=== PATIENT | female | born 1935 | race Caucasian/White ===

== ENCOUNTER → 2016-08-14 | Day surgery (SDC) | payer OTHER ==
[2016-07-30 10:43] VITALS: Ht 165.1 cm; Wt 61.4 kg
[~2016-08-14] VITALS: Ht 165.1 cm; Wt 61.4 kg
[~2016-08-14] MED LIST: 500ML BSS 0.3ML EPI 1:1000PF IRRIG ONE; ACETAMINOPHEN 325 MG TAB PO PRN; AMVISC PLUS 0.8ML SYRINGE INT OCU ONE; ASPCH81X PO; ATROPINE SULFATE 0.1 MG/ML 5ML SYR IV PRN; BSS FLUSH ONE; CALC-335 PO; CHOL20007 PO; COEN1CAP17 PO; CYAN100020 PO; ENDOCOAT 0.85ML SYRINGE INT OCU ONE; EpHEDrine SULFATE INJ 50 MG/ML AMP IV PRN; EpINEphrine INJ 1MG/ML AMP 1 MG/ML AMP ONE; FENTANYL CITRATE INJ 50 MCG/1 ML 2 ML VIAL ONE; FURO-85 PO; LACTATED RINGER'S 1000ML 500 ML IV SCH; LIDOCAINE 4% OP SOLN DROP CHARGE ONE; LIDOCAINE 4% OP SOLN DROP CHARGE OPL SCH; LIDOCAINE HCL 1% MPF 2 ML VIAL ONE; METO25TA3 PO; MIDAZOLAM HCL 1 MG/ML 2ML VIAL ONE; MISCCAP80 PO; MIX: 4ML BSS 1ML EPI 1:1000 PF TOP ONE; MOXIFLOXACIN OPH SOLN PER DROP CHARGE ONE; MULT-845 PO; OFLO0.3S OP; POLYSOL4 OPB; POTA10CA28 PO; POVIDONE-IODINE OP SOLN 30 ML BTL ONE; PRED-301 PO; PRED1SUS3 OPL; PROPARACAINE 0.5% OP SOLN PER DROP CHARGE OPL SCH; PRT40 PO; TOBRAMYCIN/DEXAMETHASONE OPH OINT PER APPLN CHARGE ONE; VISCOAT 0.5ML SYRINGE INT OCU ONE
[2016-08-14] MEDS: PHENYLEPHRINE HCL 2.5% OP SOLN PER DROP CHARGE OPL SCH ×3 (09:00→09:10)
[2016-08-14] MEDS: TROPICAMIDE 1% OP SOLN PER DROP CHARGE OPL SCH ×3 (09:01→09:11)
[2016-08-14] MEDS: CYCLOPENTOLATE HCL 1% OP SOLN PER DROP CHARGE OPL SCH ×3 (09:02→09:12)
[2016-08-14] MEDS: MOXIFLOXACIN OPH SOLN PER DROP CHARGE OPL SCH ×3 (09:03→09:13)
--- NOTE | 2016-08-14 09:30 | History & Physical Bridge - SC ---
H&P Re-Evaluation Bridge Note: I have examined the patient, reviewed the History & Physical and in the interval since the performance of the History & Physical I have noted the following changes of clinical significance: No changes noted
--- NOTE | 2016-08-14 10:43 | [facility] Post Operative Brief Note ---
Immediate Operative Summary Operative Date Aug 14, 2016. Pre-Operative Diagnosis Left Eye Cataract Post-Operative Diagnosis Same Procedure(s) Performed Right Eye Cataract Phacoemulisification With Intraocular Lens Implant Surgeon Dr. Arora Non Destructive Testing Engineer Surgeon(s) None Estimated Blood Loss None Findings left cataract Specimens None Complication(s) None Disposition
--- NOTE | 2016-08-14 10:44 | [facility] Operative Report ---
Operative Report Phaco with monofocal IOL DATE OF OPERATION: 08/14/16 PREOPERATIVE DIAGNOSIS: Senile nuclear cataract, left eye POSTOPERATIVE DIAGNOSIS: Senile nuclear cataract, left eye PROCEDURE PERFORMED: Phacoemulsification with intraocular lens implantation, left eye SURGEON: Dr. Yakov Arora ANESTHESIA: Topical with 1% intracameral lidocaine and monitored anesthesia care COMPLICATIONS: None DESCRIPTION OF PROCEDURE: After positively identifying the patient both verbally and by wristband in the preoperative area, the left eye was marked as the operative eye. The patient was then brought back to the operating room by the anesthesia and nursing staff where they were given a drop of Lidocaine and betadine into the operative eye. They were then sterilely prepped and draped in the standard fashion typical for ophthalmic surgery. Steri-strips were placed along the upper eyelids to keep the lashes back, and a lid speculum was placed into the operative eye. At this point, a documented time out was performed with members of the ophthalmology, nursing, and anesthesia staffs all agreeing upon the correct patient, correct location for surgery, correct procedure, and correct type and power of intraocular lens to be implanted. The microscope was then swung into position. First, a paracentesis wound was made using a sideport blade. Then, in sequence, 1% preservative-free lidocaine followed by Endocoat viscoelastic was injected into the anterior chamber. Next , the main incision was made with a keratome blade in triplanar fashion. A sharp cystotome was introduced into the eye and used to create a tear in the anterior capsule, which was directed into a continuous curvilinear capsulorrhexis using Utrata forceps. Hydrodissection was then performed with BSS on a flat-tip cannula. Next, the phacoemulsification handpiece was introduced into the eye and used to remove the nucleus in a ehwqnz-sct-jkhuade fashion. This was done without complication and then the irrigation-aspiration handpiece was introduced into the eye and used to remove all remaining cortical and epinuclear material. Amvisc was then injected into the anterior chamber as well as into the capsular bag and using the lens injector system, an MX60 24.0 D lens, serial number [id number], and expiration date 11/2018 was injected into the capsular bag and rotated into the correct position. Next, the irrigation- aspiration handpiece was used to remove all remaining Amvisc. BSS was used to hydrate the main wound, and then BSS was injected into the paracentesis site to reach physiologic pressure and then the main wound was checked and found to be watertight. The patient was given drops of Vigamox and Tobradex ointment into the operative eye, and then the surrounding area was cleaned and dried. A clear plastic shield was placed over the eye and the patient was then sat up and taken from the operating room by the anesthesia staff having tolerated the procedure well and suffering no complications. DISPOSITION: The patient was returned to the recovery room in stable condition. I attest to the content of the Intraoperative Record and any orders documented therein. Any exceptions are noted below.
[2016-08-14 10:45] VITALS: TEMP 36.7
--- NOTE | 2016-08-14 10:45 | Discharge Instructions-SurgCtr ---
Discharge Instructions Visit Reason for Visit: Cataract Left Eye Discharge Discharge Diagnosis / Problem: left cataract Discharge Goals Goal(s): Decrease discomfort, Improve function Activity Recommendations Activity Limitations: as noted below Anesthesia . Post Anesthesia Instructions: If you have had General Anesthesia or IV Sedation: * Do not drive today. * Resume driving when surgeon permits. * Do not make important decisions or sign legal documents today. * Call surgeon for: 1. Temperature elevations greater than 101 degrees F. 2. Uncontrollable pain. 3. Excessive bleeding. 4. Persistent nausea and vomiting. 5. Medication intolerance (nausea, vomiting or rash). * For nausea and vomiting use only clear liquids such as: tea, soda, bouillon until nausea subsides, then gradually increase diet as tolerated. * If you have any concerns or questions, call your surgeon's office. If physician is unavailable and it is an emergency, call 911 or go to the nearest emergency room. . Instructions / Follow-Up Instructions / Follow-Up ACTIVITY RECOMMENDATIONS: * Light activities. * You may walk outside, read, watch television. * You may notice redness on the white part of the eye and some blurry vision - this is normal. MEDICATIONS: Resume previous medications unless instructed otherwise by your surgeon. Start all eye drops at 1 pm today: * Eye drops (today): Prednisone - one drop in operative eye every 2 hours while awake Ofloxacin - one drop in operative eye every 2 hours while awake SPECIAL CARE INSTRUCTIONS: * Tape plastic shield over eye to sleep at night. Call your doctor at with any concerns or problems. FOLLOW UP VISIT: Follow-up with Dr Arora at [facility] as scheduled. Diet Recommendations Home Diet: no limitations Procedures Procedures Performed: Right Eye Cataract Phacoemulisification With Intraocular Lens Implant Pending Studies Studies pending at discharge: no Medical Emergencies . Who to Call and When: Medical Emergencies: If at any time you feel your situation is an emergency, please call 911 immediately. . Non-Emergent Contact Non-Emergency issues call your: Surgeon . . "Provider Documentation" section prepared by Yakov Arora.
[2016-08-14 11:06] VITALS: BP 142/75; PULSE 62; O2SAT 98
--- NOTE | 2016-08-14 11:13 | Anesthesia Progress Nt - [facility] ---
Anesthesia Post Op Note Date & Time Aug 14, 2016 at 11:13 Vital Signs Pain Intensity: 0 Vital Signs Past 12 Hours Date Time Temp Pulse Resp B/P Pulse Ox O2 Delivery O2 Flow Rate FiO2 08/14/16 11:06 62 16 142/75 98 Room Air 08/14/16 10:45 36.7 80 16 133/84 98 Room Air 08/14/16 08:54 37.0 86 20 168/113 99 Room Air Notes Mental Status: alert / awake / arousable, participated in evaluation Pt Amnestic to Procedure: Yes Nausea / Vomiting: adequately controlled Pain: adequately controlled Airway Patency, RR, SpO2: stable & adequate BP & HR: stable & adequate Hydration State: stable & adequate Anesthetic Complications: no major complications apparent
== END | disposition home or self-care (01) ==
LOC: X.SURG 08:44
PROVIDERS: ATTEND Ophthalmology
DX: H25.12 Age-related nuclear cataract, left eye (principal); I51.9 Heart disease, unspecified

== ENCOUNTER → 2016-08-28 | Day surgery (SDC) | payer OTHER ==
[2016-08-21 10:27] VITALS: Ht 165.1 cm; Wt 61.4 kg
[~2016-08-28] VITALS: Ht 165.1 cm; Wt 61.4 kg
[~2016-08-28] MED LIST changes: -LIDOCAINE 4% OP SOLN DROP CHARGE OPL SCH; +LIDOCAINE 4% OP SOLN DROP CHARGE OPR SCH; -PROPARACAINE 0.5% OP SOLN PER DROP CHARGE OPL SCH; +PROPARACAINE 0.5% OP SOLN PER DROP CHARGE OPR SCH; -VISCOAT 0.5ML SYRINGE INT OCU ONE
[2016-08-28] MEDS: PHENYLEPHRINE HCL 2.5% OP SOLN PER DROP CHARGE OPR SCH ×3 (09:17→09:27)
[2016-08-28] MEDS: TROPICAMIDE 1% OP SOLN PER DROP CHARGE OPR SCH ×3 (09:18→09:28)
[2016-08-28] MEDS: CYCLOPENTOLATE HCL 1% OP SOLN PER DROP CHARGE OPR SCH ×3 (09:19→09:29)
[2016-08-28] MEDS: MOXIFLOXACIN OPH SOLN PER DROP CHARGE OPR SCH ×3 (09:20→09:30)
--- NOTE | 2016-08-28 10:52 | [facility] Post Operative Brief Note ---
Immediate Operative Summary Operative Date Aug 28, 2016. Pre-Operative Diagnosis Cataract Right Eye Post-Operative Diagnosis Same Procedure(s) Performed Right Cataract Phacoemulsification With Intraocular Lens Implant Surgeon Dr. Arora Beaming Inspector Surgeon(s) None Estimated Blood Loss 0 Findings right cataract Specimens None Complication(s) None Disposition
--- NOTE | 2016-08-28 10:53 | [facility] Operative Report ---
Operative Report Date of Service Aug 28, 2016. Operative Report Phaco with monofocal IOL DATE OF OPERATION: 08/28/16 PREOPERATIVE DIAGNOSIS: Senile nuclear cataract, right eye POSTOPERATIVE DIAGNOSIS: Senile nuclear cataract, right eye PROCEDURE PERFORMED: Phacoemulsification with intraocular lens implantation, right eye SURGEON: Dr. Yakov Arora ANESTHESIA: Topical with 1% intracameral lidocaine and monitored anesthesia care COMPLICATIONS: None DESCRIPTION OF PROCEDURE: After positively identifying the patient both verbally and by wristband in the preoperative area, the right eye was marked as the operative eye. The patient was then brought back to the operating room by the anesthesia and nursing staff where they were given a drop of Lidocaine and betadine into the operative eye. They were then sterilely prepped and draped in the standard fashion typical for ophthalmic surgery. Steri-strips were placed along the upper eyelids to keep the lashes back, and a lid speculum was placed into the operative eye. At this point, a documented time out was performed with members of the ophthalmology, nursing, and anesthesia staffs all agreeing upon the correct patient, correct location for surgery, correct procedure, and correct type and power of intraocular lens to be implanted. The microscope was then swung into position. First, a paracentesis wound was made using a sideport blade. Then, in sequence, 1% preservative-free lidocaine followed by Endocoat viscoelastic was injected into the anterior chamber. Next , the main incision was made with a keratome blade in triplanar fashion. A sharp cystotome was introduced into the eye and used to create a tear in the anterior capsule, which was directed into a continuous curvilinear capsulorrhexis using Utrata forceps. Hydrodissection was then performed with BSS on a flat-tip cannula. Next, the phacoemulsification handpiece was introduced into the eye and used to remove the nucleus in a oyzzqb-[id number]-ewewogo fashion. This was done without complication and then the irrigation-aspiration handpiece was introduced into the eye and used to remove all remaining cortical and epinuclear material. Amvisc was then injected into the anterior chamber as well as into the capsular bag and using the lens injector system, an MX60 23.0 D lens, serial number [id number], and expiration date 12/2018 was injected into the capsular bag and rotated into the correct position. Next, the irrigation- aspiration handpiece was used to remove all remaining Amvisc. BSS was used to hydrate the main wound, and then BSS was injected into the paracentesis site to reach physiologic pressure and then the main wound was checked and found to be watertight. The patient was given drops of Vigamox and Tobradex ointment into the operative eye, and then the surrounding area was cleaned and dried. A clear plastic shield was placed over the eye and the patient was then sat up and taken from the operating room by the anesthesia staff having tolerated the procedure well and suffering no complications. DISPOSITION: The patient was returned to the recovery room in stable condition. I attest to the content of the Intraoperative Record and any orders documented therein. Any exceptions are noted below.
--- NOTE | 2016-08-28 10:54 | Discharge Instructions-SurgCtr ---
Discharge Instructions Visit Reason for Visit: Cataract Right Eye Discharge Discharge Diagnosis / Problem: right cataract Discharge Goals Goal(s): Decrease discomfort, Improve function Activity Recommendations Activity Limitations: as noted below Anesthesia . Post Anesthesia Instructions: If you have had General Anesthesia or IV Sedation: * Do not drive today. * Resume driving when surgeon permits. * Do not make important decisions or sign legal documents today. * Call surgeon for: 1. Temperature elevations greater than 101 degrees F. 2. Uncontrollable pain. 3. Excessive bleeding. 4. Persistent nausea and vomiting. 5. Medication intolerance (nausea, vomiting or rash). * For nausea and vomiting use only clear liquids such as: tea, soda, bouillon until nausea subsides, then gradually increase diet as tolerated. * If you have any concerns or questions, call your surgeon's office. If physician is unavailable and it is an emergency, call 911 or go to the nearest emergency room. . Instructions / Follow-Up Instructions / Follow-Up ACTIVITY RECOMMENDATIONS: * Light activities. * You may walk outside, read, watch television. * You may notice redness on the white part of the eye and some blurry vision - this is normal. MEDICATIONS: Resume previous medications unless instructed otherwise by your surgeon. Start all eye drops at 1 pm today: * Eye drops (today): Prednisone - one drop in operative eye every 2 hours while awake Ofloxacin - one drop in operative eye every 2 hours while awake SPECIAL CARE INSTRUCTIONS: * Tape plastic shield over eye to sleep at night. Call your doctor at with any concerns or problems. FOLLOW UP VISIT: Follow-up with Dr Arora at [facility] as scheduled. Diet Recommendations Home Diet: no limitations Procedures Procedures Performed: Right Cataract Phacoemulsification With Intraocular Lens Implant Pending Studies Studies pending at discharge: no Medical Emergencies . Who to Call and When: Medical Emergencies: If at any time you feel your situation is an emergency, please call 911 immediately. . Non-Emergent Contact Non-Emergency issues call your: Surgeon . . "Provider Documentation" section prepared by Yakov Arora.
--- NOTE | 2016-08-28 10:56 | Anesthesia Progress Nt - [facility] ---
Anesthesia Post Op Note Date & Time Aug 28, 2016 at 10:56 Vital Signs Pain Intensity: 0 Vital Signs Past 12 Hours Date Time Temp Pulse Resp B/P Pulse Ox O2 Delivery O2 Flow Rate FiO2 08/28/16 09:08 36.3 73 20 158/73 98 Room Air Notes Mental Status: alert / awake / arousable, participated in evaluation Pt Amnestic to Procedure: Yes Nausea / Vomiting: adequately controlled Pain: adequately controlled Airway Patency, RR, SpO2: stable & adequate BP & HR: stable & adequate Hydration State: stable & adequate Anesthetic Complications: no major complications apparent
[2016-08-28 10:59] VITALS: TEMP 36.6
[2016-08-28 11:36] VITALS: BP 119/68; PULSE 80; O2SAT 100
== END | disposition home or self-care (01) ==
LOC: X.SURG 08:52
PROVIDERS: ATTEND Ophthalmology
DX: H25.11 Age-related nuclear cataract, right eye (principal); I10 Essential (primary) hypertension; R01.1 Cardiac murmur, unspecified; Z98.49 Cataract extraction status, unspecified eye; Z88.0 Allergy status to penicillin; Z88.1 Allergy status to other antibiotic agents; Z88.2 Allergy status to sulfonamides; Z88.8 Allergy status to other drugs, medicaments and biological substances; Z98.890 Other specified postprocedural states

== ENCOUNTER 2016-08-30 10:29 | Observation (INO) | payer OTHER ==
[~2016-08-30] VITALS: Ht 165.1 cm; Wt 62.8 kg
[~2016-08-30 10:29] MED LIST changes: -500ML BSS 0.3ML EPI 1:1000PF IRRIG ONE; -ACETAMINOPHEN 325 MG TAB PO PRN; -AMVISC PLUS 0.8ML SYRINGE INT OCU ONE; -ATROPINE SULFATE 0.1 MG/ML 5ML SYR IV PRN; -BSS FLUSH ONE; -ENDOCOAT 0.85ML SYRINGE INT OCU ONE; -EpHEDrine SULFATE INJ 50 MG/ML AMP IV PRN; -EpINEphrine INJ 1MG/ML AMP 1 MG/ML AMP ONE; -FENTANYL CITRATE INJ 50 MCG/1 ML 2 ML VIAL ONE; -FURO-85 PO; -LACTATED RINGER'S 1000ML 500 ML IV SCH; -LIDOCAINE 4% OP SOLN DROP CHARGE ONE; -LIDOCAINE 4% OP SOLN DROP CHARGE OPR SCH; -LIDOCAINE HCL 1% MPF 2 ML VIAL ONE; -MIDAZOLAM HCL 1 MG/ML 2ML VIAL ONE; -MIX: 4ML BSS 1ML EPI 1:1000 PF TOP ONE; -MOXIFLOXACIN OPH SOLN PER DROP CHARGE ONE; -POTA10CA28 PO; -POVIDONE-IODINE OP SOLN 30 ML BTL ONE; -PROPARACAINE 0.5% OP SOLN PER DROP CHARGE OPR SCH; -PRT40 PO; -TOBRAMYCIN/DEXAMETHASONE OPH OINT PER APPLN CHARGE ONE
[2016-08-30 11:48] LABS: HEMATOCRIT 39.4 % (37-47); MEAN CELL VOLUME 93.4 fL (80-100); MEAN CORPUSCULAR HEMOGLOBIN 32.9 pg (25-34); MEAN CORPUSCULAR HGB CONC 35.3 g/dl (32-36); MEAN PLATELET VOLUME 9.7 fL (7.4-10.4); PLATELET COUNT 257 K/uL (130-400); RED BLOOD COUNT 4.22 M/uL (4.2-5.4); WHITE BLOOD COUNT 9.04 K/uL (4.8-10.8)
--- NOTE | 2016-08-30 11:54 | DIAGNOSTIC IMAGING REPORT ---
CHEST ONE VIEW PORTABLE CLINICAL HISTORY: Chest pain. COMPARISON STUDY: Chest radiograph October 27, 2015. FINDINGS: Lung volumes are normal. There is no pneumothorax or pleural effusion. There is no consolidation. Pulmonary vascularity is normal. Mild cardiomegaly is noted. IMPRESSION: No acute cardiopulmonary findings. Electronically signed by: Arpit Flood M.D. 08/30/2016 11:52 AM Dictated Date/Time: 08/30/2016 11:52 AM
[2016-08-30 11:55] LABS: PROTHROMBIN TIME (PATIENT) 10.3 SECONDS (9.0-12.0)
[2016-08-30 11:58] LABS: BUN/CREATININE RATIO 21.4 (10-20); CALCIUM 9.1 mg/dl (8.5-10.1); CREATININE 0.78 mg/dl (0.60-1.20)
[2016-08-30] MEDS ORDERED: NITROGLYCERIN 0.4 MG SL PER TAB CHARGE SL PRN ×2 (12:00→14:00)
[2016-08-30 12:04] LABS: ALB/GLOB RATIO 1.1 (0.9-2)
[2016-08-30] MEDS ORDERED: MAGNESIUM HYDROXIDE SUSP 30 ML UDC PO PRN (14:00)
[2016-08-30] MEDS ORDERED: ONDANSETRON INJ 2 MG/ML 2 ML VIAL IV PRN (14:00)
[2016-08-30] MEDS ORDERED: POLYETHYLENE (MIRALAX) 17 GM PACK PO PRN (14:00)
[2016-08-30] MEDS ORDERED: ACETAMINOPHEN 325 MG TAB PO PRN (14:00)
[2016-08-30] MEDS ORDERED: ALUMINUM/MAGNESIUM/SIMETH (MAALOX MAX) 30 ML UDC PO PRN (14:00)
--- NOTE | 2016-08-30 14:20 | History and Physical ---
History & Physical Date & Time of Service: Aug 30, 2016 at 14:03 Chief Complaint: Chest Pain Primary Care Physician: Nyla Henriquez History of Present Illness Source: patient, family Patient is a pleasant 81 y/o female, with PMHx of dermatomyositis and irregular heart beat, who presented to ED because of chest pressure. Discomfort started around 0400 this morning. Pain was described as "someone sitting on chest." Patient went to [facility] provider, who performed an EKG. Patient was told EKG was abnormal, patient was given nitro, and was sent to the ED. At ED, patient was given an additional dosing of nitro. Currently, pain is still present but minimal. Pain does not radiate. Pain is reproducible to palpation. Patient denies any recent injuries to chest. Denies any cardiac history. Patient denies any fever, chills, sweats, lightheadedness, dizziness, vision changes, palpitations, edema, SOB, wheezing, cough, abdominal pain, nausea, vomiting, diarrhea, urinary symptoms, melena, numbness/tingling, weakness, muscle/joint pain, anxiety/depression, active bleeding, or new skin discoloration/changes. Past Medical/Surgical History Medical Problems: 1. Irregular heart beat 2. Dermatomyositis Surgical Problems: 1. H/O oophorectomy 2. Hernia repair Family History No significant family history Social History Smoking Status: Never Smoker Drug Use: none Marital Status: Occupational Status: retired Allergies Coded Allergies: Azithromycin (Verified Allergy, Intermediate, hives, 08/30/16) Penicillins (Verified Allergy, Intermediate, hives, 08/30/16) Sulfa Antibiotics (Verified Allergy, Mild, hives, 08/30/16) Codeine (Verified Adverse Reaction, Mild, MS Change, 08/30/16) Gabapentin (Verified Adverse Reaction, Mild, Confusion, unable to sleep, ) Macrolides and Ketolides (Verified Adverse Reaction, Mild, Nausea with "- mycins", 08/30/16) Ketoprofen (Verified Adverse Reaction, Unknown, KETOPROFEN GEL CAUSES SKIN BURNING, 08/30/16) Home Medications Scheduled Aspirin (Aspirin Chewable), 81 MG PO QAM Calcium Citrate-Vitamin D (Citracal Petites/Vitamin), 2 TAB PO BID Cholecalciferol (Vitamin D3), 1 TAB PO QAM Coenzyme Q10 (Ubidecarenone) (Co Q 10), 1 CAP PO QAM Metoprolol Succinate (Toprol Xl), 2 TAB PO QPM Multiple Vitamins W/ Minerals (Centrum Silver Adult 50+), 1 TAB PO QAM Ofloxacin (Oph) (Ocuflox Oph Soln), 1-2 DROPS OP BID Prednisolone Acetate (Ophth) (Pred Forte 1% Oph), 1 DROPS OPL QID Prednisone (Prednisone), 7.5 MG PO QAM Probiotic Product (Probiotic), 1 CAP PO QAM Scheduled PRN Polyethylene Glycol-Propylene (Systane), 1 DROPS OPB QID PRN for DRY EYES Physical Exam Vital Signs Date Time Temp Pulse Resp B/P Pulse Ox O2 Delivery O2 Flow Rate FiO2 08/30/16 13:05 88 08/30/16 12:32 73 16 147/65 08/30/16 11:05 98 Room Air 08/30/16 11:05 69 97 Room Air 08/30/16 10:43 97 Room Air 08/30/16 10:41 74 08/30/16 10:38 36.7 82 20 168/84 95 Room Air 08/30/16 10:38 Room Air General Appearance: no apparent distress Head: normocephalic, atraumatic Eyes: normal inspection, PERRL ENT: hearing grossly normal Neck: supple Respiratory/Chest: lungs clear, no respiratory distress, no accessory muscle use, + pertinent finding (mild ttp of mid left sternal border ) Cardiovascular: regular rate, rhythm, normal peripheral pulses, + systolic murmur Abdomen/GI: normal bowel sounds, non tender, soft Back: normal inspection Neurologic/Psych: alert, normal mood/affect, oriented x 3 Skin: normal color, warm/dry, no rash Diagnostics Laboratory Results Results Past 24 Hours Test 08/30/16 10:45 08/30/16 10:54 Range/Units White Blood Count 9.04 4.8-10.8 K/uL Red Blood Count 4.22 4.2-5.4 M/uL Hemoglobin 13.9 12.0-16.0 g/dL Hematocrit 39.4 37-47 % Mean Corpuscular Volume 93.4 80-100 fL Mean Corpuscular Hemoglobin 32.9 25-34 pg Mean Corpuscular Hemoglobin Concent 35.3 32-36 g/dl RDW Standard Deviation 44.7 36.4-46.3 fL RDW Coefficient of Variation 13.0 11.5-14.5 % Platelet Count 257 130-400 K/uL Mean Platelet Volume 9.7 7.4-10.4 fL Prothrombin Time 10.3 9.0-12.0 SECONDS Prothromb Time International Ratio 1.0 0.9-1.1 Activated Partial Thromboplast Time 25.7 21.0-31.0 SECONDS Partial Thromboplastin Ratio 1.0 Sodium Level 134 136-145 mmol/L Potassium Level 4.0 3.5-5.1 mmol/L Chloride Level 98 98-107 mmol/L Carbon Dioxide Level 25 21-32 mmol/L Anion Gap 11.0 3-11 mmol/L Blood Urea Nitrogen 17 7-18 mg/dl Creatinine 0.78 0.60-1.20 mg/dl Est Creatinine Clear Calc Drug Dose 54.1 ml/min Estimated GFR () 82.1 Estimated GFR (Non- 70.8 BUN/Creatinine Ratio 21.4 10-20 Random Glucose 109 70-99 mg/dl Calcium Level 9.1 8.5-10.1 mg/dl Total Bilirubin 0.4 0.2-1 mg/dl Aspartate Amino Transf (AST/SGOT) 21 15-37 U/L Alanine Aminotransferase (ALT/SGPT) 28 12-78 U/L Alkaline Phosphatase 57 45-117 U/L Total Creatine Kinase 105 26-192 U/L Creatine Kinase MB 3.2 0.5-3.6 ng/ml Creatine Kinase MB Ratio 3.0 0-3.0 Total Protein 7.3 6.4-8.2 gm/dl Albumin 3.9 3.4-5.0 gm/dl Globulin 3.4 2.5-4.0 gm/dl Albumin/Globulin Ratio 1.1 0.9-2 Bedside Troponin I 0.000 0-0.045 ng/ml Diagnostic Radiology CHEST ONE VIEW PORTABLE CLINICAL HISTORY: Chest pain. COMPARISON STUDY: Chest radiograph October 27, 2015. FINDINGS: Lung volumes are normal. There is no pneumothorax or pleural effusion. There is no consolidation. Pulmonary vascularity is normal. Mild cardiomegaly is noted. IMPRESSION: No acute cardiopulmonary findings. Electronically signed by: Arpit Flood M.D. 08/30/2016 11:52 AM Dictated Date/Time: 08/30/2016 11:52 AM The status of this report is Signed. Draft = Not yet reviewed or approved by Radiologist. Signed = Reviewed and approved by Radiologist. EKG KIMBERLY GODINEZ ID:[id number] 30-AUG-2016 11:58:00 [facility] Sinus rhythm with occasional Premature ventricular complexes Otherwise normal ECG When compared with ECG of 30-AUG-2016 10:53, Premature ventricular complexes are now Present Confirmed by CLAUDE ADAME ([id number]) on 08/30/2016 2:04:15 PM 25mm/s 10mm/mV 150Hz 8.0 SP2 12SL 241 HD JAZMIN: 12 Referred by: Referred Self Confirmed By: CLAUDE ADAME Vent. rate 68 BPM IA interval 154 ms QRS duration 82 ms QT/QTc 378/401 ms P-R-T axes 55 30 30 1935 (81 yr) Female 63in 1lb Room: Loc: [place]:Afia Kidd ind: Impression Assessment and Plan 81 y/o female, with PMHx of dermatomyositis and irregular heartbeat, who presented to ED because of chest pressure. Acute cardiac r/o: - Admit to tele observation for cardiac monitoring - Trend cardiac enzymes - ECHO 12/13- Normal left ventricular size and function. Mild left ventricular hypertrophy. LVEF 65%. Mild aortic stenosis. ALBARO 1.5cm2, mean gradient 22mmHg. Mild aortic regurgitation. Moderate tricuspid regurgitation. PASP estimated 47mmHg consistent with pulmonary hypertension. Mild to moderate mitral regurgitation. Diastolic dysfunction. -- Repeat ECHO - Check ha1c and lipid panel - IV NSS @ 80 ml/hr - PRP and mag - Patient did have mild tenderness to chest palpation- Tylenol PRN for pain management Irregular heartbeat, NO hx of a.fib: Continue Metoprolol 50 mg Dermatomyositis: Continue Prednisone 7.5 mg Cataract surgery: Continue eye drops GI Prophylaxis: Protonix daily, Maalox PRN, IV Zofran PRN, Colace and/or Milk of Mag PRN DVT prophylaxis: Heparin 5000 units SQ q12 hrs, KAPIL and SCDs Code Status: LEVEL V, DNR Dispo: From [facility], lives with Level of Care Telemetry Resuscitation Status DO NOT RESUSCITATE VTE Prophylaxis VTE Risk Assessment Done? Y/N: Yes Risk Level: Low Given or contraindicated: Unfractionated heparin SQ, T.E.D. Stockings, SCD's
[2016-08-30] MEDS ORDERED: IV FLUIDS COMPLETED PRN (15:30)
[2016-08-30 15:53] VITALS: BP 127/75; PULSE 73; TEMP 36.5; Ht 165.1 cm; Wt 62.8 kg
[2016-08-30] MEDS ORDERED: PrednisoLONE ACET 1% OP SUSP 5 ML BTL OPL SCH (17:00)
[2016-08-30] MEDS: SODIUM CHLORIDE 0.9% 1000ML 1,000 ML IV SCH (17:05)
[2016-08-30] MEDS: PrednisoLONE ACET 1% OP SUSP 5 ML BTL OPL SCH ×2 (17:16→20:19)
[2016-08-30 19:11] VITALS: BP 130/75; PULSE 67; TEMP 36.6; O2SAT 97
[2016-08-30 20:00] VITALS: O2SAT 97
[2016-08-30] MEDS: OFLOXACIN 0.3% OP SOLN 5 ML BTL OP SCH (20:19)
[2016-08-30] MEDS: HEPARIN SOD 5000 UNIT/0.5 ML CARP SQ SCH (20:20)
[2016-08-30] MEDS ORDERED: METOPROLOL SUCC 50MG EXT REL TAB PO SCH (21:00)
[2016-08-30] MEDS ORDERED: OFLOXACIN 0.3% OP SOLN 5 ML BTL OP SCH (21:00)
--- NOTE | 2016-08-30 22:07 | EMERGENCY ROOM VISIT NOTE ---
ED Visit Note First contact with patient: 11:40 Chief Complaint: Chest pain. History of Present Illness: Ms. Villafana is a 81 year-old white female accompanied by her complaining of chest pain. Historically patient reports hypertension. She had a nonspecific episode of chest pain in tooth thousand and 13 that was not felt to be cardiac but during her stress test she did have an episode of SVT. Additionally she has aortic valve disease. Patient reports this morning at approximately 4 AM she was awoken from sleep with an acute onset of chest pain; approximately 6.5 hours ago. Since that time her pain has been constant. She places her discomfort just left of the sternal border. She reports initially her discomfort felt like something was sitting on her chest and she rated her discomfort 8/10. She is coming from [facility] and it is reported that she received a nitroglycerin for her pain prior to departure and now her discomfort is 6/10 and feels more like a "skin tightening" sensation across her chest. Her pain is nonradiating. She has not identified any aggravating factors related to her pain. Her only relief of her retain was her nitroglycerin tablet. She denies any other associated symptoms including lightheadedness, dizziness, shortness of breath, palpitations, abdominal pain, nausea, vomiting. She does report over last 2 weeks she is getting eye surgery and her vision has been a skewed causing her to have difficulty ambulating and coordinating her body movements so she does report over the last few week she's had some back pain and some shoulder pain but these have not been exacerbated since the onset of her chest pain. Review of Systems: As noted above in history of present illness. All body systems were reviewed and found to be negative as noted above. Past Medical History: As previously noted, osteoarthritis, atrophic vaginitis, lumbago, inguinal hernia, dyslipidemia, osteoporosis. Current Medications: Medications Dose Route/Sig Max Daily Dose Days Date Category Ocuflox Oph Soln (Ofloxacin (Oph)) 0.3 % Oswaldo 1-2 Drops OP BID 7 08/28/16 Reported Pred Forte 1% Oph (Prednisolone Acetate (Ophth)) 1 % Suzanne 1 Drops OPL QID 08/28/16 Reported Prednisone 5 Mg Tab 7.5 Mg PO QAM 07/30/16 Reported Systane (Polyethylene Glycol-Propylene) 1 Meghana Meghana 1 Drops OPB QID PRN 07/30/16 Reported Probiotic (Probiotic Product) 1 Cap Cap 1 Cap PO QAM 07/30/16 Reported Vitamin D3 (Cholecalciferol) 2,000 Unit Tab 1 Tab PO QAM 90 07/30/16 Reported Co Q 10 (Coenzyme Q10 (Ubidecarenone)) 100 Mg Cap 1 Cap PO QAM 07/30/16 Reported Citracal Petites/Vitamin (Calcium Citrate-Vitamin D) 1 Tab Tab 2 Tab PO BID 07/30/16 Reported Centrum Silver Adult 50+ (Multiple Vitamins W/ Minerals) 1 Tab Tab 1 Tab PO QAM 07/30/16 Reported Aspirin Chewable (Aspirin) 81 Mg Chew 81 Mg PO QAM 07/30/16 Reported Toprol Xl (Metoprolol Succinate) 25 Mg Tabcr 2 Tab PO QPM 02/24/16 Reported Allergies to Medications: Azithromycin, codeine, gabapentin, macrolides, penicillin, sulfa,ketoprofen, ketolides. Social History: Patient is not employed; she lives with her and feels safe in her home environment; Physical Examination: Vital Signs: Date Time Temp Pulse Resp B/P Pulse Ox O2 Delivery O2 Flow Rate FiO2 08/30/16 15:53 36.5 73 16 127/75 Room Air 08/30/16 14:55 73 16 134/57 Room Air 08/30/16 13:05 88 08/30/16 12:32 73 16 147/65 08/30/16 11:05 98 Room Air 08/30/16 11:05 69 97 Room Air 08/30/16 10:43 97 Room Air 08/30/16 10:41 74 08/30/16 10:38 36.7 82 20 168/84 95 Room Air 08/30/16 10:38 Room Air GENERAL: 81-year-old female in mild distress due to pain, nontoxic-appearing, afebrile and hemodynamically stable. NEUROLOGICAL: Awake, alert and oriented to person, place and time. Answering questions appropriately and following commands. Normal gait. Good hand eye coordination. SKIN: Warm, dry and pink. No soft tissue eruptions or trauma noted. HEENT: Atraumatic and normocephalic. PERRLA. Sclera white and conjunctiva pink. Oral cavity moist and pink. Pharynx is nonerythematous or edematous. Speech normal. No lymphadenopathy. Trachea midline. No jugular venous distention. No carotid bruits. BACK: No tenderness over the bony spine. No CVA tenderness. THORAX: Lungs sounds are clear to auscultation and equal bilaterally with symmetrical chest wall. No wheezing, rales or rhonchi. No crepitus, tenderness , subcutaneous air or deformities noted. HEART: Regular rate and rhythm. No gallops or rubs are appreciated. Loud aortic murmur throughout the pericardium. No lifts, heaves or thrills. PMI is not displaced. ABDOMEN: Flat, soft and nontender. Positive bowel sounds in all quadrants. No guarding, rigidity or organomegaly. EXTREMITIES: Moves all extremities well on command and with purpose. All distal neurovascular statuses are intact and equal bilaterally. No dependent edema or calf tenderness/cords. ED Course: Patient is assessed as noted above. Laboratory Testing: Test 08/30/16 10:45 08/30/16 10:54 Range/Units White Blood Count 9.04 4.8-10.8 K/uL Red Blood Count 4.22 4.2-5.4 M/uL Hemoglobin 13.9 12.0-16.0 g/dL Hematocrit 39.4 37-47 % Mean Corpuscular Volume 93.4 80-100 fL Mean Corpuscular Hemoglobin 32.9 25-34 pg Mean Corpuscular Hemoglobin Concent 35.3 32-36 g/dl RDW Standard Deviation 44.7 36.4-46.3 fL RDW Coefficient of Variation 13.0 11.5-14.5 % Platelet Count 257 130-400 K/uL Mean Platelet Volume 9.7 7.4-10.4 fL Prothrombin Time 10.3 9.0-12.0 SECONDS Prothromb Time International Ratio 1.0 0.9-1.1 Activated Partial Thromboplast Time 25.7 21.0-31.0 SECONDS Partial Thromboplastin Ratio 1.0 Sodium Level 134 136-145 mmol/L Potassium Level 4.0 3.5-5.1 mmol/L Chloride Level 98 98-107 mmol/L Carbon Dioxide Level 25 21-32 mmol/L Anion Gap 11.0 3-11 mmol/L Blood Urea Nitrogen 17 7-18 mg/dl Creatinine 0.78 0.60-1.20 mg/dl Est Creatinine Clear Calc Drug Dose 54.1 ml/min Estimated GFR () 82.1 Estimated GFR (Non- 70.8 BUN/Creatinine Ratio 21.4 10-20 Random Glucose 109 70-99 mg/dl Calcium Level 9.1 8.5-10.1 mg/dl Total Bilirubin 0.4 0.2-1 mg/dl Aspartate Amino Transf (AST/SGOT) 21 15-37 U/L Alanine Aminotransferase (ALT/SGPT) 28 12-78 U/L Alkaline Phosphatase 57 45-117 U/L Total Creatine Kinase 105 26-192 U/L Creatine Kinase MB 3.2 0.5-3.6 ng/ml Creatine Kinase MB Ratio 3.0 0-3.0 Total Protein 7.3 6.4-8.2 gm/dl Albumin 3.9 3.4-5.0 gm/dl Globulin 3.4 2.5-4.0 gm/dl Albumin/Globulin Ratio 1.1 0.9-2 Bedside Troponin I 0.000 0-0.045 ng/ml Chest X-Ray: Was read by myself and the radiologist showing no acute infiltrates , effusions or pneumothorax. Normal pulmonary vasculature. Mildly enlarged heart and abnormalities. EKG: Was read by myself and reviewed with Dr. Guzmán; shows normal sinus rhythm with ventricular rate of 68 bpm. 1 premature ventricular complex was present. No acute ST changes indicating ischemia, injury or infarction. No previous EKGs on file compare. Patient was hydrated with normal saline and she received a nitroglycerin trial which decreased her discomfort 2-3/10. Patient was reassessed multiple times during her stay in the emergency department. Patient's case was reviewed with Dr. Guzmán; independently assessed the patient we agreed on diagnostic approach, treatment, disposition and plan. Patient's case was consulted with case management and [facility]; for medical observation/admission. Patient's family members were educated about kenisha's findings. Clinical Impression: Acute chest pain. Decision-Making: Initially my differential diagnosis I considered acute infarction, pulmonary embolism, pneumothorax, pneumonia, musculoskeletal disorder and other causes. Disposition and Plan: Patient be brought in the [facility]; please see her notes for final disposition and plan.
[2016-08-30 23:09] VITALS: BP 117/73; PULSE 68; TEMP 36.7; O2SAT 98
[2016-08-31 03:10] LABS: BLOOD UREA NITROGEN 10 mg/dl (7-18); BUN/CREATININE RATIO 14.1 (10-20); CALCIUM 8.5 mg/dl (8.5-10.1); CARBON DIOXIDE 28 mmol/L (21-32); CHLORIDE 102 mmol/L (98-107); CREATININE 0.69 mg/dl (0.60-1.20); GLUCOSE 92 mg/dl (70-99); MAGNESIUM 2.3 mg/dl (1.8-2.4); POTASSIUM 4.2 mmol/L (3.5-5.1); SODIUM 137 mmol/L (136-145)
[2016-08-31 03:30] LABS: CHOLESTEROL 199 mg/dl (0-200); CHOLESTEROL/HDL RATIO 1.9; HDL CHOLESTEROL 104 mg/dl; LDL CHOLESTEROL CALCULATED 82 mg/dl; TRIGLYCERIDES 65 mg/dl (0-150); VERY LOW DENSITY LIPOPROT CALC 13 mg/dl
[2016-08-31 04:11] VITALS: BP 123/73; PULSE 63; TEMP 36.9; O2SAT 96
[2016-08-31 05:54] LABS: ESTIMATED AVERAGE GLUCOSE 105 mg/dl; HA1C FLAG Normal (Normal)
[2016-08-31] MEDS: SODIUM CHLORIDE 0.9% 1000ML 1,000 ML IV SCH (06:10)
[2016-08-31 08:10] VITALS: BP 168/70; PULSE 76; TEMP 36.8; O2SAT 98
[2016-08-31] MEDS ORDERED: ASPIRIN 81 MG ECTAB PO SCH (09:00)
[2016-08-31] MEDS: PANTOprazole SOD 40 MG TAB PO SCH ×2 (09:00→16:32)
[2016-08-31] MEDS: HEPARIN SOD 5000 UNIT/0.5 ML CARP SQ SCH (09:00)
[2016-08-31] MEDS ORDERED: CEROVITE ADV FORMULA TAB PO SCH (09:00)
[2016-08-31] MEDS: PrednisoLONE ACET 1% OP SUSP 5 ML BTL OPL SCH ×2 (09:11→13:00)
[2016-08-31] MEDS: OFLOXACIN 0.3% OP SOLN 5 ML BTL OP SCH (09:11)
[2016-08-31 12:38] VITALS: BP 160/79; PULSE 98; TEMP 36.7; O2SAT 99
--- NOTE | 2016-08-31 14:26 | ECHOCARDIOGRAM REPORT ---
*NOTICE TO RECEIVING CONSTITUTION PARTY AGENCY This information is strictly Confidential and protected under [place] law. [place] law prohibits you from making any further disclosure of this information unless further disclosure is expressly permitted by the written consent of the person to whom it pertains or is authorized by law. A general authorization for the release of medical or other information is not sufficient for this purpose. Hospital accepts no responsibility if the information is made available to any other person, INCLUDING THE PATIENT. Interpretation Summary * Name: KIMBERLY GODINEZ Study Date: 08/31/2016 07:51 AM BP: 123/73 mmHg * Patient Location: [facility] [place] HR: 63 * : 1935 (M/d/yyyy) Gender: Female Height: 65 in * Age: 81 yrs Ethnicity: [place] Weight: 151 lb * Ordering Physician: Lorna Wang * Performed By: Lorraine Lewis * * Reason For Study: CARDIOGENIC SHOCK * BSA: 1.8 m2 * Hyperdynamic left ventricular systolic function. * Mild concentric left ventricular hypertrophy. * Left ventricular diastolic dysfunction. * Normal chamber dimensions. * Moderate mitral and tricuspid regurgitation. * Mildly elevated estimated right ventricular systolic pressure. * -- Conclusions -- * Aortic valve sclerosis moderate, without significant aortic valvular stenosis. Procedure Details * A complete two-dimensional transthoracic echocardiogram was performed (2D, M-mode, Doppler and color flow Doppler). Left Ventricle * The left ventricle is normal in size. * There is mild concentric left ventricular hypertrophy. * Ejection Fraction = >70 %. * The left ventricle is hyperdynamic. * A full diastolic examination was done with clinical findings of Class I diastolic dysfunction. * No regional wall motion abnormalities noted. Right Ventricle * The right ventricle is normal in size and function. * The right ventricular systolic function is normal as assessed by tricuspid annular plane systolic excursion (TAPSE) (normal >1.5 cm). Atria * The left atrial size is normal. * Right atrial size is normal. * No ASD detected; PFO is not assessed. Mitral Valve * The mitral valve is normal. * There is no mitral valve stenosis. * There is moderate mitral regurgitation. Tricuspid Valve * The tricuspid valve is normal. * There is no tricuspid stenosis. * There is moderate tricuspid regurgitation. * Right ventricular systolic pressure is elevated at 40-50mmHg. Aortic Valve * The aortic valve is trileaflet. * The aortic valve opens well. * Aortic valve sclerosis moderate, without significant aortic valvular stenosis. * Aortic stenosis is absent. * Trace aortic regurgitation. Pulmonic Valve * The pulmonic valve is not well visualized. * There is no pulmonic valvular stenosis. * There is no significant pulmonary regurgitation. Great Vessels * The aortic root is normal size. Pericardium/Pleural * There is no pericardial effusion. Great Vessels * Normal inferior vena cava diameter and respiratory variation suggests normal central venous pressure. MMode 2D Measurements and Calculations IVSd 1.3 cm IVSs 1.7 cm LVIDd 3.9 cm LVIDs 2.3 cm LVPWd 1.3 cm LVPWs 1.5 cm IVS/LVPW 0.99 FS 42.4 % EDV(Teich) 66.6 ml ESV(Teich) 17.2 ml EF(Teich) 74.1 % EDV(cubed) 60.2 ml ESV(cubed) 11.5 ml EF(cubed) 80.9 % % IVS thick 29.4 % % LVPW thick 14.6 % LV mass(C)d 181.4 grams LV mass(C)dI 103.3 grams/m\S\2 LV mass(C)s 124.4 grams LV mass(C)sI 70.8 grams/m\S\2 SV(Teich) 49.4 ml SI(Teich) 28.1 ml/m\S\2 SV(cubed) 48.7 ml SI(cubed) 27.7 ml/m\S\2 Ao root diam 3.0 cm Ao root area 6.9 cm\S\2 ACS 0.80 cm LA dimension 3.1 cm asc Aorta Diam 3.5 cm LA/Ao 1.0 LVOT diam 1.4 cm LVOT area 1.6 cm\S\2 LVAd ap4 22.6 cm\S\2 LVLd ap4 6.7 cm EDV(MOD-sp4) 61.7 ml EDV(sp4-el) 65.0 ml LVAs ap4 9.6 cm\S\2 LVLs ap4 5.0 cm ESV(MOD-sp4) 15.2 ml ESV(sp4-el) 15.6 ml EF(MOD-sp4) 75.5 % EF(sp4-el) 75.9 % LVAd ap2 21.3 cm\S\2 LVLd ap2 6.5 cm EDV(MOD-sp2) 57.8 ml EDV(sp2-el) 59.5 ml LVAs ap2 9.8 cm\S\2 LVLs ap2 5.5 cm ESV(MOD-sp2) 14.8 ml ESV(sp2-el) 14.7 ml EF(MOD-sp2) 74.4 % EF(sp2-el) 75.2 % LVLd %diff -3.54 % EDV(MOD-bp) 60.4 ml LVLs %diff 9.4 % ESV(MOD-bp) 15.7 ml EF(MOD-bp) 74.0 % SV(MOD-sp4) 46.6 ml SI(MOD-sp4) 26.5 ml/m\S\2 SV(MOD-sp2) 43.0 ml SI(MOD-sp2) 24.5 ml/m\S\2 SV(MOD-bp) 44.7 ml SI(MOD-bp) 25.5 ml/m\S\2 SV(sp4-el) 49.4 ml SI(sp4-el) 28.1 ml/m\S\2 SV(sp2-el) 44.8 ml SI(sp2-el) 25.5 ml/m\S\2 Doppler Measurements and Calculations MV E max matt 99.7 cm/sec MV A max matt 107.0 cm/sec MV E/A 0.93 MV dec time 0.16 sec Ao V2 max 354.4 cm/sec Ao max PG 50.2 mmHg Ao max PG (full) 40.6 mmHg Ao V2 mean 237.9 cm/sec Ao mean PG 25.9 mmHg Ao mean PG (full) 21.8 mmHg Ao V2 VTI 72.7 cm ALBARO(I,A) 0.71 cm\S\2 ALBARO(I,D) 0.71 cm\S\2 ALBARO(V,A) 0.71 cm\S\2 ALBARO(V,D) 0.71 cm\S\2 AI max matt 425.8 cm/sec AI max PG 72.5 mmHg AI dec slope 330.1 cm/sec\S\2 AI P1/2t 377.7 msec LV V1 max PG 9.6 mmHg LV V1 mean PG 4.0 mmHg LV V1 max 155.3 cm/sec LV V1 mean 88.6 cm/sec LV V1 VTI 31.7 cm MR max matt 696.1 cm/sec MR max PG 194.0 mmHg MR mean matt 558.2 cm/sec MR mean PG 139.6 mmHg MR VTI 244.2 cm MR PISA 0.58 cm\S\2 MR PISA radius 0.30 cm SV(Ao) 498.1 ml SI(Ao) 283.7 ml/m\S\2 SV(LVOT) 51.7 ml SI(LVOT) 29.4 ml/m\S\2 PA V2 max 79.3 cm/sec PA max PG 2.5 mmHg PI max matt 433.4 cm/sec PI max PG 75.1 mmHg PI dec slope 230.8 cm/sec\S\2 PI P1/2t 549.9 msec TR max matt 334.9 cm/sec
[2016-08-31 15:37] VITALS: BP 160/79; PULSE 98; TEMP 36.7; O2SAT 99
[2016-08-31] MEDS ORDERED: PRED-301 PO (15:59)
[2016-08-31] MEDS ORDERED: PRT40 PO (15:59)
--- NOTE | 2016-08-31 16:08 | Discharge Instructions ---
Discharge Instructions Admission Reason for Admission: Chest Pain Discharge Discharge Diagnosis / Problem: chest pain - heart attack ruled out; pain could be muscle or heartburn Discharge Goals Goal(s): Learn about illness, Diagnostic testing, Therapeutic intervention Activity Recommendations Activity Limitations: resume your previous activity . Instructions / Follow-Up Instructions / Follow-Up From Dr. Wells - 1. In the event your chest pain was related to reflux/heartburn please start protonix (pantoprazole) 40mg once daily every morning. This will also help protect your stomach from the negative effects of prednisone (prednisone can lead to stomach irritation and ulcers). This has been faxed to the [facility] for you. 2. In the event some of your pain was muscular in origin the higher dose of prednisone should help. 3. For your dermatomyositis I would recommend you increase your prednisone to 20mg daily starting 09/01/16 and stay on the 20mg until you see Dr. Gonzales. 4. Please see Dr. Gonzales either Friday or Friday of this week. I would discuss the prednisone dose with him, and also the merits of an outpatient stress test. 5. Please note that your sed rate and muscle test called "CK" (or "CPK") were both normal. Current Hospital Diet Patient's current hospital diet: AHA Diet (Heart Healthy) Discharge Diet Recommended Diet: Regular Diet Procedures Procedures Performed: chest x-ray -- normal multiple EKGs -- normal and unchanged from old EKGs Pending Studies Studies pending at discharge: no Laboratory Results Hemoglobin A1c Test 08/31/16 02:45 Range/Units Estimated Average Glucose 105 mg/dl Hemoglobin A1c 5.3 4.5-5.6 % Lipid Panel Test 08/31/16 02:45 Range/Units Triglycerides Level 65 0-150 mg/dl Cholesterol Level 199 0-200 mg/dl HDL Cholesterol 104 mg/dl Cholesterol/HDL Ratio 1.9 LDL Cholesterol, Calculated 82 mg/dl Medical Emergencies . Who to Call and When: Medical Emergencies: If at any time you feel your situation is an emergency, please call 911 immediately. . Non-Emergent Contact Non-Emergency issues call your: Primary Care Provider Call Non-Emergent contact if: temperature is above 100.5, your pain is not controlled, your pain is worsening, your pain is unusual for you, your pain is concerning you, you have any medication questions any worsening muscle pain (dermatomyositis pain), difficulty ambulating, recurrent chest pain, etc . . "Provider Documentation" section prepared by Dexter Wells. VTE Core Measure Inpt VTE Proph given/why not?: Unfractionated heparin SQ, T.E.D. Stockings, SCD 's
--- NOTE | 2016-08-31 22:49 | Discharge Summary ---
Discharge Summary Date of Service Aug 31, 2016. Discharge Summary Admission Date: Aug 30, 2016 at 15:53 Discharge Date: Aug 31, 2016 Discharge Disposition: Home Principal Diagnosis: chest pain, ACS ruled out Problems/Secondary Diagnoses: 1. dermatomyositis 2. HTN 3. h/o SVT 4. moderate mitral regurgitation 5. moderate tricuspid regurgitation 6. mild pulmonary hypertension Procedures: echocardiogram: Hyperdynamic left ventricular systolic function. Mild concentric left ventricular hypertrophy. Left ventricular diastolic dysfunction. Normal chamber dimensions. Moderate mitral and tricuspid regurgitation. Mildly elevated estimated right ventricular systolic pressure. No regional wall motion abnormalities. Medication Reconciliation New Medications: Pantoprazole (Pantoprazole Sodium) 40 Mg Tab 40 MG PO QAM, #30 TAB 2 Refills Changed Medications: Prednisone (Prednisone) 5 Mg Tab 20 MG PO QAM, #1 TAB 0 Refills (Changed from: 7.5 MG; Refills: ) Continued Medications: Aspirin (Aspirin Chewable) 81 Mg Chew 81 MG PO QAM Calcium Citrate-Vitamin D (Citracal Petites/Vitamin) 1 Tab Tab 2 TAB PO BID Cholecalciferol (Vitamin D3) 2,000 Unit Tab 1 TAB PO QAM for 90 Days, #90 TAB 3 Refills Coenzyme Q10 (Ubidecarenone) (Co Q 10) 100 Mg Cap 1 CAP PO QAM Metoprolol Succinate (Toprol Xl) 25 Mg Tabcr 2 TAB PO QPM Multiple Vitamins W/ Minerals (Centrum Silver Adult 50+) 1 Tab Tab 1 TAB PO QAM Ofloxacin (Oph) (Ocuflox Oph Soln) 0.3 % Oswaldo 1-2 DROPS OP BID for 7 Days, #1 BTL Polyethylene Glycol-Propylene (Systane) 1 Meghana Meghana 1 DROPS OPB QID PRN for DRY EYES, #30 ML 6 Refills Prednisolone Acetate (Ophth) (Pred Forte 1% Oph) 1 % Suzanne 1 DROPS OPL QID, #5 ML Probiotic Product (Probiotic) 1 Cap Cap 1 CAP PO QAM Discharge Exam Physical Exam: General Appearance: WD/WN, no apparent distress ENT: pharynx normal Neck: no JVD Respiratory/Chest: lungs clear, no respiratory distress, no accessory muscle use, + pertinent finding (minimal chest pain with palpation over left sternal-costal junction) Cardiovascular: regular rate, rhythm, no gallop, + systolic murmur (2/6 RUSB /apex) Abdomen / GI: normal bowel sounds, non tender, soft, no organomegaly Extremities: no pedal edema Neurologic/Psychiatric: no motor/sensory deficits, alert, oriented x 3, + pertinent finding (no proximal muscle weakness of hips or shoulders) Skin: + pertinent finding (mild malar rash on face) Hospital Course HISTORY OF PRESENT ILLNESS: Patient is a pleasant 81 y/o female, with PMHx of dermatomyositis and irregular heart beat, who presented to ED because of chest pressure. Discomfort started around 0400 this morning. Pain was described as "someone sitting on chest." Patient went to [facility] provider, who performed an EKG. Patient was told EKG was abnormal, patient was given nitro, and was sent to the ED. At ED, patient was given an additional dosing of nitro. Currently, pain is still present but minimal. Pain does not radiate. Pain is reproducible to palpation. Patient denies any recent injuries to chest. Denies any cardiac history. Patient denies any fever, chills, sweats, lightheadedness, dizziness, vision changes, palpitations, edema, SOB, wheezing, cough, abdominal pain, nausea, vomiting, diarrhea, urinary symptoms, melena, numbness/tingling, weakness, muscle/joint pain, anxiety/depression, active bleeding, or new skin discoloration/changes. HOSPITAL COURSE: The patient had no further chest pain/pressure after admission. Cardiac enzymes x 3 sets were negative. Telemetry was normal. Sed rate, crp, and CPK were all normal. EKGs remained stable and without ischemic changes. ECHO showed results as noted above. Lipids showed HDL > 100. There was no clinical evidence of pericarditis, CHF, pneumonia, or PE. I suspect that her pain/pressure may have been GI or musculoskeletal in origin. Due to her chronic prednisone use I recommended use of PPI for GI prophylaxis. This will also be helpful if her chest pressure event was due to reflux. The patient reported worsening myalgias reminiscent of past flares of dermatomyositis. I suggested she increase her prednisone to 20mg daily and to follow-up with her PCP, Dr. Gonzales, for further management. ' Lastly, I recommended she speak with her PCP about the merits of pursuing a chemical stress test as an outpatient. She will also need routine follow-up of her MR and TR in 1-2 years with repeat echocardiogram. Total Time Spent: Greater than 30 minutes This includes examination of the patient, discharge planning, medication reconciliation, and communication with other providers. Discharge Instructions Please refer to the electronic Patient Visit Report (Discharge Instructions) for additional information. Follow-Up see Dr. Gonzales within 5 days of discharge Additional Copies To Nyla Henriquez; J Carlos Gonzales M.D.
[2017-02-06] MEDS ORDERED: FURO-85 PO (15:07)
[2017-02-06] MEDS ORDERED: POTA10CA28 PO (15:07)
[2017-02-06] MEDS ORDERED: PRED-301 PO (15:42)
== END 2016-08-31 17:39 | disposition home or self-care (01) ==
LOC: ENRESERVTM → ENRESERVDT → EDBD 10:29 → C.EDC 10:31 → C.2T 15:53
PROVIDERS: ADMIT Hospitalist; ATTEND Internal Medicine
DX: R07.9 Chest pain, unspecified (principal); M33.90 Dermatopolymyositis, unspecified, organ involvement unspecified; I27.2 Other secondary pulmonary hypertension; I08.3 Combined rheumatic disorders of mitral, aortic and tricuspid valves; I49.9 Cardiac arrhythmia, unspecified; I11.9 Hypertensive heart disease without heart failure; M81.0 Age-related osteoporosis without current pathological fracture; Z51.81 Encounter for therapeutic drug level monitoring; Z79.899 Other long term (current) drug therapy; Z79.52 Long term (current) use of systemic steroids; Z66 Do not resuscitate

== ENCOUNTER → 2016-09-25 | Outpatient (CLI) | payer OTHER ==
[~2016-09-25] MED LIST changes: -CYAN100020 PO; +FURO-85 PO; +POTA10CA28 PO; +PRT40 PO
--- NOTE | 2016-09-26 13:33 | MAMMOGRAPHY REPORT ---
BILATERAL DIGITAL SCREENING MAMMOGRAM TOMOSYNTHESIS WITH CAD: 09/25/2016 CLINICAL HISTORY: Routine screening. Patient has no complaints. TECHNIQUE: Breast tomosynthesis in addition to standard 2D mammography was performed. Current study was also evaluated with a Computer Aided Detection (CAD) system. COMPARISON: Comparison is made to exams dated: 09/12/2015 mammogram, 07/26/2013 mammogram, 09/06/2014 mammogram - [facility], 07/06/2012 mammogram, and 06/03/2011 mammogram. BREAST COMPOSITION: There are scattered areas of fibroglandular density in both breasts. FINDINGS: There is a persistent 6 mm mass in the lateral left breast, similar in size comparing to t he 09/12/2015 mammogram, and previously documented to represent a simple cyst on ultrasound. No new suspicious mass, architectural distortion or cluster of microcalcifications is seen. There are mod erate vascular calcifications in the breasts. IMPRESSION: ACR BI-RADS CATEGORY 1: NEGATIVE There is no mammographic evidence of malignancy. A 1 year screening mammogram is recommended. The p atient will receive written notification of the results. Approximately 10% of breast cancers are not detected with mammography. A negative mammographic repor t should not delay biopsy if a clinically suggestive mass is present. Kayli Monaco M.D. ay/:09/25/2016 17:09:41 Sql Tech: Lucy VILLALOBOS(R)(M), [facility] letter sent: Normal 1/2 BI-RADS Code: ACR BI-RADS Category 1: Negative
== END | disposition home or self-care (01) ==
LOC: C.MAMM 12:45
PROVIDERS: ATTEND Internal Medicine
DX: Z12.31 Encounter for screening mammogram for malignant neoplasm of breast (principal)

== ENCOUNTER → 2016-09-25 | Outpatient (CLI) | payer OTHER ==
[~2016-09-25] MED LIST changes: +ATROPINE SULFATE 0.1 MG/ML 5ML SYR ONE; +DOBUTamine HCL 12.5 MG/ML 20 ML VIAL ONE; +METOPROLOL TARTRATE 1 MG/ML VIAL ONE
--- NOTE | 2016-09-25 13:10 | DOBUTAMINE ECHO ---
*NOTICE TO RECEIVING CONSTITUTION PARTY AGENCY This information is strictly Confidential and protected under [place] law. [place] law prohibits you from making any further disclosure of this information unless further disclosure is expressly permitted by the written consent of the person to whom it pertains or is authorized by law. A general authorization for the release of medical or other information is not sufficient for this purpose. Hospital accepts no responsibility if the information is made available to any other person, INCLUDING THE PATIENT. Interpretation Summary * Name: KIMBERLY GODINEZ Study Date: 09/25/2016 09:31 AM BP: 152/67 mmHg * Patient Location: [facility] HR: 70 * : 1935 (M/d/yyyy) Gender: Female Height: 65 in * Age: 81 yrs Ethnicity: [place] Weight: 135 lb * Ordering Physician: J Carlos Gonzales * Referring Physician: J Carlos Gonzales * Performed By: Ashley Dubon RDCS * * Reason For Study: Chest pain * BSA: 1.7 m2 * Normal baseline EKG with development of upsloping ST depressions at peak infusion whcih resolved slowly in recovery. * Normal LV systolic function at baseline with good augmentation and no inducible wall motion abnormalities. * IMPRESSION: * Diagnostic dobutamine echocardiogram without inducible ischemia Procedure Details * DOBUTAMINE ECHO, CPT#31973 Left Ventricle * Left ventricular systolic function is normal. Stress Parameters * Normal baseline electrocardiogram. * Mild St depression at peak infusion * The stress portion of this study was personally supervised by the undersigned interpreting physician. * Rest heart rate was '70' BPM. * Rest blood pressure was '152/67' * Maximum heart rate achieved was 126 bpm. * Maximum heart rate was 91 % of maximum age-predicted heart rate. * Maximum blood pressure was '163/44' * Maximum Dobutamine infusion rate was '50' mcg/kg/min. * The patient did not exhibit any symptoms during drug infusion. MMode 2D Measurements and Calculations LVAd ap4 17.3 cm\S\2 LVLd ap4 6.2 cm EDV(MOD-sp4) 39.3 ml EDV(sp4-el) 40.9 ml LVAs ap4 8.8 cm\S\2 LVLs ap4 5.0 cm ESV(MOD-sp4) 13.3 ml ESV(sp4-el) 13.0 ml EF(MOD-sp4) 66.1 % EF(sp4-el) 68.3 % LVAd ap2 19.1 cm\S\2 LVLd ap2 6.8 cm EDV(MOD-sp2) 45.9 ml EDV(sp2-el) 46.0 ml LVAs ap2 9.3 cm\S\2 LVLs ap2 5.1 cm ESV(MOD-sp2) 14.4 ml ESV(sp2-el) 14.4 ml EF(MOD-sp2) 68.5 % EF(sp2-el) 68.7 % LVLd %diff 8.0 % EDV(MOD-bp) 43.8 ml LVLs %diff 0.68 % ESV(MOD-bp) 13.9 ml EF(MOD-bp) 68.3 % SV(MOD-sp4) 26.0 ml SI(MOD-sp4) 15.5 ml/m\S\2 SV(MOD-sp2) 31.4 ml SI(MOD-sp2) 18.8 ml/m\S\2 SV(MOD-bp) 29.9 ml SI(MOD-bp) 17.9 ml/m\S\2 SV(sp4-el) 27.9 ml SI(sp4-el) 16.7 ml/m\S\2 SV(sp2-el) 31.6 ml SI(sp2-el) 18.9 ml/m\S\2
== END | disposition home or self-care (01) ==
LOC: C.CPL 08:44
PROVIDERS: ATTEND Internal Medicine
DX: R07.9 Chest pain, unspecified (principal); Z12.31 Encounter for screening mammogram for malignant neoplasm of breast

== ENCOUNTER → 2016-10-28 | Outpatient (CLI) | payer OTHER ==
[~2016-10-28] MED LIST changes: -ATROPINE SULFATE 0.1 MG/ML 5ML SYR ONE; -DOBUTamine HCL 12.5 MG/ML 20 ML VIAL ONE; -METOPROLOL TARTRATE 1 MG/ML VIAL ONE
[2016-10-28 09:31] LABS: BLOOD UREA NITROGEN 21 mg/dl (7-18); CARBON DIOXIDE 30 mmol/L (21-32); CHLORIDE 99 mmol/L (98-107); CREATININE 0.79 mg/dl (0.60-1.20); GLUCOSE 89 mg/dl (70-99); POTASSIUM 3.9 mmol/L (3.5-5.1); SODIUM 137 mmol/L (136-145)
[2016-10-28 09:37] LABS: CALCIUM 9.2 mg/dl (8.5-10.1)
== END | disposition home or self-care (01) ==
LOC: C.LABFOXMH 08:41
PROVIDERS: ATTEND Internal Medicine
DX: M33.90 Dermatopolymyositis, unspecified, organ involvement unspecified (principal)

== ENCOUNTER → 2016-11-06 | Outpatient (CLI) | payer OTHER ==
[2016-11-06 17:39] LABS: CALCIUM 9.5 mg/dl (8.5-10.1)
[2016-11-06 17:46] LABS: RHEUMATOID FACTOR < 10.0 U/mL (0-15)
[2016-11-11 02:39] LABS: ALBUMIN 4.3 G/DL (3.8-4.8); ANTI-CENTROMERE AB <1.0 NEG AI (<1.0 NEG); ANTI-SS-A <1.0 NEG AI (<1.0 NEG); ANTI-SS-B <1.0 NEG AI (<1.0 NEG); DNA ds CRITHIDIA NEGATIVE (NEGATIVE); GAMMA GLOBULIN 0.6 G/DL (0.8-1.7); Sm Antibody <1.0 NEG AI (<1.0 NEG); TOTAL PROTEIN 6.7 G/DL (6.2-8.3)
== END | disposition home or self-care (01) ==
LOC: C.LAB1850 15:13
PROVIDERS: ATTEND Internal Medicine Rheumatology
DX: M51.26 Other intervertebral disc displacement, lumbar region (principal); M33.90 Dermatopolymyositis, unspecified, organ involvement unspecified; T38.0X1A Poisoning by glucocorticoids and synthetic analogues, accidental (unintentional), initial encounter; M81.0 Age-related osteoporosis without current pathological fracture; Z79.52 Long term (current) use of systemic steroids

== ENCOUNTER → 2017-01-17 | Outpatient (CLI) | payer OTHER | END | disposition home or self-care (01) | LOC: C.LABFOXMH 11:05 | PROVIDERS: ATTEND Nurse Practitioner Family | DX: R35.0 Frequency of micturition (principal) ==

== ENCOUNTER → 2017-01-27 | Outpatient (CLI) | payer OTHER | END | disposition home or self-care (01) | LOC: C.MAMM 07:46 | PROVIDERS: ATTEND Internal Medicine Rheumatology | DX: M81.0 Age-related osteoporosis without current pathological fracture (principal); E55.9 Vitamin D deficiency, unspecified; M85.89 Other specified disorders of bone density and structure, multiple sites ==

== ENCOUNTER → 2017-02-03 | Outpatient (CLI) | payer OTHER | END | disposition home or self-care (01) | LOC: C.LAB1850 14:35 | PROVIDERS: ATTEND Internal Medicine Rheumatology | DX: M51.26 Other intervertebral disc displacement, lumbar region (principal); M62.89 Other specified disorders of muscle ==

== ENCOUNTER → 2017-03-02 | Outpatient (CLI) | payer OTHER ==
[~2017-03-02] MED LIST changes: -OFLO0.3S OP; -PRED1SUS3 OPL; -PRT40 PO
[2017-03-02 11:19] LABS: MANUAL MICROSCOPIC REQUIRED? YES; REVIEW REQ? NO; URINE APPEARANCE CLOUDY (CLEAR); URINE BILIRUBIN NEG (NEG); URINE NITRITE NEG (NEG); URINE PH 5.5 (4.5-7.5); URINE SPECIFIC GRAVITY 1.025 (1.000-1.030); UROBILINOGEN NEG (NEG)
[2017-03-02 11:20] LABS: URINE COLOR RED
[2017-03-02 11:24] LABS: URINE RBC >30 /hpf (0-4); URINE WBC >30 /hpf (0-5)
[2017-03-02 11:25] LABS: URINE BACTERIA 2+ (NEG)
== END | disposition home or self-care (01) ==
LOC: C.LABFOXMH 08:32
PROVIDERS: ATTEND Nurse Practitioner Family
DX: N39.0 Urinary tract infection, site not specified (principal)

== ENCOUNTER → 2017-03-24 | Outpatient (CLI) | payer OTHER ==
[2017-03-24 12:50] LABS: ALT/SGPT 97 U/L (12-78); BLOOD UREA NITROGEN 12 mg/dl (7-18); BUN/CREATININE RATIO 17.9 (10-20); CALCIUM 10.1 mg/dl (8.5-10.1); CARBON DIOXIDE 29 mmol/L (21-32); CHLORIDE 99 mmol/L (98-107); CREATININE 0.66 mg/dl (0.60-1.20); GLUCOSE 82 mg/dl (70-99); POTASSIUM 3.8 mmol/L (3.5-5.1); SODIUM 136 mmol/L (136-145)
[2017-03-24 12:53] LABS: ALB/GLOB RATIO 0.9 (0.9-2); ALKALINE PHOSPHATASE 161 U/L (45-117); AST/SGOT 47 U/L (15-37)
== END | disposition home or self-care (01) ==
LOC: C.LABFOXMH 12:56
PROVIDERS: ATTEND Internal Medicine Hospice and Palliative Medicine
DX: R60.0 Localized edema (principal)

== ENCOUNTER → 2017-06-24 | Outpatient (CLI) | payer OTHER ==
[~2017-06-24] MED LIST changes: -METO25TA3 PO; +METO25TA4 PO
[2017-06-24 12:25] LABS: INFLUENZA B ANTIGEN Neg for Influ B (NEG)
== END | disposition home or self-care (01) ==
LOC: C.LABFOXMH 11:55
PROVIDERS: ATTEND Internal Medicine
DX: R05 Cough (principal)

== ENCOUNTER → 2017-07-30 | Outpatient (CLI) | payer OTHER ==
[~2017-07-30] MED LIST changes: +METO25TA3 PO; -METO25TA4 PO
[2017-08-02 10:29] LABS: ALDOLASE** TC 66985R 5 U/L (0.0-8.1)
== END | disposition home or self-care (01) ==
LOC: C.LAB1850 11:36
PROVIDERS: ATTEND Internal Medicine Rheumatology
DX: M33.90 Dermatopolymyositis, unspecified, organ involvement unspecified (principal); M81.8 Other osteoporosis without current pathological fracture; T38.0X5A Adverse effect of glucocorticoids and synthetic analogues, initial encounter; M70.72 Other bursitis of hip, left hip

== ENCOUNTER → 2017-08-20 | Outpatient (CLI) | payer OTHER ==
[~2017-08-20] MED LIST changes: -METO25TA3 PO; +METO25TA4 PO
== END | disposition home or self-care (01) ==
LOC: C.LABFOXMH 12:00
PROVIDERS: ATTEND Internal Medicine Hospice and Palliative Medicine
DX: R35.0 Frequency of micturition (principal); N30.91 Cystitis, unspecified with hematuria

== ENCOUNTER → 2018-02-04 | Outpatient (CLI) | payer OTHER ==
--- NOTE | 2018-02-05 15:12 | MAMMOGRAPHY REPORT ---
BILATERAL DIGITAL SCREENING MAMMOGRAM TOMOSYNTHESIS WITH CAD: 02/04/2018 CLINICAL HISTORY: Routine screening. Patient has no complaints. TECHNIQUE: The study was acquired using full field digital technology and interpreted from soft copy. Breast tomosynthesis in addition to standard 2D mammography was performed. Current study was also ev aluated with a Computer Aided Detection (CAD) system. COMPARISON: Comparison is made to exams dated: 09/25/2016 mammogram, 09/18/2015 mammogram, 09/12/2015 m ammogram, 09/06/2014 mammogram, 07/26/2013 mammogram - [facility], and 07/06/2012 mammo gram. BREAST COMPOSITION: There are scattered areas of fibroglandular density in both breasts. FINDINGS: There are mild vascular calcifications in the breasts. No suspicious mass, architectural di stortion or cluster of microcalcifications is seen. IMPRESSION: ACR BI-RADS CATEGORY 1: NEGATIVE There is no mammographic evidence of malignancy. A 1 year screening mammogram is recommended.( 019) The patient will receive written notification of the results. Some breast cancers are not detected with mammography. A negative mammographic report should not krupa y biopsy if a clinically suggestive mass is present. Kayli Monaco M.D. ay/:02/04/2018 14:12:32 Dog Barber: RT Barbra(Nia)(M), [facility] letter sent: Normal 1/2 BI-RADS Code: ACR BI-RADS Category 1: Negative
== END | disposition home or self-care (01) ==
LOC: C.MAMM 13:47
PROVIDERS: ATTEND Internal Medicine
DX: Z12.31 Encounter for screening mammogram for malignant neoplasm of breast (principal)

== ENCOUNTER → 2018-02-11 | Outpatient (CLI) | payer OTHER | END | disposition home or self-care (01) | LOC: C.LABFOXMH 11:02 | PROVIDERS: ATTEND Internal Medicine Hospice and Palliative Medicine | DX: T81.89XA Other complications of procedures, not elsewhere classified, initial encounter (principal); X58.XXXA Exposure to other specified factors, initial encounter ==

== ENCOUNTER 2018-12-06 11:08 | Inpatient (IN) ==
[2018-12-06] MEDS ORDERED: ACETAMINOPHEN 500 MG TAB PO STA (11:48)
[2018-12-06 12:19] LABS: Basophils # (auto) 0.02 K/uL (0-0.2); Basophils % (auto) 0.1 %; Hematocrit (blood only) 40.7 % (37-47); Hemoglobin 14.2 g/dL (12.0-16.0); Immature Granulocytes # (auto) 0.03 K/uL (0.00-0.02); Immature Granulocytes % (auto) 0.2 %; Lymphocytes # (auto) 0.47 K/uL (1.2-3.4); Lymphocytes % (auto) 3.1 %; Mean Corpuscular Hgb Conc 34.9 g/dL (32-36); Mean Corpuscular Volume 88.3 fL (80-100); Mean Platelet Volume 8.8 fL (7.4-10.4); Monocytes # (auto) 0.71 K/uL (0.11-0.59); Monocytes % (auto) 4.6 %; Neutrophils # (auto) 14.11 K/uL (1.4-6.5); Platelet Count 195 K/uL (130-400); RDW Coefficient of Variation 13.4 % (11.5-14.5); RDW Standard Deviation 43.8 fL (36.4-46.3); Red Blood Count 4.61 M/uL (4.2-5.4); White Blood Count 15.34 K/uL (4.8-10.8)
[2018-12-06 12:39] LABS: BUN Creatinine Ratio 33.9 (10-20); Calcium 9.4 mg/dl (8.5-10.1); Est GFR (African American) 94.5; Est GFR (Non-African American) 81.5; Potassium 3.8 mmol/L (3.5-5.1)
[2018-12-06] MEDS: SODIUM CHLORIDE 0.9% 1000ML 1,000 ML IV SCH ×2 (14:13→20:39)
--- NOTE | 2018-12-06 14:38 | Emergency Department Note ---
History of Present Illness General Chief complaint: Ankle Pain Stated complaint: ANKLE PAIN, HOT TO TOUCH, FEVER Time Seen by Provider: 12/06/18 11:37 Source: patient and family Mode of arrival: ambulatory Limitations: no limitations History of Present Illness Maximum Pain Intensity: 9 This 83-year-old white female presents with her , for evaluation of her left lower of not feeling well yesterday and today. She noted redness on her right lower leg today along with significant pain in the area. There was no trauma. She was outside yesterday but denies any insect bite or bee sting. She denies any history of cellulitis. She denies any open wounds on her leg. She recently did have her toenails trimmed by the cellophane press operator. She states the second toe may have been trimmed too short. It is tender on the tip and she is wearing a Band-Aid. No other cold symptoms. She denies any shortness of breath, cough, sore throat, rhinorrhea, or ear pain. No urinary tract symptoms. No treatment yet. She did not take any Tylenol for her fever this morning. She has known polymyositis. She states she has been having a flare recently. 2 weeks ago she was started on prednisone 20 mg daily. She was then weaned to 15 mg daily. Yesterday she started 10 mg daily. She states she knows this can weaken her immune response. Home Medications Home Medications Medication Instructions Recorded Confirmed Type acetaminophen [Tylenol Extra 500 mg PO Q6H PRN 12/06/18 12/06/18 History Strength] ascorbic acid (vitamin C) [Vitamin 1,000 mg PO QAM 12/06/18 12/06/18 History C] aspirin 81 mg PO QAM 12/06/18 12/06/18 History baclofen 5 mg PO UD 12/06/18 12/06/18 History calcium citrate-vitamin D3 2 tab PO BID 12/06/18 12/06/18 History [Citracal + D Petites] cholecalciferol (vitamin D3) 2,000 unit PO QAM 12/06/18 12/06/18 History [Vitamin D3] coenzyme Q10 [CoQ-10] 100 mg PO QAM 12/06/18 12/06/18 History lactobacillus combination no.4 3,000 mmu cells PO QAM 12/06/18 12/06/18 History [Probiotic] metoprolol succinate 50 mg PO PM 12/06/18 12/06/18 History vhibhjlm-[id number]-FA-lutein 1 tab PO QAM 12/06/18 12/06/18 History [Centrum Silver Women] prednisone 10 mg PO QAM 12/06/18 12/06/18 History Allergies Allergy/AdvReac Type Severity Reaction Status Date / Time mivacurium Allergy Intermediate hives Verified 12/06/18 12:25 Penicillins Allergy Intermediate hives Verified 12/06/18 12:25 Sulfa (Sulfonamide Allergy Mild hives Verified 12/06/18 12:25 Antibiotics) codeine AdvReac Mild MS Change Verified 12/06/18 12:25 gabapentin AdvReac Mild Confusion, Verified 12/06/18 12:25 unable to sleep Macrolide Antibiotics AdvReac Mild Nausea Verified 12/06/18 12:25 with "-mycins" ketoprofen AdvReac Unknown KETOPROFEN Verified 12/06/18 12:25 GEL CAUSES SKIN BURNING Past Med/Surg History Medical History Concussion (Resolved) Irregular heart beat (Chronic) Hyponatremia Parotiditis Heart murmur, systolic Polymyositis Surgical History S/P hernia repair (Resolved) Family History Other No pertinent family history Social History Preferred Language: Slovak Communication Ability: Effective Hearing Ability: Normal 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 Beliefs That Will Affect Care: None marital status: Current Living Situation: Spouse current occupational status: retired Other Information That Helps Us Care for You: No Feels Safe at Home: Yes Safety Concerns: Feels Safe At This Time Smoking Status: Never smoker Do You Dip or Chew Tobacco: No Second Hand Exposure: No Tobacco Cessation Education Requested by Patient: No Hx Alcohol Use: No Hx Substance Use: No Review of Systems A total of 10 systems reviewed and were otherwise negative Physical Exam Vital Signs Vital Signs - 24 hr 12/06/18 11:14 12/06/18 13:08 12/06/18 15:00 Temperature 38.3 C H Temperature Source Oral Sepsis Recent Fever Within 48 Hours Yes Sepsis New/Unexplained Change in Mental Status No Sepsis Action Taken by Nursing No Action Required Pulse Rate 100 H Pulse Rate [Apical] 86 88 Respiratory Rate 20 16 16 Blood Pressure 173/82 H Blood Pressure [Left Arm] 153/86 H 156/65 H Blood Pressure Mean 112 Blood Pressure Mean [Left Arm] 108 95 Pulse Oximetry 95 96 98 Oxygen Delivery Method Room Air Room Air Room Air 12/06/18 17:00 Temperature 36.7 C Temperature Source Oral Sepsis Recent Fever Within 48 Hours Sepsis New/Unexplained Change in Mental Status Sepsis Action Taken by Nursing Pulse Rate Pulse Rate [Apical] 80 Respiratory Rate 16 Blood Pressure Blood Pressure [Left Arm] 152/80 H Blood Pressure Mean Blood Pressure Mean [Left Arm] 104 Pulse Oximetry 98 Oxygen Delivery Method Room Air General: Well-developed, well-nourished, elderly white female, in obvious disc omfort. No acute distress. Laying on a bed. Alert and oriented. Skin: Warm and dry with good turgor. No rashes or lesions. No ecchymosis or erythema. The patient is not diaphoretic. No abrasions. Venous stasis changes in both lower extremities. Musculoskeletal: Left foot and ankle evaluation reveals no intra-articular effusions. Intact motor function to the ankle and toes. Second toe has a short toenail. No open wounds. Mild discomfort with palpation over the tip of the toe. No pain with palpation over her other toes. No pain with palpation over the forefoot or midfoot on the left side. She does have exquisite pain with palpation on the lower leg just above the ankle. It is primarily lateral. There is significant warmth and redness in this area as well. No open wound. N o pain with palpation of her gastroc or knee. Supple motion of her knee. Right lower leg evaluation reveals no tenderness, warmth, or redness. Intact motor function of the right toes, ankle, and knee, without discomfort. Heart: Irregularly irregular. 4/6 systolic ejection murmur noted. She states this is baseline. Peripheral pulses are 2+. No gallops or rubs. Lungs: Lungs are clear to auscultation. No crackles rhonchi or wheezing. Good air movement. The patient is able to take a deep breath. Abdomen: Abdomen was inspected, auscultated, and palpated. Bowel sounds present x 4. Soft, nontender to palpation. No hepato-splenomegaly. No masses noted. No rebound. Neurologic: Gross sensation is intact across the lower extremities by soft touch. Course Administered Medications Sodium Chloride (Nss 1000ml) 1,000 mls @ 125 mls/hr IV .Q8H LAMONT Stop: 01/05/19 13:59 Last Admin: 12/06/18 14:13 Dose: 125 mls/hr Documented by: [id number] Discontinued Medications Acetaminophen (Tylenol) 1,000 mg PO NOW STA Stop: 12/06/18 11:49 Last Admin: 12/06/18 12:17 Dose: 1,000 mg Documented by: [id number] Daptomycin (Cubicin) 250 mg IV NOW STA; Protocol Stop: 12/06/18 14:58 Last Admin: 12/06/18 16:55 Dose: Not Given Documented by: [id number] Daptomycin 250 mg/ Syringe 5 mls @ 2.5 mls/min IV NOW STA; Protocol Stop: 12/06/18 15:12 Last Admin: 12/06/18 15:43 Dose: 2.5 mls/min Documented by: [id number] Ketorolac Tromethamine (Toradol) 15 mg IV NOW ONE Stop: 12/06/18 14:58 Last Admin: 12/06/18 15:25 Dose: 15 mg Documented by: [id number] Medical Decision Making Differential Diagnosis Sepsis, cellulitis, lymphangitis, necrotizing fasciitis, retained foreign body, insect sting Medical Records Attestation: I reviewed the patient's medical records. Home Medications Current Medication List: was personally reviewed by me Laboratory Data Attestation: I reviewed the patient's lab results. CBC, PRP, and lactate were obtained today. WBCs are elevated at 15.3. Normal electrolytes. Elevated BUN at 22. Normal creatinine at 0.65. Normal glucose. Lactate normal at 1.0. Result diagrams: 12/06/18 12:07 12/06/18 12:07 Lab Results 12/06/18 12/06/18 12/06/18 Range/Units 12:07 12:07 12:07 WBC 15.34 H (4.8-10.8) K/uL RBC 4.61 (4.2-5.4) M/uL Hgb 14.2 (12.0-16.0) g/dL Hct 40.7 (37-47) % MCV 88.3 (80-100) fL MCH 30.8 (25-34) pg MCHC 34.9 (32-36) g/dL RDW Std Deviation 43.8 (36.4-46.3) fL RDW Coeff of Corey 13.4 (11.5-14.5) % Plt Count 195 (130-400) K/uL MPV 8.8 (7.4-10.4) fL Immature Gran % (Auto) 0.2 % Neut % (Auto) 92.0 % Lymph % (Auto) 3.1 % [place] % (Auto) 4.6 % Eos % (Auto) 0.0 % Baso % (Auto) 0.1 % Immature Gran # (Auto) 0.03 H (0.00-0.02) K/uL Neut # (Auto) 14.11 H (1.4-6.5) K/uL Lymph # (Auto) 0.47 L (1.2-3.4) K/uL [place] # (Auto) 0.71 H (0.11-0.59) K/uL Eos # (Auto) 0.00 (0-0.5) K/uL Baso # (Auto) 0.02 (0-0.2) K/uL Sodium 134 L (136-145) mmol/L Potassium 3.8 (3.5-5.1) mmol/L Chloride 99 (98-107) mmol/L Carbon Dioxide 27 (21-32) mmol/L Anion Gap 8.0 (3-11) BUN 22 H (7-18) mg/dl Creatinine 0.65 (0.6-1.2) mg/dl Est Cr Clr Drug Dosing 58.0 ml/min Est GFR ( Amer) 94.5 Est GFR (Non-Af Amer) 81.5 BUN/Creatinine Ratio 33.9 H (10-20) Glucose 97 (70-99) mg/dl Lactate 1.0 (0.4-2.0) mmol/L Calcium 9.4 (8.5-10.1) mg/dl Blood Pressure Blood Pressure Disposition: elevated BP felt to be situational MDM Narrative Patient was evaluated in C8. Conservative care measures were discussed. IV was established. Labs were obtained. She was febrile with a temperature of 38.3 upon initial presentation. Patient was given Tylenol 650 mg orally. She remained stable while in the ED. WBCs were elevated at 15.3. Given her physical exam, elevated white count, and fever, blood cultures x2 were also obtained. Given her comorbidities, I do not think she would do well on oral treatment alone. Option of Dalvance treatment versus admission for IV antibiotics was discussed with her. I was unable to verify if her insurance would cover the Dalvance treatment. Because of its expense, the patient desired admission. I think this is reasonable. Not in any hospitalist service was consulted. Please see Dr. durham for final management. She was started on Toradol 15 mg IV for fever and pain control. She has extensive antibiotic allergies. She was given daptomycin 250 mg IV for the cellulitis. Patient was seen in conjunction with Dr. Apaircio, who also evaluated the patient and concurred with today's diagnosis and treatment plan. Impression & Plan Cellulitis of left lower extremity Discharge Plan Visit Data Chief Complaint: Ankle Pain Stated Complaint: ANKLE PAIN, HOT TO TOUCH, FEVER ED Provider: Cristela Aparicio ED Midlevel Provider: Braden Flanagan Discharge Problem: Cellulitis of left lower extremity Forms Stand Alone Forms: [facility] [place] [employer] Prescriptions Prescriptions: No Action prednisone 10 mg tablet 10 mg PO QAM RF: 0 baclofen 10 mg tablet 5 mg PO UD RF: 0 metoprolol succinate 25 mg tablet extended release 24 hr 50 mg PO PM RF: 0 ascorbic acid (vitamin C) [Vitamin C] 1,000 mg Tablet 1,000 mg PO QAM RF: 0 aspirin 81 mg Tablet,Delayed Release (Dr/Ec) 81 mg PO QAM RF: 0 acetaminophen [Tylenol Extra Strength] 500 mg Tablet 500 mg PO Q6H PRN (Reason: Pain) RF: 0 coenzyme Q10 [CoQ-10] 100 mg Capsule 100 mg PO QAM RF: 0 cholecalciferol (vitamin D3) [Vitamin D3] 2,000 unit Capsule 2,000 unit PO QAM RF: 0 calcium citrate-vitamin D3 [Citracal + D Petites] 200 mg calcium -250 unit Tablet 2 tab PO BID RF: 0 Centrum Silver Women 8 mg iron-400 mcg-300 mcg Tablet 1 tab PO QAM RF: 0 Probiotic 3 billion cell Capsule 3,000 mmu cells PO QAM RF: 0 Referrals Referrals: Martinez Redmond [Primary Care Provider] -
[2018-12-06] MEDS ORDERED: KETOROLAC TROMETHAMINE 15 MG/ML VIAL IV ONE (14:57)
[2018-12-06] MEDS ORDERED: DAPTOmycin 500 MG VIAL IV STA (14:57)
[2018-12-06] MEDS ORDERED: DAPTOmycin 250 MG in SYRINGE 0 ML IV STA (15:11)
--- NOTE | 2018-12-06 18:17 | History & Physical Report ---
Date of Service December 06, 2018 Assessment & Plan (1) Cellulitis of left lower extremity: Patient with cellulitis left lower extremity Continue with daptomycin 250 mg IV every 24 hours Blood cultures and urine culture pending Monitor on telemetry secondary to harsh murmur Cannot exclude endocarditis at this point Hemodynamically stable Follow serial lab Consider gout -check sed rate and uric acid Consider 2 view ankle x-ray to rule out osteomyelitis/septic joint (2) Irregular heart beat: Patient states that she has had chronic irregular heartbeat but denies atrial fibrillation or atrial flutter Check ECG Patient is on metoprolol succinate 50 mg p.o. p.m. -continue while inpatient Monitor on telemetry unit (3) Aortic stenosis: Per prior echocardiogram No indication for recurrent echocardiogram at this time We will follow on registered nursing professor closely for endocarditis pending blood cultures x2 Murmur present on exam (4) Polymyositis: Patient is on baclofen -continue while inpatient Patient also started on prednisone 2 weeks ago for respiratory issues Continue prednisone taper Pain currently controlled (5) DVT prophylaxis: Heparin 5000 units subcutaneously twice daily Ambulate as tolerated Please refer to Dr. Wells's addendum for further recommendations History of Present Illness Attending: Dr. Wells There is an 83-year-old female that resides at [facility]. She follows with Dr. monique there. This morning she awoke and had pain to her left lower extremity and throughout the day had increased swelling and edema. She reports that she had her toenails trimmed about 2 to 3 weeks ago by oracle database administrator and feels that they cut her nails too short. She had difficulty walking on the leg but was able to ambulate. She presented the emergency department was found to have a white blood cell of 15.3 as well as a T-max of 38.3. She empirically received daptomycin 250 mg IV in the emergency department. The patient denies injury or history of thromboembolic disease. She denies sweats chills or rigors. She has no nausea or vomiting and no diarrhea. Mrs. Villafana has a past medical history which includes irregular heartbeat, hyponatremia, chronic pain from polymyositis on baclofen. The patient does report that she has had some shortness of breath and presented to her primary care physician who placed her on prednisone taper. She started this 2 weeks ago and was tapered down to 10 mg as of yesterday. The patient has no other acute complaints and denies chest pain, chest tightness, tachyarrhythmia awareness. Primary Care Provider: Martinez Redmond Allergies Allergy/AdvReac Type Severity Reaction Status Date / Time mivacurium Allergy Intermediate hives Verified 12/06/18 12:25 Penicillins Allergy Intermediate hives Verified 12/06/18 12:25 Sulfa (Sulfonamide Allergy Mild hives Verified 12/06/18 12:25 Antibiotics) codeine AdvReac Mild MS Change Verified 12/06/18 12:25 gabapentin AdvReac Mild Confusion, Verified 12/06/18 12:25 unable to sleep Macrolide Antibiotics AdvReac Mild Nausea Verified 12/06/18 12:25 with "-mycins" ketoprofen AdvReac Unknown KETOPROFEN Verified 12/06/18 12:25 GEL CAUSES SKIN BURNING Home Medications Home Medications Medication Instructions Recorded Confirmed Type acetaminophen [Tylenol Extra 500 mg PO Q6H PRN 12/06/18 12/06/18 History Strength] ascorbic acid (vitamin C) [Vitamin 1,000 mg PO QAM 12/06/18 12/06/18 History C] aspirin 81 mg PO QAM 12/06/18 12/06/18 History baclofen 5 mg PO UD 12/06/18 12/06/18 History calcium citrate-vitamin D3 2 tab PO BID 12/06/18 12/06/18 History [Citracal + D Petites] cholecalciferol (vitamin D3) 2,000 unit PO QAM 12/06/18 12/06/18 History [Vitamin D3] coenzyme Q10 [CoQ-10] 100 mg PO QAM 12/06/18 12/06/18 History lactobacillus combination no.4 3,000 mmu cells PO QAM 12/06/18 12/06/18 History [Probiotic] metoprolol succinate 50 mg PO PM 12/06/18 12/06/18 History jnoowpfd-rfp-ogue-FA-lutein 1 tab PO QAM 12/06/18 12/06/18 History [Centrum Silver Women] prednisone 10 mg PO QAM 12/06/18 12/06/18 History Past Med/Surg History Medical History Concussion (Resolved) Irregular heart beat (Chronic) Hyponatremia Parotiditis Heart murmur, systolic Polymyositis Surgical History S/P hernia repair (Resolved) Family History Other No pertinent family history Social History Preferred Language: French Communication Ability: Effective Hearing Ability: Normal 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 Pleasant EYES: No icterus, gaze conjugate. Pupils equal round and reactive to light NOSE: No evidence of epistaxis MOUTH: No lesions or candidiasis. Tongue is midline NECK: Supple. No stridor. No JVD LUNGS: CTA B/L, no wheezes, rales or rhonchi HEART: Irregular, rate controlled. Harsh systolic murmur ABDOMEN: Soft, NT, ND, BS Present. No guarding or tenderness to palpation EXTREMITIES: Left LE edema, pedal pulses intact and equal bilaterally. Left lower extremity with a small opening in the rojo area. Area is extremely eryth ematous and warm to touch. Some ankle swelling on the medial malleolus. NEURO: A&OX3. Pupils equal round and reactive to light. No pronator drift. Strength is equal and appropriate bilateral upper and lower extremities. Cerebellar function is intact with [id number] and rapid alternating mo vements. No slurred speech. No facial droop. No appreciation of neurological deficit on physical exam Results & Data Vital Signs (Past 12 Hours) Vital Signs Temp Pulse Pulse Resp BP BP Pulse Ox 12/06/18 17:00 36.7 C 80 16 152/80 H 98 12/06/18 15:00 88 16 156/65 H 98 12/06/18 13:08 86 16 153/86 H 96 12/06/18 11:14 38.3 C H 100 H 20 173/82 H 95 Laboratory Results 12/06/18 12:07 12/06/18 12:07 Medications Administered Daptomycin 250 mg IV Code Status & VTE Plan Code Status Level 1: Full resuscitation VTE Prophylaxis Plan VTE Prophylaxis will be ordered: Yes Supervising Physician Co-Signing Physician Notes Attending Attestation and Admission Note: Pt seen/examined, chart reviewed, care plan d/w MICHELLE Fair. I agree w/ the graf components of his admission documentation. 83yo female with long-standing polymyositis - recently placed on prednisone 3 weeks ago (started with 30mg, and has tapered to 10mg/day) - who presents with fever this AM along with acute onset of severe left ankle and left distal leg pain/swelling/erythema. Went to bed last pm without ANY swelling/pain/redness. When she awoke at 730am today she could not bear weight to the LLE because of pain. Exam - gen - NAD, nontoxic mouth - MMM neck - no JVD heart - irregular, s1, s2, 2-3/6 systolic murmur heard all over chest lungs - CTA b/l abd - soft NT ND BS+ ext - RLE w/o edema; LLE - considerable foot/ankle edema vascular - pulses 2+ b/l feet musculo - left ankle - considerable edema; exquisite tenderness to palpation over b/l malleoli; with passive flexion/extension of ankle very low level of pain skin - hot to touch over distal left tib-fib region; erythema starting proximal to left ankle and extending onto ankle joint, to both malleoli, and onto dorsum of foot; the areas of erythema are tender. chronic stasis changes b/l shins, left leg worse than right leg. sed rate normal uric acid normal WBC count elevated Cr 0.65 EKG- my reading - sinus arrhythmia with PACs A/P: LLE cellulitis; cannot rule out septic arthritis of left ankle; cannot rule out inflammatory arthritis left ankle (gout, pseudogout, etc). Polymyositis - on prednisone low-dose for 3 weeks. Agree w/ daptomycin IV for LLE cellulitis. Will add clindamycin for strep/anaerobe coverage. (is PCN allergic, thus defer on cephalosporins). If any worsening add gram negative coverage. I spoke with Dr Arcos from orthopedics who will evaluate ankle to see if there is joint involvement from the cellulitis. If there is any concern for such arthrocentesis may be performed. Pain control. Low threshold for "stress dose" steroids if any issues with BP, etc. Dexter Wells MD
--- NOTE | 2018-12-06 19:39 | XRay Report ---
XR ankle LT 2V HISTORY: 83 years-old Female hot, painful ankle; septic?? Acute left ankle pain and swelling COMPARISON: None available TECHNIQUE: 3 views of the left ankle FINDINGS: Moderate circumferential soft tissue swelling about the lower leg and ankle. No acute fracture or dis location. Mild degenerative changes about the midfoot and hindfoot with mild marginal spurring of the calcaneus. No opaque foreign body. IMPRESSION: Moderate soft tissue swelling without acute fracture or dislocation. The above report was generated using voice recognition software. It may contain grammatical, syntax o r spelling errors. Electronically signed by: Nestor Lema M.D. 12/06/2018 7:38 PM
[2018-12-06] MEDS ORDERED: DAPTOmycin 500 MG VIAL IV SCH (20:04)
[2018-12-06] MEDS ORDERED: POLYETHYLENE (MIRALAX) 17 GM PACK PO PRN (20:04)
[2018-12-06] MEDS ORDERED: ONDANSETRON INJ 2 MG/ML 2 ML VIAL IV PRN (20:04)
[2018-12-06] MEDS: ACETAMINOPHEN 500 MG TAB PO PRN (20:49)
[2018-12-06 21:30] LABS: Prothrombin Time 10.3 Seconds (9.0-12.0)
[2018-12-06] MEDS: METOPROLOL SUCC 50MG EXT REL TAB PO SCH (22:14)
[2018-12-06] MEDS: CALCIUM 600MG + VIT D 400 IU TAB PO SCH (22:14)
[2018-12-06] MEDS: HEPARIN SOD 5,000 UNIT/0.5 ML VIAL SQ SCH (22:15)
[2018-12-07] MEDS: ACETAMINOPHEN 500 MG TAB PO PRN ×4 (02:37→23:38)
[2018-12-07] MEDS: CLINDAMYCIN 300 MG in DEXTROSE 5% 50 ML IV SCH ×3 (02:40→17:06)
[2018-12-07] MEDS ORDERED: KETOROLAC TROMETHAMINE 10 MG TABLET PO STA (03:11)
[2018-12-07] MEDS: SODIUM CHLORIDE 0.9% 1000ML 1,000 ML IV SCH ×3 (05:24→22:14)
[2018-12-07 06:37] LABS: Basophils # (auto) 0.02 K/uL (0-0.2); Basophils % (auto) 0.1 %; Eosinophils # (auto) 0.01 K/uL (0-0.5); Eosinophils % (auto) 0.1 %; Hemoglobin 12.8 g/dL (12.0-16.0); Immature Granulocytes # (auto) 0.04 K/uL (0.00-0.02); Immature Granulocytes % (auto) 0.3 %; Lymphocytes # (auto) 1.07 K/uL (1.2-3.4); Mean Corpuscular Hgb Conc 34.6 g/dL (32-36); Mean Corpuscular Volume 88.5 fL (80-100); Mean Platelet Volume 9.2 fL (7.4-10.4); Monocytes # (auto) 0.43 K/uL (0.11-0.59); Monocytes % (auto) 2.8 %; Neutrophils # (auto) 13.78 K/uL (1.4-6.5); Neutrophils % (auto) 89.7 %; Platelet Count 163 K/uL (130-400); RDW Coefficient of Variation 13.5 % (11.5-14.5); RDW Standard Deviation 43.9 fL (36.4-46.3); Red Blood Count 4.18 M/uL (4.2-5.4); White Blood Count 15.35 K/uL (4.8-10.8)
[2018-12-07 07:10] LABS: BUN Creatinine Ratio 21.7 (10-20); Calcium 8.3 mg/dl (8.5-10.1); Creatinine Clr Calc Pharmacy 56.2 ml/min; Est GFR (African American) 93.6; Est GFR (Non-African American) 80.7; Potassium 4.3 mmol/L (3.5-5.1)
--- NOTE | 2018-12-07 07:18 | Consultation Report ---
DATE OF CONSULTATION: 12/06/2018 ORTHOPEDIC SURGERY CONSULTATION Special attention to left ankle pain and swelling. HISTORY OF PRESENT ILLNESS: This is an 83-year-old female resident of [facility] who notes insidious onset of pain and swelling in the ankle region. She states it began earlier this morning. Prior to 5:00 a.m., she had no complaints. She denies any trauma. 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 She has recently been on a course of prednisone for polymyositis. Prednisone taper was started 2 weeks ago. PAST MEDICAL HISTORY: polymyositis, heart murmur, hyponatremia and irregular heartbeat. PAST SURGICAL HISTORY: Hernia. SOCIAL HISTORY: She lives at [facility]. She does not smoke. PHYSICAL EXAMINATION: EXTREMITIES: On left ankle examination, she has supple motion of the ankle without significant pain. She does have swelling proximal to the ankle joint and significant redness and the area proximal to the ankle is very warm. The ankle itself is not warm and does not show the majority of erythema. I do not detect any significant palpable effusion in the ankle joint. Toes are warm and well perfused. She has no open injuries, but she has brawny edema seen in bilateral extremities in the ankle region. The patient has a mild amount of fluctuance versus bogginess in the medial aspect just superior to the ankle joint. LABORATORY STUDIES: White count 15.3. X RAYS: no acute fracture, no gas in the soft tissues, no lytic lesions in the bone. ASSESSMENT: Left ankle cellulitis. PLAN: Clinically, this does appear to represent cellulitis rather than septic ankle as she is tender in the distal tibial region, more so than the ankle. Recommendation is to continue antibiotics. We will follow up her clinical course. If she does not have significant improvement within 24 hours, we would consider MRI to rule out any abscess as she does have some slight fluctuance over the medial malleolus and proximal to that. We will continue to follow. YOSHI
[2018-12-07] MEDS: LACTOBACILLUS ACIDOPHILUS (FLORANEX) TAB PO SCH ×4 (08:05→17:07)
[2018-12-07] MEDS: CALCIUM 600MG + VIT D 400 IU TAB PO SCH ×2 (08:06→20:17)
[2018-12-07] MEDS: CHOLECALCIFEROL 1,000 UNITS TAB PO SCH (08:06)
[2018-12-07] MEDS: CEROVITE ADV FORMULA TAB PO SCH (08:07)
[2018-12-07] MEDS: predniSONE 10 MG TABLET PO SCH (08:07)
[2018-12-07] MEDS: ASCORBIC ACID 500 MG TAB PO SCH (08:07)
[2018-12-07] MEDS: ASPIRIN 81 MG ECTAB PO SCH (08:08)
[2018-12-07] MEDS: HEPARIN SOD 5,000 UNIT/0.5 ML VIAL SQ SCH ×2 (08:08→20:17)
[2018-12-07] MEDS ORDERED: NON-FORMULARY MEDICATION (Coenzyme Q10 [Coq-10] 100 MG) PO SCH (09:00)
--- NOTE | 2018-12-07 15:00 | Hospitalist Progress Note ---
Date of Service December 07, 2018 Assessment & Plan (1) Cellulitis of left lower extremity: Patient with cellulitis left lower extremity Continue with daptomycin 250 mg IV every 24 hours Clindamycin IV added one set of aerobic blood cultures with gram negative growth, follow up final results Hemodynamically stable WBC remains high at 15k ankle x-ray with no fractures, just soft tissue swelling appreciate consult from Dr. Arcos, no concerns for septic joint, continue to treat cellulitis (2) Irregular heart beat: Patient states that she has had chronic irregular heartbeat but denies atrial fibrillation or atrial flutter Patient is on metoprolol succinate 50 mg p.o. p.m. -continue while inpatient (3) Aortic stenosis: Per prior echocardiogram No indication for recurrent echocardiogram at this time We will follow on telemetry murmur on exam (4) Polymyositis: Patient is on baclofen -continue while inpatient Patient also started on prednisone 2 weeks ago for respiratory issues Continue prednisone taper Pain currently controlled (5) DVT prophylaxis: Heparin 5000 units subcutaneously twice daily Ambulate as tolerated Please refer to Dr. Wells's addendum for further recommendations (6) Gram-negative bacteremia: one of two cultures positive will await final results and treat accordingly multiple allergies make treatment difficult no fever so will continue Clindamycin since she tolerates it Subjective patient feeling a little better today less pain in the left ankle, skin still warm and red, dark discoloration eating okay, appetite suboptimal no fever or chills no chest pain, no cough, no dyspnea updated at the bedside reviewed labs, WBC remains elevated at 15k one blood culture growing gram negative bacilli discussed trying Rocephin but she said she gets severe rashes with PCN/cephalosporins Review of Systems Review of Systems: All systems reviewed & are unremarkable except as noted in HPI & below Constitutional: no fever, no chills, no sweats, no anorexia and no weight gain Respiratory: no cough and no dyspnea Cardiovascular: no chest pain and no edema Gastrointestinal: no abdominal pain, no nausea, no vomiting, no constipation and no diarrhea/loose stools Integumentary: + rash (left lower leg, red, warm) Physical Exam Constitutional: WD/WN, vitals as above Eyes: PERRL, conjunctivae normal, anicteric sclerae ENMT: external ear and nose normal, oropharynx normal Neck: trachea midline, no thyromegaly Respiratory: normal respiratory effort, lungs clear to auscultation Cardiovascular: Rate/Rhythm: regular rate and regular rhythm Heart Sounds: normal S1, normal S2 and + murmur (systolic, crescendo decrescendo) Gastrointestinal (Abdomen): normal bowel sounds, soft, nontender, no hepatosplenomegaly Musculoskeletal: no cyanosis or clubbing, extremities motor strength 5/5 Skin: + rash (left lower leg, erythema, dark, warm/hot and tender, some swelling), + dry skin and + erythema; no wound Neurologic: patellar DTR's 2+ bilat, sensation intact and PERRL, EOMI, accommodation nl, no face palsy, no dysarthria Psychiatric: A+Ox3, euthymic affect Lymphatic: no cervical or axillary lymphadenopathy Results & Data Vital Signs (Past 12 Hours) Vital Signs Temp Pulse Pulse Resp BP Pulse Ox 12/07/18 11:07 36.4 C L 82 18 131/67 97 12/07/18 07:19 61 12/07/18 07:15 36.7 C 54 L 18 107/69 95 12/07/18 04:44 37.2 C 80 19 123/71 97 Laboratory Results Laboratory Results - last 24 hr 12/06/18 12/06/18 12/06/18 12:07 12:07 20:56 WBC RBC Hgb Hct MCV MCH MCHC RDW Std Deviation RDW Coeff of Corey Plt Count MPV Immature Gran % (Auto) Neut % (Auto) Lymph % (Auto) Pierce % (Auto) Eos % (Auto) Baso % (Auto) Immature Gran # (Auto) Neut # (Auto) Lymph # (Auto) Pierce # (Auto) Eos # (Auto) Baso # (Auto) ESR 15 PT 10.3 INR 1.0 Sodium Potassium Chloride Carbon Dioxide Anion Gap BUN Creatinine Est Cr Clr Drug Dosing Est GFR ( Amer) Est GFR (Non-Af Amer) BUN/Creatinine Ratio Glucose Uric Acid 4.5 Calcium 12/07/18 12/07/18 06:14 06:14 WBC 15.35 H RBC 4.18 L Hgb 12.8 Hct 37.0 MCV 88.5 MCH 30.6 MCHC 34.6 RDW Std Deviation 43.9 RDW Coeff of Corey 13.5 Plt Count 163 MPV 9.2 Immature Gran % (Auto) 0.3 Neut % (Auto) 89.7 Lymph % (Auto) 7.0 Pierce % (Auto) 2.8 Eos % (Auto) 0.1 Baso % (Auto) 0.1 Immature Gran # (Auto) 0.04 H Neut # (Auto) 13.78 H Lymph # (Auto) 1.07 L Pierce # (Auto) 0.43 Eos # (Auto) 0.01 Baso # (Auto) 0.02 ESR PT INR Sodium 130 L Potassium 4.3 Chloride 100 Carbon Dioxide 25 Anion Gap 5.0 BUN 15 Creatinine 0.67 Est Cr Clr Drug Dosing 56.2 Est GFR ( Amer) 93.6 Est GFR (Non-Af Amer) 80.7 BUN/Creatinine Ratio 21.7 H Glucose 109 H Uric Acid Calcium 8.3 L Medications Administered Current Inpatient Medications Acetaminophen (Tylenol) 500 mg PO Q6H PRN PRN Reason: Pain Stop: 01/05/19 20:03 Last Admin: 12/07/18 10:30 Dose: 500 mg Documented by: Ascorbic Acid (Vitamin C) 1,000 mg PO QAM [facility] Stop: 01/06/19 08:59 Last Admin: 12/07/18 08:07 Dose: 1,000 mg Documented by: Aspirin (Ecotrin Ectab) [facility] [place] [place]: 01/06/19 08:59 Last Admin: 12/07/18 08:08 Dose: 81 mg Documented by: Heparin Sodium (Porcine) (Heparin Sodium (Porcine)) 5,000 units SQ Q12 [facility] Stop: 01/05/19 20:59 Last Admin: 12/07/18 08:08 Dose: 5,000 units Documented by: Sodium Chloride (Nss 1000ml) 1,000 mls @ 75 mls/hr IV .[id number] [facility] Stop: 01/05/19 13:59 Last Admin: 12/07/18 13:40 Dose: 125 mls/hr Documented by: Daptomycin 250 mg/ Syringe 5 mls @ 2.5 mls/min IV Q24H [facility]; Protocol Stop: 12/16/18 15:59 Clindamycin Phosphate 300 mg/ (Dextrose) 52 mls @ 100 mls/hr IV Q8H [facility] Stop: 12/17/18 01:59 Last Infusion: 12/07/18 11:33 Dose: Infused Documented by: Lactobacillus Acidophilus (Floranex) 4 tab PO QAM [facility] Stop: 01/06/19 08:59 Last Admin: 12/07/18 08:05 Dose: 4 tab Documented by: Lactobacillus Acidophilus (Floranex) 4 tab PO TIDM [facility] Stop: 01/06/19 07:59 Last Admin: 12/07/18 13:03 Dose: 4 tab Documented by: Metoprolol Succinate (Toprol Xl) 50 mg PO PM [facility] Stop: 01/05/19 20:59 Last Admin: 12/06/18 22:14 Dose: 50 mg Documented by: Miscellaneous (Order Awaiting Action) 1 ea N/A QS [facility] Stop: 01/06/19 00:00 Last Admin: 12/07/18 08:05 Dose: Not Given Documented by: Multivitamins/Minerals (Caltrate Plus) 2 tab PO BID [facility] Stop: 01/05/19 20:59 Last Admin: 12/07/18 08:06 Dose: 2 tab Documented by: Multivitamins/Minerals (Multivitamin W/ Minerals Tab) 1 tab PO QAM [facility] Stop: 01/06/19 08:59 Last Admin: 12/07/18 08:07 Dose: 1 tab Documented by: Ondansetron HCl (Zofran) 4 mg IV Q6H PRN PRN Reason: Nausea Stop: 01/05/19 20:03 Last Admin: 12/07/18 01:08 Dose: 4 mg Documented by: Polyethylene Glycol (Miralax Powder Packet) 17 gm PO DAILY PRN PRN Reason: Constipation Stop: 01/05/19 20:03 Prednisone (Prednisone) 10 mg PO QAM [facility] Stop: 01/06/19 08:59 Last Admin: 12/07/18 08:07 Dose: 10 mg Documented by: Vitamin D (Vitamin D3) 2,000 units PO QAM [facility] Stop: 01/06/19 08:59 Last Admin: 12/07/18 08:06 Dose: 2,000 units Documented by:
--- NOTE | 2018-12-07 15:59 | Orthopedic Progress Note ---
Date of Service December 07, 2018 Assessment & Plan (1) Cellulitis of left lower extremity: Mild improvement in symptoms today, continue with IV antibiotics per medical team, ice and elevation left lower extremity, weight-bear as tolerated to left lower extremity, will continue to monitor, does not appear to involve ankle joint at this time. Subjective Patient seen lying in bed, comfortable, mild improvement in symptoms today, complaining of pain to the left lower extremity, denies fevers and chills. Review of Systems Review of Systems: All systems reviewed & are unremarkable except as noted in HPI & below Constitutional: as per Subjective / HPI Physical Exam Physical Exam: LLE NVSI +EHL/FHL/TA/GS SILT grossly, +2 DP pulse, compartments soft, tenderness to palpation distal tibia, minimal pain with active and passive range of motion of the ankle. Distal one third tibia circumferential cellulitis and edema Constitutional: WD/WN, vitals as above Results & Data Vital Signs (Past 12 Hours) Vital Signs Temp Pulse Pulse Resp BP Pulse Ox 12/07/18 15:53 36.6 C 69 20 126/84 97 12/07/18 15:22 66 12/07/18 11:07 36.4 C L 82 18 131/67 97 12/07/18 07:19 61 12/07/18 07:15 36.7 C 54 L 18 107/69 95 12/07/18 04:44 37.2 C 80 19 123/71 97
[2018-12-07] MEDS: METOPROLOL SUCC 50MG EXT REL TAB PO SCH (17:10)
[2018-12-07] MEDS: DAPTOmycin 250 MG in SYRINGE 0 ML IV SCH (17:11)
[2018-12-08] MEDS: CLINDAMYCIN 300 MG in DEXTROSE 5% 50 ML IV SCH ×2 (01:07→09:40)
[2018-12-08 07:32] LABS: Basophils # (auto) 0.01 K/uL (0-0.2); Basophils % (auto) 0.1 %; Eosinophils # (auto) 0.04 K/uL (0-0.5); Eosinophils % (auto) 0.4 %; Hematocrit (blood only) 35.5 % (37-47); Hemoglobin 12.1 g/dL (12.0-16.0); Immature Granulocytes # (auto) 0.01 K/uL (0.00-0.02); Immature Granulocytes % (auto) 0.1 %; Lymphocytes # (auto) 0.87 K/uL (1.2-3.4); Lymphocytes % (auto) 8.5 %; Mean Corpuscular Hgb Conc 34.1 g/dL (32-36); Mean Corpuscular Volume 90.1 fL (80-100); Mean Platelet Volume 9.5 fL (7.4-10.4); Monocytes # (auto) 0.51 K/uL (0.11-0.59); Neutrophils # (auto) 8.79 K/uL (1.4-6.5); Neutrophils % (auto) 85.9 %; Platelet Count 143 K/uL (130-400); RDW Coefficient of Variation 13.8 % (11.5-14.5); RDW Standard Deviation 45.8 fL (36.4-46.3); Red Blood Count 3.94 M/uL (4.2-5.4); White Blood Count 10.23 K/uL (4.8-10.8)
[2018-12-08] MEDS: ASCORBIC ACID 500 MG TAB PO SCH (07:41)
[2018-12-08] MEDS: CHOLECALCIFEROL 1,000 UNITS TAB PO SCH (07:41)
[2018-12-08] MEDS: CEROVITE ADV FORMULA TAB PO SCH (07:42)
[2018-12-08] MEDS: predniSONE 10 MG TABLET PO SCH (07:42)
[2018-12-08] MEDS: CALCIUM 600MG + VIT D 400 IU TAB PO SCH ×2 (07:42→20:41)
[2018-12-08] MEDS: LACTOBACILLUS ACIDOPHILUS (FLORANEX) TAB PO SCH ×6 (07:43→17:26)
[2018-12-08] MEDS: ASPIRIN 81 MG ECTAB PO SCH (07:44)
[2018-12-08 08:17] LABS: BUN Creatinine Ratio 16.8 (10-20); Calcium 8.4 mg/dl (8.5-10.1); Est GFR (African American) 94.5; Est GFR (Non-African American) 81.5; Potassium 3.8 mmol/L (3.5-5.1)
[2018-12-08] MEDS: HEPARIN SOD 5,000 UNIT/0.5 ML VIAL SQ SCH ×2 (09:42→20:41)
[2018-12-08] MEDS: SODIUM CHLORIDE 0.9% 1000ML 1,000 ML IV SCH (10:24)
[2018-12-08] MEDS: CIPROFLOXACIN 400 MG/200 ML BAG IV SCH ×2 (12:14→23:14)
--- NOTE | 2018-12-08 13:25 | Emergency Department Note ---
ED Visit Note Physician Construction Tech Supervision Note: I interviewed and examined the patient. Discussed with Braden Flanagan PA-C and agree with findings and plan as documented in the note. Pt was considered for dalbavancin treatment but we are unable to verify insurance coverage of the medication at this time. Pt is unwilling to take a chance on the bill and prefers hospitalization. She is not septic appearing, but has an elevated WBC and fever. Cellulitis is rapidly progressing and pt is immunocompromised. Case was d/w the hospitalist service for further management. Documented By: Cristela Aparicio MD .
--- NOTE | 2018-12-08 15:41 | Hospitalist Progress Note ---
Date of Service December 08, 2018 Assessment & Plan (1) Cellulitis of left lower extremity: Patient with cellulitis left lower extremity Continue with daptomycin 250 mg IV every 24 hours stop Clindamycin as the erythema is extending proximally one set of aerobic blood cultures with gram negative growth, follow up final results, still pending today add Ciprofloxacin 400mg q12 for gram negative coverage abx limited due to allergies, no PCN or cephalosporins Hemodynamically stable WBC down to 10k today, no fever ankle x-ray with no fractures, just soft tissue swelling appreciate consult from Dr. Arcos, no concerns for septic joint, continue to treat cellulitis (2) Irregular heart beat: Patient states that she has had chronic irregular heartbeat but denies atrial fibrillation or atrial flutter Patient is on metoprolol succinate 50 mg p.o. p.m. -continue while inpatient (3) Aortic stenosis: Per prior echocardiogram No indication for recurrent echocardiogram at this time We will follow on telemetry murmur on exam (4) Polymyositis: Patient is on baclofen -continue while inpatient Patient also started on prednisone 2 weeks ago for respiratory issues Continue prednisone taper Pain currently controlled (5) DVT prophylaxis: Heparin 5000 units subcutaneously twice daily Ambulate as tolerated Please refer to Dr. Wells's addendum for further recommendations (6) Gram-negative bacteremia: one of two cultures positive will await final results and treat accordingly multiple allergies make treatment difficult started on Ciprofloxacin on 12/08 Subjective patient still not better, she feels that pain and redness moving more proximal to her knee has pain with standing but not severe no fever or chills, her appetite is not great no chest pain, no dyspnea, no nausea updated family at the bedside WBC down to 10k from 15k blood culture with one set growing gram negative rods, still no specifics or sensitivities discussed adding Ciprofloxacin for better gram negative coverage, she said she could tolerate that medication discussed that we really need to get final blood culture results Review of Systems Review of Systems: All systems reviewed & are unremarkable except as noted in HPI & below Constitutional: + fatigue, + weakness and + anorexia; no fever, no chills and no sweats Respiratory: no cough and no dyspnea Cardiovascular: no chest pain Integumentary: + rash (left lower leg, hot, tender) Physical Exam Constitutional: WD/WN, vitals as above Eyes: PERRL, conjunctivae normal, anicteric sclerae ENMT: external ear and nose normal, oropharynx normal Neck: trachea midline, no thyromegaly Respiratory: normal respiratory effort, lungs clear to auscultation Cardiovascular: Rate/Rhythm: regular rate and regular rhythm Heart Sounds: normal S1, normal S2 and + murmur (systolic, crescendo decrescendo) Gastrointestinal (Abdomen): normal bowel sounds, soft, nontender, no hepatosplenomegaly Musculoskeletal: no cyanosis or clubbing, extremities motor strength 5/5 Skin: + rash (left lower leg, erythema, dark, hot, tender, extending promixally), + dry skin and + erythema; no wound Neurologic: patellar DTR's 2+ bilat, sensation intact and PERRL, EOMI, accommodation nl, no face palsy, no dysarthria Psychiatric: A+Ox3, euthymic affect Lymphatic: no cervical or axillary lymphadenopathy Results & Data Vital Signs (Past 12 Hours) Vital Signs Temp Pulse Pulse Resp BP Pulse Ox 12/08/18 14:30 36.7 C 78 18 148/78 H 97 12/08/18 06:59 72 12/08/18 06:52 36.7 C 70 18 132/85 97 12/08/18 05:05 36.8 C 70 18 112/72 95 Laboratory Results Laboratory Results - last 24 hr 12/08/18 12/08/18 07:11 07:11 WBC 10.23 RBC 3.94 L Hgb 12.1 Hct 35.5 L MCV 90.1 MCH 30.7 MCHC 34.1 RDW Std Deviation 45.8 RDW Coeff of Corey 13.8 Plt Count 143 MPV 9.5 Immature Gran % (Auto) 0.1 Neut % (Auto) 85.9 Lymph % (Auto) 8.5 Foster % (Auto) 5.0 Eos % (Auto) 0.4 Baso % (Auto) 0.1 Immature Gran # (Auto) 0.01 Neut # (Auto) 8.79 H Lymph # (Auto) 0.87 L Foster # (Auto) 0.51 Eos # (Auto) 0.04 Baso # (Auto) 0.01 Sodium 137 D Potassium 3.8 Chloride 104 Carbon Dioxide 27 Anion Gap 6.0 BUN 11 Creatinine 0.65 Est Cr Clr Drug Dosing 58.0 Est GFR ( Amer) 94.5 Est GFR (Non-Af Amer) 81.5 BUN/Creatinine Ratio 16.8 Glucose 115 H Calcium 8.4 L Medications Administered Current Inpatient Medications Acetaminophen (Tylenol) 500 mg PO Q6H PRN PRN Reason: Pain Stop: 01/05/19 20:03 Last Admin: 12/07/18 23:38 Dose: 500 mg Documented by: Ascorbic Acid (Vitamin C) 1,000 mg PO QAM [facility] Stop: 01/06/19 08:59 Last Admin: 12/08/18 07:41 Dose: 1,000 mg Documented by: Aspirin (Ecotrin Ectab) 81 mg PO QAM [facility] Stop: 01/06/19 08:59 Last Admin: 12/08/18 07:44 Dose: 81 mg Documented by: Heparin Sodium (Porcine) (Heparin Sodium (Porcine)) 5,000 units SQ Q12 [facility] Stop: 01/05/19 20:59 Last Admin: 12/08/18 09:42 Dose: 5,000 units Documented by: Sodium Chloride (Nss 1000ml) 1,000 mls @ 75 mls/hr IV .[id number] [facility] Stop: 01/05/19 13:59 Last Infusion: 12/08/18 14:19 Dose: 75 mls/hr Documented by: Daptomycin 250 mg/ Syringe 5 mls @ 2.5 mls/min IV Q24H [facility]; Protocol Stop: 12/16/18 15:59 Last Admin: 12/07/18 17:11 Dose: 2.5 mls/min Documented by: Ciprofloxacin (Cipro) 400 mg in 200 mls @ 100 mls/hr IV Q12H [facility]; Protocol Stop: 12/18/18 10:59 Last Infusion: 12/08/18 14:19 Dose: Infused Documented by: Lactobacillus Acidophilus (Floranex) 4 tab PO QAM [facility] Stop: 01/06/19 08:59 Last Admin: 12/08/18 12:15 Dose: 4 tab Documented by: Lactobacillus Acidophilus (Floranex) 4 tab PO TIDM [facility] Stop: 01/06/19 07:59 Last Admin: 12/08/18 12:15 Dose: 4 tab Documented by: Metoprolol Succinate (Toprol Xl) 50 mg PO PM [facility] Stop: 01/05/19 20:59 Last Admin: 12/07/18 17:10 Dose: 50 mg Documented by: Miscellaneous (Order Awaiting Action) 1 ea N/A QS [facility] Stop: 01/06/19 00:00 Last Admin: 12/08/18 07:41 Dose: Not Given Documented by: Multivitamins/Minerals (Caltrate Plus) 2 tab PO BID [facility] Stop: 01/05/19 20:59 Last Admin: 12/08/18 07:42 Dose: 2 tab Documented by: Multivitamins/Minerals (Multivitamin W/ Minerals Tab) 1 tab PO QAM [facility] Stop: 01/06/19 08:59 Last Admin: 12/08/18 07:42 Dose: 1 tab Documented by: Ondansetron HCl (Zofran) 4 mg IV Q6H PRN PRN Reason: Nausea Stop: 01/05/19 20:03 Last Admin: 12/07/18 01:08 Dose: 4 mg Documented by: Polyethylene Glycol (Miralax Powder Packet) 17 gm PO DAILY PRN PRN Reason: Constipation Stop: 01/05/19 20:03 Prednisone (Pred[facility]one) [facility] [place]: 01/06/19 08:59 Last Admin: 12/08/18 07:42 Dose: 10 mg Documented by: Vitamin D (Vitamin D3) 2,000 [facility] [place]: 01/06/19 08:59 Last Admin: 12/08/18 07:41 Dose: 2,000 units Documented by:
--- NOTE | 2018-12-08 15:59 | Orthopedic Progress Note ---
Date of Service December 08, 2018 Assessment & Plan (1) Cellulitis of left lower extremity: Continue antibiotics as per medicine service. Maintain elevation when at rest. Warm moist heat to the leg if not already done. If continues to remain no better or worsen, would suggest CT scan. Subjective Patient sitting up in her chair at the bedside. States that they were switching her antibiotics around today. Feels that she is not getting any worse but is not overtly getting any better either. No new complaints. Continues to state that her ankle is nontender with range of motion. Physical Exam Physical Exam: Venous stasis changes noted of the lower extremities. She has a dusky erythema noted just above the ankle that is tender on palpation. This tenderness goes about the circumference of the leg. She has no open wounds on the leg at this time. I cannot appreciate any areas of fluctuance. She has good range of motion of the ankle that is nontender. Results & Data Vital Signs (Past 12 Hours) Vital Signs Temp Pulse Pulse Resp BP Pulse Ox 12/08/18 14:30 36.7 C 78 18 148/78 H 97 12/08/18 06:59 72 12/08/18 06:52 36.7 C 70 18 132/85 97 12/08/18 05:05 36.8 C 70 18 112/72 95
[2018-12-08] MEDS: ACETAMINOPHEN 500 MG TAB PO PRN ×2 (16:13→23:15)
[2018-12-08] MEDS: DAPTOmycin 250 MG in SYRINGE 0 ML IV SCH (16:14)
[2018-12-08] MEDS: METOPROLOL SUCC 50MG EXT REL TAB PO SCH (17:24)
[2018-12-09] MEDS: SODIUM CHLORIDE 0.9% 1000ML 1,000 ML IV SCH ×2 (02:45→17:45)
[2018-12-09 07:12] LABS: Basophils # (auto) 0.02 K/uL (0-0.2); Basophils % (auto) 0.3 %; Eosinophils # (auto) 0.14 K/uL (0-0.5); Eosinophils % (auto) 1.9 %; Hematocrit (blood only) 37.7 % (37-47); Hemoglobin 12.7 g/dL (12.0-16.0); Immature Granulocytes # (auto) 0.02 K/uL (0.00-0.02); Immature Granulocytes % (auto) 0.3 %; Lymphocytes # (auto) 1.07 K/uL (1.2-3.4); Lymphocytes % (auto) 14.5 %; Mean Corpuscular Hgb Conc 33.7 g/dL (32-36); Mean Corpuscular Volume 90.2 fL (80-100); Mean Platelet Volume 9.5 fL (7.4-10.4); Monocytes # (auto) 0.41 K/uL (0.11-0.59); Monocytes % (auto) 5.5 %; Neutrophils # (auto) 5.73 K/uL (1.4-6.5); Neutrophils % (auto) 77.5 %; Platelet Count 163 K/uL (130-400); RDW Coefficient of Variation 13.8 % (11.5-14.5); RDW Standard Deviation 45.7 fL (36.4-46.3); Red Blood Count 4.18 M/uL (4.2-5.4); White Blood Count 7.39 K/uL (4.8-10.8)
[2018-12-09 07:48] LABS: BUN Creatinine Ratio 16.1 (10-20); Calcium 8.6 mg/dl (8.5-10.1); Creatinine Clr Calc Pharmacy 58.9 ml/min; Est GFR (Non-African American) 81.9; Potassium 4.1 mmol/L (3.5-5.1)
[2018-12-09] MEDS: predniSONE 10 MG TABLET PO SCH (08:23)
[2018-12-09] MEDS: CHOLECALCIFEROL 1,000 UNITS TAB PO SCH (08:23)
[2018-12-09] MEDS: ASPIRIN 81 MG ECTAB PO SCH (08:24)
[2018-12-09] MEDS: LACTOBACILLUS ACIDOPHILUS (FLORANEX) TAB PO SCH ×3 (08:24→17:35)
[2018-12-09] MEDS: CALCIUM 600MG + VIT D 400 IU TAB PO SCH ×3 (08:25→23:18)
[2018-12-09] MEDS: CEROVITE ADV FORMULA TAB PO SCH (08:25)
[2018-12-09] MEDS: ASCORBIC ACID 500 MG TAB PO SCH (08:25)
[2018-12-09] MEDS ORDERED: SOD PHOSPHATE/SOD BIPHOSPHATE ENEMA 132 ML BTL PR STA (08:46)
[2018-12-09] MEDS: CIPROFLOXACIN 400 MG/200 ML BAG IV SCH ×2 (11:12→21:30)
[2018-12-09] MEDS: HEPARIN SOD 5,000 UNIT/0.5 ML VIAL SQ SCH ×2 (11:13→21:34)
[2018-12-09] MEDS: BACLOFEN 10 MG TAB PO SCH ×2 (12:35→21:31)
[2018-12-09] MEDS: DAPTOmycin 250 MG in SYRINGE 0 ML IV SCH (15:28)
--- NOTE | 2018-12-09 15:28 | Hospitalist Progress Note ---
Date of Service December 09, 2018 Assessment & Plan (1) Cellulitis of left lower extremity: Patient with cellulitis left lower extremity Continue with daptomycin 250 mg IV every 24 hours stopped Clindamycin as the erythema is extending proximally one set of aerobic blood cultures with gram negative growth, follow up final results, still pending for two days added Ciprofloxacin 400mg q12 for gram negative coverage on 12/08 clinical improvement seen on 12/09 Hemodynamically stable WBC down to 7k today, no fever ankle x-ray with no fractures, just soft tissue swelling appreciate consult from Dr. Arcos, no concerns for septic joint, continue to treat cellulitis hopeful for final blood culture results and can transition to oral Cipro and discharge home (2) Irregular heart beat: Patient states that she has had chronic irregular heartbeat but denies atrial fibrillation or atrial flutter Patient is on metoprolol succinate 50 mg p.o. p.m. -continue while inpatient (3) Aortic stenosis: Per prior echocardiogram No indication for recurrent echocardiogram at this time We will follow on telemetry murmur on exam (4) Polymyositis: Patient is on baclofen -continue while inpatient Patient also started on prednisone 2 weeks ago for respiratory issues Continue prednisone taper Pain currently controlled (5) DVT prophylaxis: Heparin 5000 units subcutaneously twice daily Ambulate as tolerated Please refer to Dr. Wells's addendum for further recommendations (6) Gram-negative bacteremia: one of two cultures positive will await final results and treat accordingly multiple allergies make treatment difficult started on Ciprofloxacin on 12/08, clinical improvement in skin today (7) Constipation: resolved with Fleet enema today Subjective patient concerned that her foot is swollen on the left no erythema, no pain, just swelling discussed that she would expect to see some swelling due to the infection and impaired lymphatic return her cellulitis is actually improving less redness, less pain, less warmth today WBC is normal called micro lab to check on status of blood culture result, still pending should have results by this afternoon or tomorrow morning updated patient's at the bedside patient pleased that she had a BM this morning, appetite is a little better Review of Systems Review of Systems: All systems reviewed & are unremarkable except as noted in HPI & below Constitutional: no fever Respiratory: no cough and no dyspnea Cardiovascular: + edema (left foot only); no chest pain Gastrointestinal: no abdominal pain, no nausea, no vomiting, no constipation and no diarrhea/loose stools Integumentary: + rash (left lower leg) Physical Exam Constitutional: WD/WN, vitals as above Eyes: PERRL, conjunctivae normal, anicteric sclerae ENMT: external ear and nose normal, oropharynx normal Neck: trachea midline, no thyromegaly Respiratory: normal respiratory effort, lungs clear to auscultation Cardiovascular: Rate/Rhythm: regular rate and regular rhythm Heart Sounds: normal S1, normal S2 and + murmur (systolic, crescendo decrescendo) Extremities: + edema (left foot, non-pitting) Gastrointestinal (Abdomen): normal bowel sounds, soft, nontender, no hepatosplenomegaly Musculoskeletal: no cyanosis or clubbing, extremities motor strength 5/5 Skin: + rash (left lower leg, less warmth, loss tender, less red), + dry skin and + erythema; no wound Neurologic: patellar DTR's 2+ bilat, sensation intact and PERRL, EOMI, accommodation nl, no face palsy, no dysarthria Psychiatric: A+Ox3, euthymic affect Lymphatic: no cervical or axillary lymphadenopathy Results & Data Vital Signs (Past 12 Hours) Vital Signs Temp Pulse Pulse Resp BP Pulse Ox 12/09/18 11:18 36.7 C 78 18 171/72 H 96 12/09/18 07:10 88 12/09/18 07:09 36.3 C L 84 18 165/84 H 99 12/09/18 03:54 36.4 C L 77 18 148/71 H 96 Laboratory Results Laboratory Results - last 24 hr 12/09/18 12/09/18 06:48 06:48 WBC 7.39 RBC 4.18 L Hgb 12.7 Hct 37.7 MCV 90.2 MCH 30.4 MCHC 33.7 RDW Std Deviation 45.7 RDW Coeff of Corey 13.8 Plt Count 163 MPV 9.5 Immature Gran % (Auto) 0.3 Neut % (Auto) 77.5 Lymph % (Auto) 14.5 [place] % (Auto) 5.5 Eos % (Auto) 1.9 Baso % (Auto) 0.3 Immature Gran # (Auto) 0.02 Neut # (Auto) 5.73 Lymph # (Auto) 1.07 L [place] # (Auto) 0.41 Eos # (Auto) 0.14 Baso # (Auto) 0.02 Sodium 138 Potassium 4.1 Chloride 105 Carbon Dioxide 26 Anion Gap 7.0 BUN 10 Creatinine 0.64 Est Cr Clr Drug Dosing 58.9 Est GFR ( Amer) 95.0 Est GFR (Non-Af Amer) 81.9 BUN/Creatinine Ratio 16.1 Glucose 121 H Calcium 8.6 Medications Administered Current Inpatient Medications Acetaminophen (Tylenol) 500 mg PO Q6H PRN PRN Reason: Pain Stop: 01/05/19 20:03 Last Admin: 12/08/18 23:15 Dose: 500 mg Documented by: Ascorbic Acid (Vitamin C) [facility] [place]: 01/06/19 08:59 Last Admin: 12/09/18 08:25 Dose: 1,000 mg Documented by: Aspirin (Ecotrin Ectab) 81 mg PO QAM [facility] Stop: 01/06/19 08:59 Last Admin: 12/09/18 08:24 Dose: 81 mg Documented by: Baclofen (Lioresal) 5 mg PO BID [facility] Stop: 01/08/19 12:29 Last Admin: 12/09/18 12:35 Dose: Not Given Documented by: Heparin Sodium (Porcine) (Heparin Sodium (Porcine)) 5,000 units SQ Q12 [facility] Stop: 01/05/19 20:59 Last Admin: 12/09/18 11:13 Dose: Not Given Documented by: Sodium Chloride (Nss 1000ml) 1,000 mls @ 75 mls/hr IV .[id number] [facility] Stop: 01/05/19 13:59 Last Admin: 12/09/18 02:45 Dose: 75 mls/hr Documented by: Daptomycin 250 mg/ Syringe 5 mls @ 2.5 mls/min IV Q24H [facility]; Protocol Stop: 12/16/18 15:59 Last Admin: 12/08/18 16:14 Dose: 2.5 mls/min Documented by: Ciprofloxacin (Cipro) 400 mg in 200 mls @ 100 mls/hr IV Q12H [facility]; Protocol Stop: 12/18/18 10:59 Last Infusion: 12/09/18 13:13 Dose: Infused Documented by: Lactobacillus Acidophilus (Floranex) 4 tab PO TIDM [facility] Stop: 01/06/19 07:59 Last Admin: 12/09/18 12:35 Dose: 4 tab Documented by: Metoprolol Succinate (Toprol Xl) 50 mg PO PM [facility] Stop: 01/05/19 20:59 Last Admin: 12/08/18 17:24 Dose: 50 mg Documented by: Multivitamins/Minerals (Caltrate Plus) 2 tab PO BID [facility] Stop: 01/05/19 20:59 Last Admin: 12/09/18 08:25 Dose: Not Given Documented by: Multivitamins/Minerals (Multivitamin W/ Minerals Tab) [facility] [place]: 01/06/19 08:59 Last Admin: 12/09/18 08:25 Dose: Not Given Documented by: Ondansetron HCl (Zofran) 4 mg IV Q6H PRN PRN Reason: Nausea Stop: 01/05/19 20:03 Last Admin: 12/07/18 01:08 Dose: 4 mg Documented by: Polyethylene Glycol (Miralax Powder Packet) 17 gm PO DAILY PRN PRN Reason: Constipation Stop: 01/05/19 20:03 Prednisone (Prednisone) 10 mg PO [facility] Stop: 01/06/19 08:59 Last Admin: 12/09/18 08:23 Dose: 10 mg Documented by: Vitamin D (Vitamin D3) 2,[facility] [place]: 01/06/19 08:59 Last Admin: 12/09/18 08:23 Dose: 2,000 units Documented by:
[2018-12-09] MEDS: METOPROLOL SUCC 50MG EXT REL TAB PO SCH (17:35)
[2018-12-10] MEDS: ACETAMINOPHEN 500 MG TAB PO PRN (00:43)
[2018-12-10 07:07] LABS: BUN Creatinine Ratio 17.6 (10-20); Calcium 8.4 mg/dl (8.5-10.1); Creatinine Clr Calc Pharmacy 58.9 ml/min; Est GFR (Non-African American) 81.9; Magnesium 2.2 mg/dl (1.8-2.4); Potassium 3.4 mmol/L (3.5-5.1)
[2018-12-10] MEDS: HEPARIN SOD 5,000 UNIT/0.5 ML VIAL SQ SCH (07:44)
[2018-12-10] MEDS: CALCIUM 600MG + VIT D 400 IU TAB PO SCH (07:44)
[2018-12-10] MEDS: LACTOBACILLUS ACIDOPHILUS (FLORANEX) TAB PO SCH ×2 (07:44→12:14)
[2018-12-10] MEDS: BACLOFEN 10 MG TAB PO SCH (07:44)
[2018-12-10] MEDS: CEROVITE ADV FORMULA TAB PO SCH (07:45)
[2018-12-10] MEDS: CHOLECALCIFEROL 1,000 UNITS TAB PO SCH (07:46)
[2018-12-10] MEDS: ASPIRIN 81 MG ECTAB PO SCH (07:46)
[2018-12-10] MEDS: predniSONE 10 MG TABLET PO SCH (07:47)
[2018-12-10] MEDS: ASCORBIC ACID 500 MG TAB PO SCH (07:47)
[2018-12-10] MEDS: SODIUM CHLORIDE 0.9% 1000ML 1,000 ML IV SCH (07:50)
[2018-12-10] MEDS: CIPROFLOXACIN 400 MG/200 ML BAG IV SCH (12:12)
--- NOTE | 2018-12-10 16:15 | Discharge Summary ---
Date of Service December 10, 2018 Admission HPI Per Admitting Provider There is an 83-year-old female that resides at [facility]. She follows with Dr. monique there. This morning she awoke and had pain to her left lower extremity and throughout the day had increased swelling and edema. She reports that she had her toenails trimmed about 2 to 3 weeks ago by machine printer hose and feels that they cut her nails too short. She had difficulty walking on the leg but was able to ambulate. She presented the emergency department was found to have a white blood cell of 15.3 as well as a T-max of 38.3. She empirically received daptomycin 250 mg IV in the emergency department. The patient denies injury or history of thromboembolic disease. She denies sweats chills or rigors. She has no nausea or vomiting and no diarrhea. Mrs. Villafana has a past medical history which includes irregular heartbeat, hyponatremia, chronic pain from polymyositis on baclofen. The patient does report that she has had some shortness of breath and presented to her primary care physician who placed her on prednisone taper. She started this 2 weeks ago and was tapered down to 10 mg as of yesterday. The patient has no other acute complaints and denies chest pain, chest tightness, tachyarrhythmia awareness. Admission Exam Per Admitting Provider GENERAL : No acute distress. Pleasant EYES: No icterus, gaze conjugate. Pupils equal round and reactive to light NOSE: No evidence of epistaxis MOUTH: No lesions or candidiasis. Tongue is midline NECK: Supple. No stridor. No JVD LUNGS: CTA B/L, no wheezes, rales or rhonchi HEART: Irregular, rate controlled. Harsh systolic murmur ABDOMEN: Soft, NT, ND, BS Present. No guarding or tenderness to palpation EXTREMITIES: Left LE edema, pedal pulses intact and equal bilaterally. Left lower extremity with a small opening in the rojo area. Area is extremely erythematous and warm to touch. Some ankle swelling on the medial malleolus. NEURO: A&OX3. Pupils equal round and reactive to light. No pronator drift. Strength is equal and appropriate bilateral upper and lower extremities. Cerebellar function is intact with [id number] and rapid alternating movements. No slurred speech. No facial droop. No appreciation of neurological deficit on physical exam Principal Diagnosis Left lower extremity cellulitis Discharge Exam Constitutional WD/WN, vitals as above Eyes PERRL, conjunctivae normal, anicteric sclerae ENMT external ear and nose normal, oropharynx normal Neck trachea midline, no thyromegaly Respiratory normal respiratory effort, lungs clear to auscultation Cardiovascular Rate/Rhythm: regular rate and regular rhythm Heart Sounds: normal S1, normal S2 and + murmur (systolic, crescendo decrescendo) Extremities: + edema (left foot, non-pitting, improved) Gastrointestinal (Abdomen) normal bowel sounds, soft, nontender, no hepatosplenomegaly Musculoskeletal no cyanosis or clubbing, extremities motor strength 5/5 Skin + rash (left lower leg, non tender, minimal redness, minimal warmth), + dry skin and + erythema; no wound Neurologic patellar DTR's 2+ bilat, sensation intact and PERRL, EOMI, accommodation nl, no face palsy, no dysarthria Psychiatric A+Ox3, euthymic affect Lymphatic no cervical or axillary lymphadenopathy Discharge Data Allergies Allergy/AdvReac Type Severity Reaction Status Date / Time mivacurium Allergy Intermediate hives Verified 12/06/18 12:25 Penicillins Allergy Intermediate hives Verified 12/06/18 12:25 Sulfa (Sulfonamide Allergy Mild hives Verified 12/06/18 12:25 Antibiotics) codeine AdvReac Mild MS Change Verified 12/06/18 12:25 gabapentin AdvReac Mild Confusion, Verified 12/06/18 12:25 unable to sleep Macrolide Antibiotics AdvReac Mild Nausea Verified 12/06/18 12:25 with "-mycins" ketoprofen AdvReac Unknown KETOPROFEN Verified 12/06/18 12:25 GEL CAUSES SKIN BURNING Consultations 12/06/18 14:59 ED Decision to Admit Stat 12/06/18 19:34 Consult Orthopedic Surgery Stat Hospital Course (1) Cellulitis of left lower extremity: Patient with cellulitis left lower extremity treated initially with daptomycin 250 mg IV every 24 hours stopped Clindamycin as the erythema was extending proximally one set of aerobic blood cultures with gram negative growth, follow up final results, still pending for three days added Ciprofloxacin 400mg q12 for gram negative coverage on 12/08 clinical improvement seen on 12/09 and even more improvement on 12/10 Hemodynamically stable WBC normal for three days, no fever ankle x-ray with no fractures, just soft tissue swelling appreciate consult from Dr. Arcos, no concerns for septic joint, continue to treat cellulitis d/c home on Doxycycline 100mg BID x 10 days for gram positive coverage Cipro 500mg BID x 10 days for gram negative coverage (2) Irregular heart beat: Patient states that she has had chronic irregular heartbeat but denies atrial fibrillation or atrial flutter Patient is on metoprolol succinate 50 mg p.o. p.m. -continue while inpatient (3) Aortic stenosis: Per prior echocardiogram No indication for recurrent echocardiogram at this time We will follow on telemetry murmur on exam (4) Polymyositis: Patient is on baclofen -continue while inpatient Patient also started on prednisone 2 weeks ago for respiratory issues Continue prednisone taper Pain currently controlled (5) Constipation: resolved with Fleet enema on 12/09 she is anxious to go home and eat the fruits and vegetables that she is used to eating (6) Gram-negative bacteremia: one of two cultures positive that were drawn on 12/06 still no final results on 12/10, called micro lab on 12/09 and 12/10 she had a very good clinical response to Cipro, will treat for 10 more days outpatient multiple allergies make treatment difficult (7) DVT prophylaxis: Heparin 5000 units subcutaneously twice daily Ambulate as tolerated Total Time Total Time Spent Total Time Spent (In Minutes): 40 minutes Total Time Includes: Examination of the Patient, Discharge Planning, Medication Reconciliation and Other (updated family) Discharge Plan Discharge Items Patient Disposition: Home - Self-Care Reason For Visit: CELLULITIS LLE Discharge Diagnosis: Left leg cellulitis Condition: Good Discharge Goals: Improve disease control and Improve function Activity: Resume your previous activity Non-emergency contact: Primary Care Provider Call non-emergency contact if: you have any medication questions, your symptoms worsen and you have a fever Follow-up/Referrals: Martinez Redmond [Primary Care Provider] - Diet: Regular Addtl Provider Instructions: Medications: - CIPROFLOXACIN: 500mg twice a day for cellulitis and bacteremia, complete 10 more days for 14 days total treatment - DOXYCYCLINE: 100mg twice a day for cellulitis, this will cover gram positive bacteria Left leg cellulitis and swelling some clinical improvement, most seen in the past two days recommend dual therapy with Cipro that will cover gram negative bacterial and Doxycycline that will cover gram positive bacteria symptoms should continue to improve, will likely take another week keep left foot elevated intermittently throughout the day Gram negative bacteremia still have final results pending, discussed with microbiology and will not get results today on the Cipro you have not had any fever, WBC has been normal and skin is improving I will call you if the blood culture comes back with results that show that the Cipro is not appropriate FOLLOW UP - physician at [facility] within one week Prescriptions: New ciprofloxacin HCl 500 mg tablet 500 mg PO Q12H Qty: 20 RF: 0 doxycycline hyclate 100 mg capsule 100 mg PO BID 10 Days Qty: 20 RF: 0 Continued prednisone 10 mg tablet 10 mg PO QAM RF: 0 baclofen 10 mg tablet 5 mg PO UD RF: 0 metoprolol succinate 25 mg tablet extended release 24 hr 50 mg PO PM RF: 0 ascorbic acid (vitamin C) [Vitamin C] 1,000 mg Tablet 1,000 mg PO QAM RF: 0 aspirin 81 mg Tablet,Delayed Release (Dr/Ec) 81 mg PO QAM RF: 0 acetaminophen [Tylenol Extra Strength] 500 mg Tablet 500 mg PO Q6H PRN (Reason: Pain) RF: 0 coenzyme Q10 [CoQ-10] 100 mg Capsule 100 mg PO QAM RF: 0 cholecalciferol (vitamin D3) [Vitamin D3] 2,000 unit Capsule 2,000 unit PO QAM RF: 0 calcium citrate-vitamin D3 [Citracal + D Petites] 200 mg calcium -250 unit Tablet 2 tab PO BID RF: 0 Centrum Silver Women 8 mg iron-400 mcg-300 mcg Tablet 1 tab PO QAM RF: 0 Probiotic 3 billion cell Capsule 3,000 mmu cells PO QAM RF: 0 Stand-Alone Forms: [facility] Discharge Orders: Discharge Order (Routine); Ordered 12/10/18 Ordered By: Rafael Panchal Admission Data Admit Date/Time: 12/06/18 17:00 Attending Provider: Rafael Panchal Admit Provider: Dexter Wells Primary Care Provider: Martinez Redmond Other Providers: Chidi Arcos ; Chandni Landaverde Service: Telemetry Other Interventions: Discharge Summary Assessment (RN) Last Done: 12/10/18 14:13 DC Date/Time DO NOT enter until pt leaves facility: 12/10/18 15:33
== END 2018-12-10 15:33 | disposition home or self-care (01) | DRG 603 ==
LOC: ED 11:08 → 2W 17:00 → SUATTDRO 17:00 → 2W 19:29

== ENCOUNTER 2022-10-23 10:42 | Inpatient (IN) ==
[2022-10-23] MEDS ORDERED: SODIUM CHLORIDE 0.9% 1000ML 1,000 ML IV STA (10:58)
[2022-10-23] MEDS ORDERED: dilTIAZem HCl 5 MG/ML 5 ML VIAL IV STA (11:04)
--- NOTE | 2022-10-23 11:06 | Emergency Department Note ---
Impression & Plan Atrial fibrillation with rapid ventricular response ADMIT ED Provider Note HPI: The patient is an 87-year-old female with history of atrial fibrillation, currently anticoagulated on Eliquis, who presents the emergency department with a chief complaint of episodes of positional dizziness today. Patient states that multiple times this morning when she bent over to pick something up she felt a sensation of dizziness. Patient states she also felt a sensation of shortness of breath throughout the morning. Patient denies any chest pain. On arrival here to the ED the patient is noted to be tachycardic in the 150s, rhythm on the monitor is consistent with atrial fibrillation. Patient is otherwise stable from the standpoint of blood pressure with a reading of 124/90, patient does not display any increased work of breathing and is saturating well on room air on arrival. ROS: - Per HPI *Outpatient medications and allergy history reviewed. *Pertinent external medical records reviewed. PE: General: Alert, frail-appearing, no acute distress HEENT: Normocephalic, trachea midline Eyes: Extraocular eye movement is intact, no scleral erythema Pulmonary: Clear to auscultation bilaterally, no wheezing Cardio: Tachycardic rate with irregular rhythm GI: Abdomen is soft to palpation : No suprapubic tenderness MSK: No evidence of trauma or malformation of the extremities, 2-3+ edema bilateral lower extremities, chronic wound noted to the left lower extremity without any purulence Skin: No evidence of rash Neuro: Alert, no focal deficits Psychiatric: Cooperative classroom monitor: (As interpreted by myself): - An order was placed for continuous cardiac monitoring - Patient was noted to be in atrial fibrillation with a rate of 153 EKG: (As interpreted by myself): Rate: 130 Rhythm: Atrial fibrillation Intervals: Within normal limits ST changes: No ST elevation Time: 1046 Interventions provided in ED: -IV fluid bolus, IV diltiazem, IV metoprolol, IV diltiazem drip Differential Diagnosis: Atrial fibrillation with RVR, posterior circulation stroke, peripheral vertigo, ACS, PE, amongst other potential pathologies. Medical Decision Making: Patient presented to the emergency department with a chief complaint of intermittent facets of dizziness when she bent over to pick things up. Patient states she also feels some shortness of breath, on arrival here to the ED the patient is noted to be in atrial fibrillation with RVR. IV was established, lab work obtained, patient was maintained on director of cardiac cath lab. Patient was initially given a bolus of diltiazem for heart rate. Patient did not have much response to initial bolus of diltiazem, heart rate did downtrend slightly into the 120s and 130s. Blood pressure remained stable. Lab work reviewed, shows no leukocytosis, hemoglobin is stable, platelet count is within normal limits, sodium noted to be low at 125, BUN slightly elevated at 25, no critical electrolyte abnormalities are noted. Patient is noted to have a nonspecific mild transaminitis with AST of 115, ALT of 141, alk phos 175. Patient denies any current abdominal pain, denies any recent vomiting. Low justin spicion for acute/obstructive biliary pathology at this time, troponin mildly elevated at 19.9. Patient did have 1 episode of chest "tightness" while here in the ED, repeat EKG did not show any evidence of ST elevation. This episode subsided. Patient was given IV metoprolol without much response, she was therefore initiated on IV diltiazem drip, she was given a liter of IV fluid for blood pressure support. On my reassessment, patient's heart rate is in the 120s, blood pressure remained stable. At this time I feel she would benefit from admission given her multiple lab abnormalities and remaining atrial fibrillation with RVR with only slight improvement despite the above medications. Patient is in agreement as is her daughter at the bedside. Case was discussed with the on- call hospitalist, Dr. Rios, patient was placed for admission in stable condition. Consultants: Hospitalist, Dr. Rios Disposition discussion held by myself with: Patient and daughter * CRITICAL CARE TIME: (36) minutes -Management of tachyarrhythmia/atrial fibrillation with RVR requiring IV rate control medications, time spent at the bedside, discussion with other physicians and arrangement of admission Diagnosis: 1. Atrial fibrillation with RVR 2. Hyponatremia, acute 3. Transaminitis, mild, nonspecific 4. Elevated high-sensitivity troponin level Disposition: Admission Jonny Fox DO Emergency Medicine Past Med/Surg History Medical History (Updated 10/23/22 @ 12:55 by Jonny Fox DO) Concussion Heart murmur, systolic Hyponatremia Irregular heart beat Parotiditis Polymyositis Surgical History S/P hernia repair Family History Other No pertinent family history Social History Smoking Status: Never smoker Second Hand Exposure: No; Hx Alcohol Use: No Hx Substance Use: No Preferred Language: Moldovan Communication Ability: Effective Hearing Ability: Normal [place] Required: No Beliefs That Will Affect Care: None marital status: Current Living Situation: Spouse current occupational status: retired Feels Safe at Home: Yes Assistive Devices: None Allergies Allergies Allergy/AdvReac Type Severity Reaction Status Date / Time Penicillins Allergy Intermediate hives Verified 05/07/22 12:15 Sulfa (Sulfonamide Allergy Mild hives Verified 05/07/22 12:15 Antibiotics) azithromycin Allergy Hives Verified 05/07/22 12:15 codeine AdvReac Mild MS Change Verified 05/07/22 12:15 gabapentin AdvReac Mild Confusion, Verified 05/07/22 12:15 unable to sleep Macrolide Antibiotics AdvReac Mild Nausea Verified 05/07/22 12:15 with "-mycins" ketoprofen AdvReac Unknown KETOPROFEN Verified 05/07/22 12:15 GEL CAUSES SKIN BURNING Home Meds Home Medications Medication Instructions Recorded Confirmed acetaminophen 500 mg tablet 500 mg PO Q6H PRN Pain 12/06/18 10/23/22 (Tylenol Extra Strength) ascorbic acid (vitamin C) 1,000 mg 1,000 mg PO QAM 12/06/18 10/23/22 tablet (Vitamin C) calcium citrate 200 mg 2 tab PO BID 12/06/18 10/23/22 calcium-vitamin D3 6.25 mcg (250 unit) tablet (Citracal-D3 Petites) cholecalciferol (vitamin D3) 50 2,000 unit PO QAM 12/06/18 10/23/22 mcg (2,000 unit) capsule (Vitamin D3) multivit with 1 tab PO QAM 12/06/18 10/23/22 [id number] 8 mg iron-400 mcg-300 mcg tablet (Centrum Silver Women) apixaban 2.5 mg tablet (Eliquis) 2.5 mg PO BID 11/25/20 10/23/22 conjugated estrogens 0.625 mg/gram 0.625 mg vaginal WK 11/25/20 10/23/22 vaginal cream (Premarin) metoprolol succinate 50 mg 50 mg PO BID 11/25/20 10/23/22 tablet,extended release 24 hr multivitamin 1 tab PO DAILY 11/25/20 10/23/22 baclofen 10 mg tablet 5 mg PO BID PRN jaw spasms 09/03/21 10/23/22 prednisone 5 mg tablet 2.5 mg PO DAILY 09/03/21 10/23/22 spironolactone 25 mg tablet 12.5 mg PO DAILY 09/03/21 10/23/22 furosemide 20 mg tablet 20 mg PO DAILY 09/19/21 10/23/22 denosumab 60 mg/mL subcutaneous See Rx Instructions subcut .COMPLEX 04/11/22 10/23/22 syringe (Prolia) fluticasone propionate 50 2 spray intranasal DAILY 04/11/22 10/23/22 mcg/actuation nasal spray,suspension Results & Data (ED) Vital Signs Vital Signs - 24 hr 10/23/22 10:47 10/23/22 10:54 10/23/22 10:47 Temperature 36.8 C Temperature Source Oral Pulse Rate 132 H 153 H 122 H Pulse Rate from SpO2 Sensor Respiratory Rate 18 19 Respiratory Effort / Characteristics SOB on Exertion Respiratory Depth Normal Blood Pressure 124/90 Blood Pressure Mean 101 Pulse Oximetry 98 Oxygen Delivery Method Room Air Sepsis Recent Fever Within 48 Hours No Sepsis New/Unexplained Change in Mental Status No Sepsis Action Taken by Nursing No Action Required 10/23/22 10:50 10/23/22 10:50 10/23/22 11:00 Temperature Temperature Source Pulse Rate 152 H Pulse Rate from SpO2 Sensor 163 H Respiratory Rate 20 Respiratory Effort / Characteristics Respiratory Depth Blood Pressure 124/90 119/82 Blood Pressure Mean 101 94 Pulse Oximetry 95 Oxygen Delivery Method Sepsis Recent Fever Within 48 Hours Sepsis New/Unexplained Change in Mental Status Sepsis Action Taken by Nursing 10/23/22 11:00 10/23/22 11:10 10/23/22 11:20 Temperature Temperature Source Pulse Rate 154 H 138 H 91 H Pulse Rate from SpO2 Sensor 135 H 123 H Respiratory Rate 18 18 26 H Respiratory Effort / Characteristics Respiratory Depth Blood Pressure Blood Pressure Mean Pulse Oximetry 94 95 94 Oxygen Delivery Method Room Air Sepsis Recent Fever Within 48 Hours Sepsis New/Unexplained Change in Mental Status Sepsis Action Taken by Nursing 10/23/22 11:22 10/23/22 11:22 10/23/22 11:30 Temperature Temperature Source Pulse Rate 128 H Pulse Rate from SpO2 Sensor Respiratory Rate 24 Respiratory Effort / Characteristics Respiratory Depth Blood Pressure 101/65 124/80 Blood Pressure Mean 77 94 Pulse Oximetry 94 Oxygen Delivery Method Room Air Sepsis Recent Fever Within 48 Hours Sepsis New/Unexplained Change in Mental Status Sepsis Action Taken by Nursing 10/23/22 11:30 10/23/22 11:49 10/23/22 11:40 Temperature Temperature Source Pulse Rate 127 H 135 H 139 H Pulse Rate from SpO2 Sensor Respiratory Rate 24 26 H Respiratory Effort / Characteristics Respiratory Depth Blood Pressure 133/77 Blood Pressure Mean Pulse Oximetry 95 91 Oxygen Delivery Method Room Air Room Air Sepsis Recent Fever Within 48 Hours Sepsis New/Unexplained Change in Mental Status Sepsis Action Taken by Nursing 10/23/22 11:49 10/23/22 11:49 10/23/22 11:50 Temperature Temperature Source Pulse Rate 136 H 141 H Pulse Rate from SpO2 Sensor Respiratory Rate 27 H 20 Respiratory Effort / Characteristics Respiratory Depth Blood Pressure 133/77 Blood Pressure Mean 95 Pulse Oximetry 92 94 Oxygen Delivery Method Room Air Room Air Sepsis Recent Fever Within 48 Hours Sepsis New/Unexplained Change in Mental Status Sepsis Action Taken by Nursing 10/23/22 12:00 10/23/22 12:10 10/23/22 12:20 Temperature Temperature Source Pulse Rate 126 H 128 H 108 H Pulse Rate from SpO2 Sensor Respiratory Rate 23 24 22 Respiratory Effort / Characteristics Respiratory Depth Blood Pressure Blood Pressure Mean Pulse Oximetry 93 94 94 Oxygen Delivery Method Room Air Room Air Room Air Sepsis Recent Fever Within 48 Hours Sepsis New/Unexplained Change in Mental Status Sepsis Action Taken by Nursing 10/23/22 12:30 10/23/22 12:40 10/23/22 12:47 Temperature Temperature Source Pulse Rate 125 H 120 H 139 H Pulse Rate from SpO2 Sensor Respiratory Rate 24 Respiratory Effort / Characteristics Respiratory Depth Blood Pressure Blood Pressure Mean Pulse Oximetry 92 95 92 Oxygen Delivery Method Room Air Room Air Room Air Sepsis Recent Fever Within 48 Hours Sepsis New/Unexplained Change in Mental Status Sepsis Action Taken by Nursing 10/23/22 12:47 Temperature Temperature Source Pulse Rate Pulse Rate from SpO2 Sensor Respiratory Rate Respiratory Effort / Characteristics Respiratory Depth Blood Pressure 140/95 Blood Pressure Mean 110 Pulse Oximetry Oxygen Delivery Method Sepsis Recent Fever Within 48 Hours Sepsis New/Unexplained Change in Mental Status Sepsis Action Taken by Nursing Laboratory Data 10/23/22 10:50 10/23/22 10:50 Lab Results 10/23/22 10/23/22 10/23/22 Range/Units 10:50 10:50 10:50 WBC 9.36 (4.8-10.8) K/ul RBC 4.04 L (4.20-5.40) M/uL Hgb 12.4 (12.0-16.0) g/dl Hct 35.4 L (37.0-47.0) % MCV 87.6 (80.0-100.0) fL MCH 30.7 (25.0-34.0) pg MCHC 35.0 (32.0-36.0) g/dL RDW Std Deviation 43.3 (36.4-46.3) fL RDW Coeff of Corey 13.4 (11.5-14.5) % Plt Count 291 (130-400) K/uL MPV 9.2 L (9.4-12.4) fL Immature Gran % (Auto) 0.5 % Neut % (Auto) 85.1 % Lymph % (Auto) 6.4 % [place] % (Auto) 7.4 % Eos % (Auto) 0.1 % Baso % (Auto) 0.5 % Neut # (Auto) 7.96 H (1.40-6.50) K/uL Lymph # (Auto) 0.60 L (1.2-3.4) K/uL [place] # (Auto) 0.69 H (0.11-0.59) K/uL Eos # (Auto) 0.01 (0-0.50) K/uL Baso # (Auto) 0.05 (0-0.2) K/uL Immature Gran # (Auto) 0.05 (0.01-0.20) K/uL PT Cancelled INR Cancelled Sodium 125 L (136-145) mmol/L Potassium 4.9 (3.5-5.1) mmol/L Chloride 92 L (98-107) mmol/L Carbon Dioxide 25 (21-32) mmol/L Anion Gap 8 (3-11) BUN 25 H (6-23) mg/dl Creatinine 0.74 (0.6-1.2) mg/dl Est Cr Clr Drug Dosing Not Reportable Est GFR ( Amer) 83.8 ml/min Est GFR (Non-Af Amer) 72.3 ml/min BUN/Creatinine Ratio 33.8 H (10-20) Glucose 140 H (70-99(Fasting)) mg/dl Calcium 9.3 (8.6-10.3) mg/dl Magnesium 2.1 (1.7-2.4) mg/dl Total Bilirubin 0.8 (0.2-1.0) mg/dl AST 115 H (13-39) U/L ALT 141 H (7-52) U/L Alkaline Phosphatase 175 H (34-104) U/L Troponin I High Sens 19.9 H (0-14) pg/ml Total Protein 6.8 (6.0-8.3) gm/dl Albumin 3.8 (3.4-5.0) gm/dl Globulin 3.0 (2.5-4.0) gm/dl Albumin/Globulin Ratio 1.3 (0.9-2) Lipase 22 (11-82) U/L TSH (0.300-4.500) uIu/ml SARS-CoV-2, RNA, NAAT (NEGATIVE) 10/23/22 10/23/22 Range/Units 10:50 Unknown WBC (4.8-10.8) K/ul RBC (4.20-5.40) M/uL Hgb (12.0-16.0) g/dl Hct (37.0-47.0) % MCV (80.0-100.0) fL MCH (25.0-34.0) pg MCHC (32.0-36.0) g/dL RDW Std Deviation (36.4-46.3) fL RDW Coeff of Corey (11.5-14.5) % Plt Count (130-400) K/uL MPV (9.4-12.4) fL Immature Gran % (Auto) % Neut % (Auto) % Lymph % (Auto) % [place] % (Auto) % Eos % (Auto) % Baso % (Auto) % Neut # (Auto) (1.40-6.50) K/uL Lymph # (Auto) (1.2-3.4) K/uL [place] # (Auto) (0.11-0.59) K/uL Eos # (Auto) (0-0.50) K/uL Baso # (Auto) (0-0.2) K/uL Immature Gran # (Auto) (0.01-0.20) K/uL PT INR Sodium (136-145) mmol/L Potassium (3.5-5.1) mmol/L Chloride (98-107) mmol/L Carbon Dioxide (21-32) mmol/L Anion Gap (3-11) BUN (6-23) mg/dl Creatinine (0.6-1.2) mg/dl Est Cr Clr Drug Dosing Est GFR ( Amer) ml/min Est GFR (Non-Af Amer) ml/min BUN/Creatinine Ratio (10-20) Glucose (70-99(Fasting)) mg/dl Calcium (8.6-10.3) mg/dl Magnesium (1.7-2.4) mg/dl Total Bilirubin (0.2-1.0) mg/dl AST (13-39) U/L ALT (7-52) U/L Alkaline Phosphatase (34-104) U/L Troponin I High Sens (0-14) pg/ml Total Protein (6.0-8.3) gm/dl Albumin (3.4-5.0) gm/dl Globulin (2.5-4.0) gm/dl Albumin/Globulin Ratio (0.9-2) Lipase (11-82) U/L TSH 2.107 (0.300-4.500) uIu/ml SARS-CoV-2, RNA, NAAT NEGATIVE (NEGATIVE) Administered Medications Diltiazem HCl 125 mg/ Dextrose 125 mls @ 5 mls/hr IV .Q24H [facility]; Protocol Stop: 11/22/22 11:59 Last Admin: 10/23/22 12:48 Dose: 5 mg/hr, 5 mls/hr Documented By: KURTIS Co-signed By: CORY Discontinued Medications Diltiazem HCl (Diltiazem Hcl 5 Mg/Ml 5 Ml Vial) 10 mg IV NOW STA Stop: 10/23/22 11:05 Last Admin: 10/23/22 11:15 Dose: 10 mg Documented By: CORY Co-signed By: MMZ Sodium Chloride (Nss 1000ml) 1,000 mls @ 999 mls/hr IV .Q1H1M STA Stop: 10/23/22 11:58 Last Infusion: 10/23/22 12:48 Dose: 0 mls/hr Documented By: Admin: 10/23/22 11:16 Dose: 999 mls/hr Documented By: CORY Metoprolol Tartrate (Metoprolol Tartrate 1 Mg/Ml Vial) 5 mg IV NOW STA Stop: 10/23/22 11:40 Last Admin: 10/23/22 11:49 Dose: 5 mg Documented By: CORY Imaging Data Radiologist's Impression: Chest X-Ray 10/23/22 10:58 SINGLE VIEW CHEST CLINICAL HISTORY: Atypical chest pain. FINDINGS: An AP, portable, upright chest radiograph is compared to study dated 11/01/2019 and correlated with chest CT dated 11/25/2020. The heart is enlarged noting atherosclerotic calcification of the thoracic aorta. The pulmonary vasculature is noncongested. Chronic interstitial thickening is similar to pr evious. Scarring/atelectasis is noted at the lung bases. No airspace consolidation or large pleural effusion is identified. No pneumothorax is seen. The skeletal structures are osteopenic. The bony thorax is grossly intact. IMPRESSION: Cardiomegaly with no acute cardiopulmonary abnormality identified. ACT 112: Negative or not required by law. Electronically signed by: Zaid Pittman M.D. 10/23/2022 11:17 AM Discharge Plan Visit Data Chief Complaint: Cardiac Assessment ED Provider: Jonny Fox Discharge Problem: Atrial fibrillation with rapid ventricular response Forms Stand Alone Forms: [facility] Prescriptions Prescriptions: No Action spironolactone 25 mg tablet 12.5 mg PO DAILY fluticasone propionate 50 mcg/actuation spray,suspension 2 spray intranasal DAILY Rx Instructions: administer into each nostril Prolia 60 mg/mL syringe See Rx Instructions subcut .COMPLEX Rx Instructions: subcutaneously every 6 months; ascorbic acid (vitamin C) [Vitamin C] 1,000 mg Tablet 1,000 mg PO QAM acetaminophen [Tylenol Extra Strength] 500 mg Tablet 500 mg PO Q6H PRN (Reason: Pain) cholecalciferol (vitamin D3) [Vitamin D3] 2,000 unit Capsule 2,000 unit PO QAM calcium citrate-vitamin D3 [Citracal-D3 Petites] 200 mg calcium -250 unit Tablet 2 tab PO BID Centrum Silver Women 8 mg iron-400 mcg-300 mcg Tablet 1 tab PO QAM multivitamin Tablet 1 tab PO DAILY metoprolol succinate 50 mg tablet extended release 24 hr 50 mg PO BID Premarin 0.625 mg/gram Cream 0.625 mg VAGINAL WK Eliquis 2.5 mg tablet 2.5 mg PO BID baclofen 10 mg tablet 5 mg PO BID PRN (Reason: jaw spasms) prednisone 5 mg tablet 2.5 mg PO DAILY furosemide 20 mg tablet 20 mg PO DAILY Referrals Referrals: Martinez Redmond [Primary Care Provider] -
[2022-10-23 11:13] LABS: Basophils # (auto) 0.05 K/uL (0-0.2); Basophils % (auto) 0.5 %; Eosinophils # (auto) 0.01 K/uL (0-0.50); Eosinophils % (auto) 0.1 %; Hematocrit (blood only) 35.4 % (37.0-47.0); Hemoglobin 12.4 g/dl (12.0-16.0); Immature Granulocytes # (auto) 0.05 K/uL (0.01-0.20); Immature Granulocytes % (auto) 0.5 %; Lymphocytes % (auto) 6.4 %; Mean Corpuscular Hemoglobin 30.7 pg (25.0-34.0); Mean Corpuscular Volume 87.6 fL (80.0-100.0); Mean Platelet Volume 9.2 fL (9.4-12.4); Monocytes # (auto) 0.69 K/uL (0.11-0.59); Monocytes % (auto) 7.4 %; Neutrophils # (auto) 7.96 K/uL (1.40-6.50); Neutrophils % (auto) 85.1 %; Platelet Count 291 K/uL (130-400); RDW Coefficient of Variation 13.4 % (11.5-14.5); RDW Standard Deviation 43.3 fL (36.4-46.3); Red Blood Count 4.04 M/uL (4.20-5.40); White Blood Count 9.36 K/ul (4.8-10.8)
--- NOTE | 2022-10-23 11:18 | XRay Report ---
SINGLE VIEW CHEST CLINICAL HISTORY: Atypical chest pain. FINDINGS: An AP, portable, upright chest radiograph is compared to study dated 11/01/2019 and correlate d with chest CT dated 11/25/2020. The heart is enlarged noting atherosclerotic calcification of the th oracic aorta. The pulmonary vasculature is noncongested. Chronic interstitial thickening is similar t o previous. Scarring/atelectasis is noted at the lung bases. No airspace consolidation or large pleur al effusion is identified. No pneumothorax is seen. The skeletal structures are osteopenic. The bony thorax is grossly intact. IMPRESSION: Cardiomegaly with no acute cardiopulmonary abnormality identified. ACT 112: Negative or not required by law. Electronically signed by: Zaid Pittman M.D. 10/23/2022 11:17 AM
[2022-10-23 11:33] LABS: Alanine Aminotransferase 141 U/L (7-52); Albumin Globulin Ratio 1.3 (0.9-2); Albumin Level 3.8 gm/dl (3.4-5.0); Alkaline Phosphatase 175 U/L (34-104); Anion Gap 8 (3-11); Aspartate Aminotransferase 115 U/L (13-39); BUN Creatinine Ratio 33.8 (10-20); Bilirubin,Total 0.8 mg/dl (0.2-1.0); Blood Urea Nitrogen 25 mg/dl (6-23); Calcium 9.3 mg/dl (8.6-10.3); Carbon Dioxide 25 mmol/L (21-32); Chloride 92 mmol/L (98-107); Est GFR (African American) 83.8 ml/min; Est GFR (Non-African American) 72.3 ml/min; Glucose 140 mg/dl (70-99(Fasting)); Lipase 22 U/L (11-82); Magnesium 2.1 mg/dl (1.7-2.4); Potassium 4.9 mmol/L (3.5-5.1); Sodium 125 mmol/L (136-145); Total Protein 6.8 gm/dl (6.0-8.3)
[2022-10-23 11:34] LABS: Troponin I High Sensitivity 19.9 pg/ml (0-14)
[2022-10-23] MEDS ORDERED: METOPROLOL TARTRATE 1 MG/ML VIAL IV STA ×2 (11:39→22:51)
[2022-10-23] MEDS ORDERED: STAT IV Infusion **Titration per Protocol STA (11:57)
--- NOTE | 2022-10-23 12:12 | History & Physical Report ---
Date of Service October 23, 2022 Assessment & Plan (1) Atrial fibrillation with rapid ventricular response: Plan: Atrial fibrillation/flutter Echo 06/18/2021 with EF 65-70%, severe with gradient 38 mmHg and valve area 0.8 Most recent echo 03/2022 showed normal LV SF/wall motion, mildly dilated RV, mildly dilated RA, moderate to severe with valve area 0.8 and pressure gradient 25 EKG: A-fib with RVR. QTc 412. No ST segment changes. Inconsistent rate, i nconsistent with flutter. Mag 2.1, potassium 4.9 on admission Suspect poor tolerance to A-fib also worsened w/ severe Has had dizzy spells with in the past -Patient with inadequate response to metoprolol 5 mg IV + morning PO dosing. Diltiazem 10 mg IV and drip subsequently started in ER. EF is normal at last echo. Amiodarone is limited by new transaminitis. If diltiazem ineffective for rate control, or poor tolerance/hypotensive will dig load for rate control Lungs are clear, legs are with edema but also signs of chronic venous stasis. CXR does not show evidence of pulmonary vascular congestion or pulmonary edema. Aside from suspected chronic venous stasis, appears near euvolemic and will defer Lasix/additional fluids on admission - trop 19.9, suspect demand with RVR. trended. Echo pending. G[employer]MER good exercise tolerance, walking several miles per day without angina/SoB. Aortic stenosis Echo as noted Patient confirms that she does not wish to pursue a valve replacement Caution preload dependence, will treat A-fib as above and follow clinically Idiopathic polyneuropathy/polymyositis Follows with neurology as outpatient. 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 No acute change in management Transaminitis - No abd tenderness New per patient, no prior history of this. No alcohol use Liver ultrasound and acute liver panel pending. DDx does include hepatic congestion with A-fib Hypertension Continue spironolactone, metoprolol. Hold for hypotension DVT prophylaxis: On Eliquis Diet: Heart healthy, low-sodium Disposition: PCU for RVR CODE STATUS: DNR/DNI (2) Anticoagulant long-term use: (3) Aortic stenosis: (4) Polymyositis: (5) Idiopathic polyneuropathy: History of Present Illness Primary Care Provider: [place] Nyla Aguayo is an 87-year-old female with a past medical history of A-fib on Eliquis who presented to the emergency department with orthostatic presyncope and was found to be in A-fib and RVR with rates of the 150s on arrival to the ER. She is less seen by cardiology 04/2022, was noted that she is no longer in atrial flutter and had rapidly progressive aortic stenosis at that time. Patient had deferred valve replacement due to age and comorbidity. This visit was a second opinion, normally follows with [facility] [place] but wanted a second opinion consult for her valvular heart disease/flutter. She reports she lives at [facility] and had her yearly physical last . She has had afib 'off and on' for many years, but had an EKG last 'and didn't pass.' Was recommended to followup with Dr. Bowie as outpatient tomorrow morning, and to take an additional 1/2 tab of metoprolol daily. She notes her heart rate has been 'up and down, up and down, up and down' in the last few days an dshe has been very stressed lately. This morning she started to get dizzy with a little difficulty breathing which is unusual for her. Normally walks several miles per day without chest pain or limiting dyspnea. Today her breathin felt off, her BP was 'not bad' at [facility], but still felt poorly and light she was going to pass out when standing/bending over. She reports she sometimes can feel her afib/heart racing at night, otherwise she checks her afib using her pulse but hasn't had palpitations. In the last few hours had had a sensation of pressure in her chest 'not bad 4-5/10 maybe' but denies chest pain. No radiation to shoulders. No history of heart stents. She reports she does has severe and is deferring valve replacement at this time, and reports she does not wish to have this done in the future. She took her Am meds today. Medical History: Reviewed Medications: Reviewed Surgical History: Reviewed Family history: Reviewed Allergies: Reviewed Social History: No tobacco product use, rare social etoh use. Code Status: DNR/DNI Allergies Allergy/AdvReac Type Severity Reaction Status Date / Time Penicillins Allergy Intermediate hives Verified 05/07/22 12:15 Sulfa (Sulfonamide Allergy Mild hives Verified 05/07/22 12:15 Antibiotics) azithromycin Allergy Hives Verified 05/07/22 12:15 codeine AdvReac Mild MS Change Verified 05/07/22 12:15 gabapentin AdvReac Mild Confusion, Verified 05/07/22 12:15 unable to sleep Macrolide Antibiotics AdvReac Mild Nausea Verified 05/07/22 12:15 with "-mycins" ketoprofen AdvReac Unknown KETOPROFEN Verified 05/07/22 12:15 GEL CAUSES SKIN BURNING Home Medications Medication Instructions Recorded Confirmed Type acetaminophen 500 mg tablet 500 mg PO Q6H PRN Pain 12/06/18 10/23/22 History (Tylenol Extra Strength) ascorbic acid (vitamin C) 1,000 mg 1,000 mg PO QAM 12/06/18 10/23/22 History tablet (Vitamin C) calcium citrate 200 mg 2 tab PO BID 12/06/18 10/23/22 History calcium-vitamin D3 6.25 mcg (250 unit) tablet (Citracal-D3 Petites) cholecalciferol (vitamin D3) 50 2,000 unit PO QAM 12/06/18 10/23/22 History mcg (2,000 unit) capsule (Vitamin D3) multivit with 1 tab PO QAM 12/06/18 10/23/22 History wpqntnad-onzy-KF-lutein 8 mg iron-400 mcg-300 mcg tablet (Centrum Silver Women) apixaban 2.5 mg tablet (Eliquis) 2.5 mg PO BID 11/25/20 10/23/22 History conjugated estrogens 0.625 mg/gram 0.625 mg vaginal WK 11/25/20 10/23/22 History vaginal cream (Premarin) metoprolol succinate 50 mg 50 mg PO BID 11/25/20 10/23/22 History tablet,extended release 24 hr multivitamin 1 tab PO DAILY 11/25/20 10/23/22 History baclofen 10 mg tablet 5 mg PO BID PRN jaw spasms 09/03/21 10/23/22 History prednisone 5 mg tablet 2.5 mg PO DAILY 09/03/21 10/23/22 History spironolactone 25 mg tablet 12.5 mg PO DAILY 09/03/21 10/23/22 History furosemide 20 mg tablet 20 mg PO DAILY 09/19/21 10/23/22 History denosumab 60 mg/mL subcutaneous See Rx Instructions subcut .COMPLEX 04/11/22 10/23/22 History syringe (Prolia) fluticasone propionate 50 2 spray intranasal DAILY 04/11/22 10/23/22 History mcg/actuation nasal spray,suspension Past Med/Surg History Medical History (Updated 10/23/22 @ 12:55 by Jonny Fox DO) Concussion Heart murmur, systolic Hyponatremia Irregular heart beat Parotiditis Polymyositis Surgical History S/P hernia repair Family History Other No pertinent family history Social History Smoking Status: Never smoker Second Hand Exposure: No; Hx Alcohol Use: No Hx Substance Use: No Preferred Language: [place] Communication Ability: Effective Hearing Ability: Normal Education Reporter Required: No Beliefs That Will Affect Care: None marital status: Current Living Situation: Spouse current occupational status: retired Feels Safe at Home: Yes Assistive Devices: None Review of Systems Review of Systems: All systems reviewed & are unremarkable except as noted in HPI & below Physical Exam Physical Exam: General: A&Ox3. NAD. Cooperative. HEENT: Atraumatic, normocephalic. Vision/hearing intact Pulm: CTAB A&P. -wheezes, -rales, -rhonchi. Symmetrical chest rise. No increased work of breathing. No respiratory distress. Cardiac: tachycardic, irir, +sm. Radial pulses intact and symmetrical. Abdominal: Nontender, nondistended, soft. BS present. Ext: warm, dry. Bilateral chronic venous stasis changes. 2+ pitting edema bilaterally, LLE with anterior rojo superficial ulceration. Results & Data Results & Data Vital Signs (Past 12 Hours) Vital Signs Temp Pulse Resp BP Pulse Ox O2 Del Method 10/23/22 11:49 135 H 133/77 10/23/22 11:30 127 H 24 95 Room Air 10/23/22 11:30 124/80 10/23/22 11:22 101/65 10/23/22 11:22 128 H 24 94 Room Air 10/23/22 11:20 91 H 26 H 94 Room Air 10/23/22 11:10 138 H 18 95 10/23/22 11:00 154 H 18 94 10/23/22 11:00 119/82 10/23/22 10:50 152 H 20 95 10/23/22 10:50 124/90 10/23/22 10:47 122 H 19 10/23/22 10:54 36.8 C 153 H 18 124/90 98 Room Air 10/23/22 10:47 132 H PG Care Time/CCT Total # of Minutes Spent Total Time Spent with Patient: Total time spent is greater than 50% in coordination of care (as documented) at patient's floor/unit and/or counseling patient: Coding Level of Care Code 55777 INT INP/OBS CARE 3/75MIN Diagnoses Atrial fibrillation with rapid ventricular response I48.91 Anticoagulant long-term use Z79.01 Aortic stenosis I35.0 Cardiac valve disease etiology: etiology unspecified Polymyositis M33.20 Idiopathic polyneuropathy G60.9 (3) Aortic stenosis Cardiac valve disease etiology: etiology unspecified Qualified Code(s): I35.0 - Nonrheumatic aortic (valve) stenosis
[2022-10-23] MEDS: dilTIAZem HCL 125 MG in DEXTROSE 5% 100 ML IV SCH ×2 (12:48→23:14)
[2022-10-23 13:08] LABS: INR 1.1 (0.9-1.1); Partial Thromboplastin Ratio 1.1; Partial Thromboplastin Time 30.2 Seconds (21.0-31.0); Prothrombin Time 11.5 Seconds (9.0-12.0)
[2022-10-23 13:38] LABS: Albumin Level 3.7 gm/dl (3.4-5.0); Bilirubin Direct 0.2 mg/dl (0-0.2); Bilirubin,Total 0.9 mg/dl (0.2-1.0); Total Protein 6.6 gm/dl (6.0-8.3)
[2022-10-23 13:45] LABS: Troponin I High Sensitivity 22.5 pg/ml (0-14)
[2022-10-23] MEDS ORDERED: NITROGLYCERIN SL 0.4 MG/TAB TAB SL PRN (15:52)
[2022-10-23] MEDS ORDERED: POLYETHYLENE (MIRALAX) 17 GM PACK PO PRN (15:52)
--- NOTE | 2022-10-23 16:22 | XCELERA ---
[id number] [id number]
--- NOTE | 2022-10-23 16:53 | Electrocardiogram Report ---
Test Reason : Blood Pressure : / mmHG Vent. Rate : 130 BPM Atrial Rate : 150 BPM P-R Int : 000 ms QRS Dur : 088 ms QT Int : 280 ms P-R-T Axes : 000 035 039 degrees QTc Int : 412 ms Atrial fibrillation with rapid ventricular response Abnormal ECG When compared with ECG of 07-DEC-2018 07:05, Atrial fibrillation has replaced Sinus rhythm Vent. rate has increased BY 54 BPM Confirmed by Panfilo Valdes ([id number]) on 10/23/2022 4:52:48 PM Referred By: Confirmed By:Panfilo Valdes
--- NOTE | 2022-10-23 16:54 | Electrocardiogram Report ---
Test Reason : Blood Pressure : / mmHG Vent. Rate : 135 BPM Atrial Rate : 258 BPM P-R Int : 000 ms QRS Dur : 084 ms QT Int : 286 ms P-R-T Axes : 000 041 034 degrees QTc Int : 429 ms Poor data quality, interpretation may be adversely affected Atrial fibrillation with rapid ventricular response Nonspecific ST and T wave abnormality Abnormal ECG When compared with ECG of 23-OCT-2022 10:46, (unconfirmed) No significant change was found Confirmed by Panfilo Valdes ([id number]) on 10/23/2022 4:54:10 PM Referred By: Martinez Redmond Confirmed By:Panfilo Valdes
[2022-10-23] MEDS ORDERED: DIGOXIN 250 MCG in SYRINGE 9 ML IV ONE (17:30)
[2022-10-23] MEDS: APIXABAN 2.5 MG TAB PO SCH (20:08)
[2022-10-23] MEDS: METOPROLOL SUCC 50MG EXT REL TAB PO SCH (20:09)
[2022-10-23] MEDS ORDERED: DIGOXIN 250 MCG in SYRINGE 9 ML IV PRN (21:00)
[2022-10-24 03:32] LABS: Basophils # (auto) 0.03 K/uL (0-0.2); Basophils % (auto) 0.3 %; Eosinophils # (auto) 0.01 K/uL (0-0.50); Eosinophils % (auto) 0.1 %; Hematocrit (blood only) 34.3 % (37.0-47.0); Hemoglobin 11.9 g/dl (12.0-16.0); Immature Granulocytes # (auto) 0.02 K/uL (0.01-0.20); Immature Granulocytes % (auto) 0.2 %; Lymphocytes # (auto) 0.73 K/uL (1.2-3.4); Lymphocytes % (auto) 7.4 %; Mean Corpuscular Hemoglobin 31.1 pg (25.0-34.0); Mean Corpuscular Hgb Conc 34.7 g/dL (32.0-36.0); Mean Corpuscular Volume 89.6 fL (80.0-100.0); Mean Platelet Volume 9.1 fL (9.4-12.4); Monocytes # (auto) 0.72 K/uL (0.11-0.59); Monocytes % (auto) 7.3 %; Neutrophils % (auto) 84.7 %; Platelet Count 275 K/uL (130-400); RDW Coefficient of Variation 13.4 % (11.5-14.5); RDW Standard Deviation 44.2 fL (36.4-46.3); Red Blood Count 3.83 M/uL (4.20-5.40); White Blood Count 9.81 K/ul (4.8-10.8)
[2022-10-24 03:44] LABS: Albumin Globulin Ratio 1.3 (0.9-2); Albumin Level 3.5 gm/dl (3.4-5.0); BUN Creatinine Ratio 37.7 (10-20); Calcium 8.5 mg/dl (8.6-10.3); Creatinine Clr Calc Pharmacy 63.4 ml/min; Est GFR (African American) 98.3 ml/min; Est GFR (Non-African American) 84.8 ml/min; Globulin 2.8 gm/dl (2.5-4.0); Magnesium 1.9 mg/dl (1.7-2.4); Potassium 4.3 mmol/L (3.5-5.1); Total Protein 6.3 gm/dl (6.0-8.3)
[2022-10-24] MEDS ORDERED: hydrOXYzine HCl 25 MG TAB PO STA (05:08)
[2022-10-24] MEDS: dilTIAZem HCL 125 MG in DEXTROSE 5% 100 ML IV SCH ×2 (08:00→16:37)
[2022-10-24] MEDS ORDERED: FUROSEMIDE 20 MG TAB PO SCH (09:00)
[2022-10-24] MEDS ORDERED: SPIRONOLACTONE 12.5 MG TAB PO SCH (09:00)
[2022-10-24] MEDS: METOPROLOL SUCC 50MG EXT REL TAB PO SCH (09:48)
[2022-10-24] MEDS: PANTOprazole 40 MG TAB PO SCH (09:48)
[2022-10-24] MEDS: APIXABAN 2.5 MG TAB PO SCH ×2 (09:49→19:53)
--- NOTE | 2022-10-24 10:11 | Hospitalist Progress Note ---
Date of Service October 24, 2022 Assessment & Plan (1) Atrial fibrillation with rapid ventricular response: Plan: - Echo 10/23/22 - EF 60-65%, No RWMA, severe calcific aortic valve stenosis, compared with echo 03/2022 aortic stenosis now severe aortic valve measures 0.6c m - EKG: A-fib with RVR. QTc 428 - Mag 1.9, potassium 4.3 early this AM and on repeat K+ 5.3 - Rx Valessa for Hyperkalemia - repeat labs in the AM - Poor tolerance to A-fib also worsened w/ severe - Dr Packer consulted Pacer pads placed If BP or HR drops - Glucagon and/or Dopa,atropine IV Lasix when BP stable If Afib RVR - amiodarone (2) Bradycardia with 41-50 beats per minute: Plan: Patient currently in A Fib/flutter Likely hypo profusion secondary to the A Fib and hypotension/bradycardia Spoke with Dr Wells who also personally evaluated patient Consult placed with Dr Packer Spoke to Dr Nash via [place] text and also Dr Wells spoke directly with cardiology via the phone Patient was agreeable to transcutaneous pacing if necessary, nursing placed pacer pads. Cardiology did not recommend to treat the mild bradycardia, if hemodynamically unstable, recommend atropine and or dopamine drip Recommend to avoid further digoxin, beta-reid, or diltiazem for now. (3) Aortic stenosis: Plan: - Echo as noted - Patient states she refused valve replacement in the past - Complex medical issues with poor prognosis. Consider palliative care consult, especially if she chooses to not pursue aortic valve replacement at some point in the future. (4) Pulmonary edema cardiac cause: Plan: - Appears hypervolemic. - Likely due to her severe and presenting A-fib with RVR. - When BP improved, Lasix 20 mg IV x1 Monitor blood pressure closely. - Spironolactone on hold. - Low-sodium diet. - Strict I's and O's with Daily weights. - Heart failure program upon discharge patient is high risk for continued issues given her comorbidities. (5) Hyponatremia: Plan: - Check serum osmolality, urine sodium and urine osmolality - Repeat BMP - Place Goff and monitor I&O (6) Hypertension: Plan: Chronic Had spironolactone, lasix, metoprolol today Currently hypotensive and bradycardic with HR in the 40s Cardizem drip was stopped (7) Transaminitis: Plan: - No abd tenderness - New per patient, no prior history of this. No alcohol use - Liver ultrasound normal and acute hepatitis panel is pending. Likely hepatic congestion or just decreased perfusion - LFTs are trending downward (bilirubin normal) (8) Polymyositis: Plan: Idiopathic polyneuropathy/polymyositis - Follows with neurology as outpatient. 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 No acute change in management (9) Acute heart failure with preserved ejection fraction (HFpEF): (10) Elevated troponin: (11) Acute metabolic encephalopathy: (12) Junctional bradycardia: (13) Hypotension: (14) Acute respiratory failure with hypoxia: Plan DVT prophylaxis: On Eliquis Diet: Heart healthy, low-sodium Disposition: PCU for RVR CODE STATUS: DNR/DNI Consulted cardiology Admission and Anticipated Discharge Date Admission Date: October 23, 2022 Supervising Physician Co-Signing Physician Notes Attending Attestation & Progress Note - Pt seen & examined, chart reviewed, care plan d/w MICHELLE Rashid & Dr Remigio Packer [place] [facility]. I agree w/ the graf components of her documentation. I added problems #9, 10, 11, 12, 13 and 14 to the pt's problem list under assessment/plan. Pt is critically ill with acute HFpEF 2nd to rapid a.fib in the setting of severe . She has severe hyponatremia and mental status changes. While attempting rate control of her a.fib (a combination of BB, CCB with cardizem, and digoxin have been used since admission) she became markedly bradycardic. EKG most suggestive of junctional bradycardia. During the time she was bradycardic she was also hypotensive. While I was assessing her she was complaining of severe dyspnea, chest pain, and "feeling very poorly." She was tachypneic, using accessory muscles, having retractions, and in general looked very uncomfortable. Exam - gen - increased work of breathing, oriented but confused, looks very sick neck - JVD to the jaw heart - 2-3/6 holosystolic murmur RUSB; bradycardic; s1 s2 lungs - diffuse end-exp wheezes with diffuse rales most lung segments; tachypneic, accessory muscle use and retractions abd - distended, BS+, NT ext - <1+ edema b/l, pulses 1-2+ b/ psych - oriented, but confused labs reviewed EKG reviewed (most recent - junctional bradycardia) imaging reviewed echo reviewed - preserved EF, - severe - valve area 0.6cm^2 A/P: 1. acute hypoxic respiratory failure 2nd to #2 2. acute HFpEF 3. severe 4. afib with RVR 5. acute kidney injury - creatinine today 0.9 (had been 0.5) 6. junctional bradycardia in setting of the above 7. severe hyponatremia 8. visual disturbance 9. hypotension 10. hyperkalemia I placed urgent consult to Dr Packer given the severity of her acute CHF, rhythm disturbances, etc. Holding BB. Holding CCB. Consider digibind if junctional bradycardia continues. Consider glugacon to reverse the effects of recent beta reid use. May need dopamine and/or atropine and/or pacing if bradycardia persists. Hypotension is 2nd to poor forward flow in the setting of her acute HFpEF, junctional bradycardia, etc. Patiromer x 1 for high K. Lasix or bumex tonight if BP will allow. Consider HFNC or CPAP if increased work of breathing persists. Serial labs. Hyponatremia unlikely to improve unless we improve her forward flow and enact a diuresis. Consider head CT for visual disturbance but too ill to transport to radiology at this time. Suspect visual complaints are related to hypotension & hypoperfusion of brain and/or hyponatremia. Total critical care time 60 minutes between Ms Rashid and myself. Patient had multiple life-threatening cardiopulmonary issues today. Dexter Wells MD Subjective Patient seen this afternoon and she stated she felt "funny" and said her food tray was sideways and she was nauseated. She denies any vertigo but was having a hard time explaining how she felt. She states she has some chest pressure, but denies any dyspnea or SOB. Her heart rate was in the 40s and her Cardizem drip was stopped. Per the veterinary assistant technician, her heart rate dropped from the 120s to 40s this afternoon. Her BP was 94/62, heart rate 47 and is saturating at 92% on 4L. Patient's diltiazem drip was stopped approximately at 14:20 this afternoon. Stat labs revealed Sodium 119, K+ 5.3 Osmol 268, Urine Osmol 549, Urine Na 34. Spoke with Dr Packer via tiger and Dr Wells spoke with cardiology via the phone. Patient's regular cosmetic counselor is Dr Thomas. Review of Systems Constitutional: + malaise, + weakness and + anorexia Eyes: no blind spots, no diplopia, no eye pain and not seeing flashes Respiratory: no cough, no chest congestion and no dyspnea Cardiovascular: + lightheadedness; no palpitations and no calf pain Additional Comments: complains of chest pressure Gastrointestinal: + abdominal pain and + nausea; no vomiting Physical Exam Constitutional: + acute distress, + ill appearing and + frail appearing Eyes: PERRLA Respiratory: decreased breath sounds Cardiovascular: Rate/Rhythm: + bradycardic Heart Sounds: normal S1, normal S2 and + murmur 2/6 systolic murmur Trace lower extremity edema Gastrointestinal (Abdomen): soft , + BS, mild discomfort to palpation RUQ, no R/R/G Psychiatric: Orientation: alert and oriented x 3 Results & Data Results & Data Vital Signs (Past 12 Hours) Vital Signs Temp Pulse Pulse Resp BP BP Pulse Ox 10/24/22 05:34 123 H 10/24/22 07:30 10/24/22 08:39 36.3 C L 71 18 121/80 96 10/24/22 04:12 36.5 C 129 H 20 134/89 90 10/23/22 22:04 115 H 10/23/22 23:07 127 H 134/79 10/23/22 22:43 36.9 C 127 H 22 134/79 91 O2 Del Method O2 Flow Rate 10/24/22 05:34 10/24/22 07:30 Nasal Cannula 4 10/24/22 08:39 Room Air 10/24/22 04:12 Nasal Cannula 2 10/23/22 22:04 10/23/22 23:07 10/23/22 22:43 Nasal Cannula 2 Laboratory Results Abnormal lab results 10/23/22 10/23/22 10/23/22 Range/Units 10:50 10:50 13:04 RBC 4.04 L (4.20-5.40) M/uL Hgb (12.0-16.0) g/dl Hct 35.4 L (37.0-47.0) % MPV 9.2 L (9.4-12.4) fL Neut # (Auto) 7.96 H (1.40-6.50) K/uL Lymph # (Auto) 0.60 L (1.2-3.4) K/uL Randolph # (Auto) 0.69 H (0.11-0.59) K/uL Sodium 125 L (136-145) mmol/L Chloride 92 L (98-107) mmol/L BUN 25 H (6-23) mg/dl Creatinine (0.6-1.2) mg/dl BUN/Creatinine Ratio 33.8 H (10-20) Glucose 140 H (70-99(Fasting)) mg/dl Calcium (8.6-10.3) mg/dl AST 115 H 127 H (13-39) U/L ALT 141 H 149 H (7-52) U/L Alkaline Phosphatase 175 H 188 H (34-104) U/L Troponin I High Sens 19.9 H 22.5 H (0-14) pg/ml B-Natriuretic Peptide (0-100) pg/ml 10/23/22 10/23/22 10/24/22 Range/Units 13:04 21:04 02:58 RBC (4.20-5.40) M/uL Hgb (12.0-16.0) g/dl Hct (37.0-47.0) % MPV (9.4-12.4) fL Neut # (Auto) (1.40-6.50) K/uL Lymph # (Auto) (1.2-3.4) K/uL Randolph # (Auto) (0.11-0.59) K/uL Sodium (136-145) mmol/L Chloride (98-107) mmol/L BUN (6-23) mg/dl Creatinine (0.6-1.2) mg/dl BUN/Creatinine Ratio (10-20) Glucose (70-99(Fasting)) mg/dl Calcium (8.6-10.3) mg/dl AST (13-39) U/L ALT (7-52) U/L Alkaline Phosphatase (34-104) U/L Troponin I High Sens 23.2 H 19.8 H (0-14) pg/ml B-Natriuretic Peptide 1504 H (0-100) pg/ml 10/24/22 10/24/22 10/24/22 Range/Units 02:58 02:58 08:40 RBC 3.83 L (4.20-5.40) M/uL Hgb 11.9 L (12.0-16.0) g/dl Hct 34.3 L (37.0-47.0) % MPV 9.1 L (9.4-12.4) fL Neut # (Auto) 8.30 H (1.40-6.50) K/uL Lymph # (Auto) 0.73 L (1.2-3.4) K/uL Randolph # (Auto) 0.72 H (0.11-0.59) K/uL Sodium 124 L (136-145) mmol/L Chloride 92 L (98-107) mmol/L BUN (6-23) mg/dl Creatinine 0.53 L (0.6-1.2) mg/dl BUN/Creatinine Ratio 37.7 H (10-20) Glucose 133 H (70-99(Fasting)) mg/dl Calcium 8.5 L (8.6-10.3) mg/dl AST 80 H (13-39) U/L ALT 124 H (7-52) U/L Alkaline Phosphatase 169 H (34-104) U/L Troponin I High Sens 18.1 H (0-14) pg/ml B-Natriuretic Peptide (0-100) pg/ml PG Care Time/CCT Total # of Minutes Spent Total Time Spent with Patient: Total time spent is greater than 50% in coordination of care (as documented) at patient's floor/unit and/or counseling patient: Critical Care Time: Yes Total Critical Care Time: 60 Coding Level of Care Code None Diagnoses Atrial fibrillation with rapid ventricular response I48.91 Bradycardia with 41-50 beats per minute R00.1 Aortic stenosis I35.0 Cardiac valve disease etiology: etiology unspecified Pulmonary edema cardiac cause I50.1 Hyponatremia E87.1 Hypertension I10 Transaminitis R74.01 Polymyositis M33.20 Acute heart failure with preserved ejection fraction (HFpEF) I50.31 Elevated troponin R77.8 Acute metabolic encephalopathy G93.41 Junctional bradycardia R00.1 Hypotension I95.9 Acute respiratory failure with hypoxia J96.01 Additional Codes Critical Care Time - Critical Care Time: Yes ([id number]) (3) Aortic stenosis Cardiac valve disease etiology: etiology unspecified Qualified Code(s): I35.0 - Nonrheumatic aortic (valve) stenosis
--- NOTE | 2022-10-24 10:19 | Ultrasound Report ---
ABDOMINAL ULTRASOUND, RIGHT UPPER QUADRANT HISTORY: transaminitis. COMPARISON: Abdominal ultrasound 09/14/2014. FINDINGS: Pancreas: The pancreatic tail and body are obscured by overlying bowel gas. The remaining portions of the pancreas are within normal limits. Liver: Unremarkable. Gallbladder: No gallbladder wall thickening. No gallstones. CBD: 8 mm. This is considered to be within the range normal limits given the patient's age. Right kidney: No hydronephrosis. A stable 2.2 cm angiomyolipoma within the lower pole. Miscellaneous: A small right pleural effusion is partially visualized. IMPRESSION: 1. Normal gallbladder. No gallstones. 2. 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 3. Partially visualized small right pleural effusion. ACT 112: Negative or not required by law. Electronically signed by: Vivek Louis M.D. 10/24/2022 10:18 AM
[2022-10-24] MEDS ORDERED: ONDANSETRON INJ 2 MG/ML 2 ML VIAL IV PRN (11:02)
[2022-10-24 15:48] LABS: BUN Creatinine Ratio 25.6 (10-20); Calcium 8.5 mg/dl (8.6-10.3); Creatinine Clr Calc Pharmacy 37.3 ml/min; Est GFR (African American) 66.2 ml/min; Est GFR (Non-African American) 57.1 ml/min; Potassium 5.3 mmol/L (3.5-5.1)
[2022-10-24] MEDS ORDERED: DIGOXIN 125 MCG in SYRINGE 9.5 ML IV SCH (16:00)
--- NOTE | 2022-10-24 16:36 | Cardiology Consultation ---
Date of Consultation October 24, 2022 Assessment & Plan (1) Atrial fibrillation with rapid ventricular response: (2) Junctional bradycardia: (3) Aortic stenosis: (4) Chest discomfort: (5) Elevated troponin: (6) Acute heart failure with preserved ejection fraction (HFpEF): (7) Hyponatremia: Plan ASSESSMENT/PLAN: 1. Junctional bradycardia: Clinically, if anything she feels slightly better with reduced chest pain. Blood pressure was mildly hypotensive but more recently now normotensive. Do not recommend treating the mild bradycardia unless she should show signs of deterioration and rather allow her heart rate to gradually improve as medications wear off. Avoid further digoxin, beta-reid, or diltiazem for now. Bradycardia likely due to the combination of her rate controlling medications. She is agreeable for transcutaneous pacing if necessary. Nursing staff was asked to place pacer pads, in case they are needed. If hemodynamically unstable, recommend atropine and/or dopamine drip. For now, continue to monitor. 2. A-fib with RVR: Known paroxysmal atrial fibrillation. She will likely develop A-fib with RVR again after medications wear off. Recommend amiodarone if so, especially in the setting of severe aortic stenosis as she will not likely tolerate A-fib with RVR. She has been anticoagulated and appears to be on appropriate Eliquis dosing. Monitor CBC and renal function. 3. Aortic stenosis: Appears to be severe. She has not wanted to pursue aortic valve replacement in the past. Upon discussing today, she is open to the idea. This can be further discussed once optimized and improved from her acute issues. 4. Chest pain: Has had chest pain intermittently since yesterday. Chest pain improved with reduced heart rate. Likely related to her severe aortic stenosis, CHF, and initially to her A-fib with RVR. Troponins have already peaked and trended downward. If worsening pain, can read trend troponin levels. Otherwise, optimize heart failure and heart rate. No urgent indication for cardiac catheterization. 5. Acute heart failure with preserved EF: She appears hypervolemic. This is likely due to her severe aortic stenosis and presenting A-fib with RVR. Now that her blood pressure has improved, Lasix 20 mg IV x1, which can be further redosed or increased as needed. Monitor blood pressure closely. Discontinue spironolactone for now given hyperkalemia. Low-sodium diet. Strict I's and O's. Daily weights. Heart failure program as she is high risk for continued issues given her comorbidities. 6. Elevated troponin: As above. Presentation not consistent with acute coronary syndrome but rather severe aortic stenosis with A-fib with RVR. 7. Hyponatremia: Has had mild hyponatremia in the past but worsening today. Defer further evaluation to primary hospitalist service. Diurese as above as she appears to be hypervolemic. 8. Elevated transaminase levels: Likely due to severe aortic stenosis with A- fib with RVR and heart failure, possibly hepatic congestion or simply reduced perfusion. Transaminase levels are trending downward. As per primary hospitalist service. 9. Disposition: Cardiology will continue to follow. Dr. Valdes will cover cardiology rounds tomorrow. Patient care has been discussed and communicated with Dr. Wells and Ms. Rachid CHAMBERS of the primary hospitalist service, and nursing staff (Ms. Mcdonnell.. Patient's okegwnrd-az-own, Yin Villafana, was contacted via telephone and updated on current cardiac issues. Complex medical issues with poor prognosis. Consider palliative care consult, especially if she chooses to not pursue aortic valve replacement at some point in the future. 95 minutes spent for this consultation, including [id number] time, counseling patient, coordinating care, speaking with family, speaking with primary hospitalist service and nursing staff. Time also spent reviewing studies, several reports, chart, labs, and completing documentation. Thank you for allowing me to participate in the care of your patient. Please call for any other questions or concerns. Sincerely, Dre Packer M.D. History of Present Illness Reason for Consultation: A fib, severe , CHF Requesting Physician: Monica Rashid Attending Physician: Dexter Wells MD History of Present Illness Mrs. Villafana is a very pleasant 87-year-old female with a history significant for severe aortic stenosis, paroxysmal atrial fibrillation, atrial flutter, polymyositis, and polyneuropathy. Her primary stem assembler is Dr. Thomas. She has been known to have severe aortic stenosis and apparently had had discussion in the past with interventional cardiology in regards to aortic valve replacement. This was done with Dr. Garcia at [facility] according to records. According to outpatient cardiology notes, she has not wanted to proceed with aortic valve replacement. She was hospitalized on 10/23/2022 after feeling dizzy, short of breath, and in general not feeling well per her words today. She had had increased dyspnea with exertion the past few days prior to presentation. Then when she woke up on 10/23/2022, she noted that she had dizziness and increased shortness of breath to the point where she was panting. Her shortness of breath was constant, even at rest. She had been feeling more tired than usual as well. She checks her heart rate and recalls that her heart rate was approximately 115 bpm when seeing her PCP 1 week ago and over the past few days when she checked her pulse, her heart rate was in the 115-120 range. On presentation, she was noted to be in atrial fibrillation with rapid ventricular response with her initial ECG demonstrating a heart rate of 130 bpm. Some charted heart rates were in the 150s. Her blood pressure on presentation was normal. She was placed on diltiazem drip and also received intravenous digoxin 500 mcg on 10/23/2022. She also received 5 mg of IV metoprolol on 10/23/2022 at 2307 and her usual metoprolol succinate 50 mg p.o. twice daily, last evening and this morning. She had chest discomfort described as a lower substernal chest pressure yesterday at rest and with ambulation intermittently. The pain was present this morning as well. Then her heart rate on telemetry on personal review, was noted to start to improve at approximately 10:45 AM this morning and at approximately 12:30 PM this afternoon, she developed what appears to be a junctional escape rhythm in the mid 40s, which has continued at approximately 47 bpm. Nursing staff discontinued diltiazem drip this afternoon at approximately 2:19 PM due to mild hypotension with bradycardia. Upon discussion with nursing staff, she states that other than mild hypotension, there was no significant clinical change in how the patient appeared or felt. There was apparently some transient confusion at some point today and also yesterday according to the patient, where she recalls having some hallucinations. When I saw her this afternoon, her chest discomfort has actually improved with a slower heart rate and her breathing has remained unchanged. She remains short of breath and she is now on 4 L of supplemental oxygen which was also the case at 7:30 AM this morning. She was on 2 L of supplemental oxygen yesterday. She reports that she has had "terrible" swelling for the past several years worse in the left leg. She believes it is a bit better today. She denies syncope, melena, hematochezia, or hematuria. She has occasional palpitations but none currently. Review of systems: As above. Review of systems: as above and otherwise negative/unremarkable. Family history: Mother had some form of cardiac issue but no details. Social history: Denies tobacco, alcohol, or drug abuse. She resides at [facility] with her . 3 children (a son in [facility] who is an EMT with his Yin who is a nurse; daughter in [place]; son who is a manager of medical at [employer]). She was unaccompanied in her room. She asked that her [id number], Yin, be contacted. Allergies Allergy/AdvReac Type Severity Reaction Status Date / Time Penicillins Allergy Intermediate hives Verified 05/07/22 12:15 Sulfa (Sulfonamide Allergy Mild hives Verified 05/07/22 12:15 Antibiotics) azithromycin Allergy Hives Verified 05/07/22 12:15 codeine AdvReac Mild MS Change Verified 05/07/22 12:15 gabapentin AdvReac Mild Confusion, Verified 05/07/22 12:15 unable to sleep Macrolide Antibiotics AdvReac Mild Nausea Verified 05/07/22 12:15 with "-mycins" ketoprofen AdvReac Unknown KETOPROFEN Verified 05/07/22 12:15 GEL CAUSES SKIN BURNING Home Medications Medication Instructions Recorded Confirmed Type acetaminophen 500 mg tablet 500 mg PO Q6H PRN Pain 12/06/18 10/23/22 History (Tylenol Extra Strength) ascorbic acid (vitamin C) 1,000 mg 1,000 mg PO QAM 12/06/18 10/23/22 History tablet (Vitamin C) calcium citrate 200 mg 2 tab PO BID 12/06/18 10/23/22 History calcium-vitamin D3 6.25 mcg (250 unit) tablet (Citracal-D3 Petites) cholecalciferol (vitamin D3) 50 2,000 unit PO QAM 12/06/18 10/23/22 History mcg (2,000 unit) capsule (Vitamin D3) multivit with 1 tab PO QAM 12/06/18 10/23/22 History aqzymnvz-unao-EA-lutein 8 mg iron-400 mcg-300 mcg tablet (Centrum Silver Women) apixaban 2.5 mg tablet (Eliquis) 2.5 mg PO BID 11/25/20 10/23/22 History conjugated estrogens 0.625 mg/gram 0.625 mg vaginal WK 11/25/20 10/23/22 History vaginal cream (Premarin) metoprolol succinate 50 mg 50 mg PO BID 11/25/20 10/23/22 History tablet,extended release 24 hr multivitamin 1 tab PO DAILY 11/25/20 10/23/22 History baclofen 10 mg tablet 5 mg PO BID PRN jaw spasms 09/03/21 10/23/22 History prednisone 5 mg tablet 2.5 mg PO DAILY 09/03/21 10/23/22 History spironolactone 25 mg tablet 12.5 mg PO DAILY 09/03/21 10/23/22 History furosemide 20 mg tablet 20 mg PO DAILY 09/19/21 10/23/22 History denosumab 60 mg/mL subcutaneous See Rx Instructions subcut .COMPLEX 04/11/22 History syringe (Prolia) fluticasone propionate 50 2 spray intranasal DAILY 04/11/22 10/23/22 History mcg/actuation nasal spray,suspension Patient History Medical History Aortic stenosis Atrial flutter Concussion Heart murmur, systolic Hyponatremia Irregular heart beat Parotiditis Paroxysmal atrial fibrillation Polymyositis Surgical History S/P hernia repair Family History Other No pertinent family history Social History Smoking Status: Never smoker Second Hand Exposure: Yes; Do You Dip or Chew Tobacco: No; Tobacco Cessation Education Requested by Patient: No Hx Alcohol Use: No Hx Substance Use: No Preferred Language: Tongan Communication Ability: Effective Hearing Ability: Normal 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 Alert and oriented. HEENT: Anicteric sclera. Neck: JVD to the mandible sitting approximately 60 degrees elevated. Normal carotid upstrokes bilaterally. Cardiac: PMI was nondisplaced. No ventricular heave. Regular but bradycardic in the 40s. Normal S1. No audible S2. 2/6 late peaking systolic ejection murmur heard best at right upper sternal border. No rubs or gallops. Pulmonary: Decreased breath sounds at the bases with occasional rales. Abdomen: Soft, nontender, nondistended, with normoactive bowel sounds. No bruits noted. Extremities: 2+ radial pulses bilaterally. 1+ left lower extremity edema. Trace right lower extremity edema. No palpable cords. No cyanosis. Psychiatric: Affect appears appropriate. Results & Data Vital Signs (Past 12 Hours) Vital Signs Temp Pulse Pulse Resp BP Pulse Ox O2 Del Method 10/24/22 16:13 36.9 C 47 L 22 99/62 L 91 Nasal Cannula 10/24/22 16:01 46 L 10/24/22 15:54 47 L 10/24/22 14:13 47 L 94/62 L 92 Nasal Cannula 10/24/22 12:10 36.2 C L 91 H 18 113/70 93 Nasal Cannula 10/24/22 05:34 123 H 10/24/22 07:30 Nasal Cannula 10/24/22 08:39 36.3 C L 71 18 121/80 96 Room Air O2 Flow Rate 10/24/22 16:13 4 10/24/22 16:01 10/24/22 15:54 10/24/22 14:13 4 10/24/22 12:10 6 10/24/22 05:34 10/24/22 07:30 4 10/24/22 08:39 Intake & Output 10/22/22 10/23/22 10/24/22 10/25/22 06:59 06:59 06:59 06:59 Intake Total 1555.833 / 1555.833 220 / 220 Output Total 500 / 500 200 / 200 Balance 1055.833 / 1055.833 20 / 20 Weight 139 lb 15.896 oz 127 lb 13.89 oz Laboratory Results Laboratory Results - last 24 hr 10/23/22 10/24/22 10/24/22 21:04 02:58 02:58 WBC 9.81 RBC 3.83 L Hgb 11.9 L Hct 34.3 L MCV 89.6 MCH 31.1 MCHC 34.7 RDW Std Deviation 44.2 RDW Coeff of Corey 13.4 Plt Count 275 MPV 9.1 L Immature Gran % (Auto) 0.2 Neut % (Auto) 84.7 Lymph % (Auto) 7.4 [place] % (Auto) 7.3 Eos % (Auto) 0.1 Baso % (Auto) 0.3 Neut # (Auto) 8.30 H Lymph # (Auto) 0.73 L [place] # (Auto) 0.72 H Eos # (Auto) 0.01 Baso # (Auto) 0.03 Immature Gran # (Auto) 0.02 Sodium Potassium Chloride Carbon Dioxide Anion Gap BUN Creatinine Est Cr Clr Drug Dosing Est GFR ( Amer) Est GFR (Non-Af Amer) BUN/Creatinine Ratio Glucose Osmolality Calcium Magnesium Total Bilirubin AST ALT Alkaline Phosphatase Troponin I High Sens 23.2 H 19.8 H Total Protein Albumin Globulin Albumin/Globulin Ratio Urine Osmolality Ur Random Sodium Digoxin Hepatitis A IgM Ab Hep Bs Antigen Hep Bs Ag Confirmation Hep B Core IgM Ab Hepatitis C Ab (EIA) Hep C Ab Signal/Cutoff 10/24/22 10/24/22 10/24/22 02:58 08:40 12:08 WBC RBC Hgb Hct MCV MCH MCHC RDW Std Deviation RDW Coeff of Corey Plt Count MPV Immature Gran % (Auto) Neut % (Auto) Lymph % (Auto) [place] % (Auto) Eos % (Auto) Baso % (Auto) Neut # (Auto) Lymph # (Auto) [place] # (Auto) Eos # (Auto) Baso # (Auto) Immature Gran # (Auto) Sodium 124 L Potassium 4.3 Chloride 92 L Carbon Dioxide 23 Anion Gap 9 BUN 20 Creatinine 0.53 L Est Cr Clr Drug Dosing 63.4 Est GFR ( Amer) 98.3 Est GFR (Non-Af Amer) 84.8 BUN/Creatinine Ratio 37.7 H Glucose 133 H Osmolality Calcium 8.5 L Magnesium 1.9 Total Bilirubin 1.0 AST 80 H ALT 124 H Alkaline Phosphatase 169 H Troponin I High Sens 18.1 H Total Protein 6.3 Albumin 3.5 Globulin 2.8 Albumin/Globulin Ratio 1.3 Urine Osmolality Ur Random Sodium Digoxin Hepatitis A IgM Ab Pending Hep Bs Antigen Pending Hep Bs Ag Confirmation Pending Hep B Core IgM Ab Pending Hepatitis C Ab (EIA) Pending Hep C Ab Signal/Cutoff Pending 10/24/22 10/24/22 10/24/22 14:51 14:51 15:10 WBC RBC Hgb Hct MCV MCH MCHC RDW Std Deviation RDW Coeff of Corey Plt Count MPV Immature Gran % (Auto) Neut % (Auto) Lymph % (Auto) [place] % (Auto) Eos % (Auto) Baso % (Auto) Neut # (Auto) Lymph # (Auto) [place] # (Auto) Eos # (Auto) Baso # (Auto) Immature Gran # (Auto) Sodium 119 L* Potassium 5.3 H D Chloride 88 L Carbon Dioxide 20 L Anion Gap 11 BUN 23 Creatinine 0.90 D Est Cr Clr Drug Dosing 37.3 Est GFR ( Amer) 66.2 Est GFR (Non-Af Amer) 57.1 BUN/Creatinine Ratio 25.6 H Glucose 234 H Osmolality Calcium 8.5 L Magnesium Total Bilirubin AST ALT Alkaline Phosphatase Troponin I High Sens Total Protein Albumin Globulin Albumin/Globulin Ratio Urine Osmolality 549 Ur Random Sodium 34 Digoxin Hepatitis A IgM Ab Hep Bs Antigen Hep Bs Ag Confirmation Hep B Core IgM Ab Hepatitis C Ab (EIA) Hep C Ab Signal/Cutoff 10/24/22 10/24/22 15:10 15:10 WBC RBC Hgb Hct MCV MCH MCHC RDW Std Deviation RDW Coeff of Corey Plt Count MPV Immature Gran % (Auto) Neut % (Auto) Lymph % (Auto) [place] % (Auto) Eos % (Auto) Baso % (Auto) Neut # (Auto) Lymph # (Auto) [place] # (Auto) Eos # (Auto) Baso # (Auto) Immature Gran # (Auto) Sodium Potassium Chloride Carbon Dioxide Anion Gap BUN Creatinine Est Cr Clr Drug Dosing Est GFR ( Amer) Est GFR (Non-Af Amer) BUN/Creatinine Ratio Glucose Osmolality 268 L Calcium Magnesium Total Bilirubin AST ALT Alkaline Phosphatase Troponin I High Sens Total Protein Albumin Globulin Albumin/Globulin Ratio Urine Osmolality Ur Random Sodium Digoxin 0.6 L Hepatitis A IgM Ab Hep Bs Antigen Hep Bs Ag Confirmation Hep B Core IgM Ab Hepatitis C Ab (EIA) Hep C Ab Signal/Cutoff Diagnostic Findings Telemetry personally reviewed as discussed in HPI. Currently junctional rhythm in the 40s. ECGs personally reviewed: ECG 10/23/2022 at 10:46 AM: A-fib RVR 130 bpm. ECG 10/23/2022 at 11:50 AM: A-fib RVR 135 bpm. ECG 10/23/2022 at 2223: A-fib with RVR [address] abnormality. ECG 10/24/2022 at 1413: Junctional rhythm 47 bpm. Poor R wave progression. Echo images personally reviewed from 10/23/2022: Normal LV systolic function. Normal wall motion. Aortic valve appears severely stenotic. Moderate mitral regurgitation. Mild to moderate tricuspid regurgitation. History and physical report reviewed. Chest x-ray 10/23/2022: No acute cardiopulmonary abnormality per radiology. Chronic interstitial thickening. Chest x-ray image personally reviewed: No obvious infiltrate. Possible small right pleural effusion. Liver ultrasound 10/24/2022: Small right pleural effusion. 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 Labs reviewed and notable for mild anemia, worsening hyponatremia. Mild hyperkalemia on repeat labs this afternoon, stable renal function, mildly elevated transaminase levels which are trending down from admission. High- sensitivity troponin slightly elevated peaking at 23. Elevated BNP. Digoxin level of 0.6. Medications Administered Current Inpatient Medications Acetaminophen (Acetaminophen 500 Mg Tab) 500 mg PO Q6H PRN PRN Reason: Pain Stop: 11/22/22 15:51 Apixaban (Apixaban 2.5 Mg Tab) 2.5 mg PO BID [facility] Stop: 11/22/22 20:59 Last Admin: 10/24/22 09:49 Dose: 2.5 mg Estrogens Conjugated (Premarin Vag Crm 14 Appln/30 Gm Tube) 1 appln PV Murphy@0900 [facility] Stop: 11/26/22 08:59 Furosemide (Furosemide 20 Mg Tab) 20 mg PO DAILY [facility] Stop: 11/23/22 08:59 Last Admin: 10/24/22 09:48 Dose: 20 mg Diltiazem HCl 125 mg/ Dextrose 125 mls @ 0 mls/hr IV .Q0M [facility]; Protocol Stop: 11/22/22 11:59 Last Admin: 10/24/22 16:37 Dose: Not Given Digoxin 125 mcg/ Syringe 10 mls @ 2 mls/min IV DAILY@1600 [facility] Stop: 11/23/22 15:59 Last Admin: 10/24/22 15:54 Dose: Not Given Metoprolol Succinate (Metoprolol Succ 50mg Ext Rel Tab) 50 mg PO BID [facility] Stop: 11/22/22 20:59 Last Admin: 10/24/22 09:48 Dose: 50 mg Nitroglycerin (Nitroglycerin Sl 0.4 Mg/Tab Tab) 0.4 mg SL UD PRN PRN Reason: Chest Pain Stop: 11/22/22 15:51 Ondansetron HCl (Ondansetron Inj 2 Mg/Ml 2 Ml Vial) 4 mg IV Q6H PRN PRN Reason: Nausea And Vomiting Stop: 11/23/22 11:01 Pantoprazole Sodium (Pantoprazole 40 Mg Tab) 40 mg PO DAILY [facility] Stop: 11/23/22 08:59 Last Admin: 10/24/22 09:48 Dose: 40 mg Patiromer (Patiromer Calcium Sorbitex 8.4 Gm Pack) 8.4 gm PO ONE ONE Stop: 10/24/22 16:57 Polyethylene Glycol (Polyethylene (Miralax) 17 Gm Pack) 17 gm PO DAILY PRN PRN Reason: Constipation Stop: 11/22/22 15:51 Spironolactone (Spironolactone 12.5 Mg Tab) 12.5 mg PO DAILY [facility] Stop: 11/23/22 08:59 Last Admin: 10/24/22 09:48 Dose: 12.5 mg PG Care Time/CCT Total # of Minutes Spent Total Time Spent with Patient: Total time spent is greater than 50% in coordination of care (as documented) at patient's floor/unit and/or counseling patient: Coding Level of Care Code 80121 INT INP/OBS CARE 3/75MIN Diagnoses Atrial fibrillation with rapid ventricular response I48.91 Junctional bradycardia R00.1 Aortic stenosis I35.0 Cardiac valve disease etiology: etiology unspecified Chest discomfort R07.89 Elevated troponin R77.8 Acute heart failure with preserved ejection fraction (HFpEF) I50.31 Hyponatremia E87.1 Time Spent (min) 95 (3) Aortic stenosis Cardiac valve disease etiology: etiology unspecified Qualified Code(s): I35.0 - Nonrheumatic aortic (valve) stenosis
[2022-10-24] MEDS ORDERED: PATIROMER CALCIUM SORBITEX 8.4 GM PACK PO ONE (16:56)
[2022-10-24] MEDS ORDERED: FUROSEMIDE INJ 20 MG/2 ML VIAL IV ONE (17:13)
[2022-10-24] MEDS ORDERED: SODIUM CHLORIDE 1 GM TABLET PO ONE (22:03)
[2022-10-24] MEDS ORDERED: STAT IV STA (22:04)
[2022-10-24] MEDS ORDERED: SODIUM CHLORIDE 3 % 500 ML IV SCH (22:15)
--- NOTE | 2022-10-24 23:02 | Electrocardiogram Report ---
Test Reason : Blood Pressure : / mmHG Vent. Rate : 121 BPM Atrial Rate : 089 BPM P-R Int : 000 ms QRS Dur : 084 ms QT Int : 302 ms P-R-T Axes : 000 048 -19 degrees QTc Int : 428 ms Atrial fibrillation with rapid ventricular response Nonspecific ST abnormality Abnormal ECG When compared with ECG of 23-OCT-2022 11:50, No significant change was found Reconfirmed by Remigio Packer ([id number]) on 10/24/2022 11:02:26 PM Referred By: Martinez Redmond Confirmed By:Remigio Packer
[2022-10-24 23:31] LABS: BUN Creatinine Ratio 20.7 (10-20); Calcium 8.7 mg/dl (8.6-10.3); Creatinine Clr Calc Pharmacy 24.9 ml/min; Est GFR (African American) 40.5 ml/min; Magnesium 2.2 mg/dl (1.7-2.4); Potassium 5.3 mmol/L (3.5-5.1)
[2022-10-25 02:31] LABS: Hematocrit (blood only) 36.2 % (37.0-47.0); Hemoglobin 12.6 g/dl (12.0-16.0); Mean Corpuscular Hemoglobin 30.5 pg (25.0-34.0); Mean Corpuscular Hgb Conc 34.8 g/dL (32.0-36.0); Mean Corpuscular Volume 87.7 fL (80.0-100.0); Platelet Count 261 K/uL (130-400); RDW Coefficient of Variation 13.3 % (11.5-14.5); RDW Standard Deviation 42.9 fL (36.4-46.3); Red Blood Count 4.13 M/uL (4.20-5.40); White Blood Count 12.67 K/ul (4.8-10.8)
[2022-10-25 02:49] LABS: BUN Creatinine Ratio 20.9 (10-20); Calcium 8.4 mg/dl (8.6-10.3); Creatinine Clr Calc Pharmacy 24.2 ml/min; Est GFR (African American) 39.1 ml/min; Est GFR (Non-African American) 33.8 ml/min; Magnesium 2.1 mg/dl (1.7-2.4); Potassium 5.3 mmol/L (3.5-5.1)
--- NOTE | 2022-10-25 05:26 | Electrocardiogram Report ---
Test Reason : Blood Pressure : / mmHG Vent. Rate : 047 BPM Atrial Rate : 057 BPM P-R Int : 000 ms QRS Dur : 108 ms QT Int : 426 ms P-R-T Axes : 000 053 039 degrees QTc Int : 377 ms Junctional rhythm Anterior infarct , age undetermined Abnormal ECG When compared with ECG of 23-OCT-2022 22:33, Junctional rhythm has replaced Atrial fibrillation Vent. rate has decreased BY 74 BPM QRS duration has increased ST no longer depressed in Lateral leads Confirmed by Remigio Packer ([id number]) on 10/25/2022 5:25:49 AM Referred By: Martinez Redmond Confirmed By:Remigio Packer
[2022-10-25] MEDS ORDERED: BUMETANIDE 2 MG in SYRINGE 0 ML IV ONE (08:02)
[2022-10-25] MEDS ORDERED: AMIODARONE / D5W 150 MG/100 ML BAG IV STA (08:14)
[2022-10-25] MEDS ORDERED: 0.2 MICRON FILTER SET 1 EACH IV ONE ×2 (08:14→15:16)
[2022-10-25] MEDS ORDERED: AMIODARONE / D5W 360 MG/200 ML BAG IV ONE (08:14)
[2022-10-25] MEDS: APIXABAN 2.5 MG TAB PO SCH ×2 (08:51→20:38)
[2022-10-25] MEDS: PANTOprazole 40 MG TAB PO SCH (08:51)
[2022-10-25 08:57] LABS: BUN Creatinine Ratio 25.4 (10-20); Calcium 8.4 mg/dl (8.6-10.3); Creatinine Clr Calc Pharmacy 27.5 ml/min; Est GFR (African American) 45.8 ml/min; Est GFR (Non-African American) 39.5 ml/min; Potassium 5.2 mmol/L (3.5-5.1)
[2022-10-25 09:07] LABS: HBSAG NON-REACTIVE (NON-REACTIVE); Hepatitis A Antibody IgM NON-REACTIVE (NON-REACTIVE); Hepatitis B Core Antibody IgM NON-REACTIVE (NON-REACTIVE)
[2022-10-25] MEDS: SODIUM CHLORIDE 1 GM TABLET PO SCH ×2 (09:07→20:38)
--- NOTE | 2022-10-25 09:27 | Hospitalist Progress Note ---
Date of Service October 25, 2022 Assessment & Plan (1) Atrial fibrillation with rapid ventricular response: Plan: - Echo 10/23/22 - EF 60-65%, No RWMA, severe calcific aortic valve stenosis, compared with echo 03/2022 aortic stenosis now severe aortic valve measures 0.6c m - EKG: A-fib with RVR. QTc 428 - Rx Valessa for Hyperkalemia yesterday and again today - repeat labs in the AM - Poor tolerance to A-fib also worsened w/ severe - Dr Packer consulted yesterday and recommended Pacer pads placed If BP or HR drops - Glucagon and/or Dopa,atropine IV Lasix when BP stable If Afib RVR - amiodarone - Dr Valdes followed up today - Patient stated she is not ready for palliative and she thinks she would like to pursue a valve replacement (TAVR) Patient states she would like to discuss further with her regular night coordinator Dr Thomas (who will see her tomorrow) Patient continues on the amiodarone drip 1mg for 6 hours then 0.5mg for 18 hours (2) Bradycardia with 41-50 beats per minute: Plan: 10/24/22 patient was bradycardic and hypotensive and the Cardizem gtt was stopped Likely hypo profusion secondary to the A Fib and hypotension/bradycardia Cardiology following Patient was agreeable to transcutaneous pacing if necessary, nursing placed pacer pads. Cardiology did not recommend to treat the mild bradycardia yesterday, but stated if hemodynamically unstable, recommend atropine and or dopamine drip Recommend to avoid further digoxin, beta-reid, or diltiazem for now. (3) Aortic stenosis: Plan: - Echo as noted - Patient states she refused valve replacement in the past - Complex medical issues with poor prognosis. Consider palliative care consult, especially if she chooses to not pursue aortic valve replacement at some point in the future. - Discussed futher today with patient, her son at bedside and her daughter in law Yin via the phone. Patient stated she is not ready for palliative route and she thinks she wants a valve replacement. Patient would like to discuss further with her regular night coordinator Dr Thomas tomorrow (4) Pulmonary edema cardiac cause: Plan: - Appears hypervolemic. - Likely due to her severe and presenting A-fib with RVR. - Gave Bumex 2mg, and had a good response - Gave another 1mg Bumex Goff placed yesterday and will continue to monitor I&O - Spironolactone on hold. - Low-sodium diet. - Strict I's and O's with Daily weights. - Heart failure program upon discharge patient is high risk for continued issues given her comorbidities. (5) Hyponatremia: Plan: Na 124 (125) (117) (124) K+ 4.3 (5.2) (5.3) (4.3) Goff in place and will continue to measure accurate I&Os Balance currently improved -325 at 0700 S/P Patiromer 8.4gm yesterday and this AM (6) Hypertension: Plan: Chronic Had spironolactone, lasix, metoprolol today Currently hypotensive and bradycardic with HR in the 40s Cardizem drip was stopped 10/24/22 A fib RVR again this AM Amiodarone drip started 10/25/22 0900 (7) Transaminitis: Plan: - No abd tenderness - New per patient, no prior history of this. No alcohol use - Liver ultrasound normal and acute hepatitis panel was negative. Likely hepatic congestion or just decreased perfusion - LFTs are trending downward (bilirubin normal) (8) Polymyositis: Plan: Idiopathic polyneuropathy/polymyositis - Follows with neurology as outpatient. 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 No acute change in management (9) Elevated blood sugar: Plan: - Hx of half-way steroid use with dermatomyositis (prior to admission was on 2.5mg daily) - Continue to check blood sugars q ac hs - Check HgbA1C (10) Acute respiratory failure with hypoxia: (11) Hypotension: (12) Acute metabolic encephalopathy: (13) Acute heart failure with preserved ejection fraction (HFpEF): (14) Junctional bradycardia: Plan DVT prophylaxis: On Eliquis Diet: Heart healthy, low-sodium Disposition: PCU for RVR CODE STATUS: DNR/DNI Consulted cardiology Admission and Anticipated Discharge Date Admission Date: October 23, 2022 Supervising Physician Co-Signing Physician Notes Attending Attestation - Chart reviewed in detail, care plan d/w MICHELLE Rashid. I agree w/ the graf components of her documentation. Hypotension improved overnight. Junctional bradycardia resolved; convert to a.fib with RVR. Started amiodarone drip with bolus. Pt will not tolerate rapid a.fib long in the setting of severe and signifi cantly decompensated CHF. Cont diuresis as tolerated. Cont serial Na levels. She did receive a dose of NaCL tablet and 3% saline overnight with improvement in Na level. Stop any further NaCL either PO or IV - will make her volume overload worse. By report her visual disturbances have resolved. Appreciate input from cardiology. Dexter Wells MD Subjective Patient has a 1:1 sitter at bedside who states patient finally fell asleep. Per nursing she was up most of the night. Amiodarone drip was started this AM and her heart rate has improved from 130s to 90s. She is still in A Fib and has not converted yet. Saw patient later in the afternoon, her son Zaid was at the bedside. She stated she still feels "drained" She denies any chest pain currently. She feels weak. Patient's still is in A fib and rate fluctuates 90s to low 120. She continues on the Amiodarone drip. Review of Systems Constitutional: + malaise, + weakness and + anorexia Eyes: no blind spots, no diplopia, no eye pain and not seeing flashes Respiratory: no cough, no chest congestion and no dyspnea Cardiovascular: + lightheadedness; no palpitations and no calf pain Additional Comments: complains of chest pressure Gastrointestinal: + abdominal pain and + nausea; no vomiting Physical Exam Constitutional: + ill appearing, + thin and + frail appearing Respiratory: decreased breath sounds with bibasilar rhales Cardiovascular: Rate/Rhythm: + tachycardic and + irregularly irregular Heart Sounds: normal S1, normal S2 and + murmur Gastrointestinal (Abdomen): Inspection/Auscultation: + abdomen distended and normal bowel sounds Psychiatric: Orientation: alert, oriented to person and oriented to place Results & Data Results & Data Vital Signs (Past 12 Hours) Vital Signs Temp Pulse Pulse Resp BP Pulse Ox O2 Del Method 10/25/22 08:32 36.7 C 132 H 24 159/84 H 91 Nasal Cannula 10/25/22 04:24 36.5 C 117 H 20 149/80 H 90 Nasal Cannula 10/25/22 00:44 48 L 10/24/22 23:53 36.4 C L 46 L 19 118/66 92 Room Air O2 Flow Rate 10/25/22 08:32 4 10/25/22 04:24 10/25/22 00:44 10/24/22 23:53 Laboratory Results Abnormal lab results 10/24/22 10/24/22 10/25/22 Range/Units 20:10 22:42 02:06 WBC 12.67 H (4.8-10.8) K/ul RBC 4.13 L (4.20-5.40) M/uL Hct 36.2 L (37.0-47.0) % MPV 9.0 L (9.4-12.4) fL Sodium 117 L* (136-145) mmol/L Potassium 5.3 H (3.5-5.1) mmol/L Chloride 88 L (98-107) mmol/L Carbon Dioxide 20 L (21-32) mmol/L BUN 28 H (6-23) mg/dl Creatinine 1.35 H D (0.6-1.2) mg/dl BUN/Creatinine Ratio 20.7 H (10-20) Glucose 183 H (70-99(Fasting)) mg/dl POC Glucose 184 H (70-99) mg/dl Calcium (8.6-10.3) mg/dl 10/25/22 10/25/22 10/25/22 Range/Units 02:06 08:10 12:41 WBC (4.8-10.8) K/ul RBC (4.20-5.40) M/uL Hct (37.0-47.0) % MPV (9.4-12.4) fL Sodium 119 L* 125 L (136-145) mmol/L Potassium 5.3 H 5.2 H (3.5-5.1) mmol/L Chloride 92 L 94 L (98-107) mmol/L Carbon Dioxide 20 L (21-32) mmol/L BUN 29 H 31 H (6-23) mg/dl Creatinine 1.39 H 1.22 H (0.6-1.2) mg/dl BUN/Creatinine Ratio 20.9 H 25.4 H (10-20) Glucose 141 H 119 H (70-99(Fasting)) mg/dl POC Glucose 240 H (70-99) mg/dl Calcium 8.4 L 8.4 L (8.6-10.3) mg/dl 10/25/22 10/25/22 Range/Units 13:12 16:57 WBC (4.8-10.8) K/ul RBC (4.20-5.40) M/uL Hct (37.0-47.0) % MPV (9.4-12.4) fL Sodium 124 L (136-145) mmol/L Potassium (3.5-5.1) mmol/L Chloride 93 L (98-107) mmol/L Carbon Dioxide (21-32) mmol/L BUN 30 H (6-23) mg/dl Creatinine (0.6-1.2) mg/dl BUN/Creatinine Ratio 25.6 H (10-20) Glucose 146 H (70-99(Fasting)) mg/dl POC Glucose 123 H (70-99) mg/dl Calcium 8.4 L (8.6-10.3) mg/dl PG Care Time/CCT Total # of Minutes Spent Total Time Spent with Patient: Total time spent is greater than 50% in coordination of care (as documented) at patient's floor/unit and/or counseling patient: Coding Level of Care Code 65389 SUB INP/OBS CARE 2/35MIN Diagnoses Atrial fibrillation with rapid ventricular response I48.91 Bradycardia with 41-50 beats per minute R00.1 Aortic stenosis I35.0 Cardiac valve disease etiology: etiology unspecified Pulmonary edema cardiac cause I50.1 Hyponatremia E87.1 Hypertension I10 Transaminitis R74.01 Polymyositis M33.20 Elevated blood sugar R73.9 Acute respiratory failure with hypoxia J96.01 Hypotension I95.9 Acute metabolic encephalopathy G93.41 Acute heart failure with preserved ejection fraction (HFpEF) I50.31 Junctional bradycardia R00.1 (3) Aortic stenosis Cardiac valve disease etiology: etiology unspecified Qualified Code(s): I35.0 - Nonrheumatic aortic (valve) stenosis
[2022-10-25] MEDS ORDERED: PATIROMER CALCIUM SORBITEX 8.4 GM PACK PO SCH (11:00)
--- NOTE | 2022-10-25 12:27 | Cardiology Progress Note ---
Date of Service October 25, 2022 Assessment & Plan (1) Atrial fibrillation with rapid ventricular response: Plan: -ventricular response now adequately controlled on intravenous amiodarone. -continue dose adjusted Eliquis. -Dr. Thomas will evaluate her tomorrow. (2) Aortic stenosis: Plan: -severe on current echocardiogram. -Dr. Thomas to discuss management tomorrow. (3) Acute heart failure with preserved ejection fraction (HFpEF): Plan: -improving with heart rate control and diuretic therapy. -continue oral Lasix. Admission and Anticipated Discharge Date Admission Date: October 23, 2022 Subjective The patient is resting comfortably in bed without complaints of chest pain. Her dyspnea is improving. Physical Exam Physical Exam: In general is a well-developed well-nourished elderly white female in no acute distress. HEENT exam is negative. Neck notes delayed and prolonged carotid upstrokes bilaterally. Jugular venous pressure is difficult to assess, but appears elevated. Cardiovascular exam reveals an irregular rhythm with a 2/6 crescendo decrescendo systolic murmur heard at the base. Lungs note bibasilar rales. Abdomen is soft without bruits. Extremities trace pretibial edema. Results & Data Vital Signs (Past 12 Hours) Vital Signs Temp Pulse Pulse Resp BP Pulse Ox O2 Del Method 10/25/22 08:32 36.7 C 132 H 24 159/84 H 91 Nasal Cannula 10/25/22 04:24 36.5 C 117 H 20 149/80 H 90 Nasal Cannula 10/25/22 00:44 48 L O2 Flow Rate 10/25/22 08:32 4 10/25/22 04:24 10/25/22 00:44 Diagnostic Findings Ventricular response to atrial fibrillation now less than 100 beats per minute since amiodarone drip was initiated. PG Care Time/CCT Total # of Minutes Spent Total Time Spent with Patient: Total time spent is greater than 50% in coordination of care (as documented) at patient's floor/unit and/or counseling patient: Coding Level of Care Code 30376 SUB INP/OBS CARE 3/50MIN Diagnoses Atrial fibrillation with rapid ventricular response I48.91 Aortic stenosis I35.0 Cardiac valve disease etiology: etiology unspecified Acute heart failure with preserved ejection fraction (HFpEF) I50.31 (2) Aortic stenosis Cardiac valve disease etiology: etiology unspecified Qualified Code(s): I35.0 - Nonrheumatic aortic (valve) stenosis
[2022-10-25 14:10] LABS: BUN Creatinine Ratio 25.6 (10-20); Calcium 8.4 mg/dl (8.6-10.3); Creatinine Clr Calc Pharmacy 28.7 ml/min; Est GFR (African American) 48.2 ml/min; Est GFR (Non-African American) 41.6 ml/min; Potassium 4.3 mmol/L (3.5-5.1)
[2022-10-25] MEDS: AMIODARONE / D5W 360 MG/200 ML BAG IV SCH (14:55)
[2022-10-25] MEDS ORDERED: BUMETANIDE 1 MG in SYRINGE 0 ML IV ONE (15:30)
[2022-10-25] MEDS: MELATONIN 3 MG TAB PO PRN (20:37)
[2022-10-26] MEDS: AMIODARONE / D5W 360 MG/200 ML BAG IV SCH ×2 (02:35→13:03)
[2022-10-26 06:27] LABS: Hemoglobin 12.3 g/dl (12.0-16.0); Mean Corpuscular Hemoglobin 30.4 pg (25.0-34.0); Mean Corpuscular Hgb Conc 34.2 g/dL (32.0-36.0); Mean Corpuscular Volume 88.9 fL (80.0-100.0); Mean Platelet Volume 8.9 fL (9.4-12.4); Platelet Count 203 K/uL (130-400); RDW Coefficient of Variation 13.2 % (11.5-14.5); Red Blood Count 4.05 M/uL (4.20-5.40); White Blood Count 9.22 K/ul (4.8-10.8)
[2022-10-26 06:39] LABS: BUN Creatinine Ratio 33.3 (10-20); Creatinine Clr Calc Pharmacy 43.1 ml/min; Est GFR (African American) 78.7 ml/min; Est GFR (Non-African American) 67.9 ml/min; Potassium 3.8 mmol/L (3.5-5.1)
[2022-10-26 07:51] LABS: Estimated Average Glucose 123 mg/dl; Hemoglobin A1C 5.9 % (4.5-5.6)
[2022-10-26] MEDS: APIXABAN 2.5 MG TAB PO SCH ×2 (08:46→20:00)
[2022-10-26] MEDS: PANTOprazole 40 MG TAB PO SCH (08:49)
[2022-10-26] MEDS: BUMETANIDE 1 MG in SYRINGE 0 ML IV SCH ×2 (09:25→17:30)
[2022-10-26] MEDS ORDERED: predniSONE 20 MG TAB PO STA (10:28)
--- NOTE | 2022-10-26 11:16 | Cardiology Progress Note ---
Date of Service October 26, 2022 Assessment & Plan (1) Atrial fibrillation with rapid ventricular response: (2) Acute heart failure with preserved ejection fraction (HFpEF): (3) Aortic stenosis: (4) Anticoagulant long-term use: (5) Junctional bradycardia: Plan 1. Atrial fibrillation: She remains in atrial fibrillation and her heart rate remains elevated. She is now only on amiodarone, her beta-reid being held and she is no longer on diltiazem. She had a junctional bradycardia (although was still in atrial fibrillation during that rhythm) starting around midnight of October 24, 2022 but that resolved after about 2-1/2 hours with discontinuation of diltiazem. I believe this was a combination of relatively high doses of beta- blockade and intravenous diltiazem and she has had no recurrence even on IV amiodarone. With her rate remaining fast I am going to add low-dose oral metoprolol tartrate. I think we need to get her rate somewhat better controlled. I am hopeful that the amiodarone will convert her rhythm, if it does not over the weekend then I think we should perform electrical cardioversion on Friday. I will arrange that tomorrow if she remains in atrial fibrillation. She should remain on anticoagulation. 2. Congestive heart failure: Her presentation was not classic for heart failure in the sense that I do not think she was fluid overloaded, her atrial fibrillation rate was fast and therefore I believe her heart failure is due to the rate in the presence of diastolic dysfunction not fluid overload. We need to get her rate controlled, her heart failure seems to have improved with initial treatment. Her left ventricular function appears to be adequate. 3. Aortic stenosis: She has severe aortic stenosis, the valve area this visit (done during atrial fibrillation) appears to be somewhat worse however that may be very misleading during atrial fibrillation. We may want to proceed with evaluation for valve replacement however we need to get her into sinus rhythm first and then I want to repeat the echocardiogram to see where there has truly been a change. If so we may want to proceed with this but I would certainly not do anything until we get her back into sinus rhythm. 4. Anticoagulation: She needs to remain on anticoagulation, currently Eliquis at reduced dose due to her advanced age and low weight. 5. Junctional bradycardia: Her junctional bradycardia (which occurred during atrial fibrillation, it was not a postconversion rhythm) was presumably due to high-grade AV block from a combination of intravenous diltiazem and metoprolol 50 mg twice daily. This resolved quickly with discontinuation of diltiazem. I doubt this is a concern over the long run but we will need to watch for bradycardia on IV amiodarone and now with the addition of low-dose beta- blockade. I did discuss her case with her [id number] Yin at her request. Admission and Anticipated Discharge Date Admission Date: October 23, 2022 Subjective Events of the past few days noted. I do follow this patient as an outpatient. Details of her history are noted in Dr. Packer's detailed history. I have discussed evaluation and treatment of her aortic stenosis in the past and she has felt that she did not want this performed, she has had this discussion with Dr. Garcia at [facility] as well. She has a history of known paroxysmal atrial fibrillation or flutter, she has been maintained on anticoagulation and her burden has been felt to be quite low. Historically her rate has been reasonably well controlled during the arrhythmia although when she presented it was quite rapid. Echocardiography October 23, 2022 shows normal left ventricular systolic function with concentric left ventricular hypertrophy and severe aortic stenosis. Aortic valve area is calculated at somewhere around 0.65 cm and her mean aortic gradient is 28 mmHg. This pressure gradient is similar to March 2022. She did receive intravenous amiodarone which appeared to control her heart rate. She appeared to be in congestive heart failure on presentation although her chest x-ray did not show it and her weight was not elevated but that has improved symptomatically with rate control and diuresis, her weight was slightly elevated on presentation compared to the fall 2021 although historically her weight has been at around the same as it is now. Her heart failure may predominantly be due to the rate of the arrhythmia not fluid overload. This would be consistent with her presenting chest x-ray which really did not show congestive heart failure. Today she feels better, she is conversational and although does not feel normal she is not complaining of shortness of breath, lightheadedness or chest discomfort. Physical Exam Physical Exam: Constitutional: Alert, cooperative and in no distress. HEENT: Unremarkable Neck: No jugular venous distention, carotid pulses are irregular but otherwise normal and equal bilaterally without bruits, a transmitted murmur is audible. Pulmonary: Clear to auscultation bilaterally. Cardiac: Irregular rapid rhythm with a grade 3/6 crescendo decrescendo murmur at the base, no gallop or rub. Abdomen: Soft, nontender with normal bowel sounds. Extremities: No edema. Distal pulses intact. Neurologic: No focal findings. Gait was not tested. Skin: No rash, ecchymoses or petechiae. Results & Data Vital Signs (Past 12 Hours) Vital Signs Temp Pulse Pulse Resp BP Pulse Ox O2 Del Method 10/26/22 11:08 36.4 C L 116 H 20 141/96 H 96 Nasal Cannula 10/26/22 10:38 Nasal Cannula 10/26/22 07:30 Nasal Cannula 10/26/22 09:31 117 H 10/26/22 07:34 36.4 C L 117 H 20 120/69 98 Nasal Cannula 10/26/22 04:06 36.5 C 104 H 20 133/82 97 Nasal Cannula 10/25/22 23:25 36.6 C 120 H 19 134/87 94 Nasal Cannula 10/25/22 23:16 123 H O2 Flow Rate 10/26/22 11:08 4 10/26/22 10:38 4 10/26/22 07:30 4 10/26/22 09:31 10/26/22 07:34 4 10/26/22 04:06 10/25/22 23:25 10/25/22 23:16 Laboratory Results CBC 10/26/22 Range/Units 05:42 WBC 9.22 (4.8-10.8) K/ul RBC 4.05 L (4.20-5.40) M/uL Hgb 12.3 (12.0-16.0) g/dl Hct 36.0 L (37.0-47.0) % Plt Count 203 (130-400) K/uL Comprehensive Metabolic Panel 10/25/22 10/26/22 Range/Units 13:12 05:42 Sodium 124 L 128 L (136-145) mmol/L Potassium 4.3 3.8 (3.5-5.1) mmol/L Chloride 93 L 93 L (98-107) mmol/L Carbon Dioxide 24 28 (21-32) mmol/L BUN 30 H 26 H (6-23) mg/dl Creatinine 1.17 0.78 D (0.6-1.2) mg/dl Glucose 146 H 108 H (70-99(Fasting)) mg/dl Calcium 8.4 L 8.0 L (8.6-10.3) mg/dl Intake and Output 10/25/22 10/26/22 10/26/22 22:59 06:59 14:59 Intake Total 200 / 1494.833 194.833 / 1494.833 Output Total 1400 / 3375 1000 / 3375 500 / 500 Balance -1200 / -1880.167 -805.167 / -1880.167 -500 / -500 Intake: IV 200 / 994.833 194.833 / 994.833 Amiodarone / D5w 360 mg In 200 200 / 394.833 194.833 / 394.833 ml @ 0.5 MG/MIN 16.667 mls/hr IV .Q12H [facility] Rx#:[id number] Output: Urine Amount (Catheter) 1400 / 3375 1000 / 3375 500 / 500 Goff/Indwelling 1400 / 3375 1000 / 3375 500 / 500 Diagnostic Findings Review of telemetry shows that she is in atrial fibrillation which has been present since presentation. She did have a period of junctional bradycardia occurring around midnight on October 19, 2022 and lasting about 2-1/2 hours, during this time she remained in atrial fibrillation therefore this was due to AV block, not necessarily complete heart block but at least enough AV block that her junctional rhythm became predominant. This has not recurred. Her heart rate during atrial fibrillation is averaging around 110 bpm currently. PG Care Time/CCT Total # of Minutes Spent Total Time Spent with Patient: Total time spent is greater than 50% in coordination of care (as documented) at patient's floor/unit and/or counseling patient: Coding Level of Care Code 06001 SUB INP/OBS CARE 3/50MIN Diagnoses Atrial fibrillation with rapid ventricular response I48.91 Acute heart failure with preserved ejection fraction (HFpEF) I50.31 Aortic stenosis I35.0 Cardiac valve disease etiology: etiology unspecified Anticoagulant long-term use Z79.01 Junctional bradycardia R00.1 (3) Aortic stenosis Cardiac valve disease etiology: etiology unspecified Qualified Code(s): I35.0 - Nonrheumatic aortic (valve) stenosis
--- NOTE | 2022-10-26 12:59 | Hospitalist Progress Note ---
Date of Service October 26, 2022 Assessment & Plan (1) Acute heart failure with preserved ejection fraction (HFpEF): Plan: decompensated CHF slowly improving with diuresis and improvement of rhythm issues. cont bumex - schedule 1mg BID at 0900, 1700. cont rate & attempts at rhythm control of rapid a.fib. appreciate cardiology assistance. decompensated CHF 2nd to rapid a.fib in the setting of severe . (2) Atrial fibrillation with rapid ventricular response: Plan: cont amiodarone infusion with the hope that patient converts to NSR Dr Thomas added metoprolol 12.5mg BID for additional rate control avoid CCB cont tele cont Eliquis BID (qualified based on age and weight 2.5mg BID) check BMP/mag am (3) Junctional bradycardia: Plan: had such hospital day #1 in the setting of triple AV merry agents (CCB, BB, and digoxin) converted out of such back to rapid a.fib with no recurrence of junctional bradycardia continue telemetry (4) Aortic stenosis: Plan: severe, valve area 0.6cm^2; previously was 0.8cm^2 in 2021 patient previously declined TAVR patient now stating she would like to pursue such in the future suspect the severe is contributing to #1 above (5) Hyponatremia: Plan: 2nd to volume overload from #1 above as well as acute renal failure lowest Na level was 117 now 128 s/p 3% saline earlier this week along with brief period of NaCL tablet supplementation d/c both bmp daily this contributed to her confusion (6) Hypertension: Plan: all anti-hypertensives on hold except low-dose beta reid and diuretics BPs stable today (7) Transaminitis: Plan: liver u/s wnl suspect 2nd to passive congestion from CHF repeat LFTs am for stability check ammonia level due to confusion (8) Polymyositis: Plan: Idiopathic polyneuropathy/polymyositis Follows with neurology as outpatient. 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, and history of L4-L5 moderate to severe lumbar spinal stenosis Chronically on prednisone 2.5mg daily Give mild stress dosing - 20mg daily starting today and wean over several days back to usual home dosing (9) Elevated blood sugar: Plan: a1c 5.9% c/w pre-DM this should not require any specific Rx while here other than careful observation (10) Elevated troponin: Plan: 2nd to myocardial demand ischemia in setting of #1 and #2 above no evidence of ACS todays' troponin stable (11) Acute metabolic encephalopathy: Plan: 2nd to low Na, hypoperfusion of brain from CHF/poor forward flow other factors possible - high ammonia, etc check ammonia in am TSH earlier this admission wnl (12) Candidiasis of mouth and esophagus: Plan: start nystatin solution - 5cc qid swish/spit likely this is 2nd to chronic prednisone usage Plan DVT prophylaxis - Eliquis start gentle PT/OT update family on 10/27/22 Admission and Anticipated Discharge Date Admission Date: October 23, 2022 Subjective patient resting comfortably in bed during the visit she is oriented to person & place, but at times was confused, bringing up topics completely unrelated to her care or medical issues states she "feels better" and is less short of breath eating fair tele overnight - ongoing rapid a.fib denies any chest pain overnight or this am harden with robust UOP Review of Systems Review of Systems: gen - no fevers cv - no cp, no orthopnea pulm - mild intermittent cough GI - no abd pain, nausea or emesis Physical Exam Physical Exam: gen - NAD, no respiratory distress neck - JVD present (mild) mouth - MMM; thrush plaques buccal mucosa heart - irregularly irregular, s1 s2, tachy, 3/6 holosystolic murmur RUSB/apex lungs - extensive rales b/l, mild end-exp wheezes b/l, no increased work of breathing abd - soft NT ND BS+ ext - trace edema, pulses 2+ b/l psych - mildly confused Results & Data Results & Data Vital Signs (Past 12 Hours) Vital Signs Temp Pulse Pulse Resp BP Pulse Ox O2 Del Method 10/26/22 11:08 36.4 C L 116 H 20 141/96 H 96 Nasal Cannula 10/26/22 10:38 Nasal Cannula 10/26/22 07:30 Nasal Cannula 10/26/22 09:31 117 H 10/26/22 07:34 36.4 C L 117 H 20 120/69 98 Nasal Cannula 10/26/22 04:06 36.5 C 104 H 20 133/82 97 Nasal Cannula O2 Flow Rate 10/26/22 11:08 4 10/26/22 10:38 4 10/26/22 07:30 4 10/26/22 09:31 10/26/22 07:34 4 10/26/22 04:06 Laboratory Results Laboratory Results - last 24 hr 10/26/22 10/26/22 10/26/22 05:42 05:42 05:42 WBC 9.22 RBC 4.05 L Hgb 12.3 Hct 36.0 L MCV 88.9 MCH 30.4 MCHC 34.2 RDW Std Deviation 43.0 RDW Coeff of Corey 13.2 Plt Count 203 MPV 8.9 L Sodium 128 L Potassium 3.8 Chloride 93 L Carbon Dioxide 28 Anion Gap 7 BUN 26 H Creatinine 0.78 D Est Cr Clr Drug Dosing 43.1 Est GFR ( Amer) 78.7 Est GFR (Non-Af Amer) 67.9 BUN/Creatinine Ratio 33.3 H Glucose 108 H POC Glucose Estimat Average Glucose 123 Hemoglobin A1c 5.9 H Calcium 8.0 L Troponin I High Sens 10/26/22 10/26/22 10/26/22 05:42 08:06 12:09 WBC RBC Hgb Hct MCV MCH MCHC RDW Std Deviation RDW Coeff of Corey Plt Count MPV Sodium Potassium Chloride Carbon Dioxide Anion Gap BUN Creatinine Est Cr Clr Drug Dosing Est GFR ( Amer) Est GFR (Non-Af Amer) BUN/Creatinine Ratio Glucose POC Glucose 114 H 124 H Estimat Average Glucose Hemoglobin A1c Calcium Troponin I High Sens 23.0 H 10/26/22 10/26/22 16:39 20:35 WBC RBC Hgb Hct MCV MCH MCHC RDW Std Deviation RDW Coeff of Corey Plt Count MPV Sodium Potassium Chloride Carbon Dioxide Anion Gap BUN Creatinine Est Cr Clr Drug Dosing Est GFR ( Amer) Est GFR (Non-Af Amer) BUN/Creatinine Ratio Glucose POC Glucose 159 H 132 H Estimat Average Glucose Hemoglobin A1c Calcium Troponin I High Sens PG Care Time/CCT Total # of Minutes Spent Total Time Spent with Patient: Total time spent is greater than 50% in coordination of care (as documented) at patient's floor/unit and/or counseling patient: Coding Level of Care Code 79526 SUB INP/OBS CARE 3/50MIN Diagnoses Acute heart failure with preserved ejection fraction (HFpEF) I50.31 Atrial fibrillation with rapid ventricular response I48.91 Junctional bradycardia R00.1 Aortic stenosis I35.0 Cardiac valve disease etiology: etiology unspecified Hyponatremia E87.1 Hypertension I10 Transaminitis R74.01 Polymyositis M33.20 Elevated blood sugar R73.9 Elevated troponin R77.8 Acute metabolic encephalopathy G93.41 Candidiasis of mouth and esophagus B37.81; B37.0 (4) Aortic stenosis Cardiac valve disease etiology: etiology unspecified Qualified Code(s): I35.0 - Nonrheumatic aortic (valve) stenosis
[2022-10-26] MEDS: METOPROLOL TARTRATE 25 MG TAB PO SCH ×2 (13:03→20:00)
[2022-10-26] MEDS: POLYETHYLENE (MIRALAX) 17 GM PACK PO SCH (13:40)
[2022-10-26] MEDS: SENNA 8.6 MG TAB PO SCH (15:34)
[2022-10-26] MEDS: NYSTATIN SUSP 500,000 U/5 ML UDC PO SCH ×2 (17:30→20:00)
[2022-10-26] MEDS: MELATONIN 3 MG TAB PO PRN (21:04)
[2022-10-26] MEDS ORDERED: ZOLPIDEM TARTRATE 5 MG TAB PO PRN (23:37)
[2022-10-27] MEDS: AMIODARONE / D5W 360 MG/200 ML BAG IV SCH ×2 (01:05→13:35)
[2022-10-27 06:40] LABS: BUN Creatinine Ratio 30.2 (10-20); Calcium 7.9 mg/dl (8.6-10.3); Creatinine Clr Calc Pharmacy 53.3 ml/min; Est GFR (African American) 92.8 ml/min; Est GFR (Non-African American) 80.1 ml/min
[2022-10-27 06:57] LABS: Albumin Level 3.1 gm/dl (3.4-5.0); Bilirubin Direct 0.1 mg/dl (0-0.2); Bilirubin,Total 0.7 mg/dl (0.2-1.0); Magnesium 1.7 mg/dl (1.7-2.4); Total Protein 5.8 gm/dl (6.0-8.3)
--- NOTE | 2022-10-27 08:19 | Cardiology Progress Note ---
Date of Service October 27, 2022 Assessment & Plan (1) Atrial fibrillation with rapid ventricular response: (2) Acute heart failure with preserved ejection fraction (HFpEF): (3) Aortic stenosis: (4) Anticoagulant long-term use: (5) Junctional bradycardia: Plan 1. Atrial fibrillation: She remains in atrial fibrillation and her heart rate remains elevated. She is now on amiodarone, her beta-reid was started yesterday but at a reduced dose of 12.5 mg twice a day. She had a junctional bradycardia (although was still in atrial fibrillation during that rhythm) starting around midnight of October 24, 2022 but that resolved after about 2-1/2 hours with discontinuation of diltiazem. I believe this was a combination of relatively high doses of beta-blockade and intravenous diltiazem and she has had no recurrence even on IV amiodarone and the addition of low-dose beta-blockade. With her rate remaining fast I am going to increase her metoprolol tartrate to 25 mg twice a day (her outpatient dose was 50 mg metoprolol succinate twice a day). We need to get her rate somewhat better controlled. I am still hopeful that the amiodarone will convert her rhythm, however I am going to schedule electrical cardioversion on Friday. She should remain on anticoagulation. 2. Congestive heart failure: Her presentation was not classic for heart failure in the sense that I do not think she was fluid overloaded, her atrial fibrillation rate was fast and therefore I believe her heart failure is due to the rapid rate in the presence of diastolic dysfunction not due to fluid overload. We need to get her rate better controlled, her heart failure seems to have improved with initial treatment. I would be cautious with overdiuresis, with her aortic stenosis she may not tolerate it very well. Her left ventricular function appears to be adequate. 3. Aortic stenosis: She has severe aortic stenosis, the valve area this visit (done during atrial fibrillation) appears to be somewhat worse however that may be very misleading during atrial fibrillation. We may want to proceed with evaluation for valve replacement however we need to get her into sinus rhythm first and then I want to repeat the echocardiogram to see if there has truly been a change. If there is progression we may want to proceed with evaluation for valve surgery but I would certainly not do anything until we get her back into sinus rhythm. 4. Anticoagulation: She needs to remain on anticoagulation, currently Eliquis at reduced dose due to her advanced age and low weight. 5. Junctional bradycardia: Her junctional bradycardia (which occurred during atrial fibrillation, it was not a post-conversion rhythm) was presumably due to high-grade AV block from a combination of intravenous diltiazem and metoprolol 50 mg twice daily. This resolved quickly with discontinuation of diltiazem. I doubt this is a concern over the long run but we will need to watch for bradycardia on IV amiodarone and now with the addition of beta-blockade. I did discuss her case with her [id number] Yin at her request. Admission and Anticipated Discharge Date Admission Date: October 23, 2022 Subjective She did not have a very good night, she had difficulty sleeping and she is tired this morning. She does have a mildly productive cough. She did have little bit of a dizzy spell during the night, similar to what she experienced on presentation. Physical Exam Physical Exam: Constitutional: Alert, cooperative and in no distress. HEENT: Unremarkable Neck: No jugular venous distention, carotid pulses are irregular but otherwise normal and equal bilaterally without bruits, a transmitted murmur is audible. Pulmonary: She has expiratory wheezes and crackles on the left, the right is quite clear. Cardiac: Irregular rapid rhythm with a grade 3/6 crescendo decrescendo murmur at the base, no gallop or rub. Abdomen: Soft, nontender with normal bowel sounds. Extremities: No edema. Distal pulses intact. Neurologic: No focal findings. Gait was not tested. Skin: No rash, ecchymoses or petechiae. Results & Data Vital Signs (Past 12 Hours) Vital Signs Temp Pulse Pulse Resp BP Pulse Ox O2 Del Method 10/27/22 07:29 136 H 10/27/22 04:07 36.7 C 128 H 20 110/73 98 Room Air 10/26/22 23:56 36.6 C 133 H 19 127/82 98 Nasal Cannula 10/26/22 22:30 118 H Laboratory Results Cardiac Enzymes 10/26/22 10/27/22 Range/Units 05:42 05:39 AST 295 H (13-39) U/L Troponin I High Sens 23.0 H (0-14) pg/ml Comprehensive Metabolic Panel 10/27/22 Range/Units 05:39 Sodium 127 L (136-145) mmol/L Potassium 4.0 (3.5-5.1) mmol/L Chloride 88 L (98-107) mmol/L Carbon Dioxide 33 H (21-32) mmol/L BUN 19 (6-23) mg/dl Creatinine 0.63 (0.6-1.2) mg/dl Glucose 103 H (70-99(Fasting)) mg/dl Calcium 7.9 L (8.6-10.3) mg/dl Direct Bilirubin 0.1 (0-0.2) mg/dl AST 295 H (13-39) U/L ALT 733 H (7-52) U/L Alkaline Phosphatase 170 H (34-104) U/L Total Protein 5.8 L (6.0-8.3) gm/dl Albumin 3.1 L (3.4-5.0) gm/dl Intake and Output 10/26/22 10/27/22 10/27/22 22:59 06:59 14:59 Intake Total 150 / 724.793 200 / 724.793 Output Total 200 / 3000 1050 / 3000 Balance -50 / -2275.207 -850 / -2275.207 Intake: IV 200 / 374.793 Amiodarone / D5w 360 mg In 200 200 / 374.793 ml @ 0.5 MG/MIN 16.667 mls/hr IV .Q12H [facility] Rx#:[id number] Oral 150 / 350 Output: Urine Amount (Catheter) 200 / 3000 1050 / 3000 Goff/Indwelling 200 / 3000 1050 / 3000 Other: Other Intake Source sips Weight 60.6 kg Weight Measurement Method Built in [facility] Diagnostic Findings Telemetry: Atrial fibrillation, she has remained in this since presentation, the heart rate is little bit elevated this morning. There is no drop in heart rate on the low-dose beta-blockade started yesterday. PG Care Time/CCT Total # of Minutes Spent Total Time Spent with Patient: Total time spent is greater than 50% in coordination of care (as documented) at patient's floor/unit and/or counseling patient: Coding Level of Care Code 18004 SUB INP/OBS CARE 3/50MIN Diagnoses Atrial fibrillation with rapid ventricular response I48.91 Acute heart failure with preserved ejection fraction (HFpEF) I50.31 Aortic stenosis I35.0 Cardiac valve disease etiology: etiology unspecified Anticoagulant long-term use Z79.01 Junctional bradycardia R00.1 (3) Aortic stenosis Cardiac valve disease etiology: etiology unspecified Qualified Code(s): I35.0 - Nonrheumatic aortic (valve) stenosis
[2022-10-27] MEDS: POLYETHYLENE (MIRALAX) 17 GM PACK PO SCH (08:27)
[2022-10-27] MEDS: METOPROLOL TARTRATE 25 MG TAB PO SCH (08:28)
[2022-10-27] MEDS: BUMETANIDE 1 MG in SYRINGE 0 ML IV SCH (08:28)
[2022-10-27] MEDS: NYSTATIN SUSP 500,000 U/5 ML UDC PO SCH ×4 (08:28→21:16)
[2022-10-27] MEDS: APIXABAN 2.5 MG TAB PO SCH ×2 (08:28→21:08)
[2022-10-27] MEDS: PANTOprazole 40 MG TAB PO SCH (08:28)
[2022-10-27] MEDS: predniSONE 20 MG TAB PO SCH (08:28)
[2022-10-27] MEDS ORDERED: METOPROLOL TARTRATE 25 MG TAB PO STA ×2 (08:37→15:25)
[2022-10-27] MEDS ORDERED: PREMARIN VAG CRM 14 APPLN/30 GM TUBE PV SCH (09:00)
[2022-10-27] MEDS: SENNA 8.6 MG TAB PO SCH (10:39)
[2022-10-27] MEDS ORDERED: bisacodyL 10 MG SUPP PR STA ×2 (16:30→21:14)
--- NOTE | 2022-10-27 16:30 | Hospitalist Progress Note ---
Date of Service October 27, 2022 Assessment & Plan (1) Acute heart failure with preserved ejection fraction (HFpEF): Plan: decompensated CHF 2nd to rapid a.fib in the setting of severe . decompensated CHF slowly improving with diuresis. HCO3 has risen significantly over the last 1-2 days but BUN & Cr are stable. cont bumex - lower to 1mg once daily. daily BMP. unfortunately attempts and rhythm control and rate control with a.fib have been unsuccessful. thus, to have elective cardioversion tomorrow by Dr Thomas. cont amiodarone infusion. titrate BB. appreciate cardiology assistance. (2) Diplopia: Plan: acute/chronic, although during my exam was not having double vision. ?right CN 3 palsy? -- but uncertain. given the severity of her illness will check head CT - r/o CVA, ICH, etc. she would not be able to tolerate an MRI at this time due to dyspnea & orthopnea. follow this carefully. other possibility is that she was confused from the ambien given last pm leading to visual disturbance. ambien has been d/c. follow symptoms carefully. (3) Atrial fibrillation with rapid ventricular response: Plan: rate control still proving difficulty. Dr Thomas increased her metoprolol today to 50mg BID. rhythm control also proving difficult - has not converted on amiodarone infusion. avoid CCB avoid digoxin she developed junctional bradycardia several days ago in the midst of multiple AV merry agents cont tele cont Eliquis BID (qualified based on age and weight the 2.5mg BID dosing) (4) Shock liver: Plan: patient was hypotensive for several hours during her spell of junctional bradycardia I suspect that her pre-existing abnormal LFTs got worse due to the hypotension (initially the LFTs were likely high from liver passive congestion from CHF) simply trend the LFTs check INR in am for stability liver u/s earlier this admission without hepatic abnormalities (5) Junctional bradycardia: Plan: had such hospital day #1 in the setting of triple AV merry agents (CCB, BB, and digoxin) converted out of such back to rapid a.fib with no recurrence of junctional bradycardia continue telemetry (6) Aortic stenosis: Plan: severe, valve area 0.6cm^2; previously was 0.8cm^2 in 2021 patient previously declined TAVR patient now stating she would like to pursue such in the future suspect the severe is contributing to #1 above (7) Hyponatremia: Plan: 2nd to volume overload from #1 above as well as acute renal failure lowest Na level was 117 now 127 s/p 3% saline earlier this week along with brief period of NaCL tablet supplementation d/c both bmp daily Na level should improve as volume status/hypervolemia improves cont diuresis suspect low Na also has contributed to her confusion (8) Hypertension: Plan: all anti-hypertensives on hold except low-dose beta reid and diuretics BPs stable today (9) Transaminitis: Plan: liver u/s wnl suspect 2nd to passive congestion from CHF followed by shock liver -- see above repeat LFTs am for stability ammonia level wnl (10) Polymyositis: Plan: Idiopathic polyneuropathy/polymyositis Follows with neurology as outpatient. 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, and history of L4-L5 moderate to severe lumbar spinal stenosis Chronically on prednisone 2.5mg daily Give mild stress dosing - 20mg daily starting today and wean over several days back to usual home dosing (11) Elevated blood sugar: Plan: a1c 5.9% c/w pre-DM this should not require any specific Rx while here other than careful observation BSGs remain stable (12) Elevated troponin: Plan: 2nd to myocardial demand ischemia in setting of #1 and #2 above no evidence of ACS (13) Acute metabolic encephalopathy: Plan: 2nd to low Na, hypoperfusion of brain from CHF/poor forward flow other factors possible including toxic effects from ambien, hospital psychosis, etc CT head ordered due to confusion & c/o diplopia hold on MRI brain - she has too much orthopnea to tolerate such (14) Candidiasis of mouth and esophagus: Plan: cont nystatin solution - 5cc qid swish/spit likely this is 2nd to chronic prednisone usage (15) Constipation: Plan: dulcolax suppos x 1 cont oral bowel agents - senna + miralax daily if no success with suppository then enema Plan DVT prophylaxis - Eliquis start gentle PT/OT - when able updated son & son-in-law at bedside today updated [id number] Yin by phone this evening Admission and Anticipated Discharge Date Admission Date: October 23, 2022 Subjective patient reports an episode of double vision earlier today - now resolved she has horizontal diplopia - she sees objects in 2's side by side she reports that she has had chronic, intermittent diplopia for many years d ating back to a head injury/concussion she suffered while traveling in [place] years ago upon return to the [facility] she was fitted with prisms by her eye doctor for the diplopia with improvement she also reports sometime last pm she was feeling like she was out of bed and sideways she had a similar experience a few days ago states she has not had a BM since admission and feels bloated her appetite was poor today because of her abd bloating no vomiting she continues with mild dyspnea and orthopnea tele - rapid a.fib Review of Systems Review of Systems: gen - no fevers or chills cv - no chest pain or pressure pulm - mild dyspnea GI - constipated - harden functioning well neuro - no motor weakness of any limb psych - difficult time sleeping last pm; received ambien - ?confusion and visual disturbance after receiving such Physical Exam Physical Exam: gen - NAD, no respiratory distress eyes - ?right eye CN 3 defect? (could not fully look medially and upward) neck - mild JVD mouth - MMM; thrush plaques buccal mucosa improved heart - irregularly irregular, s1 s2, tachy, 3/6 holosystolic murmur RUSB/apex lungs - rales improved b/l, end-exp wheezes resolved; no increased work of breathing abd - soft NT ND BS+ ext - no edema, pulses 2+ b/l Results & Data Results & Data Vital Signs (Past 12 Hours) Vital Signs Temp Pulse Pulse Resp BP Pulse Ox O2 Del Method 10/27/22 10:44 36.6 C 122 H 16 145/98 H 98 Nasal Cannula 10/27/22 07:30 Nasal Cannula 10/27/22 08:30 36.6 C 127 H 18 122/92 95 Nasal Cannula 10/27/22 07:29 136 H O2 Flow Rate 10/27/22 10:44 2 10/27/22 07:30 4 10/27/22 08:30 4 10/27/22 07:29 Laboratory Results Laboratory Results - last 24 hr 10/26/22 10/26/22 10/27/22 16:39 20:35 05:39 Sodium 127 L Potassium 4.0 Chloride 88 L Carbon Dioxide 33 H Anion Gap 6 BUN 19 Creatinine 0.63 Est Cr Clr Drug Dosing 53.3 Est GFR ( Amer) 92.8 Est GFR (Non-Af Amer) 80.1 BUN/Creatinine Ratio 30.2 H Glucose 103 H POC Glucose 159 H 132 H Calcium 7.9 L Magnesium 1.7 Total Bilirubin 0.7 Direct Bilirubin 0.1 AST 295 H ALT 733 H Alkaline Phosphatase 170 H Ammonia Total Protein 5.8 L Albumin 3.1 L 10/27/22 06:23 Sodium Potassium Chloride Carbon Dioxide Anion Gap BUN Creatinine Est Cr Clr Drug Dosing Est GFR ( Amer) Est GFR (Non-Af Amer) BUN/Creatinine Ratio Glucose POC Glucose Calcium Magnesium Total Bilirubin Direct Bilirubin AST ALT Alkaline Phosphatase Ammonia 64.0 Total Protein Albumin PG Care Time/CCT Total # of Minutes Spent Total Time Spent with Patient: Total time spent is greater than 50% in coordination of care (as documented) at patient's floor/unit and/or counseling patient: Coding Level of Care Code 93110 SUB INP/OBS CARE 3/50MIN Diagnoses Acute heart failure with preserved ejection fraction (HFpEF) I50.31 Diplopia H53.2 Atrial fibrillation with rapid ventricular response I48.91 Shock liver K72.00 Junctional bradycardia R00.1 Aortic stenosis I35.0 Cardiac valve disease etiology: etiology unspecified Hyponatremia E87.1 Hypertension I10 Transaminitis R74.01 Polymyositis M33.20 Elevated blood sugar R73.9 Elevated troponin R77.8 Acute metabolic encephalopathy G93.41 Candidiasis of mouth and esophagus B37.81; B37.0 Constipation K59.00 (6) Aortic stenosis Cardiac valve disease etiology: etiology unspecified Qualified Code(s): I35.0 - Nonrheumatic aortic (valve) stenosis
--- NOTE | 2022-10-27 20:20 | CT Scan Report ---
Exam(s): CT HEAD Without Contrast EXAM: CT Head Without Intravenous Contrast CLINICAL HISTORY: Reason for exam: diplopia, a.fib; eval CVA, ICH. TECHNIQUE: Axial computed tomography images of the head/brain without intravenous contrast. CTDI is 35.07 mGy and DLP is 537.48 mGy-cm. Automated exposure control was utilized for the study. A dose lowering technique was utilized adhering to the principles of ALARA. COMPARISON: 01/22/2015. FINDINGS: Brain: Mild to moderate generalized brain atrophy. Decreased attenuation within the deep white matter compatible with microangiopathic white matter disease. No hemorrhage. Ventricles: Unremarkable. No ventriculomegaly. Bones/joints: Unremarkable. No acute fracture. Soft tissues: Unremarkable. Sinuses: Unremarkable as visualized. No acute sinusitis. Mastoid air cells: Unremarkable as visualized. No mastoid effusion. IMPRESSION: Chronic changes as described. No acute intracranial hemorrhage or space-occupying lesion. Electronically signed by: Rosalva Bentley MD 10/27/22 20:19 PM
[2022-10-27] MEDS ORDERED: METOPROLOL TARTRATE 25 MG TAB PO SCH (21:00)
[2022-10-27] MEDS: METOPROLOL TARTRATE 50 MG TAB PO SCH (21:32)
[2022-10-27] MEDS: MELATONIN 3 MG TAB PO SCH (21:33)
[2022-10-28] MEDS: AMIODARONE / D5W 360 MG/200 ML BAG IV SCH ×2 (01:43→13:26)
[2022-10-28 06:42] LABS: BUN Creatinine Ratio 26.5 (10-20); Calcium 7.8 mg/dl (8.6-10.3); Creatinine Clr Calc Pharmacy 68.5 ml/min; Est GFR (African American) 100.8 ml/min; Potassium 3.6 mmol/L (3.5-5.1)
[2022-10-28 06:51] LABS: Albumin Globulin Ratio 1.1 (0.9-2); Albumin Level 2.9 gm/dl (3.4-5.0); Bilirubin,Total 0.7 mg/dl (0.2-1.0); Globulin 2.7 gm/dl (2.5-4.0); Total Protein 5.6 gm/dl (6.0-8.3)
[2022-10-28 07:02] LABS: INR 1.1 (0.9-1.1); Prothrombin Time 12.2 Seconds (9.0-12.0)
--- NOTE | 2022-10-28 07:31 | Anesthesiology Consultation ---
Date of Service October 28, 2022 Assessment & Plan (1) Encounter for pre-operative examination: History Surgery Operation Date: 10/28/22 07:30 Proposed Procedures p Cardioversion Flue Gas Analyst w/Anesthesia - Edouard Thomas MD Height/Weight Height: 5 ft 4 in Weight: 58.4 kg Allergies Allergy/AdvReac Type Severity Reaction Status Date / Time Penicillins Allergy Intermediate hives Verified 05/07/22 12:15 Sulfa (Sulfonamide Allergy Mild hives Verified 05/07/22 12:15 Antibiotics) azithromycin Allergy Hives Verified 05/07/22 12:15 codeine AdvReac Mild MS Change Verified 05/07/22 12:15 gabapentin AdvReac Mild Confusion, Verified 05/07/22 12:15 unable to sleep Macrolide Antibiotics AdvReac Mild Nausea Verified 05/07/22 12:15 with "-mycins" ketoprofen AdvReac Unknown KETOPROFEN Verified 05/07/22 12:15 GEL CAUSES SKIN BURNING Medications Home Medications Medication Instructions Recorded Confirmed Last Taken acetaminophen 500 mg tablet 500 mg PO Q6H PRN Pain 12/06/18 10/23/22 10/23/22 (Tylenol Extra Strength) ascorbic acid (vitamin C) 1,000 mg 1,000 mg PO QAM 12/06/18 10/23/22 10/23/22 tablet (Vitamin C) calcium citrate 200 mg 2 tab PO BID 12/06/18 10/23/22 10/23/22 calcium-vitamin D3 6.25 mcg (250 unit) tablet (Citracal-D3 Petites) cholecalciferol (vitamin D3) 50 2,000 unit PO QAM 12/06/18 10/23/22 10/23/22 mcg (2,000 unit) capsule (Vitamin D3) multivit with 1 tab PO QAM 12/06/18 10/23/22 10/23/22 [id number] 8 mg iron-400 mcg-300 mcg tablet (Centrum Silver Women) apixaban 2.5 mg tablet (Eliquis) 2.5 mg PO BID 11/25/20 10/23/22 10/23/22 conjugated estrogens 0.625 mg/gram 0.625 mg vaginal WK 11/25/20 10/23/22 11/25/20 vaginal cream (Premarin) metoprolol succinate 50 mg 50 mg PO BID 11/25/20 10/23/22 10/23/22 tablet,extended release 24 hr multivitamin 1 tab PO DAILY 11/25/20 10/23/22 10/23/22 baclofen 10 mg tablet 5 mg PO BID PRN jaw spasms 09/03/21 10/23/22 Unknown prednisone 5 mg tablet 2.5 mg PO DAILY 09/03/21 10/23/22 10/23/22 spironolactone 25 mg tablet 12.5 mg PO DAILY 09/03/21 10/23/22 10/23/22 furosemide 20 mg tablet 20 mg PO DAILY 09/19/21 10/23/22 10/23/22 denosumab 60 mg/mL subcutaneous See Rx Instructions subcut .COMPLEX 04/11/22 10/23/22 Unknown syringe (Prolia) fluticasone propionate 50 2 spray intranasal DAILY 04/11/22 10/23/22 10/23/22 mcg/actuation nasal spray,suspension Active Medications Generic Name Dose Route Start Last Admin Trade Name Elmer PRN Reason Stop Dose Admin Apixaban 2.5 mg 10/23/22 21:00 10/27/22 21:08 Apixaban 2.5 Mg Tab PO 11/22/22 20:59 2.5 mg BID LAMONT Administration Estrogens Conjugated 1 appln 10/27/22 09:00 10/27/22 10:39 Premarin Vag Crm 14 Appln/30 Gm Tube PV 11/26/22 08:59 Not Given Murphy@0900 LAMONT Amiodarone HCl/Dextrose 360 mg in 200 mls @ 16.667 mls/hr 10/25/22 14:30 10/28/22 01:43 Nexterone / D5w IV 11/24/22 14:29 0.5 mg/min .Q12H LAMONT 16.7 mls/hr Administration 0.5 MG/MIN Melatonin 6 mg 10/27/22 21:00 10/27/22 21:33 Melatonin 3 Mg Tab PO 11/26/22 20:59 6 mg HS LAMONT Administration Metoprolol Tartrate 50 mg 10/27/22 21:00 10/27/22 21:32 Metoprolol Tartrate 50 Mg Tab PO 11/26/22 20:59 50 mg BID LAMONT Administration Nystatin 5 ml 10/26/22 17:00 10/27/22 21:16 Nystatin Susp 500,000 U/5 Ml Udc PO 11/05/22 16:59 5 ml QID LAMONT Administration Pantoprazole Sodium 40 mg 10/24/22 09:00 10/27/22 08:28 Pantoprazole 40 Mg Tab PO 11/23/22 08:59 40 mg DAILY LAMONT Administration Polyethylene Glycol 17 gm 10/26/22 13:30 10/27/22 08:27 Polyethylene (Miralax) 17 Gm Pack PO 11/25/22 13:29 17 gm DAILY LAMONT Administration Prednisone 20 mg 10/27/22 09:00 10/27/22 08:28 Prednisone 20 Mg Tab PO 11/26/22 08:59 20 mg QAM LAMONT Administration Sennosides 17.2 mg 10/26/22 13:30 10/27/22 10:39 Senna 8.6 Mg Tab PO 11/25/22 13:29 17.2 mg QAM LAMONT Administration Past Medical History Medical History Aortic stenosis Atrial flutter Concussion Heart murmur, systolic Hyponatremia Irregular heart beat Parotiditis Paroxysmal atrial fibrillation Polymyositis Past Family History Family History Other No pertinent family history Past Surgical History Surgical History S/P hernia repair Social History Smoking Status: Never smoker Do You Dip or Chew Tobacco: No Hx Alcohol Use: No alcohol intake frequency: other Hx Substance Use: No substance use type: does not use Physical Exam Vital Signs Last Vital Signs Temp 36.6 C 10/28/22 07:10 Pulse 91 H 10/28/22 07:10 Resp 18 10/28/22 07:10 BP 123/83 10/28/22 07:10 Pulse Ox 96 10/28/22 07:10 O2 Del Method Nasal Cannula 10/28/22 07:24 O2 Flow Rate 3 10/28/22 07:24 Testing Laboratory Results 10/26/22 05:42 10/28/22 05:54 PT 12.2 Seconds (9.0-12.0) H 10/28/22 05:54 INR 1.1 (0.9-1.1) 10/28/22 05:54 APTT 30.2 Seconds (21.0-31.0) 10/23/22 12:15 Hemoglobin A1c 5.9 % (4.5-5.6) H 10/26/22 05:42 10/27/22 20:15 POC Glucose 154 H
--- NOTE | 2022-10-28 07:35 | History & Physical Bridge Note ---
Date of Service October 28, 2022 History & Physical Bridge Note I have examined the patient, reviewed the History & Physical and in the interval since the performance of the History & Physical I have noted the following changes of clinical significance: no changes noted. I reviewed the indications, procedure, risks and alternatives with the patient, and answered all questions. Patient understands and agrees to the procedure. Consent obtained.
--- NOTE | 2022-10-28 07:50 | Cardioversion ---
Date of Service October 28, 2022 PG Electrical Cardioversion Rp Electrical Cardioversion Report The patient was brought to the laboratory being NPO after midnight and was identified in the laboratory, connected to the recording apparatus including electrocardiographic monitoring, noninvasive blood pressure monitoring and pulse oximetry. Anteroposterior patch electrodes were placed. The patient was anesthetized by the anesthesia department. Once adequate anesthesia was obtained a synchronized biphasic shock was delivered using 200 J with conversion to a sinus rhythm, however after the brief time in with a lot of atrial ectopy atrial fibrillation recurred. A second synchronized biphasic 200 J shock was delivered with conversion to sinus rhythm with atrial ectopy, however the sinus rhythm remained. The patient awoke from the anesthetic without sequela, will be observed briefly and then returned to her room. Coding Level of Care Code 65579 CARDIOVERSION, ELECTIVE Additional Codes Electrical Cardioversion Report ([id number])
[2022-10-28] MEDS ORDERED: PROPOFOL IV EMULSION 10 MG/ML 20 ML VIAL IV ONE (08:04)
--- NOTE | 2022-10-28 08:11 | Anesthesiology Progress Note ---
Date of Service October 28, 2022 Anesthesia Post Procedure Vital Signs Vital Signs: Temp Pulse Pulse Pulse Resp BP Pulse Ox 10/28/22 06:02 142 H 10/28/22 08:00 77 14 121/63 98 10/28/22 07:24 10/28/22 07:10 36.6 C 91 H 18 123/83 96 10/28/22 03:01 37.0 C 112 H 18 130/85 97 10/27/22 22:59 37.0 C 106 H 22 135/86 95 10/27/22 22:56 138 H 10/27/22 20:00 10/27/22 19:38 36.7 C 113 H 22 133/91 99 10/27/22 16:55 36.5 C 105 H 16 137/70 99 10/27/22 10:44 36.6 C 122 H 16 145/98 H 98 10/27/22 08:30 36.6 C 127 H 18 122/92 95 O2 Del Method O2 Flow Rate 10/28/22 06:02 10/28/22 08:00 Nasal Cannula 4 10/28/22 07:24 Nasal Cannula 3 10/28/22 07:10 Nasal Cannula 4 10/28/22 03:01 Room Air 10/27/22 22:59 Room Air 10/27/22 22:56 10/27/22 20:00 Nasal Cannula 10/27/22 19:38 Nasal Cannula 4 10/27/22 16:55 Nasal Cannula 2 10/27/22 10:44 Nasal Cannula 2 10/27/22 08:30 Nasal Cannula 4 Transfer of Care Handoff Completed per policy Notes Mental Status: alert / awake / arousable and participated in evaluation Patient Amnestic to Procedure: Yes Nausea / Vomiting: adequately controlled Pain: adequately controlled Airway Patency, RR, SpO2: stable & adequate BP & HR: stable & adequate Hydration State: stable & adequate Anesthetic Complications: no major complications apparent and Pt Satisfied with anesthetic care
[2022-10-28] MEDS: METOPROLOL TARTRATE 50 MG TAB PO SCH ×2 (09:26→20:30)
[2022-10-28] MEDS: NYSTATIN SUSP 500,000 U/5 ML UDC PO SCH ×4 (09:26→20:30)
[2022-10-28] MEDS: BUMETANIDE 1 MG in SYRINGE 0 ML IV SCH (09:26)
[2022-10-28] MEDS: PANTOprazole 40 MG TAB PO SCH (09:27)
[2022-10-28] MEDS: APIXABAN 2.5 MG TAB PO SCH ×2 (09:27→20:31)
[2022-10-28] MEDS: predniSONE 20 MG TAB PO SCH (09:27)
[2022-10-28] MEDS: POLYETHYLENE (MIRALAX) 17 GM PACK PO SCH (09:27)
[2022-10-28] MEDS: SENNA 8.6 MG TAB PO SCH (09:27)
[2022-10-28] MEDS: ACETAMINOPHEN 500 MG TAB PO PRN (13:06)
--- NOTE | 2022-10-28 14:47 | XCELERA ---
[id number] \\[id number]
--- NOTE | 2022-10-28 15:42 | Hospitalist Progress Note ---
Date of Service October 28, 2022 Assessment & Plan (1) Acute heart failure with preserved ejection fraction (HFpEF): Plan: decompensated CHF 2nd to rapid a.fib in the setting of severe . volume status continues to improve with bumex diuresis. BUN & Cr remain stable. cont bumex 1mg once daily. I did give a 2nd dose this afternoon. appreciate cardiology assistance. (2) Atrial fibrillation with rapid ventricular response: Plan: rate and rhythm control have been challenging since admission. her rapid a.fib contributed heavily to #1 above. despite amiodarone infusion with metoprolol she remains in rapid a.fib. thus, Dr Thomas performed elective cardioversion this am with success in restoring NSR. cont amiodarone infusion. cont metoprolol 50mg BID. cont Eliquis BID ( 2.5mg BID dosing due to age & low body weight) appreciate Dr Thomas's assistance. (3) Diplopia: Plan: acute/chronic. had diplopia on 10/27. transient. ?right CN 3 palsy? -- but uncertain. given the severity of her illness checked head CT - neg for acute findings. has had intermittent diplopia since a head injury/concussion years ago. previously seen and worked up by ophthalmology. MRI brain would be best, but I don't think she could tolerate an MRI just yet due to pulmonary symptoms. defer for now. monitor. (4) Shock liver: Plan: patient was hypotensive for several hours during her spell of junctional bradycardia several days ago I suspect that her pre-existing abnormal LFTs got worse due to the hypotension (initially the LFTs were likely high from liver passive congestion from CHF) simply trend the LFTs INR stable at 1.1 today liver u/s earlier this admission without hepatic abnormalities (5) Junctional bradycardia: Plan: had such hospital day #1 in the setting of triple AV merry agents (CCB, BB, and digoxin) for rapid a.fib CCB and digoxin stopped converted out of such back to rapid a.fib with no recurrence of junctional bradycardia continue telemetry (6) Aortic stenosis: Plan: severe, valve area 0.6cm^2; previously was 0.8cm^2 in 2021 patient previously declined TAVR patient now stating she would like to pursue such in the future suspect the severe is contributing to #1 above (7) Hyponatremia: Plan: 2nd to volume overload from #1 above as well as acute renal failure lowest Na level was 117 now 129 s/p 3% saline earlier this week along with brief period of NaCL tablet supplementation d/c both bmp daily Na level should improve as volume status/hypervolemia improves cont diuresis suspect low Na also has contributed to her confusion (8) Hypertension: Plan: all anti-hypertensives on hold except beta reid and diuretics BPs stable today (9) Transaminitis: Plan: liver u/s wnl suspect 2nd to passive congestion from CHF followed by shock liver -- see above repeat LFTs am for stability ammonia level wnl INR wnl (10) Polymyositis: Plan: Idiopathic polyneuropathy/polymyositis Follows with neurology as outpatient. 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, and history of L4-L5 moderate to severe lumbar spinal stenosis Chronically on prednisone 2.5mg daily Give mild stress dosing - 20mg daily then wean over several days back to usual home dosing of 2.5mg/day (11) Elevated blood sugar: Plan: a1c 5.9% c/w pre-DM this should not require any specific Rx while here other than careful observation BSGs remain stable (12) Elevated troponin: Plan: 2nd to myocardial demand ischemia in setting of #1 and #2 above no evidence of ACS (13) Acute metabolic encephalopathy: Plan: 2nd to low Na, hypoperfusion of brain from CHF/poor forward flow other factors possible including toxic effects from ambien, hospital psychosis, etc CT head ordered due to confusion & c/o diplopia - head CT stable/negative hold on MRI brain - she has too much orthopnea to tolerate such (14) Candidiasis of mouth and esophagus: Plan: cont nystatin solution - 5cc qid swish/spit improving likely that thrush is 2nd to chronic prednisone usage (15) Constipation: Plan: improved had BM last pm cont oral bowel agents - senna + miralax daily (16) Chest wall pain: Plan: right lower costal margin patient fell out of bed several nights ago at minimum has contusion obtain cxr today - r/o rib fracture tylenol prn lidoderms ordered Plan DVT prophylaxis - Eliquis gentle PT/OT when able updated [id number] Yin by phone last pm and this evening Admission and Anticipated Discharge Date Admission Date: October 23, 2022 Subjective patient remained in a.fib RVR overnight thus, she underwent cardioversion this am by Dr Thomas 2 shocks led to samaritan of NSR since then has remained in NSR but continues with frequent PACs I saw the patient early afternoon she was resting comfortably in bed she apparently had been out of bed to chair for 1-2 hours earlier today staff report she was very weak - needed considerable assistance to transfer she was short of breath as well with the transfer during the visit I took off her NC O2 -- her sats promptly dropped to 88-89% in RA denies any further episodes of confusion denies any further episodes of double vision or visual disturbance denies chest pain appetite fair Review of Systems Review of Systems: gen - no fever; very weak cv - orthopnea; but no substernal chest pain; she does have mild lateral costal margin pain with movement; she noticed this when she was down for her cardioversion eyes - no issues today, no diplopia pulm - no cough but ongoing dyspnea on exertion GI - no abd pain; had large BM late last pm; bloating now resolved; no N/V Physical Exam Physical Exam: gen - NAD, comfortable in bed neck - JVD still present mouth - MMM; thrush plaques buccal mucosa nearly resolved heart - regular rate, irregular rhythm (PACs), s1 s2, 3/6 holosystolic murmur RUSB/apex; I can clearly hear s2 closure sound lungs - no increased work of breathing; decreased BS bases; mild rales bases; no wheezes abd - soft NT ND BS+; distension resolved today ext - no edema, pulses 2+ b/l skin - tiny stasis ulcers left lateral distal rojo; stasis changes b/l shins chest - tender to palpation over right lower costal margin Results & Data Results & Data Vital Signs (Past 12 Hours) Vital Signs Temp Pulse Pulse Resp BP Pulse Ox O2 Del Method 10/28/22 15:00 10/28/22 11:12 36.3 C L 66 18 120/70 97 Nasal Cannula 10/28/22 09:36 92 H 10/28/22 06:02 142 H 10/28/22 08:00 77 14 121/63 98 Nasal Cannula 10/28/22 07:24 Nasal Cannula 10/28/22 07:10 36.6 C 91 H 18 123/83 96 Nasal Cannula O2 Del Method O2 Flow Rate 10/28/22 15:00 Nasal Cannula 10/28/22 11:12 3 10/28/22 09:36 10/28/22 06:02 10/28/22 08:00 4 10/28/22 07:24 3 10/28/22 07:10 4 Laboratory Results Laboratory Results - last 24 hr 10/27/22 10/28/22 10/28/22 20:15 05:54 05:54 PT 12.2 H INR 1.1 Sodium 129 L Potassium 3.6 Chloride 87 L Carbon Dioxide 36 H Anion Gap 6 BUN 13 Creatinine 0.49 L Est Cr Clr Drug Dosing 68.5 Est GFR ( Amer) 100.8 Est GFR (Non-Af Amer) 87.0 BUN/Creatinine Ratio 26.5 H Glucose 105 H POC Glucose 154 H Calcium 7.8 L Total Bilirubin 0.7 AST 247 H ALT 660 H Alkaline Phosphatase 185 H Total Protein 5.6 L Albumin 2.9 L Globulin 2.7 Albumin/Globulin Ratio 1.1 PG Care Time/CCT Total # of Minutes Spent Total Time Spent with Patient: Total time spent is greater than 50% in coordination of care (as documented) at patient's floor/unit and/or counseling patient: Coding Level of Care Code 95441 SUB INP/OBS CARE 3/50MIN Diagnoses Acute heart failure with preserved ejection fraction (HFpEF) I50.31 Atrial fibrillation with rapid ventricular response I48.91 Diplopia H53.2 Shock liver K72.00 Junctional bradycardia R00.1 Aortic stenosis I35.0 Cardiac valve disease etiology: etiology unspecified Hyponatremia E87.1 Hypertension I10 Transaminitis R74.01 Polymyositis M33.20 Elevated blood sugar R73.9 Elevated troponin R77.8 Acute metabolic encephalopathy G93.41 Candidiasis of mouth and esophagus B37.81; B37.0 Constipation K59.00 Chest wall pain R07.89 (6) Aortic stenosis Cardiac valve disease etiology: etiology unspecified Qualified Code(s): I35.0 - Nonrheumatic aortic (valve) stenosis
--- NOTE | 2022-10-28 16:13 | XRay Report ---
SINGLE VIEW CHEST CLINICAL HISTORY: Fall. Right-sided chest wall pain. FINDINGS: An AP, portable, upright chest radiograph is compared to study dated 10/23/2022 and correlat ed with chest CT dated 11/25/2020. The heart is enlarged noting atherosclerotic calcification of the t horacic aorta. There is pulmonary vascular congestion. Bilateral airspace opacities likely represent pulmonary edema. There are layering pleural effusions with dependent consolidation. No pneumothorax i s seen. The skeletal structures are osteopenic. The bony thorax is grossly intact. IMPRESSION: 1. Cardiomegaly with evidence of congestive failure. 2. Bilateral airspace opacities likely represent pulmonary edema. Correlate clinically 3. Layering pleural effusions with dependent consolidation. ACT 112: Negative or not required by law. Electronically signed by: Zaid Pittman M.D. 10/28/2022 4:12 PM
[2022-10-28] MEDS ORDERED: BUMETANIDE 1 MG in SYRINGE 0 ML IV ONE (16:45)
--- NOTE | 2022-10-28 17:21 | Cardiology Consultation ---
Date of Consultation October 28, 2022 Assessment & Plan (1) Elevated troponin: Modest troponin elevation in the absence of chest discomfort and in the setting of known severe valvular heart disease and atrial fibrillation with rapid ventricular response almost assuredly a type II non-ST elevation OR. She will n eed a cardiac catheterization as part of her TAVR work-up. This can be done as an inpatient or as an outpatient. If we were to perform as an inpatient then I would wait until she is clearly euvolemic and her renal function has been optimized. We would also need to hold her Eliquis for 48 hours. It may be most prudent to schedule her for outpatient catheterization. (2) Aortic stenosis: Severe by all major criteria. Having her in sinus rhythm certainly clarified the severity of her aortic stenosis. Many of her symptoms can be attributed to her atrial fibrillation but also to her valvular heart disease. She has had diminished activity over the years likely secondary to the aortic stenosis. She has had diastolic heart failure exacerbation. At this time, her age and comorbid disease would likely preclude SAVR. Furthermore, she is not interested in open heart surgery. However, she certainly may be a candidate for TAVR. Preprocedure evaluation will include TAYE, CTA, and cardiac catheterization. This will be performed as an outpatient and we will make outpatient referral to [facility] after she is discharged. History of Present Illness Reason for Consultation: Non-ST elevation OR, severe aortic stenosis for possible TAVR Attending Physician: Dexter Wells MD History of Present Illness Pleasant 87-year-old female without known coronary artery disease but who has had longstanding heart murmur, aortic stenosis, and admitted at this time for acute heart failure exacerbation (heart failure with preserved EF). She had atrial fibrillation with rapid ventricular response and was cardioverted today. A repeat limited echocardiogram was performed. This demonstrated multiple echo criteria consistent with severe aortic stenosis. Her EF remains preserved. She also has mild to moderate mitral regurgitation and moderate tricuspid regurgitation. Currently, she states that she is feeling better. Has had robust diuresis. She remains fatigued but notes that her breathing is improved. She does not feel that she is ready to go home at this time. For me, she denies any exertional chest pain, heaviness, or tightness. She also denies syncope, currently without orthopnea, PND, racing heartbeat, or palpitations. She did have significant exertional dyspnea which was rapidly progressive over the past week preceding this admission. She also noticed edema. I told her I was there to discuss her valvular heart disease. I made a recommendation for TAVR. She is uninterested in SAVR but is now willing to consider TAVR. She understands that she would likely have recurrent admissions for heart failure and may begin to develop syncope or anginal chest pain if her valve is not fixed. She also understands that cardiac catheterization would be required prior to valve replacement. We discussed her wishes with regard to where she would like her procedure performed. She was amenable to my suggestion for [facility]. She understands that she will need a TAVR evaluation and that she may still be deemed not appropriate for the procedure. She also understands that there will be additional testing including a catheterization and a CT scan regarding access. TAYE will also likely be requested although that may be performed at [facility]. After we discussed that she states that she remains interested in TAVR. Allergies Allergy/AdvReac Type Severity Reaction Status Date / Time Penicillins Allergy Intermediate hives Verified 05/07/22 12:15 Sulfa (Sulfonamide Allergy Mild hives Verified 05/07/22 12:15 Antibiotics) azithromycin Allergy Hives Verified 05/07/22 12:15 codeine AdvReac Mild MS Change Verified 05/07/22 12:15 gabapentin AdvReac Mild Confusion, Verified 05/07/22 12:15 unable to sleep Macrolide Antibiotics AdvReac Mild Nausea Verified 05/07/22 12:15 with "-mycins" ketoprofen AdvReac Unknown KETOPROFEN Verified 05/07/22 12:15 GEL CAUSES SKIN BURNING Home Medications Medication Instructions Recorded Confirmed Type acetaminophen 500 mg tablet 500 mg PO Q6H PRN Pain 12/06/18 10/23/22 History (Tylenol Extra Strength) ascorbic acid (vitamin C) 1,000 mg 1,000 mg PO QAM 12/06/18 10/23/22 History tablet (Vitamin C) calcium citrate 200 mg 2 tab PO BID 12/06/18 10/23/22 History calcium-vitamin D3 6.25 mcg (250 unit) tablet (Citracal-D3 Petites) cholecalciferol (vitamin D3) 50 2,000 unit PO QAM 12/06/18 10/23/22 History mcg (2,000 unit) capsule (Vitamin D3) multivit with 1 tab PO QAM 12/06/18 10/23/22 History fpeccjej-ywco-YG-lutein 8 mg iron-400 mcg-300 mcg tablet (Centrum Silver Women) apixaban 2.5 mg tablet (Eliquis) 2.5 mg PO BID 11/25/20 10/23/22 History conjugated estrogens 0.625 mg/gram 0.625 mg vaginal WK 11/25/20 10/23/22 History vaginal cream (Premarin) metoprolol succinate 50 mg 50 mg PO BID 11/25/20 10/23/22 History tablet,extended release 24 hr multivitamin 1 tab PO DAILY 11/25/20 10/23/22 History baclofen 10 mg tablet 5 mg PO BID PRN jaw spasms 09/03/21 10/23/22 History prednisone 5 mg tablet 2.5 mg PO DAILY 09/03/21 10/23/22 History spironolactone 25 mg tablet 12.5 mg PO DAILY 09/03/21 10/23/22 History furosemide 20 mg tablet 20 mg PO DAILY 09/19/21 10/23/22 History denosumab 60 mg/mL subcutaneous See Rx Instructions subcut .COMPLEX 04/11/22 10/23/22 History syringe (Prolia) fluticasone propionate 50 2 spray intranasal DAILY 04/11/22 10/23/22 History mcg/actuation nasal spray,suspension Patient History Medical History Aortic stenosis Atrial flutter Concussion Heart murmur, systolic Hyponatremia Irregular heart beat Parotiditis Paroxysmal atrial fibrillation Polymyositis Surgical History S/P hernia repair Family History Other No pertinent family history Social History Smoking Status: Never smoker Second Hand Exposure: Yes; Do You Dip or Chew Tobacco: No; Tobacco Cessation Education Requested by Patient: No Hx Alcohol Use: No Hx Substance Use: No Preferred Language: Kiswahili Communication Ability: Effective Hearing Ability: Normal 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 Appears fatigued but in no acute distress. Eyes: Extraocular muscles intact. Sclera are anicteric. ENMT: Oral mucosa is pink and dry. Neck: No JVD. Bilateral carotid bruits transmitted from the aortic valve. Pulses are diminished. Respiratory: Bibasilar crackles otherwise clear. No wheezing or rhonchi. Fair air movement. Cardiovascular: Regular rate and rhythm. Grade 3 out of 6 harsh holosystolic murmur heard throughout the precordium but best at the right upper sternal border. The PMI is displaced towards the left axilla. Trace bilateral pretibial edema. Skin: Skin is thin with diffuse ecchymosis Neurologic: Mild generalized weakness. No focal deficits. No tremor. Moves 4 extremities voluntarily. Psychiatric: A+Ox3, euthymic affect Results & Data Vital Signs (Past 12 Hours) Vital Signs Temp Pulse Pulse Resp BP Pulse Ox O2 Del Method 10/28/22 14:18 67 10/28/22 15:49 36.7 C 67 17 145/77 H 97 Room Air 10/28/22 15:00 10/28/22 11:12 36.3 C L 66 18 120/70 97 Nasal Cannula 10/28/22 09:36 92 H 10/28/22 06:02 142 H 10/28/22 08:00 77 14 121/63 98 Nasal Cannula 10/28/22 07:24 Nasal Cannula 10/28/22 07:10 36.6 C 91 H 18 123/83 96 Nasal Cannula O2 Del Method O2 Flow Rate 10/28/22 14:18 10/28/22 15:49 10/28/22 15:00 Nasal Cannula 10/28/22 11:12 3 10/28/22 09:36 10/28/22 06:02 10/28/22 08:00 4 10/28/22 07:24 3 10/28/22 07:10 4 PG Care Time/CCT Total # of Minutes Spent Total Time Spent with Patient: Total time spent is greater than 50% in coordination of care (as documented) at patient's floor/unit and/or counseling patient: Coding Level of Care Code 46042 OFFICE CONSULT LVL M Diagnoses Elevated troponin R77.8 Aortic stenosis I35.0 Cardiac valve disease etiology: etiology unspecified (2) Aortic stenosis Cardiac valve disease etiology: etiology unspecified Qualified Code(s): I35.0 - Nonrheumatic aortic (valve) stenosis
[2022-10-28] MEDS: LIDOCAINE 5% 1 PATCH TD SCH (19:05)
[2022-10-28] MEDS: MELATONIN 3 MG TAB PO SCH (20:30)
[2022-10-29] MEDS: AMIODARONE / D5W 360 MG/200 ML BAG IV SCH ×3 (02:30→23:54)
[2022-10-29 08:22] LABS: Albumin 3.2 g/dL (3.8-4.8); Alpha 1 Globulin 0.4 g/dL (0.2-0.3); Alpha 2 Globulin 0.8 g/dL (0.5-0.9); Beta-1-Globulin 0.4 g/dL (0.4-0.6); Beta-2-Globulin 0.3 g/dL (0.2-0.5); Gamma Globulin 0.7 g/dL (0.8-1.7); Monoclonal Protein Band 1 DNR g/dL (NONE DETECTED); Monoclonal Protein Band 2 DNR g/dL (NONE DETECTED); Monoclonal Protein Band 3 DNR g/dL (NONE DETECTED); Total Protein 5.9 g/dL (6.1-8.1)
[2022-10-29] MEDS: POLYETHYLENE (MIRALAX) 17 GM PACK PO SCH (08:47)
[2022-10-29] MEDS: BUMETANIDE 1 MG in SYRINGE 0 ML IV SCH (08:47)
[2022-10-29] MEDS: APIXABAN 2.5 MG TAB PO SCH ×2 (08:47→20:24)
[2022-10-29] MEDS: predniSONE 20 MG TAB PO SCH (08:48)
[2022-10-29] MEDS: METOPROLOL TARTRATE 50 MG TAB PO SCH ×2 (08:48→20:24)
[2022-10-29] MEDS: NYSTATIN SUSP 500,000 U/5 ML UDC PO SCH ×4 (08:48→20:25)
[2022-10-29] MEDS: SENNA 8.6 MG TAB PO SCH (08:48)
[2022-10-29] MEDS: LIDOCAINE 5% 1 PATCH TD SCH (08:48)
[2022-10-29] MEDS: PANTOprazole 40 MG TAB PO SCH (08:48)
[2022-10-29 09:17] LABS: Calcium 8.1 mg/dl (8.6-10.3); Est GFR (African American) 93.8 ml/min; Est GFR (Non-African American) 80.9 ml/min; Potassium 3.2 mmol/L (3.5-5.1)
[2022-10-29 09:18] LABS: Albumin Globulin Ratio 1.2 (0.9-2); Albumin Level 3.1 gm/dl (3.4-5.0); Bilirubin,Total 0.8 mg/dl (0.2-1.0); Globulin 2.6 gm/dl (2.5-4.0); Magnesium 1.7 mg/dl (1.7-2.4); Total Protein 5.7 gm/dl (6.0-8.3)
--- NOTE | 2022-10-29 09:22 | Cardiology Progress Note ---
Date of Service October 29, 2022 Assessment & Plan (1) Atrial fibrillation with rapid ventricular response: (2) Acute heart failure with preserved ejection fraction (HFpEF): (3) Aortic stenosis: (4) Anticoagulant long-term use: (5) Junctional bradycardia: Plan 1. Atrial fibrillation: She has remained in sinus rhythm since cardioversion yesterday, she remains on intravenous amiodarone. She had a junctional bradycardia (although was still in atrial fibrillation during that rhythm) starting around midnight of October 24, 2022 but that resolved after about 2-1/2 hours with discontinuation of diltiazem. I believe this was a combination of relatively high doses of beta-blockade and intravenous diltiazem and she has had no recurrence even on IV amiodarone and the addition of beta-blockade. Her rate remained fast and we did titrate her metoprolol, I would continue the current dose in case she goes back into atrial fibrillation. I am going to continue amiodarone to try to prevent recurrence of her atrial fibrillation, I want to overlap for at least 24 hours so I will start amiodarone 200 mg twice a day today and continue the intravenous. 2. Congestive heart failure: Her presentation was not classic for heart failure in the sense that I do not think she was fluid overloaded, her atrial fibrillation rate was fast and therefore I believe her heart failure is due to the rapid rate in the presence of diastolic dysfunction not due to fluid overload. I would be cautious with overdiuresis, with her aortic stenosis she may not tolerate it very well. Her left ventricular function appears to be adequate. 3. Aortic stenosis: She has severe aortic stenosis, the valve area this visit (done during atrial fibrillation and in sinus rhythm) has decreased and I think it is time to plan TAVR or valve replacement before her clinical situation worsens, such as left ventricular dysfunction or worsening heart failure. She is agreeable. We will make those arrangements, she would prefer surgery at [place] and we need to perform catheterization to make sure she does not have coronary disease requiring bypass. That would change the nature of the surgery. I discussed that with Dr. Joseph and we will plan on doing that as an outpatient in the next several weeks. 4. Anticoagulation: She needs to remain on anticoagulation, currently Eliquis at reduced dose due to her advanced age and low weight. 5. Junctional bradycardia: Her junctional bradycardia (which occurred during atrial fibrillation, it was not a post-conversion rhythm) was presumably due to high-grade AV block from a combination of intravenous diltiazem and metoprolol 50 mg twice daily. This resolved quickly with discontinuation of diltiazem. I doubt this is a concern over the long run but we will need to watch for bradycardia on amiodarone and now with the addition of beta-blockade. So far t his has not been an issue. Admission and Anticipated Discharge Date Admission Date: October 23, 2022 Subjective She is feeling somewhat better following cardioversion although not great. No awareness of her rhythm change. She is not having chest discomfort or shortness of breath currently. She remains in bed. TAVR was discussed with her, her and her family are agreeable and we will proceed with evaluation. Physical Exam Physical Exam: Constitutional: Alert, cooperative and in no distress. HEENT: Unremarkable Neck: No jugular venous distention, carotid pulses are irregular but otherwise normal and equal bilaterally without bruits, a transmitted murmur is audible. Pulmonary: Clear to auscultation bilaterally. Cardiac: Irregular rapid rhythm with a grade 3/6 crescendo decrescendo murmur at the base, no gallop or rub. Abdomen: Soft, nontender with normal bowel sounds. Extremities: No edema. Distal pulses intact. Neurologic: No focal findings. Gait was not tested. Skin: No rash, ecchymoses or petechiae. Results & Data Vital Signs (Past 12 Hours) Vital Signs Temp Pulse Pulse Resp BP Pulse Ox O2 Del Method 10/29/22 06:02 63 10/29/22 08:04 37.0 C 70 20 138/72 90 Room Air 10/29/22 08:01 Nasal Cannula 10/29/22 03:08 36.4 C L 64 18 147/69 H 97 Nasal Cannula 10/28/22 22:50 37.1 C 66 18 146/78 H 94 Nasal Cannula 10/28/22 21:46 Nasal Cannula O2 Flow Rate 10/29/22 06:02 10/29/22 08:04 10/29/22 08:01 2 10/29/22 03:08 2.0 10/28/22 22:50 2.0 10/28/22 21:46 3 Laboratory Results Cardiac Enzymes 10/29/22 Range/Units 08:40 AST 153 H (13-39) U/L Comprehensive Metabolic Panel 10/29/22 Range/Units 08:40 Sodium 131 L (136-145) mmol/L Potassium 3.2 L (3.5-5.1) mmol/L Chloride 85 L (98-107) mmol/L Carbon Dioxide 40 H (21-32) mmol/L BUN 14 (6-23) mg/dl Creatinine 0.61 (0.6-1.2) mg/dl Glucose 158 H (70-99(Fasting)) mg/dl Calcium 8.1 L (8.6-10.3) mg/dl AST 153 H (13-39) U/L Alkaline Phosphatase 183 H (34-104) U/L Total Protein 5.7 L (6.0-8.3) gm/dl Albumin 3.1 L (3.4-5.0) gm/dl Intake and Output 10/28/22 10/29/22 10/29/22 22:59 06:59 14:59 Intake Total 340 / 1839.668 300 / 1839.668 120 / 120 Output Total 1250 / 3550 500 / 3550 125 / 125 Balance -910 / -1710.332 -200 / -1710.332 -5 / -5 Intake: IV 200 / 395.668 Amiodarone / D5w 360 mg In 200 200 / 395.668 ml @ 0.5 MG/MIN 16.667 mls/hr IV .Q12H [facility] Rx#:[id number] Oral 340 / 1444 100 / 1444 120 / 120 Output: Urine Amount (Catheter) 1250 / 3550 500 / 3550 125 / 125 Goff/Indwelling 1250 / 3550 500 / 3550 125 / 125 Other: Other Intake Source meds Weight 57.2 kg Weight Measurement Method Built in [facility] Diagnostic Findings Telemetry: Sinus rhythm since cardioversion with frequent premature atrial beats. First-degree AV block. PG Care Time/CCT Total # of Minutes Spent Total Time Spent with Patient: Total time spent is greater than 50% in coordination of care (as documented) at patient's floor/unit and/or counseling patient: Coding Level of Care Code 01742 SUB INP/OBS CARE 3/50MIN Diagnoses Atrial fibrillation with rapid ventricular response I48.91 Acute heart failure with preserved ejection fraction (HFpEF) I50.31 Aortic stenosis I35.0 Cardiac valve disease etiology: etiology unspecified Anticoagulant long-term use Z79.01 Junctional bradycardia R00.1 (3) Aortic stenosis Cardiac valve disease etiology: etiology unspecified Qualified Code(s): I35.0 - Nonrheumatic aortic (valve) stenosis
[2022-10-29] MEDS ORDERED: POTASSIUM CHLORIDE CRTAB 20 MEQ TABCR PO STA (10:34)
[2022-10-29] MEDS: AMIODARONE 200 MG TAB PO SCH ×2 (11:03→17:22)
--- NOTE | 2022-10-29 11:52 | Hospitalist Progress Note ---
Date of Service October 29, 2022 Assessment & Plan (1) Acute heart failure with preserved ejection fraction (HFpEF): Plan: decompensated CHF 2nd to rapid a.fib in the setting of severe . volume status continues to improve with bumex diuresis. BUN & Cr remain stable. cont bumex 1mg once daily. Will try to not oveediurese given her aortic stenosis. appreciate cardiology assistance. (2) Atrial fibrillation with rapid ventricular response: Plan: rate and rhythm control have been challenging since admission. her rapid a.fib contributed heavily to #1 above. despite amiodarone infusion with metoprolol she remains in rapid a.fib. thus, Dr Thomas performed elective cardioversion this am with success in restoring NSR. cont amiodarone infusion. cont metoprolol 50mg BID. cont Eliquis BID ( 2.5mg BID dosing due to age & low body weight) will continue to overlap amiodarone IV for another 24 hours (10/30/23) appreciate Dr Thomas's assistance. (3) Diplopia: Plan: acute/chronic. had diplopia on 10/27. transient. ?right CN 3 palsy? -- but uncertain. given the severity of her illness checked head CT - neg for acute findings. has had intermittent diplopia since a head injury/concussion years ago. previously seen and worked up by ophthalmology. MRI brain would be best, but I don't think she could tolerate an MRI just yet due to pulmonary symptoms. defer for now. monitor. (4) Shock liver: Plan: patient was hypotensive for several hours during her spell of junctional bradycardia several days ago I suspect that her pre-existing abnormal LFTs got worse due to the hypotension (initially the LFTs were likely high from liver passive congestion from CHF) simply trend the LFTs INR stable at 1.1 today liver u/s earlier this admission without hepatic abnormalities (5) Junctional bradycardia: Plan: had such hospital day #1 in the setting of triple AV merry agents (CCB, BB, and digoxin) for rapid a.fib CCB and digoxin stopped converted out of such back to rapid a.fib with no recurrence of junctional bradycardia continue telemetry (6) Aortic stenosis: Plan: severe, valve area 0.6cm^2; previously was 0.8cm^2 in 2021 patient previously declined TAVR patient now stating she would like to pursue such in the future suspect the severe is contributing to #1 above (7) Hyponatremia: Plan: 2nd to volume overload from #1 above as well as acute renal failure lowest Na level was 117 now 131 s/p 3% saline earlier this week along with brief period of NaCL tablet supplementation d/c both bmp daily Na level should improve as volume status/hypervolemia improves cont diuresis suspect low Na also has contributed to her confusion Sodium improved on / reviewed BMP (8) Hypertension: Plan: all anti-hypertensives on hold except beta reid and diuretics BPs stable today (9) Transaminitis: Plan: liver u/s wnl suspect 2nd to passive congestion from CHF followed by shock liver -- see above repeat LFTs am for stability ammonia level wnl INR wnl (10) Polymyositis: Plan: Idiopathic polyneuropathy/polymyositis Follows with neurology as outpatient. 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, and history of L4-L5 moderate to severe lumbar spinal stenosis Chronically on prednisone 2.5mg daily Give mild stress dosing - 20mg daily then wean over several days back to usual home dosing of 2.5mg/day (11) Elevated blood sugar: Plan: a1c 5.9% c/w pre-DM this should not require any specific Rx while here other than careful o bservation BSGs remain stable (12) Elevated troponin: Plan: 2nd to myocardial demand ischemia in setting of #1 and #2 above no evidence of ACS (13) Acute metabolic encephalopathy: Plan: 2nd to low Na, hypoperfusion of brain from CHF/poor forward flow other factors possible including toxic effects from ambien, hospital psychosis, etc CT head ordered due to confusion & c/o diplopia - head CT stable/negative hold on MRI brain - she has too much orthopnea to tolerate such (14) Candidiasis of mouth and esophagus: Plan: cont nystatin solution - 5cc qid swish/spit improving likely that thrush is 2nd to chronic prednisone usage (15) Constipation: Plan: improved had BM 10/27 cont oral bowel agents - senna + miralax daily (16) Chest wall pain: Plan: right lower costal margin patient fell out of bed several nights ago at minimum has contusion obtain cxr today - r/o rib fracture tylenol prn lidoderms ordered Plan DVT prophylaxis - Eliquis gentle PT/OT when able updated [id number] Yin by phone last pm and this evening Admission and Anticipated Discharge Date Admission Date: October 23, 2022 Subjective Patient reports feeling very weak. She needed help to get out of bed. She states she is a resident at [facility]. She understands she may need to go to the nursing side for rehab. Review of Systems Review of Systems: All systems reviewed & are unremarkable except as noted in HPI & below Physical Exam Physical Exam: gen - NAD, comfortable in bed neck - JVD still present mouth - MMM; thrush plaques buccal mucosa nearly resolved heart - regular rate, irregular rhythm (PACs), s1 s2, 3/6 holosystolic murmur RUSB/apex; lungs - no increased work of breathing; decreased BS bases; mild rales bases; no wheezes abd - soft NT ND BS+; distension resolved today ext - no edema, pulses 2+ b/l skin - tiny stasis ulcers left lateral distal rojo; stasis changes b/l shins chest - tender to palpation over right lower costal margin Results & Data Results & Data Vital Signs (Past 12 Hours) Vital Signs Temp Pulse Pulse Resp BP Pulse Ox O2 Del Method 10/29/22 06:02 63 10/29/22 08:04 37.0 C 70 20 138/72 90 Room Air 10/29/22 08:01 Nasal Cannula 10/29/22 03:08 36.4 C L 64 18 147/69 H 97 Nasal Cannula O2 Flow Rate 10/29/22 06:02 10/29/22 08:04 10/29/22 08:01 2 10/29/22 03:08 2.0 PG Care Time/CCT Total # of Minutes Spent Total Time Spent with Patient: Total time spent is greater than 50% in coordination of care (as documented) at patient's floor/unit and/or counseling patient: Coding Level of Care Code 89076 SUB INP/OBS CARE 3/50MIN Diagnoses Acute heart failure with preserved ejection fraction (HFpEF) I50.31 Atrial fibrillation with rapid ventricular response I48.91 Diplopia H53.2 Shock liver K72.00 Junctional bradycardia R00.1 Aortic stenosis I35.0 Cardiac valve disease etiology: etiology unspecified Hyponatremia E87.1 Hypertension I10 Transaminitis R74.01 Polymyositis M33.20 Elevated blood sugar R73.9 Elevated troponin R77.8 Acute metabolic encephalopathy G93.41 Candidiasis of mouth and esophagus B37.81; B37.0 Constipation K59.00 Chest wall pain R07.89 (6) Aortic stenosis Cardiac valve disease etiology: etiology unspecified Qualified Code(s): I35.0 - Nonrheumatic aortic (valve) stenosis
--- NOTE | 2022-10-29 16:50 | Electrocardiogram Report ---
Test Reason : Blood Pressure : / mmHG Vent. Rate : 077 BPM Atrial Rate : 077 BPM P-R Int : 170 ms QRS Dur : 092 ms QT Int : 378 ms P-R-T Axes : 057 060 045 degrees QTc Int : 427 ms Poor data quality, interpretation may be adversely affected Sinus rhythm with Premature atrial complexes Possible Left atrial enlargement Nonspecific ST abnormality Abnormal ECG When compared with ECG of 24-OCT-2022 14:13, Sinus rhythm has replaced Junctional rhythm Vent. rate has increased BY 30 BPM Confirmed by Edouard Thomas ([id number]) on 10/29/2022 4:50:36 PM Referred By: Martinez Redmond Confirmed By:Edouard Thomas
[2022-10-29] MEDS: MELATONIN 3 MG TAB PO SCH (20:24)
[2022-10-30 06:27] LABS: Hematocrit (blood only) 35.4 % (37.0-47.0); Hemoglobin 12.3 g/dl (12.0-16.0); Mean Corpuscular Hemoglobin 30.5 pg (25.0-34.0); Mean Corpuscular Hgb Conc 34.7 g/dL (32.0-36.0); Mean Corpuscular Volume 87.8 fL (80.0-100.0); Mean Platelet Volume 8.7 fL (9.4-12.4); Platelet Count 249 K/uL (130-400); RDW Coefficient of Variation 13.2 % (11.5-14.5); RDW Standard Deviation 42.3 fL (36.4-46.3); Red Blood Count 4.03 M/uL (4.20-5.40)
[2022-10-30 06:36] LABS: BUN Creatinine Ratio 32.7 (10-20); Calcium 8.1 mg/dl (8.6-10.3); Creatinine Clr Calc Pharmacy 64.6 ml/min; Est GFR (African American) 98.9 ml/min; Est GFR (Non-African American) 85.3 ml/min; Potassium 3.6 mmol/L (3.5-5.1)
[2022-10-30] MEDS: BUMETANIDE 1 MG in SYRINGE 0 ML IV SCH (08:53)
[2022-10-30] MEDS: SENNA 8.6 MG TAB PO SCH (08:53)
[2022-10-30] MEDS: AMIODARONE 200 MG TAB PO SCH ×2 (08:53→17:15)
[2022-10-30] MEDS: PANTOprazole 40 MG TAB PO SCH (08:53)
[2022-10-30] MEDS: predniSONE 20 MG TAB PO SCH (08:53)
[2022-10-30] MEDS: APIXABAN 2.5 MG TAB PO SCH ×2 (08:53→19:46)
[2022-10-30] MEDS: POLYETHYLENE (MIRALAX) 17 GM PACK PO SCH (08:54)
[2022-10-30] MEDS: METOPROLOL TARTRATE 50 MG TAB PO SCH ×2 (08:54→19:47)
[2022-10-30] MEDS: NYSTATIN SUSP 500,000 U/5 ML UDC PO SCH ×4 (08:54→19:47)
[2022-10-30] MEDS: LIDOCAINE 5% 1 PATCH TD SCH (08:54)
[2022-10-30] MEDS ORDERED: POTASSIUM CHLORIDE CRTAB 20 MEQ TABCR PO STA (11:38)
[2022-10-30] MEDS: AMIODARONE / D5W 360 MG/200 ML BAG IV SCH (11:39)
--- NOTE | 2022-10-30 12:36 | Cardiology Progress Note ---
Date of Service October 30, 2022 Assessment & Plan (1) Atrial fibrillation with rapid ventricular response: (2) Acute heart failure with preserved ejection fraction (HFpEF): (3) Aortic stenosis: (4) Anticoagulant long-term use: (5) Junctional bradycardia: Plan 1. Atrial fibrillation: She has remained in sinus rhythm since 2 days ago, she remains on intravenous amiodarone. Oral amiodarone was started yesterday and I am going to discontinue the intravenous now. She could have recurrence but hopefully not on the oral. She had a junctional bradycardia (although was still in atrial fibrillation during that rhythm) starting around midnight of October 24, 2022 but that resolved after about 2-1/2 hours with discontinuation of diltiazem. I believe this was a combination of relatively high doses of beta- blockade and intravenous diltiazem and she has had no recurrence even on IV amiodarone and the addition of beta-blockade. Her rate remained fast during atrial fibrillation and we did titrate her metoprolol, I would continue the current dose of beta-blockade in case she goes back into atrial fibrillation. I am going to continue amiodarone to try to prevent recurrence of her atrial fibrillation, amiodarone 200 mg twice a day for now. 2. Congestive heart failure: Her presentation was not classic for heart failure in the sense that I do not think she was fluid overloaded, her atrial fibrillation rate was fast and therefore I believe her heart failure is due to the rapid rate in the presence of diastolic dysfunction not due to fluid overload. I would be cautious with overdiuresis, with her aortic stenosis she may not tolerate it very well. Her left ventricular function appears to be adequate. 3. Aortic stenosis: She has severe aortic stenosis, the valve area this visit (done during atrial fibrillation and in sinus rhythm) has decreased and I think it is time to plan TAVR or valve replacement before her clinical situation worsens, such as left ventricular dysfunction or worsening heart failure. She is agreeable. We will make those arrangements, she would prefer surgery at [place] and we need to perform catheterization to make sure she does not have coronary disease requiring bypass. That would change the nature of the surgery. I discussed that with Dr. Joseph and we will plan on doing that as an outpatient in the next several weeks. 4. Anticoagulation: She needs to remain on anticoagulation, currently Eliquis at reduced dose due to her advanced age and low weight. 5. Junctional bradycardia: Her junctional bradycardia (which occurred during atrial fibrillation, it was not a post-conversion rhythm) was presumably due to high-grade AV block from a combination of intravenous diltiazem and metoprolol 50 mg twice daily. This resolved quickly with discontinuation of diltiazem. I doubt this is a concern over the long run but we will need to watch for bradycardia on amiodarone and now with the addition of beta-blockade. So far this has not been an issue. Admission and Anticipated Discharge Date Admission Date: October 23, 2022 Subjective She is not feeling as well today as she did yesterday, feeling weaker but not having any specific cardiovascular complaints. No palpitations or chest discomfort. She has been out of bed but not much else. Physical Exam Physical Exam: Constitutional: Alert, cooperative and in no distress. HEENT: Unremarkable Neck: No jugular venous distention, carotid pulses are irregular but otherwise normal and equal bilaterally without bruits, a transmitted murmur is audible. Pulmonary: Clear to auscultation bilaterally. Cardiac: Irregular rapid rhythm with a grade 3/6 crescendo decrescendo murmur at the base, no gallop or rub. Abdomen: Soft, nontender with normal bowel sounds. Extremities: No edema. Distal pulses intact. Neurologic: No focal findings. Gait was not tested. Skin: No rash, ecchymoses or petechiae. Results & Data Vital Signs (Past 12 Hours) Vital Signs Temp Pulse Pulse Pulse Resp BP Pulse Ox 10/30/22 11:11 36.8 C 61 20 113/67 97 10/30/22 08:00 10/30/22 07:31 36.4 C L 63 18 125/67 96 10/30/22 05:15 53 L 10/30/22 05:09 36.5 C 64 18 143/74 H 94 O2 Del Method O2 Flow Rate 10/30/22 11:11 Nasal Cannula 2 10/30/22 08:00 Nasal Cannula 2 10/30/22 07:31 Nasal Cannula 2 10/30/22 05:15 10/30/22 05:09 Nasal Cannula 2 Laboratory Results Cardiac Enzymes 10/30/22 Range/Units 05:32 B-Natriuretic Peptide 806 H (0-100) pg/ml Coagulation 05/03/23 Range/Units 05:32 B-Natriuretic Peptide 806 H (0-100) pg/ml CBC 10/30/22 Range/Units 05:32 WBC 9.90 (4.8-10.8) K/ul RBC 4.03 L (4.20-5.40) M/uL Hgb 12.3 (12.0-16.0) g/dl Hct 35.4 L (37.0-47.0) % Plt Count 249 (130-400) K/uL Comprehensive Metabolic Panel 10/30/22 Range/Units 05:32 Sodium 133 L (136-145) mmol/L Potassium 3.6 (3.5-5.1) mmol/L Chloride 87 L (98-107) mmol/L Carbon Dioxide 40 H (21-32) mmol/L BUN 17 (6-23) mg/dl Creatinine 0.52 L (0.6-1.2) mg/dl Glucose 91 (70-99(Fasting)) mg/dl Calcium 8.1 L (8.6-10.3) mg/dl Intake and Output 10/29/22 10/30/22 10/30/22 22:59 06:59 14:59 Intake Total 420 / 1257.380 297.298 / 1257.380 556.225 / 556.225 Output Total 550 / 1426 400 / 1426 1400 / 1400 Balance -130 / -168.620 -102.702 / -168.620 -843.775 / -843.775 Intake: IV 177.298 / 357.380 196.225 / 196.225 Amiodarone / D5w 360 mg In 200 177.298 / 357.380 196.225 / 196.225 ml @ 0.5 MG/MIN 16.667 mls/hr IV .Q12H [facility] Rx#:[id number] Oral 420 / 900 120 / 900 360 / 360 Output: Urine Amount (Catheter) 550 / 1425 400 / 1425 1400 / 1400 Goff/Indwelling 550 / 1425 400 / 1425 1400 / 1400 Other: Weight 56.8 kg Weight Measurement Method Built in [facility] Diagnostic Findings Telemetry: Sinus rhythm with frequent premature atrial beats. Heart rate overall appropriate. PG Care Time/CCT Total # of Minutes Spent Total Time Spent with Patient: Total time spent is greater than 50% in coordination of care (as documented) at patient's floor/unit and/or counseling patient: Coding Level of Care Code 26012 SUB INP/OBS CARE 350MIN Diagnoses Atrial fibrillation with rapid ventricular response I48.91 Acute heart failure with preserved ejection fraction (HFpEF) I50.31 Aortic stenosis I35.0 Cardiac valve disease etiology: etiology unspecified Anticoagulant long-term use Z79.01 Junctional bradycardia R00.1 (3) Aortic stenosis Cardiac valve disease etiology: etiology unspecified Qualified Code(s): I35.0 - Nonrheumatic aortic (valve) stenosis
--- NOTE | 2022-10-30 16:25 | Hospitalist Progress Note ---
Date of Service October 30, 2022 Assessment & Plan (1) Acute heart failure with preserved ejection fraction (HFpEF): (2) Atrial fibrillation with rapid ventricular response: Plan: Acute heart failure with preserved ejection fraction (HFpEF): Plan: decompensated CHF 2nd to rapid a.fib in the setting of severe . volume status continues to improve with bumex diuresis. BUN & Cr remain stable. cont bumex 1mg once daily.Change to po for tomorrow Will try to not oveediurese given her aortic stenosis. appreciate cardiology assistance. (2) Atrial fibrillation with rapid ventricular response: Plan: rate and rhythm control have been challenging since admission. her rapid a.fib contributed heavily CHF despite amiodarone infusion with metoprolol she remained in rapid a.fib. thus, Dr Thomas performed elective cardioversion on 10/28 with success in restoring NSR.Remains in sinus cont amiodarone but dc IV gtt and convert to 200mh po bid cont metoprolol 50mg BID. cont Eliquis BID ( 2.5mg BID dosing due to age & low body weight) appreciate Cardiology assistance. (3) Diplopia: Plan: acute/chronic. had diplopia on 10/27. transient. ?right CN 3 palsy? -- but uncertain. given the severity of her illness checked head CT - neg for acute findings. has had intermittent diplopia since a head injury/concussion years ago. previously seen and worked up by ophthalmology. MRI brain would be best, but I don't think she could tolerate an MRI just yet due to pulmonary symptoms. defer for now. monitor. (4) Shock liver: Plan: patient was hypotensive for several hours during her spell of junctional bradycardia several days ago I suspect that her pre-existing abnormal LFTs got worse due to the hypotension (initially the LFTs were likely high from liver passive congestion from CHF) INR stable at 1.1 liver u/s earlier this admission without hepatic abnormalities Improving follow LFTs in AM (5) Junctional bradycardia: Plan: had such hospital day #1 in the setting of triple AV merry agents (CCB, BB, and digoxin) for rapid a.fib CCB and digoxin stopped converted out of such back to rapid a.fib with no recurrence of junctional bradycardia continue telemetry (6) Aortic stenosis: Plan: severe, valve area 0.6cm^2; previously was 0.8cm^2 in 2021 patient previously declined TAVR patient now stating she would like to pursue such in the future suspect the severe is contributing to CHF Repeat ECHO in NSR again confirms severe Needs outpt cardiac cath and eval for TAVR t be arranged by Cardiology (7) Hyponatremia: Plan: 2nd to volume overload from CHF as well as acute renal failure lowest Na level was 117 now up to 133 bmp daily Na level should improve as volume status/hypervolemia improves cont diuresis suspect low Na also has contributed to her confusion (8) Hypertension: Plan: all anti-hypertensives on hold except beta reid and diuretics BPs stable today (10) Polymyositis: Plan: Idiopathic polyneuropathy/polymyositis Follows with neurology as outpatient. 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, and history of L4-L5 moderate to severe lumbar spinal stenosis Chronically on prednisone 2.5mg daily Give mild stress dosing - 20mg daily-taper down to 10mg daily for tomorrow then wean over several days back to usual home dosing of 2.5mg/day Prediabetes Plan: a1c 5.9% c/w pre-DM this should not require any specific Rx while here other than careful observation BSGs remain stable (12) Elevated troponin: Plan: 2nd to myocardial demand ischemia in setting of CHF,JUDI no evidence of ACS (13) Acute metabolic encephalopathy: Plan: 2nd to low Na, hypoperfusion of brain from CHF/poor forward flow other factors possible including toxic effects from ambien, hospital psychosis, etc CT head ordered due to confusion & c/o diplopia - head CT stable/negative hold on MRI brain as all symptoms resolved (14) Candidiasis of mouth and esophagus: Plan: cont nystatin solution - 5cc qid swish/spit improving likely that thrush is 2nd to chronic prednisone usage (15) Constipation: Plan: improved had BM 10/27 cont oral bowel agents - senna + miralax daily (16) Chest wall pain: Plan: right lower costal margin patient fell out of bed several nights ago at minimum has contusion obtain cxr today - r/o rib fracture tylenol prn lidoderms ordered Plan DVT prophylaxis - Eliquis Dispo-remove Goff, stable for dc to SNF tomrorow as long as remains in SNR and labs stable to improved (3) Hyponatremia: (4) Aortic stenosis: (5) Acute respiratory failure with hypoxia: (6) Transaminitis: (7) Bradycardia with 41-50 beats per minute: (8) Junctional bradycardia: (9) Hypertension: (10) Polymyositis: (11) Elevated blood sugar: (12) Hypotension: (13) Acute metabolic encephalopathy: Admission and Anticipated Discharge Date Admission Date: October 23, 2022 Subjective Pt felein gok, very weak. No SOB. Tele with NSR rates 70s, no Afib Physical Exam Constitutional: WD/WN, vitals as above Respiratory: normal respiratory effort, lungs clear to auscultation Cardiovascular: Rate/Rhythm: regular rate and regular rhythm Heart Sounds: + murmur (2/6 JACKIE at RUSB) Extremities: no edema Gastrointestinal (Abdomen): normal bowel sounds, soft, nontender, no hepatosplenomegaly Psychiatric: A+Ox3, euthymic affect Results & Data Results & Data Vital Signs (Past 12 Hours) Vital Signs Temp Pulse Pulse Pulse Resp BP Pulse Ox 10/30/22 15:42 36.9 C 71 18 144/81 H 91 10/30/22 11:11 36.8 C 61 20 113/67 97 10/30/22 08:00 10/30/22 07:31 36.4 C L 63 18 125/67 96 10/30/22 05:15 53 L 10/30/22 05:09 36.5 C 64 18 143/74 H 94 O2 Del Method O2 Flow Rate 10/30/22 15:42 Room Air 10/30/22 11:11 Nasal Cannula 2 10/30/22 08:00 Nasal Cannula 2 10/30/22 07:31 Nasal Cannula 2 10/30/22 05:15 10/30/22 05:09 Nasal Cannula 2 Laboratory Results CBC, BMP, BNP all reviewed PG Care Time/CCT Total # of Minutes Spent Total Time Spent with Patient: Total time spent is greater than 50% in coordination of care (as documented) at patient's floor/unit and/or counseling patient: Coding Level of Care Code 64638 SUB INP/OBS CARE 2/35MIN Diagnoses Acute heart failure with preserved ejection fraction (HFpEF) I50.31 Atrial fibrillation with rapid ventricular response I48.91 Hyponatremia E87.1 Aortic stenosis I35.0 Cardiac valve disease etiology: etiology unspecified Acute respiratory failure with hypoxia J96.01 Transaminitis R74.01 Bradycardia with 41-50 beats per minute R00.1 Junctional bradycardia R00.1 Hypertension I10 Polymyositis M33.20 Elevated blood sugar R73.9 Hypotension I95.9 Acute metabolic encephalopathy G93.41 (4) Aortic stenosis Cardiac valve disease etiology: etiology unspecified Qualified Code(s): I35.0 - Nonrheumatic aortic (valve) stenosis
[2022-10-30] MEDS: MELATONIN 3 MG TAB PO SCH (19:47)
[2022-10-31 06:19] LABS: Basophils # (auto) 0.03 K/uL (0-0.2); Basophils % (auto) 0.3 %; Eosinophils # (auto) 0.26 K/uL (0-0.50); Eosinophils % (auto) 2.4 %; Hematocrit (blood only) 39.9 % (37.0-47.0); Hemoglobin 13.6 g/dl (12.0-16.0); Immature Granulocytes # (auto) 0.06 K/uL (0.01-0.20); Immature Granulocytes % (auto) 0.5 %; Lymphocytes # (auto) 1.38 K/uL (1.2-3.4); Lymphocytes % (auto) 12.6 %; Mean Corpuscular Hemoglobin 30.3 pg (25.0-34.0); Mean Corpuscular Hgb Conc 34.1 g/dL (32.0-36.0); Mean Corpuscular Volume 88.9 fL (80.0-100.0); Mean Platelet Volume 8.7 fL (9.4-12.4); Monocytes # (auto) 0.79 K/uL (0.11-0.59); Monocytes % (auto) 7.2 %; Neutrophils # (auto) 8.47 K/uL (1.40-6.50); Platelet Count 276 K/uL (130-400); RDW Coefficient of Variation 13.3 % (11.5-14.5); RDW Standard Deviation 43.6 fL (36.4-46.3); Red Blood Count 4.49 M/uL (4.20-5.40); White Blood Count 10.99 K/ul (4.8-10.8)
[2022-10-31 06:35] LABS: Albumin Globulin Ratio 1.1 (0.9-2); Albumin Level 2.9 gm/dl (3.4-5.0); BUN Creatinine Ratio 35.5 (10-20); Calcium 8.8 mg/dl (8.6-10.3); Creatinine Clr Calc Pharmacy 54.2 ml/min; Est GFR (African American) 93.3 ml/min; Est GFR (Non-African American) 80.5 ml/min; Globulin 2.6 gm/dl (2.5-4.0); Magnesium 1.8 mg/dl (1.7-2.4); Total Protein 5.5 gm/dl (6.0-8.3)
--- NOTE | 2022-10-31 08:32 | Cardiology Progress Note ---
Date of Service October 31, 2022 Assessment & Plan (1) Atrial fibrillation with rapid ventricular response: (2) Acute heart failure with preserved ejection fraction (HFpEF): (3) Aortic stenosis: (4) Anticoagulant long-term use: (5) Junctional bradycardia: Plan 1. Atrial fibrillation: She remained in sinus rhythm for several days after cardioversion on amiodarone intravenously until yesterday morning with 24 hours of overlap. With discontinuation of amiodarone yesterday she has now returned in atrial flutter, probably organized due to the presence of amiodarone. Recurrence is not uncommon following discontinuation of intravenous amiodarone since the level typically drops before the oral dose takes effect. She did have a junctional bradycardia (although was still in atrial fibrillation during that rhythm) starting around midnight of October 24, 2022 but that resolved after about 2-1/2 hours with discontinuation of diltiazem. I believe this was a combination of relatively high doses of beta-blockade and intravenous diltiazem and she has had no recurrence even on IV amiodarone and the addition of beta-blockade. This has not recurred. Her rate remains fast during atrial fibrillation/flutter and with her blood pressure being elevated I am going to continue to titrate her metoprolol to control heart rate. I am going to continue amiodarone 200 mg twice a day for now. 2. Congestive heart failure: Her presentation was not classic for heart failure in the sense that I do not think she was fluid overloaded, her atrial fibrillation rate was fast and therefore I believe her heart failure is due to the rapid rate in the presence of diastolic dysfunction not due to fluid overload. I would be cautious with overdiuresis, with her aortic stenosis she may not tolerate it very well. Her left ventricular function appears to be adequate. 3. Aortic stenosis: She has severe aortic stenosis, the valve area this visit (done during atrial fibrillation and in sinus rhythm) has decreased and I think it is time to plan TAVR or valve replacement before her clinical situation worsens, such as left ventricular dysfunction or worsening heart failure. She is agreeable. We will make those arrangements, she would prefer surgery at [place] and we need to perform catheterization to make sure she does not have coronary disease requiring bypass. That would change the nature of the surgery. I discussed that with Dr. Joseph and we will plan on doing that as an outpat ient in the next several weeks. 4. Anticoagulation: She needs to remain on anticoagulation, currently Eliquis at reduced dose due to her advanced age and low weight. 5. Junctional bradycardia: Her junctional bradycardia (which occurred during atrial fibrillation, it was not a post-conversion rhythm) was presumably due to high-grade AV block from a combination of intravenous diltiazem and metoprolol 50 mg twice daily. This resolved quickly with discontinuation of diltiazem. I doubt this is a concern over the long run but we will need to watch for bradycardia on amiodarone and now with the increase in beta-blockade. So far this has not been an issue. Admission and Anticipated Discharge Date Admission Date: October 23, 2022 Subjective She is feeling relatively well today, unfortunately just a few minutes before my visit went back into atrial flutter but she is unaware of it. She has not been out of bed much, not this morning, therefore she does not know how her activity level would be. No shortness of breath, lightheadedness or dizziness. Physical Exam Physical Exam: Constitutional: Alert, cooperative and in no distress. HEENT: Unremarkable Neck: No jugular venous distention, carotid pulses are irregular but otherwise normal and equal bilaterally without bruits, a transmitted murmur is audible. Pulmonary: Clear to auscultation bilaterally. Cardiac: Irregular rapid rhythm with a grade 3/6 crescendo decrescendo murmur at the base, no gallop or rub. Abdomen: Soft, nontender with normal bowel sounds. Extremities: No edema. Distal pulses intact. Neurologic: No focal findings. Gait was not tested. Skin: No rash, ecchymoses or petechiae. Results & Data Vital Signs (Past 12 Hours) Vital Signs Temp Pulse Pulse Pulse Resp BP Pulse Ox 10/31/22 08:30 72 10/31/22 08:00 76 10/31/22 07:55 36.8 C 71 19 160/81 H 92 10/31/22 03:10 36.7 C 70 22 152/75 H 91 10/31/22 00:00 63 10/30/22 22:45 36.7 C 69 22 139/78 92 O2 Del Method 10/31/22 08:30 10/31/22 08:00 10/31/22 07:55 Room Air 10/31/22 03:10 Room Air 10/31/22 00:00 10/30/22 22:45 Room Air Laboratory Results Cardiac Enzymes 10/31/22 Range/Units 05:23 AST 59 H (13-39) U/L CBC 10/31/22 Range/Units 05:23 WBC 10.99 H (4.8-10.8) K/ul RBC 4.49 (4.20-5.40) M/uL Hgb 13.6 (12.0-16.0) g/dl Hct 39.9 (37.0-47.0) % Plt Count 276 (130-400) K/uL Neut # (Auto) 8.47 H (1.40-6.50) K/uL Lymph # (Auto) 1.38 (1.2-3.4) K/uL Vance # (Auto) 0.79 H (0.11-0.59) K/uL Eos # (Auto) 0.26 (0-0.50) K/uL Baso # (Auto) 0.03 (0-0.2) K/uL Comprehensive Metabolic Panel 10/31/22 Range/Units 05:23 Sodium 133 L (136-145) mmol/L Potassium 4.0 (3.5-5.1) mmol/L Chloride 88 L (98-107) mmol/L Carbon Dioxide 39 H (21-32) mmol/L BUN 22 (6-23) mg/dl Creatinine 0.62 (0.6-1.2) mg/dl Glucose 78 (70-99(Fasting)) mg/dl Calcium 8.8 (8.6-10.3) mg/dl AST 59 H (13-39) U/L ALT 283 H (7-52) U/L Alkaline Phosphatase 173 H (34-104) U/L Total Protein 5.5 L (6.0-8.3) gm/dl Albumin 2.9 L (3.4-5.0) gm/dl Intake and Output 10/30/22 10/31/22 10/31/22 22:59 06:59 14:59 Intake Total 560 / 1256.225 120 / 1256.225 Output Total 1000 / 2875 475 / 2875 Balance -440 / -1618.775 -355 / -1618.775 Intake: Oral 560 / 1040 120 / 1040 Output: Urine Amount (Catheter) 1000 / 2875 475 / 2875 External 475 / 475 Goff/Indwelling 1000 / 2400 Other: Weight 58.2 kg Weight Measurement Method Built in [facility] Diagnostic Findings Telemetry: Sinus rhythm with premature atrial beats until around 8:45 AM this morning when she went into atrial flutter with a rapid heart rate. Electrocardiogram this morning shows atrial flutter with variable but rapid ventricular response. PG Care Time/CCT Total # of Minutes Spent Total Time Spent with Patient: Total time spent is greater than 50% in coordination of care (as documented) at patient's floor/unit and/or counseling patient: Coding Level of Care Code 54017 SUB INP/OBS CARE 3/50MIN Diagnoses Atrial fibrillation with rapid ventricular response I48.91 Acute heart failure with preserved ejection fraction (HFpEF) I50.31 Aortic stenosis I35.0 Cardiac valve disease etiology: etiology unspecified Anticoagulant long-term use Z79.01 Junctional bradycardia R00.1 (3) Aortic stenosis Cardiac valve disease etiology: etiology unspecified Qualified Code(s): I35.0 - Nonrheumatic aortic (valve) stenosis
[2022-10-31] MEDS: BUMETANIDE 1 MG TAB PO SCH (09:11)
[2022-10-31] MEDS: predniSONE 10 MG TABLET PO SCH (09:11)
[2022-10-31] MEDS: APIXABAN 2.5 MG TAB PO SCH ×2 (09:11→20:27)
[2022-10-31] MEDS: NYSTATIN SUSP 500,000 U/5 ML UDC PO SCH ×4 (09:11→20:30)
[2022-10-31] MEDS: AMIODARONE 200 MG TAB PO SCH ×2 (09:12→17:16)
[2022-10-31] MEDS: METOPROLOL TARTRATE 50 MG TAB PO SCH (09:12)
[2022-10-31] MEDS: LIDOCAINE 5% 1 PATCH TD SCH ×2 (09:12→09:21)
[2022-10-31] MEDS: POLYETHYLENE (MIRALAX) 17 GM PACK PO SCH (09:13)
[2022-10-31] MEDS: SENNA 8.6 MG TAB PO SCH (09:13)
[2022-10-31] MEDS ORDERED: METOPROLOL SUCC 25MG EXT REL TAB PO STA (09:59)
[2022-10-31] MEDS: PANTOprazole 40 MG TAB PO SCH (10:21)
--- NOTE | 2022-10-31 18:35 | Hospitalist Progress Note ---
Date of Service October 31, 2022 Assessment & Plan (1) Acute heart failure with preserved ejection fraction (HFpEF): Plan: decompensated CHF 2nd to rapid a.fib in the setting of severe . volume status improved with IV bumex diuresis. BUN & Cr remain stable. cont bumex 1mg po once daily. Will try to not over diurese given her aortic stenosis. appreciate cardiology assistance. (2) Atrial fibrillation with rapid ventricular response: Plan: rate and rhythm control have been challenging since admission. her rapid a.fib contributed heavily CHF despite amiodarone infusion with metoprolol she remained in rapid a.fib. thus, Dr Thomas performed elective cardioversion on 10/28 with success in restoring NSR.Remains in sinus received amiodarone gtt and converted to 200mh po bid cont metoprolol but increase to 75mg BID. cont Eliquis BID ( 2.5mg BID dosing due to age & low body weight) appreciate Cardiology assistance. (3) Atrial flutter: Plan: new onset x 2 hours on 10/31, spontaneously converted increased metoprolol to 75mg po bid monitor on tele continue amiodarone (4) Hyponatremia: Plan: 2nd to volume overload from CHF as well as acute renal failure lowest Na level was 117 now up to 133 and remains stable bmp daily Na level should improve as volume status/hypervolemia improves cont diuresis suspect low Na also contributed to her confusion (5) Aortic stenosis: Plan: severe, valve area 0.6cm^2; previously was 0.8cm^2 in 2021 patient previously declined TAVR patient now stating she would like to pursue such in the future suspect the severe is contributing to CHF Repeat ECHO in NSR again confirms severe Needs outpt cardiac cath and eval for TAVR t be arranged by Cardiology (6) Acute respiratory failure with hypoxia: Plan: now resolved 2/2 CHF (7) Transaminitis: Plan: Shock liver: patient was hypotensive for several hours during her spell of junctional bradycardia several days ago I suspect that her pre-existing abnormal LFTs got worse due to the hypotension (initially the LFTs were likely high from liver passive congestion from CHF) INR stable at 1.1 liver u/s earlier this admission without hepatic abnormalities Improving-almost all back to normal follow LFTs in AM (8) Junctional bradycardia: Plan: had such hospital day #1 in the setting of triple AV merry agents (CCB, BB, and digoxin) for rapid a.fib CCB and digoxin stopped converted out of such back to rapid a.fib with no recurrence of junctional bradycardia continue telemetry (9) Hypertension: Plan: BPs normalized after previous hypotension continue metoprolol and dose increased for atrial flutter to 75mg po bid continue bumex holding home aldactone (10) Polymyositis: Plan: Idiopathic polyneuropathy/polymyositis Follows with neurology as outpatient. 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, and history of L4-L5 moderate to severe lumbar spinal stenosis Chronically on prednisone 2.5mg daily Gave stress dosing - now on taper down-continue 10mg daily for tomorrow and then go to 5mg daily x 2 days on 11/02 then back to usual home dosing of 2.5mg/day on 11/04 (11) Elevated blood sugar: Plan: Prediabetes a1c 5.9% this should not require any specific Rx while here other than careful observation BSGs remain stable (12) Hypotension: Plan: as above, now resolved with stress dose steroids and dc of diltiazem (13) Acute metabolic encephalopathy: Plan: 2nd to low Na, hypoperfusion of brain from CHF/poor forward flow other factors possible including toxic effects from ambien, hospital psychosis, etc CT head ordered due to confusion & c/o diplopia - head CT stable/negative hold on MRI brain as all symptoms resolved insomnia-melatonin not helping as per daughter-> trial of benadryl tonight as pt takes this at home at times without problems (14) Diplopia: Plan: acute/chronic. had diplopia on 10/27. transient. ?right CN 3 palsy? -- but uncertain. given the severity of her illness checked head CT - neg for acute findings. has had intermittent diplopia since a head injury/concussion years ago. previously seen and worked up by ophthalmology. MRI brain would be best, but I don't think she could tolerate an MRI just yet due to pulmonary symptoms. defer for now. monitor. (15) Demand ischemia of myocardium: Plan: with elevated troponin 2nd to myocardial demand ischemia in setting of CHF,JUDI no evidence of ACS Plan Candidiasis of mouth and esophagus: Plan: cont nystatin solution - 5cc qid swish/spit improving likely that thrush is 2nd to chronic prednisone usage Constipation: now resolved Plan: dc senna + continue miralax daily at patient's request Chest wall pain: resolved Plan: right lower costal margin patient fell out of bed several nights ago at minimum has contusion CXR without rib fractures tylenol prn dc lidoderm patch as pt declining Plan DVT prophylaxis - Eliquis Dispo-dc to SNF at [facility] tomorrow if remains out of atrial flutter Discussed care with daughter in law on phone-Yin [phone] Admission and Anticipated Discharge Date Admission Date: October 23, 2022 Subjective Pt had atrial flutter x 2-3 hours this AM, spontaneously converted back to NSR. Discussed care with Cardiology and decided to hold off on discharge today. Pt worked with PT, had a good day, denies SOB except some after getting cleaned up after incontinence to large amount of stool this evening. Physical Exam Constitutional: WD/WN, vitals as above Respiratory: normal respiratory effort, lungs clear to auscultation Cardiovascular: Rate/Rhythm: regular rate and regular rhythm Heart Sounds: + murmur (2/6 JACKIE at RUSB) Extremities: no edema Gastrointestinal (Abdomen): normal bowel sounds, soft, nontender, no hepatosplenomegaly Psychiatric: A+Ox3, euthymic affect Results & Data Results & Data Vital Signs (Past 12 Hours) Vital Signs Temp Pulse Pulse Pulse Resp BP Pulse Ox 10/31/22 15:30 36.6 C 71 19 120/75 95 10/31/22 15:19 76 10/31/22 11:44 36.6 C 66 19 110/68 92 10/31/22 08:30 72 10/31/22 08:00 76 10/31/22 07:55 36.8 C 71 19 160/81 H 92 O2 Del Method 10/31/22 15:30 Room Air 10/31/22 15:19 10/31/22 11:44 Room Air 10/31/22 08:30 10/31/22 08:00 10/31/22 07:55 Room Air Laboratory Results CBC,CMP,magnesium reviewed PG Care Time/CCT Total # of Minutes Spent Total Time Spent with Patient: Total time spent is greater than 50% in coordination of care (as documented) at patient's floor/unit and/or counseling patient: Coding Level of Care Code 05839 SUB INP/OBS CARE 2/35MIN Diagnoses Acute heart failure with preserved ejection fraction (HFpEF) I50.31 Atrial fibrillation with rapid ventricular response I48.91 Atrial flutter I48.3 Atrial flutter type: typical Hyponatremia E87.1 Aortic stenosis I35.0 Cardiac valve disease etiology: etiology unspecified Acute respiratory failure with hypoxia J96.01 Transaminitis R74.01 Junctional bradycardia R00.1 Hypertension I10 Polymyositis M33.20 Elevated blood sugar R73.9 Hypotension I95.9 Acute metabolic encephalopathy G93.41 Diplopia H53.2 Demand ischemia of myocardium I24.8 (3) Atrial flutter Atrial flutter type: typical Qualified Code(s): I48.3 - Typical atrial flutter (5) Aortic stenosis Cardiac valve disease etiology: etiology unspecified Qualified Code(s): I35.0 - Nonrheumatic aortic (valve) stenosis
[2022-10-31] MEDS ORDERED: diphenhydrAMINE Capsule 25 MG CAP PO PRN (18:36)
[2022-10-31] MEDS: MELATONIN 3 MG TAB PO SCH (20:28)
[2022-10-31] MEDS: METOPROLOL SUCC 25MG EXT REL TAB PO SCH ×2 (20:30→20:38)
[2022-11-01] MEDS: ACETAMINOPHEN 500 MG TAB PO PRN (02:16)
[2022-11-01 06:55] LABS: BUN Creatinine Ratio 37.3 (10-20); Calcium 8.8 mg/dl (8.6-10.3); Creatinine Clr Calc Pharmacy 48.7 ml/min; Est GFR (Non-African American) 78.5 ml/min; Magnesium 1.7 mg/dl (1.7-2.4); Potassium 3.7 mmol/L (3.5-5.1)
[2022-11-01] MEDS: BUMETANIDE 1 MG TAB PO SCH (08:52)
[2022-11-01] MEDS: METOPROLOL SUCC 25MG EXT REL TAB PO SCH (08:52)
[2022-11-01] MEDS: APIXABAN 2.5 MG TAB PO SCH (08:52)
[2022-11-01] MEDS: PANTOprazole 40 MG TAB PO SCH (08:52)
[2022-11-01] MEDS: predniSONE 10 MG TABLET PO SCH (08:53)
[2022-11-01] MEDS: AMIODARONE 200 MG TAB PO SCH (08:53)
[2022-11-01] MEDS: POLYETHYLENE (MIRALAX) 17 GM PACK PO SCH (08:53)
[2022-11-01] MEDS: NYSTATIN SUSP 500,000 U/5 ML UDC PO SCH ×2 (08:54→12:47)
[2022-11-01] MEDS ORDERED: MAGNESIUM SULFATE / D5W 1 GM/100 ML BAG IV ONE (10:18)
[2022-11-01] MEDS: POTASSIUM CHLORIDE / WTR 10 MEQ/100 ML PLCT IV SCH ×2 (10:29→11:37)
--- NOTE | 2022-11-01 12:24 | Discharge Summary ---
Date of Service November 01, 2022 Admission HPI Per Admitting Provider Dede is an 87-year-old female with a past medical history of A-fib on Eliquis who presented to the emergency department with orthostatic presyncope and was found to be in A-fib and RVR with rates of the 150s on arrival to the ER. She is less seen by cardiology 04/2022, was noted that she is no longer in atrial flutter and had rapidly progressive aortic stenosis at that time. Patient had deferred valve replacement due to age and comorbidity. This visit was a second opinion, normally follows with [facility] cardiology but wanted a second opinion consult for her valvular heart disease/flutter. She reports she lives at [facility] and had her yearly physical last . She has had afib 'off and on' for many years, but had an EKG last 'and didn't pass.' Was recommended to followup with Dr. Bowie as outpatient tomorrow morning, and to take an additional 1/2 tab of metoprolol daily. She notes her heart rate has been 'up and down, up and down, up and down' in the last few days an dshe has been very stressed lately. This morning she started to get dizzy with a little difficulty breathing which is unusual for her. Normally walks several miles per day without chest pain or limiting dyspnea. Today her breathin felt off, her BP was 'not bad' at [facility], but still felt poorly and light she was going to pass out when standing/bending over. She reports she sometimes can feel her afib/heart racing at night, otherwise she checks her afib using her pulse but hasn't had palpitations. In the last few hours had had a sensation of pressure in her chest 'not bad 4-5/10 maybe' but denies chest pain. No radiation to shoulders. No history of heart stents. She reports she does has severe and is deferring valve replacement at this time, and reports she does not wish to have this done in the future. She took her Am meds today. Medical History: Reviewed Medications: Reviewed Surgical History: Reviewed Family history: Reviewed Allergies: Reviewed Social History: No tobacco product use, rare social etoh use. Code Status: DNR/DNI Principal Diagnosis Rapid atrial fibrillation and flutter, Severe aortic stenosis Acute on chronic HFpEF Discharge Exam Constitutional WD/WN, vitals as above Respiratory normal respiratory effort, lungs clear to auscultation Cardiovascular Rate/Rhythm: regular rate and regular rhythm Heart Sounds: + murmur (2/6 JACKIE at RUSB) Extremities: no edema Gastrointestinal (Abdomen) normal bowel sounds, soft, nontender, no hepatosplenomegaly Psychiatric A+Ox3, euthymic affect Discharge Data Allergies Allergy/AdvReac Type Severity Reaction Status Date / Time Penicillins Allergy Intermediate hives Verified 05/07/22 12:15 Sulfa (Sulfonamide Allergy Mild hives Verified 05/07/22 12:15 Antibiotics) azithromycin Allergy Hives Verified 05/07/22 12:15 codeine AdvReac Mild MS Change Verified 05/07/22 12:15 gabapentin AdvReac Mild Confusion, Verified 05/07/22 12:15 unable to sleep Macrolide Antibiotics AdvReac Mild Nausea Verified 05/07/22 12:15 with "-mycins" ketoprofen AdvReac Unknown KETOPROFEN Verified 05/07/22 12:15 GEL CAUSES SKIN BURNING Consultations 10/23/22 12:07 ED Decision to Admit Stat 10/24/22 14:39 Consult Cardiology Routine 10/28/22 08:10 Consult Cardiac Catheterization Routine Procedures Performed Operation Date: 10/28/22 07:30 Actual Procedures p Cardioversion - Edouard Thomas MD Ordered Studies 10/24/22 liver Routine 10/27/22 16:30 CT head/brain wo con Routine ECHO Hospital Course (1) Acute heart failure with preserved ejection fraction (HFpEF): decompensated CHF 2nd to rapid a.fib in the setting of severe . volume status improved with IV bumex diuresis. BUN & Cr remain stable. cont bumex 1mg po once daily. Will try to not over diurese given her aortic stenosis. appreciate cardiology assistance. Enrolled in CHF program (2) Atrial fibrillation with rapid ventricular response: rate and rhythm control have been challenging since admission. her rapid a.fib contributed heavily to CHF despite amiodarone infusion with metoprolol she remained in rapid a.fib. thus, Dr Thomas performed elective cardioversion on 10/28 with success in restoring NSR.Remained in sinus except had 2 hours of rapid atrial flutter on AM of 10/31 which spontaneously converted received amiodarone gtt and converted to 200mg po bid cont metoprolol but increased to 75mg BID. cont Eliquis BID ( 2.5mg BID dosing due to age & low body weight) appreciate Cardiology assistance. (3) Atrial flutter: new onset x 2 hours on 10/31, spontaneously converted increased metoprolol to 75mg po bid monitor on tele-none further continue amiodarone 200mg po bid for now (4) Hyponatremia: 2nd to volume overload from CHF as well as acute renal failure lowest Na level was 117 now up to 133 and remains stable bmp should be followed at SNF Na level should improve as volume status/hypervolemia improves cont diuresis suspect low Na also contributed to her confusion (5) Aortic stenosis: severe, valve area 0.6cm^2; previously was 0.8cm^2 in 2021 patient previously declined TAVR patient now stating she would like to pursue such in the future suspect the severe is contributing to CHF Repeat ECHO in NSR again confirms severe Needs outpt cardiac cath and eval for TAVR t be arranged by Cardiology (6) Acute respiratory failure with hypoxia: now resolved 2/2 CHF (7) Transaminitis: Shock liver: patient was hypotensive for several hours during her spell of junctional bradycardia several days ago I suspect that her pre-existing abnormal LFTs got worse due to the hypotension (initially the LFTs were likely high from liver passive congestion from CHF) INR stable at 1.1 liver u/s earlier this admission without hepatic abnormalities Improving-almost all back to normal follow LFTs as outpt to resolution (8) Junctional bradycardia: had such hospital day #1 in the setting of triple AV merry agents (CCB, BB, and digoxin) for rapid a.fib CCB and digoxin stopped converted out of such back to rapid a.fib with no recurrence of junctional bradycardia (9) Hypertension: BPs normalized after previous hypotension continue metoprolol and dose increased for atrial flutter to 75mg po bid continue bumex discontinued home aldactone (10) Polymyositis: Idiopathic polyneuropathy/polymyositis Follows with neurology as outpatient. 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, and history of L4-L5 moderate to severe lumbar spinal stenosis Chronically on prednisone 2.5mg daily Gave stress dosing - now on taper down-continue 10mg daily for tomorrow and then go to 5mg daily x 2 days on 11/02 then back to usual home dosing of 2.5mg/day on 11/04 (11) Elevated blood sugar: Prediabetes a1c 5.9% this should not require any specific Rx while here other than careful observation BSGs remain stable (12) Hypotension: as above, now resolved with stress dose steroids and dc of diltiazem (13) Acute metabolic encephalopathy: 2nd to low Na, hypoperfusion of brain from CHF/poor forward flow other factors possible including toxic effects from ambien, hospital psychosis, etc CT head ordered due to confusion & c/o diplopia - head CT stable/negative insomnia-melatonin to be continued (14) Diplopia: acute/chronic. had diplopia on 10/27. transient. ?right CN 3 palsy? -- but uncertain. given the severity of her illness checked head CT - neg for acute findings. has had intermittent diplopia since a head injury/concussion years ago. previously seen and worked up by ophthalmology. (15) Demand ischemia of myocardium: with elevated troponin 2nd to myocardial demand ischemia in setting of CHF,JUDI no evidence of ACS Plan Candidiasis of mouth and esophagus: Plan: cont nystatin solution - 5cc qid swish/spit used now resolved likely that thrush is 2nd to chronic prednisone usage Constipation: now resolved Plan: dc senna + miralax due to loose stools Chest wall pain: resolved Plan: right lower costal margin patient fell out of bed several nights ago at minimum has contusion CXR without rib fractures tylenol prn dcd lidoderm patch as pt declining Plan DVT prophylaxis - Eliquis Dispo-dc to SNF at [facility] today Total Time Total Time Spent Total Time Spent (In Minutes): 35 min Discharge Plan Discharge Items Patient Disposition: Transfer Custodial Fac Reason For Visit: AFIB RVR, SEVERE , TROP Discharge Diagnosis: Rapid atrial fibrillation and flutter, Acute on chronic HFpEF Severe aortic stenosis Condition on Discharge: Fair Activity: As commented below Lifting: Gradually increase as tolerated Bathing: No limitations Exercise/Sports: Gradually increase as tolerated Exercise Comment: with PT/OT Weightbearing: Full weightbearing Non-emergency contact: Primary Care Provider and Outside Plant Technician Call non-emergency contact if: you have any medication questions and your s ymptoms worsen [facility]Ref[facility]: [facility] - Deysi Mo PAAllysonC [Physician [place] Cutter] - 05/11/23 10:30 am (Congestive Heart Failure Program Appointment Information Early follow up is essential to managing your heart failure. An appointment has been scheduled for you with the [facility] Heart Failure Program within 7 days of discharge. Anticipate this visit to be 30-60 minutes long. Please expect a supervisor pig machine phone call from one of our nurses approximately 48 hours from discharge. They will also be placing an order for lab work to be completed 1-2 days prior to your heart failure follow up appointment. Please be sure to have this done so we can go over the results when you come in. Office Location The cardiology office building is located in front of the hospital at [address]. Bring the following with you to your follow-up doctor appointments: Please bring your daily weight log any discharge paperwork all of your medication bottles with you to this visit. ) Diet: Low Sodium (2gm) Fluids: 1800ml (7 cups) Addtl Attending Provider Instructions: You were admitted [facility] rapid atrial fibrillation and heart failure. This is related to your severe aortic stenosis (heart valve problem). You were converted to a normal heart rhythm and placed on medication to keep you in a normal heart rhythm. You were given diuretics and had improvement. Please continue on all medications as prescribed and follow up with Cardiology as scheduled. You will need to begin the process for evaluation for heart valve replacement- the Cardiology team will help guide you through this. Call your Primary Care doctor if any of the following symptoms or problems start or get worse: * Shortness of breath or difficulty breathing * Wake up at night short of breath * Chest pain * Cough * Swelling of your hands, feet, or legs * More fatigued or tired with your normal activity * Palpitations - sudden fast heart beats WEIGHT * Weigh yourself every morning after using the bathroom. * Use the same scale. * Wear the same amount of clothing. * Write your weight down on a chart. * Call your Primary Care doctor if you gain more than 2-3 pounds in 1-2 days. MEDICATIONS * Use this discharge instruction sheet for medication instructions. * Take your medications at the time your doctor ordered. * Do not skip a dose of your medicines. * If you miss a dose of medicine, take it as soon as possible, but DO NOT DOUBLE A DOSE. * Read your medicine information when you get home. * Know all of the side effects of your medicine. If in doubt, ask your pharmacist * Call your Primary Care doctor's office if you have any side effects. * Be sure all of your doctors know what medicine and herbs you take (including cold, flu, and herbal medicine). Take the following with you to your follow-up doctor appointments: * Weight Chart * Medication List * List of questions Do not drink excessive alcohol, beer or wine. Pending Studies at Discharge: No Stand-Alone Forms: [facility] Skilled Items Patient informed of condition?: Yes DNR: Yes Discharge Level of Care: Skilled Communicable Disease: No Discharge Prognosis: Improving Lines: None Urinary Catheter: No Medications and DC Order Prescriptions: New amiodarone 200 mg Tablet 200 mg PO BIDM Qty: 60 0RF bumetanide 1 mg Tablet 1 mg PO QAM Qty: 30 0RF prednisone 5 mg tablet 5 mg PO DAILY Qty: 2 0RF Rx Instructions: x 2 days then return to home dose of 2.5mg daily melatonin 3 mg Tablet 6 mg PO HS Qty: 60 0RF Continued fluticasone propionate 50 mcg/actuation spray,suspension 2 spray intranasal DAILY Rx Instructions: administer into each nostril Prolia 60 mg/mL syringe See Rx Instructions subcut .COMPLEX Rx Instructions: subcutaneously every 6 months; ascorbic acid (vitamin C) [Vitamin C] 1,000 mg Tablet 1,000 mg PO QAM acetaminophen [Tylenol Extra Strength] 500 mg Tablet 500 mg PO Q6H PRN (Reason: Pain) cholecalciferol (vitamin D3) [Vitamin D3] 2,000 unit Capsule 2,000 unit PO QAM calcium citrate-vitamin D3 [Citracal-D3 Petites] 200 mg calcium -250 unit Tablet 2 tab PO BID Centrum Silver Women 8 mg iron-400 mcg-300 mcg Tablet 1 tab PO QAM multivitamin Tablet 1 tab PO DAILY Premarin 0.625 mg/gram Cream 0.625 mg VAGINAL WK Eliquis 2.5 mg tablet 2.5 mg PO BID baclofen 10 mg tablet 5 mg PO BID PRN (Reason: jaw spasms) prednisone 5 mg tablet 2.5 mg PO DAILY Changed metoprolol succinate 50 mg tablet extended release 24 hr 75 mg PO BID Qty: 90 0RF Discontinued spironolactone 25 mg tablet 12.5 mg PO DAILY furosemide 20 mg tablet 20 mg PO DAILY Discharge Orders: Discharge Order- CHF (Routine); Ordered 11/01/22 Ordered By: Chandni Landaverde Admission Data Admit Date/Time: 10/23/22 12:57 Attending Provider: Chandni Landaverde Admit Provider: Navdeep Rios Primary Care Provider: Martinez Redmond Other Providers: Navdeep Rios ; Remigio Packer ; Yeison Joseph Coding Level of Care Code 88181 INP/OBS DISCH >30 MIN Diagnoses Acute heart failure with preserved ejection fraction (HFpEF) I50.31 Atrial fibrillation with rapid ventricular response I48.91 Atrial flutter I48.3 Atrial flutter type: typical Hyponatremia E87.1 Aortic stenosis I35.0 Cardiac valve disease etiology: etiology unspecified Acute respiratory failure with hypoxia J96.01 Transaminitis R74.01 Junctional bradycardia R00.1 Hypertension I10 Polymyositis M33.20 Elevated blood sugar R73.9 Hypotension I95.9 Acute metabolic encephalopathy G93.41 Diplopia H53.2 Demand ischemia of myocardium I24.8
[2022-11-01 12:30] LABS: Appearance Urine Cloudy (Clear); Bacteria Urine Automated 2+ (Negative); Bilirubin Urine Negative (Negative); Blood Urine 2+ (Negative); Cast Urine Automated 0 /lpf (0-5); Color Urine Yellow; Glucose Urine UA Negative (Negative); Ketones Urine Negative (Negative); Leukocyte Esterase Urine 3+ (Negative); Nitrite Urine Negative (Negative); Protein Urine Negative (Negative); Specific Gravity Urine 1.005 (1.000-1.030); Urobilinogen Urine Negative (Negative); WBC Urine Automated >30 /hpf (0-5)
--- NOTE | 2022-11-01 14:29 | Cardiology Progress Note ---
Date of Service November 01, 2022 Assessment & Plan (1) Atrial fibrillation with rapid ventricular response: (2) Acute heart failure with preserved ejection fraction (HFpEF): (3) Aortic stenosis: (4) Anticoagulant long-term use: (5) Junctional bradycardia: Plan 1. Atrial fibrillation: She remained in sinus rhythm for several days after cardioversion on amiodarone intravenously with 24 hours of overlap. With discontinuation of amiodarone she had returned in atrial flutter, probably organized due to the presence of amiodarone. Recurrence is not uncommon following discontinuation of intravenous amiodarone since the level typically drops before the oral dose takes effect. However after several hours she spontaneously converted back to sinus rhythm suggesting amiodarone is working. She did have a junctional bradycardia (although was still in atrial fibrillation during that rhythm) starting around midnight of October 24, 2022 but that resolved after about 2-1/2 hours with discontinuation of diltiazem. I believe this was a combination of relatively high doses of beta-blockade and intravenous diltiazem and she has had no recurrence even on IV amiodarone and the addition of beta- blockade. This has not recurred. Her rate remained fast during atrial fibrillation/flutter and with her blood pressure being elevated I did continue to titrate her metoprolol to control heart rate. I am going to continue amiodarone 200 mg twice a day for now. 2. Congestive heart failure: Her presentation was not classic for heart failure in the sense that I do not think she was fluid overloaded, her atrial fibrillation rate was fast and therefore I believe her heart failure is due to the rapid rate in the presence of diastolic dysfunction not due to fluid overload. I would be cautious with overdiuresis, with her aortic stenosis she may not tolerate it very well. Her left ventricular function appears to be adequate. 3. Aortic stenosis: She has severe aortic stenosis, the valve area this visit (done during atrial fibrillation and in sinus rhythm) has decreased and I think it is time to plan TAVR or valve replacement before her clinical situation worsens, such as left ventricular dysfunction or worsening heart failure. She is agreeable. We will make those arrangements, she would prefer surgery at [facility] and we need to perform catheterization to make sure she does not have coronary disease requiring bypass. That would change the nature of the surgery. I discussed that with Dr. Joseph and we will plan on doing that as an outpatient in the next several weeks. 4. Anticoagulation: She needs to remain on anticoagulation, currently Eliquis at reduced dose due to her advanced age and low weight. 5. Junctional bradycardia: Her junctional bradycardia (which occurred during atrial fibrillation, it was not a post-conversion rhythm) was presumably due to high-grade AV block from a combination of intravenous diltiazem and metoprolol 50 mg twice daily. This resolved quickly with discontinuation of diltiazem. I doubt this is a concern over the long run but we will need to watch for bradycardia on amiodarone and now with the increase in beta-blockade. So far this has not been an issue. Admission and Anticipated Discharge Date Admission Date: October 23, 2022 Subjective She is feeling well, no palpitations or symptoms since yesterday when she had a brief episode of atrial fibrillation. She appears more comfortable and although is still weak seems to be more active now. Physical Exam Physical Exam: Constitutional: Alert, cooperative and in no distress. HEENT: Unremarkable Neck: No jugular venous distention, carotid pulses are normal and equal bilaterally without bruits, a transmitted murmur is audible. Pulmonary: Clear to auscultation bilaterally. Cardiac: Regular rhythm with a grade 3/6 crescendo decrescendo murmur at the base, no gallop or rub. Abdomen: Soft, nontender with normal bowel sounds. Extremities: No edema. Distal pulses intact. Neurologic: No focal findings. Gait was not tested. Skin: No rash, ecchymoses or petechiae. Results & Data Vital Signs (Past 12 Hours) Vital Signs Temp Pulse Pulse Pulse Resp BP BP 11/01/22 13:42 36.8 C 61 60 16 148/79 H 115/62 11/01/22 12:04 36.8 C 61 16 148/79 H 11/01/22 08:00 61 11/01/22 08:10 36.7 C 61 19 137/76 11/01/22 04:00 36.6 C 60 18 123/78 Pulse Ox O2 Del Method 11/01/22 13:42 93 11/01/22 12:04 93 Room Air 11/01/22 08:00 11/01/22 08:10 92 Room Air 11/01/22 04:00 92 Room Air Laboratory Results Comprehensive Metabolic Panel 11/01/22 Range/Units 05:25 Sodium 132 L (136-145) mmol/L Potassium 3.7 (3.5-5.1) mmol/L Chloride 87 L (98-107) mmol/L Carbon Dioxide 38 H (21-32) mmol/L BUN 25 H (6-23) mg/dl Creatinine 0.67 (0.6-1.2) mg/dl Glucose 84 (70-99(Fasting)) mg/dl Calcium 8.8 (8.6-10.3) mg/dl Intake and Output 10/31/22 11/01/22 11/01/22 22:59 06:59 14:59 Intake Total 125 / 665 100 / 665 300 / 300 Output Total 800 / 2049 250 / 2050 Balance -675 / -1385 -150 / -1385 300 / 300 Intake: IV 300 / 300 Magnesium Sulfate / D5w 1 gm In 100 / 100 100 ml @ 50 mls/hr IV ONE ONE Rx#:[id number] Potassium Chloride / Wtr 10 meq 200 / 200 In 100 ml @ 100 mls/hr IV Q1H [facility] Rx#:[id number] Oral 125 / 665 100 / 665 Output: Urine Amount (Catheter) 0 250 / 2050 External 800 / 0 250 / 2050 Other: Weight 53.1 kg 53.1 kg Weight Measurement Method Built in [facility] Patient Weight 11/02/22 06:59 Weight 53.1 kg Diagnostic Findings Telemetry: Spontaneous conversion of atrial fibrillation to sinus rhythm yesterday afternoon, no further atrial fibrillation. Rate controlled during sinus rhythm. PG Care Time/CCT Total # of Minutes Spent Total Time Spent with Patient: Total time spent is greater than 50% in coordination of care (as documented) at patient's floor/unit and/or counseling patient: Coding Level of Care Code 88555 SUB INP/OBS CARE 2/35MIN Diagnoses Atrial fibrillation with rapid ventricular response I48.91 Acute heart failure with preserved ejection fraction (HFpEF) I50.31 Aortic stenosis I35.0 Cardiac valve disease etiology: etiology unspecified Anticoagulant long-term use Z79.01 Junctional bradycardia R00.1 (3) Aortic stenosis Cardiac valve disease etiology: etiology unspecified Qualified Code(s): I35.0 - Nonrheumatic aortic (valve) stenosis
--- NOTE | 2022-11-01 21:01 | Electrocardiogram Report ---
Test Reason : Blood Pressure : / mmHG Vent. Rate : 128 BPM Atrial Rate : 156 BPM P-R Int : 000 ms QRS Dur : 094 ms QT Int : 326 ms P-R-T Axes : 000 006 056 degrees QTc Int : 475 ms Atrial flutter with rapid ventricular response Nonspecific ST abnormality Abnormal ECG When compared with ECG of 28-OCT-2022 07:53, Atrial flutter has replaced Sinus rhythm Vent. rate has increased BY 51 BPM Confirmed by Edouard Thomas ([id number]) on 11/01/2022 9:00:56 PM Referred By: [facility] Confirmed By:Edouard Thomas
== END 2022-11-01 15:26 | DRG 308 ==
LOC: ED 10:42 → SUATTDRO 12:57 → 4W 12:57

== ENCOUNTER 2024-01-13 15:13 | Inpatient (IN) ==
[2024-01-13 16:10] LABS: Basophils # (auto) 0.03 K/uL (0.00-0.20); Basophils % (auto) 0.5 %; Hematocrit (blood only) 39.2 % (37.0-47.0); Hemoglobin 12.8 g/dl (12.0-16.0); Immature Granulocytes # (auto) 0.02 K/uL (0.01-0.20); Immature Granulocytes % (auto) 0.3 %; Lymphocytes # (auto) 0.51 K/uL (1.20-3.40); Lymphocytes % (auto) 7.7 %; Mean Corpuscular Hemoglobin 28.4 pg (25.0-34.0); Mean Corpuscular Hgb Conc 32.7 g/dL (32.0-36.0); Mean Corpuscular Volume 86.9 fL (80.0-100.0); Mean Platelet Volume 8.9 fL (9.4-12.4); Monocytes # (auto) 0.27 K/uL (0.11-0.59); Monocytes % (auto) 4.1 %; Neutrophils # (auto) 5.81 K/uL (1.40-6.50); Neutrophils % (auto) 87.4 %; Platelet Count 238 K/uL (130-400); RDW Coefficient of Variation 15.5 % (11.5-14.5); RDW Standard Deviation 49.5 fL (36.4-46.3); Red Blood Count 4.51 M/uL (4.20-5.40); White Blood Count 6.64 K/ul (4.8-10.8)
[2024-01-13 16:25] LABS: Albumin Globulin Ratio 1.5 (0.9-2); Albumin Level 4.8 gm/dl (3.4-5.0); BUN Creatinine Ratio 34.7 (10-20); Bilirubin,Total 0.6 mg/dl (0.2-1.0); Calcium 10.4 mg/dl (8.6-10.3); Creatinine Clr Calc Pharmacy 41.8 ml/min; Est GFR (African American) 86.1 ml/min; Est GFR (Non-African American) 74.3 ml/min; Globulin 3.1 gm/dl (2.5-4.0); Potassium 4.4 mmol/L (3.5-5.1); Total Protein 7.9 gm/dl (6.0-8.3)
--- NOTE | 2024-01-13 19:00 | Emergency Department Note ---
Impression & Plan SOB (shortness of breath), Neck muscle weakness, Vision changes, Hyponatremia ED Provider Note ED Provider Note NAME: KIMBERLY GODINEZ AGE:88 SEX: Female : 1935 ARRIVES VIA: Private vehicle INFORMANT: Patient ED PROVIDER(s): Kassidy Yu DO CHIEF COMPLAINT: Worsening neck weakness, increased shortness of breath HPI: This is an 88-year-old female referred here by her PCP due to concern for worsening neck weakness as well as 4 to 5 days of increased shortness of breath. Patient states she said neck weakness and pain for many weeks. She did undergo outpatient imaging. She states her head slowly falls forward over the course of the day and in order to get it back in position she has to lay flat on the bed. She states she is noticed increased shortness of breath over the last 4 to 5 days as well but denies any cough or URI symptoms. She states this feels different than when she was short of breath prior to having a heart valve replacement last year at [facility]. She denies fevers or chills. She states that is difficult to eat because of the position of her head, she denies any difficulty swallowing or choking. Patient states she notices by the end of the day she will have blurred vision additionally. 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 She has been seen by rheumatology. PAST MEDICAL HISTORY:See Below PAST SURGICAL HISTORY:See Below FAMILY HISTORY:See Below SOCIAL HISTORY:See Below HOME MEDICATIONS:See Below ALLERGIES:See Below VITALS:See Below PHYSICAL EXAMINATION: GENERAL: alert, well appearing, well nourished, no distress, non-toxic EYE EXAM: normal conjunctiva, PERRL and EOM's grossly intact OROPHARYNX: no exudate, no erythema, lips, buccal mucosa, and tongue normal and mucous membranes are moist NECK: supple, no nuchal rigidity, no adenopathy, non-tender LUNGS: Clear to auscultation. Normal chest wall mechanics, no w/r/r HEART: no murmurs, S1 normal and S2 normal ABDOMEN: abdomen soft, non-tender, normo-active bowel sounds, no masses, no rebound or guarding. SKIN: no rashes, petechiae, orbruising UPPER EXTREMITIES: upper extremities are grossly normal. FROM, nml pulses b/l. LOWER EXTREMITIES: No pitting edema. FROM, nml pulses b/l. NEURO EXAM: Normal sensorium, cranial nerves II-XII grossly intact, normal speech, no facial droop,nogross weakness of arms, no gross weakness of legs. Gross sensation intact. No ataxia. Vital Signs: reviewed and remarkable Differential Diagnosis: pavan, dehydration, medication adr, electrolyte abnormality, occult infection, myasthenia gravis, cervical radiculopathy, as well as others were considered MEDICAL DECISION MAKING: This is an 88 yo female who presents to the ER after being referred here by her PCP due to concern for worsening weakness and 4-5 days of dyspnea. She was afebrile and VS stable on arrival. Labs drawn and sent, IV established, EKG and CXR performed and interpreted at bedside, and patient placed on telemetry. Nasal swab added and no evidence of viral URI. Despite cardiac hx, no evidence of chf. No pna. PCP noted concerned for myasthenia gravis. Hyponatremia chronic per review of EMR. Given worsening symptoms, case discussed with the hospitalist team for additional evaluation and mgmt. Consultation(s): 2024: Discussed with Dr. Thomas, [place] hospitalist team, for additional evaluation and mgmt. ER Treatment Provided: See below Diagnostics Interpreted By Me: -ECG: Normal sinus at 75, normal axis, normal intervals, no acute ST/T wave changes, baseline artifact noted -Cardiac Monitoring: An order was placed for continuous cardiac monitoring. The monitor shows a rate of 72 with normal sinus rhythm. -Laboratory studies: As stated above and show below. -Imaging studies: X-ray Chest: A single view study of the chest was reviewed and was negative for cardiomegaly, focal infiltrate, effusion, pulmonary edema, or wide mediastinum. Triage Nursing Note Reviewed Prior/Outside Records Reviewed facilty and PCP records reviewed Past Med/Surg History Problem List (Updated 01/15/24 @ 02:10 by Kassidy Yu DO) Hyponatremia (Acute) Neck pain Dropped head syndrome DERAS (dyspnea on exertion) Paroxysmal atrial fibrillation controlled w/ meds On Eliquis History of heart failure Diastolic per records; prior to TAVR per patient EF 55-60% on 11/14/23 ECHO Hypothyroidism Vision changes (Acute) Neck muscle weakness (Acute) SOB (shortness of breath) (Acute) On amiodarone therapy CAD (coronary artery disease) S/P TAVR (transcatheter aortic valve replacement) Hypertension Anticoagulant long-term use Atrial flutter Idiopathic polyneuropathy Constipation Chronic per PCP records Polymyositis Cellulitis of left lower extremity (Acute) Per PCP records - improved after abx - proceed with surgical amputation per 11/18/23 PCP records Right ankle pain (Acute) Hyponatremia Medical History (Updated 01/15/24 @ 02:10 by Kassidy Yu DO) PAD (peripheral artery disease) Per records Aortic stenosis s/p TAVR 12/2022 On amiodarone therapy Hypertension Anticoagulant long-term use Idiopathic polyneuropathy Dermatomyositis On chronic Prednisone History of COVID-19 (2021) no hosp; resolved Acid reflux controlled Hx of atrial flutter controlled w/ medication CAD (coronary artery disease) Mild nonocclusive coronary disease, tortuous distal vessels per 10/2022 cardiac cath Junctional bradycardia On Metoprolol in the past- d/c'ed per records due to bradycardia Surgical History Hx of cardiac catheterization (10/2022) [place]- prior to TAVR Hx of colonoscopy History of esophagogastroduodenoscopy (EGD) Hx of tonsillectomy Hx of hernia repair x 3 S/P TAVR (transcatheter aortic valve replacement) (12/2022) [facility] [place] follows w/ Dr Bowie Family History Other No pertinent family history Social History Smoking Status: Never smoker Second Hand Exposure: No; Do You Dip or Chew Tobacco: No; Hx Alcohol Use: No Hx Substance Use: No Preferred Language: Yi Communication Ability: Effective Hearing Ability: Normal Offset Printer Required: No Beliefs That Will Affect Care: None marital status: Current Living Situation: Spouse and Personal Care Facility Current Living Situation Comment: [facility] current occupational status: retired Feels Safe at Home: Yes Safety Concerns: Feels Safe At This Time Assistive Devices: Cane and Walker Allergies Allergies Allergy/AdvReac Type Severity Reaction Status Date / Time azithromycin Allergy Intermediate Hives Verified 01/13/24 19:40 Penicillins Allergy Intermediate hives Verified 01/13/24 19:40 Sulfa (Sulfonamide Allergy Intermediate hives Verified 01/13/24 19:40 Antibiotics) gabapentin AdvReac Intermediate Confusion, Verified 01/13/24 19:40 unable to sleep codeine AdvReac Mild MS Change Verified 01/13/24 19:40 Macrolide Antibiotics AdvReac Mild Nausea Verified 01/13/24 19:40 with "-mycins" ketoprofen AdvReac Unknown KETOPROFEN Verified 01/13/24 19:40 GEL CAUSES SKIN BURNING Home Meds Home Medications Medication Instructions Recorded Confirmed ascorbic acid (vitamin C) 1,000 mg 1,000 mg PO QAM 12/06/18 01/13/24 tablet (Vitamin C) cholecalciferol (vitamin D3) 50 2,000 unit PO QAM 12/06/18 01/13/24 mcg (2,000 unit) capsule (Vitamin D3) [id number]-yuzr-[id number] 8 mg-folic 400 1 tab PO QAM 12/06/18 01/13/24 mcg-K 50 mcg-lutein 300 mcg tablet (Centrum Silver Women) apixaban 2.5 mg tablet (Eliquis) 2.5 mg PO BID 11/25/20 01/13/24 prednisone 5 mg tablet 5 mg PO QAM 09/03/21 01/13/24 polyethylene glycol 3350 17 17 g PO DAILY Constipation 11/28/22 01/13/24 gram/dose oral powder (Miralax) melatonin 3 mg tablet 3 mg PO HS Sleep 12/17/22 01/13/24 pantoprazole 40 mg tablet,delayed 40 mg PO QAM 02/03/23 01/13/24 release (Protonix) amiodarone 200 mg tablet 100 mg PO QAM 09/16/23 01/13/24 bumetanide 1 mg tablet 0.5 mg PO QAM 10/16/23 01/13/24 aspirin 81 mg tablet,delayed 81 mg PO DAILY 01/13/24 01/13/24 release calcium citrate 315 mg 1 tab PO BID 01/13/24 01/13/24 calcium-vitamin D3 6.25 mcg (250 unit) tablet levothyroxine 75 mcg tablet 75 mcg PO DAILYBB 01/13/24 01/13/24 Results & Data (ED) Vital Signs Vital Signs - 24 hr 01/13/24 15:24 01/13/24 18:28 01/13/24 19:00 Temperature 36.3 C L Temperature Source Temporal Artery Scan Pulse Rate 77 67 Pulse Rate [Apical] 70 Pulse Rhythm Regular Pulse Rhythm [Apical] Regular Pulse Strength Normal Pulse Strength [Apical] Normal Respiratory Rate 18 16 Respiratory Effort / Characteristics Non-Labored Spontaneous Non-Labored Spontaneous Respiratory Depth Normal Normal Respiratory Pattern Regular Regular Blood Pressure 199/90 H Blood Pressure [Right Arm] 185/76 H Blood Pressure Mean 126 Blood Pressure Mean [Right Arm] 112 Blood Pressure Position Sitting Blood Pressure Position [Right Arm] Lying Pulse Oximetry 98 97 Oxygen Delivery Method Room Air Room Air Sepsis Recent Fever Within 48 Hours No Sepsis New/Unexplained Change in Mental Status No Sepsis Action Taken by Nursing No Action Required 01/13/24 21:00 Temperature Temperature Source Pulse Rate Pulse Rate [Apical] 76 Pulse Rhythm Pulse Rhythm [Apical] Regular Pulse Strength Pulse Strength [Apical] Normal Respiratory Rate 16 Respiratory Effort / Characteristics Non-Labored Spontaneous Respiratory Depth Normal Respiratory Pattern Regular Blood Pressure Blood Pressure [Right Arm] 173/85 H Blood Pressure Mean Blood Pressure Mean [Right Arm] 114 Blood Pressure Position Blood Pressure Position [Right Arm] Lying Pulse Oximetry 96 Oxygen Delivery Method Room Air Sepsis Recent Fever Within 48 Hours Sepsis New/Unexplained Change in Mental Status Sepsis Action Taken by Nursing Laboratory Data 01/14/24 05:24 01/14/24 05:24 Lab Results 01/13/24 01/13/24 Range/Units 15:30 18:56 WBC 6.64 (4.8-10.8) K/ul RBC 4.51 (4.20-5.40) M/uL Hgb 12.8 (12.0-16.0) g/dl Hct 39.2 (37.0-47.0) % MCV 86.9 (80.0-100.0) fL MCH 28.4 (25.0-34.0) pg MCHC 32.7 (32.0-36.0) g/dL RDW Std Deviation 49.5 H (36.4-46.3) fL RDW Coeff of Corey 15.5 H (11.5-14.5) % Plt Count 238 (130-400) K/uL MPV 8.9 L (9.4-12.4) fL Immature Gran % (Auto) 0.3 % Neut % (Auto) 87.4 % Lymph % (Auto) 7.7 % Gosper % (Auto) 4.1 % Eos % (Auto) 0.0 % Baso % (Auto) 0.5 % Neut # (Auto) 5.81 (1.40-6.50) K/uL Lymph # (Auto) 0.51 L (1.20-3.40) K/uL Gosper # (Auto) 0.27 (0.11-0.59) K/uL Eos # (Auto) 0.00 (0.00-0.50) K/uL Baso # (Auto) 0.03 (0.00-0.20) K/uL Immature Gran # (Auto) 0.02 (0.01-0.20) K/uL Sodium 129 L (136-145) mmol/L Potassium 4.4 (3.5-5.1) mmol/L Chloride 92 L (98-107) mmol/L Carbon Dioxide 31 (21-32) mmol/L Anion Gap 6 (3-11) BUN 25 H (6-23) mg/dl Creatinine 0.72 (0.6-1.2) mg/dl Est Cr Clr Drug Dosing 41.8 ml/min Est GFR ( Amer) 86.1 ml/min Est GFR (Non-Af Amer) 74.3 ml/min BUN/Creatinine Ratio 34.7 H (10-20) Glucose 111 H (70-99(Fasting)) mg/dl Calcium 10.4 H (8.6-10.3) mg/dl Phosphorus 3.9 (2.5-4.9) mg/dl Magnesium 2.3 (1.7-2.4) mg/dl Total Bilirubin 0.6 (0.2-1.0) mg/dl AST 28 (13-39) U/L ALT 21 (7-52) U/L Alkaline Phosphatase 68 (34-104) U/L Troponin I High Sens 9.7 (0-14) pg/ml Total Protein 7.9 (6.0-8.3) gm/dl Albumin 4.8 (3.4-5.0) gm/dl Globulin 3.1 (2.5-4.0) gm/dl Albumin/Globulin Ratio 1.5 (0.9-2) TSH 0.955 (0.300-4.500) uIu/ml Adenovirus (PCR) Not Detected (NotDetected) B. pertussis DNA (PCR) Not Detected (NotDetected) B.parapertussis DNA PCR Not Detected (NotDetected) C. pneumoniae DNA (PCR) Not Detected (NotDetected) Coronavirus OC43 (PCR) Not Detected (NotDetected) Coronavirus HKU1 (PCR) Not Detected (NotDetected) Coronavirus 229E (PCR) Not Detected (NotDetected) SARS-CoV-2 (PCR) Not Detected (NotDetected) Coronavirus NL63 (PCR) Not Detected (NotDetected) Human Metapneumovir PCR Not Detected (NotDetected) Influenza Type A (PCR) Not Detected (NotDetected) Influenza Type B (PCR) Not Detected (NotDetected) M. pneumoniae (PCR) Not Detected (NotDetected) Parainfluenza 1 (PCR) Not Detected (NotDetected) Parainfluenza 2 (PCR) Not Detected (NotDetected) Parainfluenza 3 (PCR) Not Detected (NotDetected) Parainfluenza 4 (PCR) Not Detected (NotDetected) RSV (PCR) Not Detected (NotDetected) Entero/Rhino (PCR) Not Detected (NotDetected) Administered Medications Acetaminophen (Acetaminophen 325 Mg Tab) 650 mg PO Q4H PRN PRN Reason: Pain or Fever Stop: 02/12/24 23:43 Last Admin: 01/14/24 21:20 Dose: 650 mg Documented By: JOSE Amiodarone HCl (Amiodarone 200 Mg Tab) 100 mg PO QAM [facility] Stop: 02/13/24 08:59 Last Admin: 01/14/24 08:31 Dose: 100 mg Documented By: TMP Apixaban (Apixaban 2.5 Mg Tab) 2.5 mg PO BID [facility] Stop: 02/13/24 08:59 Last Admin: 01/14/24 21:08 Dose: 2.5 mg Documented By: Admin: 01/14/24 08:29 Dose: 2.5 mg Documented By: TMP Aspirin (Aspirin 81 Mg Ectab) 81 mg PO DAILY [facility] Stop: 02/13/24 08:59 Last Admin: 01/14/24 08:30 Dose: 81 mg Documented By: TMP Bumetanide (Bumetanide 1 Mg Tab) 0.5 mg PO QAM [facility] Stop: 02/13/24 08:59 Last Admin: 01/14/24 08:30 Dose: 0.5 mg Documented By: TMP Immune Globulin (Octagam 10%) 200 mls @ 29.58 mls/hr IV Q24H [facility]; Protocol Stop: 01/18/24 23:59 Last Titration: 01/14/24 17:46 Dose: Infused Documented By: Titration: 01/14/24 17:31 Dose: 6.76 mg/kg/min, 200 mls/hr Documented By: Titration: 01/14/24 16:02 Dose: 3.38 mg/kg/min, 100 mls/hr Documented By: Admin: 01/14/24 15:15 Dose: 1 mg/kg/min, 29.6 mls/hr Documented By: KIRSTEN Levothyroxine Sodium (Levothyroxine Sodium 75 Mcg Tablet) 75 mcg PO DAILYBB [facility] Stop: 02/13/24 06:29 Last Admin: 01/14/24 06:07 Dose: 75 mcg Documented By: JOSE Melatonin (Melatonin 3 Mg Tab) 3 mg PO HS [facility] Stop: 02/12/24 23:43 Last Admin: 01/14/24 21:08 Dose: 3 mg Documented By: Admin: 01/14/24 01:02 Dose: 3 mg Documented By: JOSE Pantoprazole Sodium (Pantoprazole 40 Mg Tab) [facility] [place]: 02/13/24 08:59 Last Admin: 01/14/24 08:29 Dose: 40 mg Documented By: TMP Polyethylene Glycol (Polyethylene (Miralax) 17 Gm Pack) 17 gm PO DAILY [facility] Stop: 02/13/24 08:59 Last Admin: 01/14/24 08:31 Dose: 17 gm Documented By: TMP Prednisone (Prednisone 5 Mg Tab) [facility] [place] Stop: 02/13/24 08:59 Last Admin: 01/14/24 08:29 Dose: 5 mg Documented By: TMP Pyridostigmine Deridder (Pyridostigmine Deridder 60 Mg Tab) 60 mg PO Q8 [facility] Stop: 02/13/24 13:59 Last Admin: 01/14/24 21:07 Dose: 60 mg Documented By: Admin: 01/14/24 15:15 Dose: 60 mg Documented By: KIRSTEN Discontinued Medications Acetaminophen (Acetaminophen 325 Mg Tab) 650 mg PO NOW STA Stop: 01/13/24 23:25 Last Admin: 01/13/24 23:39 Dose: 650 mg Documented By: CHIARA Apixaban (Apixaban 2.5 Mg Tab) 2.5 mg PO NOW STA Stop: 01/13/24 19:55 Last Admin: 01/13/24 21:16 Dose: 2.5 mg Documented By: MAGAN Dexamethasone (Dexamethasone Sod Inj 4 Mg/Ml Vial) 4 mg IV NOW STA Stop: 01/13/24 22:35 Last Admin: 01/13/24 23:40 Dose: 4 mg Documented By: CHIARA Discharge Plan Visit Data Chief Complaint: Neck Injury/Pain Stated Complaint: SOB, WEAKNESS, VISOIN PROBLEM ED Provider: Kassidy Yu Discharge Problem: SOB (shortness of breath), Neck muscle weakness, Vision changes, Hyponatremia Patient Disposition: Admitted As Inpatient Discharge Instructions Interventions: ED Discharge Assessment Last Done: 01/13/24 23:43
[2024-01-13 19:15] LABS: Magnesium 2.3 mg/dl (1.7-2.4); Phosphorus 3.9 mg/dl (2.5-4.9)
[2024-01-13 19:32] LABS: Thyroid Stimulating Hormone 0.955 uIu/ml (0.300-4.500)
[2024-01-13 20:08] LABS: Adenovirus PCR Not Detected (NotDetected); Bordetella parapertussis PCR Not Detected (NotDetected); Bordetella pertussis PCR Not Detected (NotDetected); Chlamydia pneumoniae PCR Not Detected (NotDetected); Coronavirus 229E PCR Not Detected (NotDetected); Coronavirus CoV-2 (COVID19)PCR Not Detected (NotDetected); Coronavirus HKU1 PCR Not Detected (NotDetected); Coronavirus NL63 PCR Not Detected (NotDetected); Coronavirus OC43PCR Not Detected (NotDetected); Human Metapneumovirus PCR Not Detected (NotDetected); Influenza A PCR Not Detected (NotDetected); Influenza B PCR Not Detected (NotDetected); Mycoplasma pneumoniae PCR Not Detected (NotDetected); Parainfluenza Virus 1 PCR Not Detected (NotDetected); Parainfluenza Virus 2 PCR Not Detected (NotDetected); Parainfluenza Virus 3 PCR Not Detected (NotDetected); Parainfluenza Virus 4 PCR Not Detected (NotDetected); Respiratory Syncytial VirusPCR Not Detected (NotDetected); Rhinovirus/Enterovirus PCR Not Detected (NotDetected)
--- NOTE | 2024-01-13 20:23 | History & Physical Report ---
Date of Service January 13, 2024 Assessment & Plan (1) Neck muscle weakness: Plan: Patient was sent in by Dr. Gonzales on 01/12 due to new onset DERAS Prior to that she has had worsening neck muscle weakness x 5-6 weeks Her neck muscles weaken throughout the day, and by the end of the day she has difficulty chewing her food She also endorses vision changes that progressed throughout the day Myasthenia gravis antibodies drawn on December 28, but are still pending Cervical spine MRI on 01/03/2024 revealed severe facet arthrosis at C2-C3 with reactive marrow and soft tissue edema While no leukocytosis, patient does endorse increased fatigue and progressing weakness/vision changes, which could indicate infection Concern for seeding from bioprosthetic heart value; concern for neck instability Repeat cervical spine MRI without contrast ordered to assess for progression of edema Brain MRI with and without contrast ordered to r/o demyelinating disease/tumor Note: patient reports she has severe claustrophobia and is not amenable to MRI at this time; will defer sedation given advanced age and new onset DERAS Multiple discussions with patient explaining risks/benefits; patient wants to reassess in the morning Neurology consulted Orthospine surgery consulted (2) DERAS (dyspnea on exertion): Plan: Non-hypoxic on room air BioFire negative Continuous pulse oximetry Supplemental oxygen as needed (3) S/P TAVR (transcatheter aortic valve replacement): Plan: At [facility] in 12/2022 Hx of heart failure prior to TAVR Echocardiogram done on 11/14/2023 revealed LVEF at 55-60%; diastolic grade 2; bioprosthetic aortic valve with normal gradient; elevated RVSP at 3040mmHg Patient reports that she is not consistent with taking her Bumex 0.5 mg tabs, but does not appear volume overloaded on clinical exam Unclear if this is contributing to her DERAS BNP ordered, pending Pending MRI results, may need to consider TAYE to assess for seeding (4) Polymyositis: Plan: Continue prednisone daily Given recent cervical spine MRI, Decadron 4 mg IV q12h for stress-dose steroids (5) Paroxysmal atrial fibrillation: Plan: Rate controlled on arrival Continue Eliquis (6) Hyponatremia: Plan: Chronic; Na 129 on arrival Recheck a.m. BMP (7) Hypothyroidism: Plan: Started on levothyroxine for elevated TSH few months ago TSH WNL on 01/13/2024 (8) History of heart failure: (9) On amiodarone therapy: (10) Vision changes: Plan Disposition: Obs - Admit to [facility] Tele DNR/DNI Regular diet, easy to chew VTE PPx: On Eliquis History of Present Illness Chief Complaint: Progressive neck weakness, DERAS Primary Care Provider: Martinez Aguayo is a pleasant 88-year-old female with PMH of atrial flutter, paroxysmal atrial fibrillation (on Eliquis), s/p TAVR, CAD, hernia repair, polymyositis, and idiopathic polyneuropathy. She presented at the behest of Dr. Gonzales on 01/12 for new onset of dyspnea on exertion. Patient reports that over the past several weeks she has had increased weakness in her neck muscles that progresses throughout the day. She also notes that she has worsening vision, which she describes as a "flickering of double vision" as the day progresses. Patient had antibodies drawn on December 28 for myasthenia gravis, but these are still pending. When she developed new onset DERAS x 4 days, she was asked to be sent in to the hospital. She denies SOB at rest, or SOB when she lies flat on her back. Patient does have history of a heart murmur last summer. She is unsure if she has a history of CHF. No supplemental oxygen at home. No CPAP at night. No sick contacts. Patient reports she did have several toes amputated a few weeks ago, and she is not very active at baseline. She took all her regular morning medication today, and manages her own medications at home. Her only recent change was increased dosage of prednisone from 1 mg-->5mg 1 week ago, which she takes for her polymyositis. She also reports she was started on thyroid medication 1 month ago. Patient did not take her Bumex today, because she did not want to be going to the bathroom frequently; she reports she takes a half a tablet on certain days, and has switched this dosage up recently. The increased weakness in her neck muscles have caused her to change her diet, and she reports she eats mobile mechanic meals in the evenings such as soup, because chewing becomes difficult and she has trouble opening her mouth at night. This said, she had does not endorse difficulty with swallowing. Patient ambulates with a walker at baseline; no recent falls. She denies smoking, tobacco use, or recent alcohol use. ED course: ROS: Patient endorses flickering of double vision, blurry vision that progresses throughout the day, neck weakness that progresses throughout the day, lightheadedness, and new DERAS x 4-5 days. Patient denies fever, chills, night-sweats, difficulty swallowing, loss of vision, chest pain, SOB at rest, pleuritic CP, cough, abdominal pain, N/V/D, changes in urinary/bowel habits, burning with urination, or leg swelling. Allergies Allergy/AdvReac Type Severity Reaction Status Date / Time azithromycin Allergy Intermediate Hives Verified 01/13/24 19:40 Penicillins Allergy Intermediate hives Verified 01/13/24 19:40 Sulfa (Sulfonamide Allergy Intermediate hives Verified 01/13/24 19:40 Antibiotics) gabapentin AdvReac Intermediate Confusion, Verified 01/13/24 19:40 unable to sleep codeine AdvReac Mild MS Change Verified 01/13/24 19:40 Macrolide Antibiotics AdvReac Mild Nausea Verified 01/13/24 19:40 with "-mycins" ketoprofen AdvReac Unknown KETOPROFEN Verified 01/13/24 19:40 GEL CAUSES SKIN BURNING Home Medications Medication Instructions Recorded Confirmed Type ascorbic acid (vitamin C) 1,000 mg 1,000 mg PO QAM 12/06/18 01/13/24 History tablet (Vitamin C) cholecalciferol (vitamin D3) 50 2,000 unit PO QAM 12/06/18 01/13/24 History mcg (2,000 unit) capsule (Vitamin D3) [id number] 8 mg-folic 400 1 tab PO QAM 12/06/18 01/13/24 History mcg-K 50 mcg-lutein 300 mcg tablet (Centrum Silver Women) apixaban 2.5 mg tablet (Eliquis) 2.5 mg PO BID 11/25/20 01/13/24 History prednisone 5 mg tablet 5 mg PO QAM 09/03/21 01/13/24 History polyethylene glycol 3350 17 17 g PO DAILY Constipation 11/28/22 01/13/24 History gram/dose oral powder (Miralax) melatonin 3 mg tablet 3 mg PO HS Sleep 12/17/22 01/13/24 History pantoprazole 40 mg tablet,delayed 40 mg PO QAM 02/03/23 01/13/24 History release (Protonix) amiodarone 200 mg tablet 100 mg PO QAM 09/16/23 01/13/24 History bumetanide 1 mg tablet 0.5 mg PO QAM 10/16/23 01/13/24 History aspirin 81 mg tablet,delayed 81 mg PO DAILY 01/13/24 01/13/24 History release calcium citrate 315 mg 1 tab PO BID 01/13/24 01/13/24 History calcium-vitamin D3 6.25 mcg (250 unit) tablet levothyroxine 75 mcg tablet 75 mcg PO DAILYBB 01/13/24 01/13/24 History Past Med/Surg History Problem List (Updated 01/14/24 @ 10:40 by Lance Johnson MD) Neck pain Dropped head syndrome DERAS (dyspnea on exertion) Paroxysmal atrial fibrillation controlled w/ meds On Eliquis History of heart failure Diastolic per records; prior to TAVR per patient EF 55-60% on 11/14/23 ECHO Hypothyroidism Vision changes (Acute) Neck muscle weakness (Acute) SOB (shortness of breath) (Acute) On amiodarone therapy CAD (coronary artery disease) S/P TAVR (transcatheter aortic valve replacement) Hypertension Anticoagulant long-term use Atrial flutter Idiopathic polyneuropathy Constipation Chronic per PCP records Polymyositis Cellulitis of left lower extremity (Acute) Per PCP records - improved after abx - proceed with surgical amputation per 11/18/23 PCP records Right ankle pain (Acute) Hyponatremia Medical History (Updated 01/14/24 @ 10:40 by Lance Johnson MD) PAD (peripheral artery disease) Per records Aortic stenosis s/p TAVR 12/2022 On amiodarone therapy Hypertension Anticoagulant long-term use Idiopathic polyneuropathy Dermatomyositis On chronic Prednisone History of COVID-19 (2021) no hosp; resolved Acid reflux controlled Hx of atrial flutter controlled w/ medication CAD (coronary artery disease) Mild nonocclusive coronary disease, tortuous distal vessels per 10/2022 cardiac cath Junctional bradycardia On Metoprolol in the past- d/c'ed per records due to bradycardia Surgical History Hx of cardiac catheterization (10/2022) [place]- prior to TAVR Hx of colonoscopy History of esophagogastroduodenoscopy (EGD) Hx of tonsillectomy Hx of hernia repair x 3 S/P TAVR (transcatheter aortic valve replacement) (12/2022) [facility]; follows w/ Dr Bowie Family History Other No pertinent family history Social History Smoking Status: Never smoker Second Hand Exposure: No; Do You Dip or Chew Tobacco: No; Hx Alcohol Use: No Hx Substance Use: No Preferred Language: Solomon Islander Communication Ability: Effective Hearing Ability: Normal Hull Molder Required: No Beliefs That Will Affect Care: None marital status: Current Living Situation: Spouse and Personal Care Facility Current Living Situation Comment: Martinez Boggs current occupational status: retired Feels Safe at Home: Yes Safety Concerns: Feels Safe At This Time Assistive Devices: Cane and Walker Review of Systems Review of Systems: See HPI above Physical Exam Physical Exam: General: no acute distress; pleasant affect; non-toxic appearing; well- nourished; cooperative; SpO2 97% on RA HEENT: normocephalic, atraumatic; no scleral icterus; PERRLA; EOMs are intact, however her eye movements are somewhat delayed, and elicit fatigue with movements; negative lid lag; moist mucus membrane; vision and hearing intact Neck: supple; no lymphadenopathy; trachea midline; significant neck weakness when attempting to lift Skin: warm, dry without signs of tenting; no cyanosis; no rashes, bruising, lesions, or erythema noted CV: chest wall NTP; RRR; S1/S2 normal; 4/6 ejection murmur auscultated at the second ICS MCL; bounding pulses intact and symmetric at radial, DP, and PT Lungs: no acute respiratory distress; symmetrical chest wall expansion; clear breath sounds across all lung betancourt w/o adventitious sounds; no wheezing ABD: Soft, NTP; BS present; no rebound/guarding; no distention MSK: no tics or fasciculations; no edema noted in the LEs b/l, nonerythematous Neuro: A&Ox3; normal mood and affect; fluent speech; no focal deficits; sensation grossly intact in the LEs b/l Results & Data Results & Data Vital Signs (Past 12 Hours) Vital Signs Temp Pulse Pulse Resp BP BP Pulse Ox 01/13/24 19:00 70 16 185/76 H 97 01/13/24 18:28 67 01/13/24 15:24 36.3 C L 77 18 199/90 H 98 O2 Del Method 01/13/24 19:00 Room Air 01/13/24 18:28 01/13/24 15:24 Room Air Laboratory Results Abnormal lab results 01/13/24 Range/Units 15:30 RDW Std Deviation 49.5 H (36.4-46.3) fL RDW Coeff of Corey 15.5 H (11.5-14.5) % MPV 8.9 L (9.4-12.4) fL Lymph # (Auto) 0.51 L (1.20-3.40) K/uL Sodium 129 L (136-145) mmol/L Chloride 92 L (98-107) mmol/L BUN 25 H (6-23) mg/dl BUN/Creatinine Ratio 34.7 H (10-20) Glucose 111 H (70-99(Fasting)) mg/dl Calcium 10.4 H (8.6-10.3) mg/dl ECG Additional Comments: ECG revealed NSR with sinus arrhythmia at 75 bpm; QTc 413 Code Status & VTE Plan Code Status DNR/DNI VTE Prophylaxis Plan VTE Prophylaxis will be ordered: Yes Supervising Physician Co-Signing Physician Notes Attending addendum: I have physically seen this patient, have supervised the DAVIS's activities, and agree with the H&P unless as otherwise noted. Assessment and Plan: Neck muscle weakness- Progressive symptoms over the past 5 to 6 weeks Patient reports symptoms worsen as the day progresses Outpatient physicians have ordered acetylcholine receptor antibodies to assess for possible myasthenia gravis, and patient has pending neurologic appointment Cervical spine MRI from 01/03/2024 notes severe facet arthrosis at C2-C3 with reactive marrow and soft tissue edema Replaced on dexamethasone 10 mg IV now, then 4 mg IV every 12 hours Would like to order repeat MRI of cervical spine, and MRI brain, however, patient is reluctant to get them done at this time Consult orthopedic spine surgery Dr. Johnson Consult neurology Dr. Santos Status post TAVR/PAF/HFpEF- TAVR performed at [facility] on 01/19 Most recent echocardiogram on 11/14/2023 with ejection fraction 55-60%, diastolic grade 2 dysfunction, normal gradient across bioprosthetic aortic valve, and mildly elevated RVSP at 30-40 mmHg Would consider possible need for TAYE if persistent fatigue, generalized weakness Continue Maryquis Polymyositis- Has been on prednisone Placing on dexamethasone IV as noted above, will have to address potential adrenal insufficiency PG Care Time/CCT Total # of Minutes Spent Total Time Spent with Patient: Total time spent is greater than 50% in coordination of care (as documented) at patient's floor/unit and/or counseling patient: Coding [place] [address] INT INP/OBS CARE 3/75MIN Patient Type Established Medical Decision Making High Complexity Diagnoses Neck muscle weakness M53.82 DERAS (dyspnea on exertion) R06.09 S/P TAVR (transcatheter aortic valve replacement) Z95.2 Polymyositis M33.20 Paroxysmal atrial fibrillation I48.0 Hyponatremia E87.1 Hypothyroidism E03.9 History of heart failure Z86.79 On amiodarone therapy Z79.899 Vision changes H53.9
[2024-01-13 20:24] LABS: Troponin I High Sensitivity 9.7 pg/ml (0-14)
[2024-01-13] MEDS: APIXABAN 2.5 MG TAB PO STA (21:16)
[2024-01-13] MEDS ORDERED: MELATONIN 3 MG TAB PO ONE (23:25)
[2024-01-13] MEDS: ACETAMINOPHEN 325 MG TAB PO STA (23:39)
[2024-01-13] MEDS: DEXAMETHASONE SOD INJ 4 MG/ML VIAL IV STA (23:40)
[2024-01-14] MEDS: MELATONIN 3 MG TAB PO SCH (01:02)
--- OUTSIDE RECORDS SUMMARY | 2024-01-14 04:00 | External Medical Summary | Summary of Care ---
Author Name Unknown Organization [facility] Address [address] [place] [address] Phone [phone] Care Team Providers Care Snowboarder Name Role Phone Giovani Bashir MD Primary Care Provider [phone] Reason for Visit * Reason Comments Follow Up Discuss effectives o f blue light treatment Encounter Details Date Type Department Care Team (Late st Contact Info) Description 01/05/2024 2:45 PM EDT Office Visit Dermatology [facility] [address] [place] [address] Sharan Hernández MD [address] [place] [address] Rosacea*; Inflamed seborrheic keratosis; Actinic keratosis Allergies Active Allergy Reactions Criticality Noted Date Comments Codeine 12/24/2012 "high" Erythromycin 12/24/2012 Stomach problems Gabapentin 02/04/2014 insomnia Ketoprofen 12/24/2012 Burned skin "terribly" Nirmatrelvir-Ritonavir 04/09/2022 Penicillins 12/24/2012 Hives Sulfa Antibiotics 12/24/2012 Hives Azithromycin 12/24/2012 Hives documented as of this encounter (statuses as of 01/06/2024) Medications Medication Sig Dispensed Refills Start Date End Date Status CENTRUM SILVER PO TABS 1 daily Active CITRACAL PETITES/VITAMIN D 200-250 MG-UNIT PO TABS 2 twice daily Active COQ-10 100 MG PO CAPS 1 daily Active VITAMIN D 2000 UNITS PO TABS 1 daily Active vitamin c (ASCORBIC ACID) 500 MG Tablet Take 1 Tablet by mouth in the morning. Active PREMARIN 0.625 MG/GM vaginal cream 07/25/2019 Activ e baclofen (LIORESAL) 10 MG Tablet As needed 07/26/2019 Active denosumab (PROLIA) 60 MG/ML injection Inject 60 mg under the skin once. Every 6 months Active furosemide (LASIX) 20 MG Tablet Take 20 mg by mouth daily. Active Metoprolol Succinate ER 50 MG Oral Tablet Extended Release 24 Hour (toPROL XL)Indications:Paro xysmal atrial fibrillation (HCC) TAKE 1 TABLET TWICE A DAY 180 Tab 3 09/11/2020 Active Additional Information Patient not taking.Reported on 02/10/2023 Mupirocin 2 % External Ointment (Bactroban) As needed 11/28/2020 Active Gentamicin Sulfate 0.3 % Ophthalmic Ointment (Gentak)Indications :Paronychia of finger, unspecified laterality (for periungual) apply solution to involved nails 2-3x a day, vaseline otherwise 7 g 1 04/23/2021 Active Spironolactone 25 MG Oral Tablet (Aldactone) Take by mouth 12.5 mg daily . 07/10/2021 Active Erythromycin 5 MG/GM Ophthalmic Ointment 03/07/2021 Active Eliquis 2.5 MG Oral Tablet (Apixaban)Indicatio ns:Paroxysmal atrial fibrillation (HCC) TAKE 1 TABLET TWICE A DAY 180 Tablet 3 08/21/2022 Active predniSONE 5 MG Oral Tablet (Deltasone) Take 1 Tablet by mouth in the morning. Active Pantoprazole Sodium 40 MG Oral Tablet Delayed Release (Protonix) 02/06/2023 Active Bumetanide 1 MG Oral Tablet (Bumex) 01/15/2023 Activ e Amiodarone HCl 200 MG Oral Tablet (Cordarone) Take 1 Tablet by mouth in the morning. 02/03/2023 Active Levothyroxine Sodium 75 MCG Oral Capsule (Tirosint) Take 75 mcg by mouth daily first thing in the morning. (at least 30 min prior to breakfast or other meds) Active Aspirin 81 MG Oral Tablet Chewable (Aspirin 81) Take 1 Tablet by mouth in the morning. Active Melatonin 3 MG Sublingual Tablet Sublingual Place under the tongue. Active Azelaic Acid 15 % External Gel (Finacea) After skin is thoroughly washed and patted dry, gently but thoroughly massage a thin film of azelaic acid gel into the affected area twice daily 50 g 2 01/05/2024 Active documented as of this encounter (statuses as of 01/06/2024) Active Problems Problem Noted Date Diagnosed Date Paroxysmal atrial fibrillation 01/14/2020 Nonrheumatic aortic valve stenosis 01/14/2020 Nonrheumatic tricuspid valve regurgitation 01/13 Chronic diastolic heart failure due to valvular disease 01/14/2020 SVT (supraventricular tachycardia) 01/14/2020 Trochanteric bursitis of left hip 08/17/2019 Hx of actinic keratosis 01/29/2017 Hx of nonmelanoma skin cancer 03/02/2015 Overview: Roberto L rojo 02/2015, BCC R amish 02/2016, BCC L upper cheek 07/2022 Dermatomyositis Senile osteoporosis documented as of this encounter (statuses as of 01/06/2024) Immunizations Name Administration Dates Next Due COVID-19 mRNA, LNP-s, No Pre serve, 2-Dose Series ([employer]) 08/15/2020,07/25/2020 H1N1 2009 Influenza, IM 06/27/2009 Zoster Vaccine Recombinant (Shingrix) 05/05/2018 ,02/18/2018 documented as of this encounter Social History Tobacco Use Types Packs/Day Years Used Date Smoking Tobacco: Never Smokeless Tobacco: Never Alcohol Use Standard Drinks/Week Comments No 0 (1 standard drink = 0.6 oz pur e alcohol) AUDIT-C Answer Date Recorded Frequency of Alcohol Consumption Never 07/21/2018 Average Number of Drinks Not on file 019 Frequency of Binge Drinking Not on file 07/01 Utilities Answer Date Recorded Do you have trouble paying y our heating, water, or electric bill? (Adult - for ages 18 years and over) Not on file 12/16/2023 Is your family able to pay t he heat, water, or electric bill? (Household - for ages 0-17 years) Not on file 12/16/2023 Does your family have access to good internet? (Household - for ages 0-17 years) Not on file 12/16/2023 Social Connections Answer Date Recorded How often do you feel lonely or isolated from those around you? (Adult - for ages 18 years and over) Not on file 12/16/2023 Sex and Gender Information Value Date Recorded Sex Assigned at Not on file Gender Identity Not on file Sexual Orientation Not on file Job Start Date Occupation Industry Not on file Not on file Not on file documented as of this encounter Progress Notes * Sharan Hernández MD - 01/05/2024 3:05 PM EDT SUBJECTIVE: Chief Complaint: Chief Complaint Patient presents with Follow Up Discuss effectives of blue light treatment HPI: Dede Villafana is a 88 year old female seen for f/u PDT. I have not seen patient previously butshe's very upset that it didn't result in significant improvement of lesions on face. Frustrated byred bumpy rash on face. Used finacea in past with some improvement Bump on chin is very bothersome. New Prior Dr. Kramer patient Hx NMSC - BCC L upper cheek 07/2022, BCC R amish 02/2016, SCCIS L rojo 02/2015 Hx AKs, Efudex Hx dermatomyositis 1997, trt corticosteroids and IVIg in distant past, deemed 'remission' by rheum in past ([place]); was seeing rheum at [facility], now Rodolfo, on steroids for the myositis component low dosage OBJECTIVE: GEN: Elderly, using walker but alert, no distress, appears oriented, and cooperative SKIN: Problem focused exam reveals: Right chin - verrucous papule Left amish, left cheek x2, nasal dorsum x2, right cheek x1 - x6 total gritty erythematous macules/papules Central facial erythema with dilated superficial cutaneous blood vessels ASSESSMENT/PLAN: Inflamed Seborrheic Keratoses - Discussed benign nature - Due to pain, irritation will destroy above lesion(s) today via cryotherapy Procedure - Cryosurgery (Benign Destruction) Cryosurgery explained to the patient, consent obtained, patient, site and procedure verified, and then cryotherapy was performed with Liquid Nitrogen via cryo spray unit to 1 lesions. Location noted in physical exam. Post op course explained. Actinic keratosis -The diagnosis and malignant potential of the lesion was explained. Treatment options were reviewedincluding cryotherapy, topical medications, and observation. All questions were addressed. Procedure - Cryotherapy (Premalignant Destruction) -The patient would like to proceed with cryosurgery;Cryosurgery explained to the patient, consent obtained, patient, site and procedure verified, and then cryotherapy was performed with Liquid Nitrogen via cryo spray unit to 6 lesions. Location noted in physical exam. Post op course explained. -Discussed that if any of these lesions fail to completely resolve after treatment patient should call me for re-evaluation Rosacea - favor this over DM - discussed PDL vs rhofade as primarily ET variant. Pt not interested in this at this time - Patient with hx of some improvement with finacea, will retry this F/u - 3 months Sharan Hernández MD Ref: SELF[[id number]] [address] ADDRESS AVAILABLE None (office) None (fax) PCP: GIOVANI BASHIR [address] [place] [address] [phone] documented in this encounter Nursing Notes * Jennifer Dent LPN - 01/05/2024 3:03 PM EDT Patient identified by name and date of . Do you have any concerns about pain management for today's visit? No Living Will or Advance Directive for Health Care as noted on problem list. [facility] is a way you can talk to your provider online through e-mail. Would you like to sign up? I can activate it for you? ALREADY ACTIVE Chief Complaint Patient presents with Follow Up Discuss effectives of blue light treatment documented in this encounter Plan of Treatment Health Maintenance Due Date Last Done Comments Depression Screening 1947 DTaP,Tdap,and Td Vaccines (1 - Tdap) 1954 Pneumococcal Vaccine: 65+ Years (1 of 1 - PCV) 1999 TSH 08/26/2020 08/26/2019, 10/29, 01/28/2014, Additional history exists DXA Scan 02/27/2023 02/27/2021, 01/28, 01/10/2015, Additional history exists COVID-19 Vaccine ( season) 2023 07/09/2022, 10/04/2021, 04/03/2021, Additional history exists Influenza Vaccine (FLU shot) (#1) 2024 06/27/2009 Zoster Vaccines Completed 05/05/2018, 02/18/2018 VITAMIN D LEVEL ONCE IN A LIFETIME-USE SMARTSET# [id number] Completed 10/11/2022, 04/12/2022, 11/04/2012 HPV (Gardasil) Vaccine Aged Out No lo nger eligible based on patient's age to complete this topic Hepatitis B Vaccine Aged Out No longe r eligible based on patient's age to complete this topic MENINGOCOCCAL (MENACTRA/MENVEO) Aged Out No longer eligible based on patient's age to complete this topic documented as of this encounter Medical Devices Not on filedocumented as of this encounter Visit Diagnoses Diagnosis Rosacea- Primary Inflamed seborrheic keratosis Actinic keratosis documented in this encounter Care Teams Snowboarder Relationship Specialty Start Date End Date Giovani Bashir MD [address] [place] [address] PCP - General Internal Medicine 11/02/12 documented as of this encounter
[2024-01-14 06:05] LABS: Basophils # (auto) 0.02 K/uL (0.00-0.20); Basophils % (auto) 0.4 %; Hematocrit (blood only) 37.2 % (37.0-47.0); Hemoglobin 12.1 g/dl (12.0-16.0); Immature Granulocytes # (auto) 0.01 K/uL (0.01-0.20); Immature Granulocytes % (auto) 0.2 %; Lymphocytes # (auto) 0.77 K/uL (1.20-3.40); Lymphocytes % (auto) 16.6 %; Mean Corpuscular Hemoglobin 28.2 pg (25.0-34.0); Mean Corpuscular Hgb Conc 32.5 g/dL (32.0-36.0); Mean Corpuscular Volume 86.7 fL (80.0-100.0); Mean Platelet Volume 8.9 fL (9.4-12.4); Monocytes % (auto) 2.2 %; Neutrophils # (auto) 3.73 K/uL (1.40-6.50); Neutrophils % (auto) 80.6 %; Platelet Count 212 K/uL (130-400); RDW Coefficient of Variation 15.3 % (11.5-14.5); RDW Standard Deviation 48.6 fL (36.4-46.3); Red Blood Count 4.29 M/uL (4.20-5.40); White Blood Count 4.63 K/ul (4.8-10.8)
[2024-01-14] MEDS: LEVOTHYROXINE SODIUM 75 MCG TABLET PO SCH (06:07)
[2024-01-14 06:16] LABS: BUN Creatinine Ratio 25.8 (10-20); Calcium 9.3 mg/dl (8.6-10.3); Est GFR (African American) 90.8 ml/min; Est GFR (Non-African American) 78.3 ml/min; Potassium 4.4 mmol/L (3.5-5.1)
--- NOTE | 2024-01-14 07:41 | XRay Report ---
XR chest 1V portable CLINICAL HISTORY: sob TECHNIQUE: Single frontal radiograph of the chest was obtained. Comparison: Comparison is made to chest radiograph 10/28/2022 FINDINGS: No lines and tubes are seen. Cardiomegaly is noted. The aortic arch is calcified. Aortic valvular pro sthesis is seen. The lungs are clear. No evidence of pleural effusion or pneumothorax. IMPRESSION: No acute abnormalities and in particular no radiographic evidence of pneumonia. ACT 112: Negative or not required by law. Electronically signed by: Rafael Cespedes M.D. 01/14/2024 7:38 AM
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
[2024-01-14] MEDS: APIXABAN 2.5 MG TAB PO SCH (08:29)
[2024-01-14] MEDS: predniSONE 5 MG TAB PO SCH (08:29)
[2024-01-14] MEDS: PANTOprazole 40 MG TAB PO SCH (08:29)
[2024-01-14] MEDS: ASPIRIN 81 MG ECTAB PO SCH (08:30)
[2024-01-14] MEDS: BUMETANIDE 1 MG TAB PO SCH (08:30)
[2024-01-14] MEDS: AMIODARONE 200 MG TAB PO SCH (08:31)
[2024-01-14] MEDS: POLYETHYLENE (MIRALAX) 17 GM PACK PO SCH (08:31)
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
--- NOTE | 2024-01-14 10:29 | Orthopedic Consultation ---
Date of Service January 14, 2024 Assessment & Plan (1) Dropped head syndrome: (2) Neck muscle weakness: (3) Neck pain: History of Present Illness Reason for Consultation: Cervical spine extension weakness, neck pain progressive during the day. Requesting Physician: . Attending Physician: Yris Guallpa MD 88-year-old female referred here by her PCP due to concern for worsening neck weakness as well as 4 to 5 days of increased shortness of breath. Patient states she said neck weakness and pain for many weeks. She did undergo outpatient imaging. She states her head slowly falls forward over the course of the day and in order to get it back in position she has to lay flat on the bed. She states she is noticed increased shortness of breath over the last 4 to 5 days as well but denies any cough or URI symptoms. She states this feels different than when she was short of breath prior to having a heart valve replacement last year at [place]. She denies fevers or chills. She states that is difficult to eat because of the position of her head, she denies any difficulty swallowing or choking. Patient states she notices by the end of the day she will have blurred vision additionally. 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 She has been seen by rheumatology. In discussing with the patient she notes she will get some neck pain as the day progresses in the posterior aspect, it usually will improve by the morning after she rests, she denies any upper extremity specific symptomatology. She relates that this process has been developing just over the last several months, she also commented to me that when she was in [place] she was getting injections for polymyositis, but has not had any since she has been in the [facility] for reasons unknown, she is currently undergoing additional testing working with her primary care physician and has an upcoming appointment with neurology in February. Exam reveals her to indicate pain along the posterior cervical region midline into the paraspinal area but nontender to palpation this morning. She had otherwise appropriate relatively symmetric range of motion, no significant symptoms at endpoints. Negative Spurling's maneuver, and she had what I thought was appropriate 5 or 5 strength in all groups tested in the upper extremities, negative Felipa sign. MR cervical spine wo con January 03, 2024 HISTORY: 88 years-old Female NECK PAIN Chronic neck pain. COMPARISON: CT cervical spine 01/08/2023, MRI cervical spine 02/19/2021. TECHNIQUE: Multiplanar and multisequence MRI of the cervical spine was obtained without the use of IV contrast. FINDINGS: The study is motion degraded. No acute abnormality is identified within the imaged posterior fossa. There is normal signal within the cervical and imaged upper thoracic spinal cord. No acute fracture, subluxation, endplate erosion or marrow replacing process. No epidural fluid collections are seen. There is grade 1 anterolisthesis of C3 on C4 and C4 on C5, which is similar to prior and likely secondary to chronic facet arthrosis. Unchanged T3 vertebral body hemangioma. Mild multilevel intervertebral disc space narrowing and spondylitic spurring with mostly moderate facet arthrosis. There is severe right-sided facet arthrosis at C2-C3 with moderate marrow and mild surrounding soft tissue edema. Trace C2-C3 facet effusions. C2-C3: No significant central canal or neural foraminal narrowing. C3-C4: Mild right-sided neural foraminal narrowing. No significant central canal or left-sided neural foraminal narrowing. C4-C5: Mild right-sided neural foraminal narrowing. No significant central canal or left-sided neural foraminal narrowing. C5-C6: The central canal and right neural foramen are patent. Mild left foraminal narrowing. C6-C7: No significant central canal or neural foraminal narrowing. C7-T1: No significant central canal or neural foraminal narrowing. IMPRESSION: 1. Motion degraded exam without high-grade central canal or neuroforaminal narrowing identified. 2. Normal signal of the cervical spinal cord. 3. Progressively worsened and now severe facet arthrosis at C2-C3, right greater than left with reactive marrow and soft tissue edema and trace facet effusions. CERVICAL SPINE 5 VIEWS December 05, 2023 HISTORY: Neck pain COMPARISON: Cervical spine CT 01/08/2023. FINDINGS: The cervical spine is visualized from C1 through the superior endplate of T1. There is no fracture. There is 2 mm of anterolisthesis of C3 on C4 and 3 mm of anterolisthesis of C4 on C5. This is similar to the prior study. Mild disc space narrowing at C3-C4 and C4-C5, unchanged. Mild to moderate facet degenerative changes most pronounced within the upper cervical spine. Mild levoscoliosis of the cervical spine which could be positional. Prevertebral soft tissues and the atlantodens interval are intact. IMPRESSION: 1. No fractures within the cervical spine. 2. Anterolisthesis at C3-C4 and C4-C5, unchanged. Review of cervical MRI images and radiographs as listed above performed at [facility], this my separate interpretation, this reveals the patient have degenerative changes as listed, there is some anterolisthesis at the C3-4 and C4-5 levels but no significant areas of stenosis. Impression: Symptoms as described with some axial symptoms which progresses the day goes along with difficulties keeping the head in a more erect position, imaging studies not revealing any significant areas of stenosis, some degenerative changes are present. Plan: Today at this time I talked with the patient as she had a family member works at [facility], her son, and at this time I do not think the current list of symptoms is coming from the spine from a musculoskeletal standpoint. I related that she should continue working with physical therapy as she has just started with this, this might be helpful along with including some appropriate medication to lessen the neck pain towards the latter part of the day so it is less difficult for her to maintain her head in a neutral position. I do not think bracing is necessary at this time, I think active correction would be the best option and then also continue with the workup as noted. Allergies Allergy/AdvReac Type Severity Reaction Status Date / Time azithromycin Allergy Intermediate Hives Verified 01/13/24 19:40 Penicillins Allergy Intermediate hives Verified 01/13/24 19:40 Sulfa (Sulfonamide Allergy Intermediate hives Verified 01/13/24 19:40 Antibiotics) gabapentin AdvReac Intermediate Confusion, Verified 01/13/24 19:40 unable to sleep codeine AdvReac Mild MS Change Verified 01/13/24 19:40 Macrolide Antibiotics AdvReac Mild Nausea Verified 01/13/24 19:40 with "-mycins" ketoprofen AdvReac Unknown KETOPROFEN Verified 01/13/24 19:40 GEL CAUSES SKIN BURNING Home Medications Medication Instructions Recorded Confirmed Type ascorbic acid (vitamin C) 1,000 mg 1,000 mg PO QAM 12/06/18 01/13/24 History tablet (Vitamin C) cholecalciferol (vitamin D3) 50 2,000 unit PO QAM 12/06/18 01/13/24 History mcg (2,000 unit) capsule (Vitamin D3) [id number] 8 mg-folic 400 1 tab PO QAM 12/06/18 01/13/24 History mcg-K 50 mcg-lutein 300 mcg tablet (Centrum [place] Women) apixaban 2.5 mg tablet (Eliquis) 2.5 mg PO BID 11/25/20 01/13/24 History prednisone 5 mg tablet 5 mg PO QAM 09/03/21 01/13/24 History polyethylene glycol 3350 17 17 g PO DAILY Constipation 11/28/22 01/13/24 History gram/dose oral powder (Miralax) melatonin 3 mg tablet 3 mg PO HS Sleep 12/17/22 01/13/24 History pantoprazole 40 mg tablet,delayed 40 mg PO QAM 02/03/23 01/13/24 History release (Protonix) amiodarone 200 mg tablet 100 mg PO QAM 09/16/23 01/13/24 History bumetanide 1 mg tablet 0.5 mg PO QAM 10/16/23 01/13/24 History aspirin 81 mg tablet,delayed 81 mg PO DAILY 01/13/24 01/13/24 History release calcium citrate 315 mg 1 tab PO BID 01/13/24 01/13/24 History calcium-vitamin D3 6.25 mcg (250 unit) tablet levothyroxine 75 mcg tablet 75 mcg PO DAILYBB 01/13/24 01/13/24 History Past Med/Surg History Problem List (Updated 01/14/24 @ 10:40 by Lance Johnson MD) Neck pain Dropped head syndrome DERAS (dyspnea on exertion) Paroxysmal atrial fibrillation controlled w/ meds On Eliquis History of heart failure Diastolic per records; prior to TAVR per patient EF 55-60% on 11/14/23 ECHO Hypothyroidism Vision changes (Acute) Neck muscle weakness (Acute) SOB (shortness of breath) (Acute) On amiodarone therapy CAD (coronary artery disease) S/P TAVR (transcatheter aortic valve replacement) Hypertension Anticoagulant long-term use Atrial flutter Idiopathic polyneuropathy Constipation Chronic per PCP records Polymyositis Cellulitis of left lower extremity (Acute) Per PCP records - improved after abx - proceed with surgical amputation per 11/18/23 PCP records Right ankle pain (Acute) Hyponatremia Medical History (Updated 01/14/24 @ 10:40 by Lance Johnson MD) PAD (peripheral artery disease) Per records Aortic stenosis s/p TAVR 12/2022 On amiodarone therapy Hypertension Anticoagulant long-term use Idiopathic polyneuropathy Dermatomyositis On chronic Prednisone History of COVID-19 (2021) no hosp; resolved Acid reflux controlled Hx of atrial flutter controlled w/ medication CAD (coronary artery disease) Mild nonocclusive coronary disease, tortuous distal vessels per 10/2022 cardi ac cath Junctional bradycardia On Metoprolol in the past- d/c'ed per records due to bradycardia Surgical History Hx of cardiac catheterization (10/2022) [place]- prior to TAVR Hx of colonoscopy History of esophagogastroduodenoscopy (EGD) Hx of tonsillectomy Hx of hernia repair x 3 S/P TAVR (transcatheter aortic valve replacement) (12/2022) [facility]; follows w/ Dr Bowie Family History Other No pertinent family history Social History Smoking Status: Never smoker Second Hand Exposure: No; Do You Dip or Chew Tobacco: No; Hx Alcohol Use: No Hx Substance Use: No Preferred Language: Taiwanese Communication Ability: Effective Hearing Ability: Normal Documentum Consultant Required: No Beliefs That Will Affect Care: None marital status: Current Living Situation: Spouse and Personal Care Facility Current Living Situation Comment: [facility] current occupational status: retired Feels Safe at Home: Yes Safety Concerns: Feels Safe At This Time Assistive Devices: Cane, Denture - Upper, Denture - Lower, Glasses and Walker Review of Systems All systems reviewed & are unremarkable except as noted in HPI & below. Physical Exam . Results & Data Results & Data Laboratory Results . Diagnostic Findings . PG Care Time/CCT Total # of Minutes Spent Total Time Spent with Patient: Total time spent is greater than 50% in coordination of care (as documented) at patient's floor/unit and/or counseling patient: Coding Level of Care Code 56310 IN/OBS CONSULT LVL 3,45M Diagnoses Dropped head syndrome R29.898 Neck muscle weakness M53.82 Neck pain M54.2
[2024-01-14] MEDS ORDERED: dexAMETHasone 4 MG in SYRINGE 0 ML IV SCH (10:45)
--- NOTE | 2024-01-14 11:09 | Electrocardiogram Report ---
Test Reason : Blood Pressure : / mmHG Vent. Rate : 075 BPM Atrial Rate : 075 BPM P-R Int : 172 ms QRS Dur : 078 ms QT Int : 370 ms P-R-T Axes : 048 -22 049 degrees QTc Int : 413 ms Poor data quality, interpretation may be adversely affected Normal sinus rhythm with sinus arrhythmia Left atrial enlargement Nonspecific T wave abnormality Abnormal ECG When compared with ECG of 28-NOV-2023 11:34, (unconfirmed) No significant change was found Confirmed by Panfilo Valdes ([id number]) on 01/14/2024 11:09:06 AM Referred By: Confirmed By:Panfilo Valdes
[2024-01-14] MEDS ORDERED: IMMUNE GLOBULIN (HUMAN) SOLN IV SCH (13:00)
--- NOTE | 2024-01-14 13:40 | Hospitalist Progress Note ---
Date of Service January 14, 2024 Assessment & Plan (1) Neck muscle weakness: Plan: Patient was sent in by Dr. Gonzales on 01/12 due to new onset DERAS The patient most likely has a flareup of her polymyositis per neurology. Neurology recommended ordering IVIG 0.4 mg/kg/day for 5 days. The patient does not remember the name of the group therapy counselor that she sees. Once she recalls the name, she will let me know. Acetylcholine receptor binding antibody was positive. She likely has myasthenia gravis. I started her on pyridostigmine 60 mg p.o. 3 times daily per neurology recommendation. Cancel brain MRI order Cancel cervical spine MRI. [facility] evaluated the patient and did not think that her symptoms are coming from muscular skeletal issues with her spine. The son informed me that she sees Dr. Ezra Paris and Rodolfo from rheumatology. Will inform their office. (2) DERAS (dyspnea on exertion): Plan: Non-hypoxic on room air BioFire negative Continuous pulse oximetry Supplemental oxygen as needed Likely due to muscle weakness and deconditioning (3) S/P TAVR (transcatheter aortic valve replacement): Plan: At [facility] in 12/2022 Hx of heart failure prior to TAVR Echocardiogram done on 11/14/2023 revealed LVEF at 55-60%; diastolic grade 2; bioprosthetic aortic valve with normal gradient; elevated RVSP at 3040mmHg Patient reports that she is not consistent with taking her Bumex 0.5 mg tabs, but does not appear volume overloaded on clinical exam Unclear if this is contributing to her DERAS BNP is 539, lower than previous BNP results (4) Polymyositis: Plan: Continue prednisone daily I discontinued Decadron and am treating her with IVIG. Part of her symptoms are related to polymyositis flareup. (5) Paroxysmal atrial fibrillation: Plan: Rate controlled on arrival Continue Eliquis (6) Hyponatremia: Plan: Chronic; Na 129 on arrival Sodium 131 today (7) Hypothyroidism: Plan: Started on levothyroxine for elevated TSH few months ago TSH WNL on 01/13/2024 (8) History of heart failure: (9) On amiodarone therapy: (10) Vision changes: Plan Disposition: Obs - Admit to [facility] Tele DNR/DNI Regular diet VTE PPx: On Nate Admission and Anticipated Discharge Date Admission Date: January 13, 2024 Subjective Patient is happy to know that she will be prescribed IVIG. She says that she has had polymyositis/dermatomyositis flare in the past requiring IVIG. She was told by the neurologist that she will be prescribed IVIG. She thinks that this is a flareup of her polymyositis. She says that she never had any difficulty swallowing. She says as the day progressed, her head became more and more droopy to the point that it became hard for her to chew. It was never hard for her to swallow. As I was in the room, she showed me a paper copy of her myasthenia gravis test result. Acetylcholine receptor binding antibody was positive. The neurologist was notified and he recommended starting pyridostigmine. Review of Systems Review of Systems: All systems reviewed & are unremarkable except as noted in Subjective Physical Exam Physical Exam: General: Awake, conversant. Her head has drooped over to her chest. Heart: S1, S2/regular rate and rhythm, no murmur rubs or gallops Lungs: Clear to auscultation bilaterally. Normal effort Abdomen: Soft/nontender/nondistended. No hepatosplenomegaly Extremities: No clubbing/cyanosis. No edema Behavior: Appropriate, cooperative Results & Data Results & Data Vital Signs (Past 12 Hours) Vital Signs Temp Pulse Pulse Pulse Resp BP BP 01/14/24 11:32 01/14/24 11:07 36.3 C L 71 20 155/79 H 01/14/24 07:41 36.2 C L 71 20 173/72 H 01/14/24 07:34 65 01/14/24 02:41 36.5 C 66 18 146/65 H 01/14/24 02:37 01/14/24 02:37 36.5 C 66 18 163/66 H Pulse Ox O2 Del Method 01/14/24 11:32 Room Air 01/14/24 11:07 96 Room Air 01/14/24 07:41 97 Room Air 01/14/24 07:34 01/14/24 02:41 96 Room Air 01/14/24 02:37 Room Air 01/14/24 02:37 95 Room Air Laboratory Results Abnormal lab results 01/13/24 01/13/24 01/14/24 Range/Units 15:30 21:20 05:24 WBC 4.63 L (4.8-10.8) K/ul RDW Std Deviation 49.5 H 48.6 H (36.4-46.3) fL RDW Coeff of Corey 15.5 H 15.3 H (11.5-14.5) % MPV 8.9 L 8.9 L (9.4-12.4) fL Lymph # (Auto) 0.51 L 0.77 L (1.20-3.40) K/uL Lyman # (Auto) 0.10 L (0.11-0.59) K/uL Sodium 129 L 131 L (136-145) mmol/L Chloride 92 L 97 L (98-107) mmol/L BUN 25 H (6-23) mg/dl BUN/Creatinine Ratio 34.7 H 25.8 H (10-20) Glucose 111 H 123 H (70-99(Fasting)) mg/dl Calcium 10.4 H (8.6-10.3) mg/dl B-Natriuretic Peptide 539 H (0-100) pg/ml Diagnostic Findings Chest X-Ray 01/13/24 18:57 XR chest 1V portable CLINICAL HISTORY: sob TECHNIQUE: Single frontal radiograph of the chest was obtained. Comparison: Comparison is made to chest radiograph 10/28/2022 FINDINGS: No lines and tubes are seen. Cardiomegaly is noted. The aortic arch is calcified. Aortic valvular prosthesis is seen. The lungs are clear. No evidence of pleural effusion or pneumothorax. IMPRESSION: No acute abnormalities and in particular no radiographic evidence of pneumonia. ACT 112: Negative or not required by law. Electronically signed by: Rafael Cespedes M.D. 01/14/2024 7:38 AM PG Care Time/CCT Total # of Minutes Spent Total Time Spent with Patient: Total time spent is greater than 50% in coordination of care (as documented) at patient's floor/unit and/or counseling patient: Coding Level of Care Code 40145 SUB INP/OBS CARE 2/35MIN Diagnoses Neck muscle weakness M53.82 DERAS (dyspnea on exertion) R06.09 S/P TAVR (transcatheter aortic valve replacement) Z95.2 Polymyositis M33.20 Paroxysmal atrial fibrillation I48.0 Hyponatremia E87.1 Hypothyroidism E03.9 History of heart failure Z86.79 On amiodarone therapy Z79.899 Vision changes H53.9
[2024-01-14] MEDS: pyRIDostigmine bromide 60 MG TAB PO SCH (15:15)
[2024-01-14] MEDS: Octagam 10% IVIG 20 gram bottle IV SCH (15:15)
[2024-01-14 15:27] LABS: C Reactive Protein < 0.50 mg/dl (0-0.5); Creatine Kinase 59 U/L (26-192)
[2024-01-14] MEDS: ACETAMINOPHEN 325 MG TAB PO PRN (21:20)
[2024-01-15 06:24] LABS: Basophils # (auto) 0.05 K/uL (0.00-0.20); Basophils % (auto) 0.9 %; Eosinophils # (auto) 0.03 K/uL (0.00-0.50); Eosinophils % (auto) 0.5 %; Hematocrit (blood only) 33.1 % (37.0-47.0); Hemoglobin 11.1 g/dl (12.0-16.0); Immature Granulocytes # (auto) 0.02 K/uL (0.01-0.20); Immature Granulocytes % (auto) 0.3 %; Lymphocytes # (auto) 1.43 K/uL (1.20-3.40); Lymphocytes % (auto) 24.6 %; Mean Corpuscular Hemoglobin 28.7 pg (25.0-34.0); Mean Corpuscular Hgb Conc 33.5 g/dL (32.0-36.0); Mean Corpuscular Volume 85.5 fL (80.0-100.0); Mean Platelet Volume 9.1 fL (9.4-12.4); Monocytes # (auto) 0.54 K/uL (0.11-0.59); Monocytes % (auto) 9.3 %; Neutrophils # (auto) 3.74 K/uL (1.40-6.50); Neutrophils % (auto) 64.4 %; Platelet Count 193 K/uL (130-400); RDW Coefficient of Variation 15.4 % (11.5-14.5); RDW Standard Deviation 48.4 fL (36.4-46.3); Red Blood Count 3.87 M/uL (4.20-5.40); White Blood Count 5.81 K/ul (4.8-10.8)
[2024-01-15 06:25] LABS: BUN Creatinine Ratio 34.8 (10-20); Calcium 8.7 mg/dl (8.6-10.3); Creatinine Clr Calc Pharmacy 43.2 ml/min; Est GFR (African American) 89.5 ml/min; Est GFR (Non-African American) 77.2 ml/min; Potassium 3.7 mmol/L (3.5-5.1)
--- NOTE | 2024-01-15 09:25 | Neurology Progress Note ---
Date of Service January 15, 2024 Assessment & Plan (1) Dropped head syndrome: (2) Myasthenia: Admission and Anticipated Discharge Date Admission Date: January 13, 2024 Subjective went to see pt this morning and the door was closed and i opened it and apparently she was standing behind the bathroom door and the two doors hit each other then she fell backwards in the bathroom. I found her on the bathroom lay ing in her back and she states she hit her head on the wall. pt was complaining of pain in her buttock and back of head. examined pt and no bleeding and no obvious fx as pt was moving all limbs. nurse called and physical therapiest also arrived. i examined pt and felt safe to move her to the bed from ground. she was moving all limbs and talking and complaining of pain in her buttock. Results & Data Vital Signs (Past 12 Hours) Vital Signs Temp Pulse Pulse Resp BP BP Pulse Ox 01/15/24 07:54 60 01/15/24 07:44 36.7 C 61 16 161/63 H 97 01/15/24 03:54 36.4 C L 60 16 152/65 H 97 01/15/24 00:00 65 01/14/24 23:39 36.8 C 67 16 129/68 98 O2 Del Method 01/15/24 07:54 01/15/24 07:44 Room Air 01/15/24 03:54 Room Air 01/15/24 00:00 01/14/24 23:39 Room Air Exam (Neuro) Physical Exam: Neuro: Mental: AOx4, fluent speech, normal comprehension, no apraxia, no L/R confusion, no neglect CN: PERRL, Full EOM, symmetric face, midline T/U/P, head drop with difficulty to hold her head up. full ROM of neck. Motor: No abnormal movements, normal tone, neck flexion 5-/5, neck extension 3+/5. upper limbs b/l: 4/5 proximally and elbow flexion/extension, 5-/5 wrist extension/flexion. RLE: 4-/5 hip flexion and knee extension/flexion. 4+/5 dorsiflexion. LLE: 3+/5 hip flexion, 4/5 knee extension. 4+/5 dorsiflexion. small muscle mass t/o. pt complaining of buttock pain from the fall and back of head pain. no bleeding or cut noted. moving all limbs. Coord: intact DTR: 2+ sym b/l t/o Gait: deferred. Impression: 88 yo female with chronic progressing head drop in setting of dermatomyositis background. Ach recepter Ab came back positive. In my opinion, her progression of myositis is likely the cause for the head drop rather than the MG. It is very unusual and rare to have MG present with head drop syndrome. it may contribute but not the main reason for the neck extensor muscle weakness. Overall MG seems to be mild and she is not in crisis, has minimal symptoms. pt s/tp fall this morning by accidentally hitting the bathroom door. Recommendations: CT head and spine /sacrum x-ray ordered. IVIG 0.4 gm/kg/day for 5 days IV infusion as now. physical and occupational therapy. she has been seen by our clinic 2 yrs ago. she can f/u with Baylee case when she gets discharged after her 5 days of IVIG. f/u with rheum as planned after finishing the IVIG. mestinon as now. Chart reviewed I have spent more than 50% educating patient about potential diagnosis and neurological evaluation and coordinating care with patient's treatment team. Total time spent (including chart review and coordination of care): 50 min (this includes chart review). PG Care Time/CCT Total # of Minutes Spent Total Time Spent with Patient: Total time spent is greater than 50% in coordination of care (as documented) at patient's floor/unit and/or counseling patient: Coding Level of Care Code 78655 SUB INP/OBS CARE 3/50MIN Diagnoses Dropped head syndrome R29.898 Myasthenia G70.00
--- NOTE | 2024-01-15 10:26 | XRay Report ---
XR sacrum coccyx min 2V CLINICAL HISTORY: s/p fall COMPARISON: CT of the abdomen and pelvis January 08, 2023. TECHNIQUE: AP radiographs of the sacrum and coccyx were obtained. Lateral projection could not be obt ained due to inability to roll the patient. FINDINGS: No acute fractures are identified within visualized portions of the pelvis or hips. Sacroi liac joints are intact. No acute sacral or coccygeal fracture is identified although sensitivity is d iminished given inability to obtain lateral projection. IMPRESSION: No sacral or coccygeal fracture on AP radiographs. Sensitivity for fractures diminished g iven inability to obtain lateral projection. ACT 112: Negative or not required by law. Electronically signed by: Arpit Flood M.D. 01/15/2024 10:25 AM
--- NOTE | 2024-01-15 10:38 | CT Scan Report ---
CT head/brain wo con CLINICAL HISTORY: s/p fall Technique: Contiguous axial CT images of the head were acquired from the base of the skull to the seth jens without intravenous contrast administration. Images were viewed in brain, subdural and [facility]. Automated dose lowering techniques and/or adjustment according to patient size were utilized for this exam. Comparison: Comparison is made to CT head 01/08/2023 Findings: Areas of decreased attenuation are present in the periventricular and subcortical white matter bilate rally consistent with small vessel ischemic disease. Generalized cerebral atrophy with commensurate e nlargement of the ventricles, sulci, and cisterns is also present. There is no acute intracranial hem orrhage or evidence of acute territorial infarction. No shift of the midline structures, mass effect, or extra-axial abnormalities are shown. Atherosclerotic calcifications are present in the intracran ial segments of the internal carotid arteries. Imaged portions of the paranasal sinuses and mastoid air cells are clear. The orbits appear normal. There are no acute fractures of the calvaria. Scalp swelling is seen in the left apex Impression: No acute intracranial hemorrhage or skull fractures. Scalp swelling is seen in the left apex. ACT 112: Negative or not required by law. Electronically signed by: Rafael Cespedes M.D. 01/15/2024 10:37 AM
--- NOTE | 2024-01-15 10:39 | XRay Report ---
XR cervical spine 1V CLINICAL HISTORY: s/p fall TECHNIQUE: 1 images of the cervical spine were obtained. COMPARISON: Comparison is made to cervical spine radiographs 12/05/2023 FINDINGS: No fractures or subluxations are identified. Degenerative changes are noted in the cervical spine. Th e alignment is anatomic. Prevertebral soft tissues are within normal limits. IMPRESSION: Degenerative changes without evidence of acute abnormality. ACT 112: Negative or not required by law. Electronically signed by: Rafael Cespedes M.D. 01/15/2024 10:38 AM
--- NOTE | 2024-01-15 10:40 | XRay Report ---
XR lumbar spine 1V CLINICAL HISTORY: s/p fall TECHNIQUE: 1 views of the lumbar spine were obtained. Comparison: None available at the time of this dictation. FINDINGS: There is no evidence of an acute fracture. Degenerative changes are seen in the lumbar spine with ost eophyte formation and disc space narrowing. The alignment is normal. No soft tissue abnormality is se en. IMPRESSION: Degenerative changes as above without acute fracture or subluxation. ACT 112: Negative or not required by law. Electronically signed by: Rafael Cespedes M.D. 01/15/2024 10:39 AM
--- NOTE | 2024-01-15 10:51 | XRay Report ---
XR thoracic spine 1V CLINICAL HISTORY: s/p fall COMPARISON STUDY: Chest radiograph October 27, 2015. Chest radiograph January 13, 2024. FINDINGS: Prosthetic aortic valve is incidentally noted. There is mild cardiomegaly. No acute thoraci c spine fractures are identified although sensitivity is diminished given inability to obtain a later al projection. There is mild leftward curvature of the upper thoracic spine. Mild multilevel degenera tive changes are present. IMPRESSION: No acute thoracic spine fracture identified on AP exam. Sensitivity for detection of fra ctures is significantly diminished given inability to obtain lateral projection. ACT 112: Negative or not required by law. Electronically signed by: Arpit Flood M.D. 01/15/2024 10:50 AM
--- NOTE | 2024-01-15 10:55 | XRay Report ---
XR ribs BI min 2V CLINICAL HISTORY: fell, hurts to breathe COMPARISON: Chest radiograph January 13, 2024. FINDINGS: No pneumothorax is identified on supine radiograph. No acute rib fractures are identified. Lungs are grossly clear. There is a prosthetic aortic valve. IMPRESSION: No pneumothorax identified on supine exam. No acute rib fractures identified. ACT 112: Negative or not required by law. Electronically signed by: Arpit Flood M.D. 01/15/2024 10:53 AM
--- NOTE | 2024-01-15 13:29 | Hospitalist Progress Note ---
Date of Service January 15, 2024 Assessment & Plan (1) Neck muscle weakness: Plan: Patient presented with worsening neck muscle weakness leading to droopiness of the head forward for the last several weeks. She also has dyspnea on exertion. She was sent to the hospital by her PCP because of the dyspnea on exertion. Patient was evaluated by neurology who initially thought that this was a progression of her polymyositis and recommended IVIG for 5 days. This has been initiated Acetylcholine receptor binding antibody positive. This is most likely myasthenia gravis The patient was started on Mestinon per neurology recommendations Neurology recommends continuing IVIG for myasthenia gravis treatment as well Spoke to the patient's band instrument repairer Dr. Flores as well as the on-call band instrument repairer Dr. Murdock about the possibility of polymyositis flare In the absence of elevated inflammatory markers or elevated CPK levels, per rheumatology polymyositis exacerbation is very unlikely. They recommend treating with IVIG for myasthenia gravis if the neurologist th inks appropriate. Will continue IVIG per neurology recommendation for myasthenia gravis treatment, along with Mestinon Cervical spine MRI on 01/02 revealed some findings at C2-C3, for which ortho spine was consulted. They do not think that her symptoms are related to the spine. Brain MRI canceled Repeat cervical MRI canceled (2) DERAS (dyspnea on exertion): Plan: Non-hypoxic on room air BioFire negative Continuous pulse oximetry Supplemental oxygen as needed Most likely secondary to generalized weakness (3) S/P TAVR (transcatheter aortic valve replacement): Plan: At [facility] [place] Hx of heart failure prior to TAVR Echocardiogram done on 11/14/2023 revealed LVEF at 55-60%; diastolic grade 2; bioprosthetic aortic valve with normal gradient; elevated RVSP at 3040mmHg Patient reports that she is not consistent with taking her Bumex 0.5 mg tabs, but does not appear volume overloaded on clinical exam Unclear if this is contributing to her DERAS BNP 539, lower than previous BNP results (4) Polymyositis: Plan: Continue prednisone daily Canceled Decadron IV Bilingual Loan Processor does not believe that this is a flareup of polymyositis. Continue IVIG for myasthenia gravis Follow-up with rheumatology outpatient. (5) Paroxysmal atrial fibrillation: Plan: Rate controlled on arrival Continue Eliquis (6) Hyponatremia: Plan: Chronic; Na 129 on arrival Recheck a.m. BMP (7) Hypothyroidism: Plan: Started on levothyroxine for elevated TSH few months ago TSH WNL on 01/13/2024 (8) History of heart failure: (9) On amiodarone therapy: (10) Vision changes: Plan: Could be related to myasthenia gravis Plan Disposition: Obs - Admit to [facility] Tele DNR/DNI Regular diet VTE PPx: On Eliquis Admission and Anticipated Discharge Date Admission Date: January 15, 2024 Subjective Patient had a mechanical fall this morning. CT head and x-rays done, negative. Patient has generalized aches and pains as a result of the fall. Otherwise no new complaints. Denies shortness of breath. Review of Systems Review of Systems: All systems reviewed & are unremarkable except as noted in Subjective Physical Exam Physical Exam: General: Awake, conversant. Her head has drooped over to her chest. Heart: S1, S2/regular rate and rhythm, no murmur rubs or gallops Lungs: Clear to auscultation bilaterally. Normal effort Abdomen: Soft/nontender/nondistended. No hepatosplenomegaly Extremities: No clubbing/cyanosis. No edema Behavior: Appropriate, cooperative Results & Data Results & Data Vital Signs (Past 12 Hours) Vital Signs Temp Pulse Pulse Resp BP BP Pulse Ox 01/15/24 12:33 36.8 C 65 16 125/61 96 01/15/24 09:34 74 20 180/70 H 99 01/15/24 07:54 60 01/15/24 07:44 36.7 C 61 16 161/63 H 97 01/15/24 03:54 36.4 C L 60 16 152/65 H 97 O2 Del Method 01/15/24 12:33 Room Air 01/15/24 09:34 Room Air 01/15/24 07:54 01/15/24 07:44 Room Air 01/15/24 03:54 Room Air Laboratory Results Abnormal lab results 01/15/24 Range/Units 05:28 RBC 3.87 L (4.20-5.40) M/uL Hgb 11.1 L (12.0-16.0) g/dl Hct 33.1 L (37.0-47.0) % RDW Std Deviation 48.4 H (36.4-46.3) fL RDW Coeff of Corey 15.4 H (11.5-14.5) % MPV 9.1 L (9.4-12.4) fL Sodium 132 L (136-145) mmol/L Chloride 97 L (98-107) mmol/L BUN 24 H (6-23) mg/dl BUN/Creatinine Ratio 34.8 H (10-20) Diagnostic Findings Head CT 01/15/24 09:12 CT head/brain wo con CLINICAL HISTORY: s/p fall Technique: Contiguous axial CT images of the head were acquired from the base of the skull to the vertex without intravenous contrast administration. Images were viewed in brain, subdural and bone windows. Automated dose lowering techniques and/or adjustment according to patient size were utilized for this exam. Comparison: Comparison is made to CT head 01/08/2023 Findings: Areas of decreased attenuation are present in the periventricular and subcortical white matter bilaterally consistent with small vessel ischemic disease. Generalized cerebral atrophy with commensurate enlargement of the ventricles, sulci, and cisterns is also present. There is no acute intracranial hemorrhage or evidence of acute territorial infarction. No shift of the midline structures, mass effect, or extra-axial abnormalities are shown. Atherosclerotic calcifications are present in the intracranial segments of the internal carotid arteries. Imaged portions of the paranasal sinuses and mastoid air cells are clear. The orbits appear normal. There are no acute fractures of the calvaria. Scalp swelling is seen in the left apex Impression: No acute intracranial hemorrhage or skull fractures. Scalp swelling is seen in the left apex. ACT 112: Negative or not required by law. Electronically signed by: Rafael Cespedes M.D. 01/15/2024 10:37 AM Cervical Spine X-Ray 01/15/24 09:13 XR cervical spine 1V CLINICAL HISTORY: s/p fall TECHNIQUE: 1 images of the cervical spine were obtained. COMPARISON: Comparison is made to cervical spine radiographs 12/05/2023 FINDINGS: No fractures or subluxations are identified. Degenerative changes are noted in the cervical spine. The alignment is anatomic. Prevertebral soft tissues are within normal limits. IMPRESSION: Degenerative changes without evidence of acute abnormality. ACT 112: Negative or not required by law. Electronically signed by: Rafael Cespedes M.D. 01/15/2024 10:38 AM Lumbar Spine X-Ray 01/15/24 09:13 XR lumbar spine 1V CLINICAL HISTORY: s/p fall TECHNIQUE: 1 views of the lumbar spine were obtained. Comparison: None available at the time of this dictation. FINDINGS: There is no evidence of an acute fracture. Degenerative changes are seen in the lumbar spine with osteophyte formation and disc space narrowing. The alignment is normal. No soft tissue abnormality is seen. IMPRESSION: Degenerative changes as above without acute fracture or subluxation. ACT 112: Negative or not required by law. Electronically signed by: Rafael Cespedes M.D. 01/15/2024 10:39 AM Thoracic Spine X-Ray 01/15/24 09:13 XR thoracic spine 1V CLINICAL HISTORY: s/p fall COMPARISON STUDY: Chest radiograph October 27, 2015. Chest radiograph January 13, 2024. FINDINGS: Prosthetic aortic valve is incidentally noted. There is mild cardiomegaly. No acute thoracic spine fractures are identified although sensitivity is diminished given inability to obtain a lateral projection. There is mild leftward curvature of the upper thoracic spine. Mild multilevel degenerative changes are present. IMPRESSION: No acute thoracic spine fracture identified on AP exam. Sensitivity for detection of fractures is significantly diminished given inability to obtain lateral projection. ACT 112: Negative or not required by law. Electronically signed by: Arpit Flood M.D. 01/15/2024 10:50 AM Sacrum and Coccyx X-Ray 01/15/24 09:15 XR sacrum coccyx min 2V CLINICAL HISTORY: s/p fall COMPARISON: CT of the abdomen and pelvis January 08, 2023. TECHNIQUE: AP radiographs of the sacrum and coccyx were obtained. Lateral projection could not be obtained due to inability to roll the patient. FINDINGS: No acute fractures are identified within visualized portions of the pelvis or hips. Sacroiliac joints are intact. No acute sacral or coccygeal fracture is identified although sensitivity is diminished given inability to obtain lateral projection. IMPRESSION: No sacral or coccygeal fracture on AP radiographs. Sensitivity for fractures diminished given inability to obtain lateral projection. ACT 112: Negative or not required by law. Electronically signed by: Arpit Flood M.D. 01/15/2024 10:25 AM Ribs X-Ray 01/15/24 09:35 XR ribs BI min 2V CLINICAL HISTORY: fell, hurts to breathe COMPARISON: Chest radiograph January 13, 2024. FINDINGS: No pneumothorax is identified on supine radiograph. No acute rib fractures are identified. Lungs are grossly clear. There is a prosthetic aortic valve. IMPRESSION: No pneumothorax identified on supine exam. No acute rib fractures identified. ACT 112: Negative or not required by law. Electronically signed by: Arpit Flood M.D. 01/15/2024 10:53 AM PG Care Time/CCT Total # of Minutes Spent Total Time Spent with Patient: Total time spent is greater than 50% in coordination of care (as documented) at patient's floor/unit and/or counseling patient: Coding Level of Care Code 94863 SUB INP/OBS CARE 2/35MIN Diagnoses Neck muscle weakness M53.82 DERAS (dyspnea on exertion) R06.09 S/P TAVR (transcatheter aortic valve replacement) Z95.2 Polymyositis M33.20 Paroxysmal atrial fibrillation I48.0 Hyponatremia E87.1 Hypothyroidism E03.9 History of heart failure Z86.79 On amiodarone therapy Z79.899 Vision changes H53.9
[2024-01-17 06:22] LABS: Basophils # (auto) 0.05 K/uL (0.00-0.20); Basophils % (auto) 1.2 %; Eosinophils # (auto) 0.05 K/uL (0.00-0.50); Eosinophils % (auto) 1.2 %; Hematocrit (blood only) 34.4 % (37.0-47.0); Hemoglobin 11.5 g/dl (12.0-16.0); Immature Granulocytes # (auto) 0.01 K/uL (0.01-0.20); Immature Granulocytes % (auto) 0.2 %; Lymphocytes # (auto) 0.91 K/uL (1.20-3.40); Lymphocytes % (auto) 21.9 %; Mean Corpuscular Hemoglobin 28.8 pg (25.0-34.0); Mean Corpuscular Hgb Conc 33.4 g/dL (32.0-36.0); Mean Corpuscular Volume 86.2 fL (80.0-100.0); Mean Platelet Volume 8.9 fL (9.4-12.4); Monocytes # (auto) 0.55 K/uL (0.11-0.59); Monocytes % (auto) 13.2 %; Neutrophils # (auto) 2.59 K/uL (1.40-6.50); Neutrophils % (auto) 62.3 %; Platelet Count 186 K/uL (130-400); RDW Coefficient of Variation 15.4 % (11.5-14.5); RDW Standard Deviation 48.8 fL (36.4-46.3); Red Blood Count 3.99 M/uL (4.20-5.40); White Blood Count 4.16 K/ul (4.8-10.8)
[2024-01-17] MEDS ORDERED: Nursing to Pharmacy Communication SCH (06:30)
[2024-01-17] MEDS: pyRIDostigmine bromide 60 MG TAB PO SCH (08:36)
[2024-01-17] MEDS: hydrALAZINE HCL 20 MG/ML VIAL IV PRN (09:09)
[2024-01-17 10:46] LABS: Calcium 8.4 mg/dl (8.6-10.3); Creatinine Clr Calc Pharmacy 65.9 ml/min; Est GFR (African American) 99.5 ml/min; Est GFR (Non-African American) 85.8 ml/min; Potassium 3.7 mmol/L (3.5-5.1)
[2024-01-17] MEDS: KETOROLAC 30 MG/ML VIAL IV ONE (11:04)
[2024-01-17] MEDS: ONDANSETRON INJ 2 MG/ML 2 ML VIAL IV PRN (13:11)
--- NOTE | 2024-01-17 15:00 | Hospitalist Progress Note ---
Date of Service January 17, 2024 Assessment & Plan (1) Neck muscle weakness: Plan: Patient presented with worsening neck muscle weakness leading to droopiness of the head forward for the last several weeks. She also has dyspnea on exertion. She was sent to the hospital by her PCP because of the dyspnea on exertion. Patient was evaluated by neurology who initially thought that this was a progression of her polymyositis and recommended IVIG for 5 days (last dose on 01/17). This has been initiated Acetylcholine receptor binding antibody positive. This is most likely myasthenia gravis The patient was started on Mestinon per neurology recommendations Neurology recommends continuing IVIG for myasthenia gravis treatment as well Spoke to the patient's receptionist Dr. Flores as well as the on-call receptionist Dr. Murdock about the possibility of polymyositis flare In the absence of elevated inflammatory markers or elevated CPK levels, per rheumatology polymyositis exacerbation is very unlikely. They recommend treating with IVIG for myasthenia gravis if the neurologist thinks appropriate. Will continue IVIG per neurology recommendation for myasthenia gravis treatment, along with Mestinon Cervical spine MRI on 01/02 revealed some findings at C2-C3, for which ortho spine was consulted. They do not think that her symptoms are related to the spine. (2) DERAS (dyspnea on exertion): Plan: Non-hypoxic on room air BioFire negative Continuous pulse oximetry Supplemental oxygen as needed Most likely secondary to generalized weakness (3) S/P TAVR (transcatheter aortic valve replacement): Plan: [place] [facility] [place] Hx of heart failure prior to TAVR Echocardiogram done on 11/14/2023 revealed LVEF at 55-60%; diastolic grade 2; bioprosthetic aortic valve with normal gradient; elevated RVSP at 3040mmHg Patient reports that she is not consistent with taking her Bumex 0.5 mg tabs, but does not appear volume overloaded on clinical exam Unclear if this is contributing to her DERAS BNP 539, lower than previous BNP results (4) Polymyositis: Plan: Continue prednisone daily Canceled Decadron IV Cupola Patcher Helper does not believe that this is a flareup of polymyositis. Continue IVIG for myasthenia gravis Follow-up with rheumatology outpatient. (5) Paroxysmal atrial fibrillation: Plan: Rate controlled on arrival Continue Eliquis (6) Hyponatremia: Plan: Chronic; Na 129 on arrival Recheck a.m. BMP (7) Hypothyroidism: Plan: Started on levothyroxine for elevated TSH few months ago TSH WNL on 01/13/2024 (8) History of heart failure: (9) On amiodarone therapy: (10) Vision changes: Plan: Could be related to myasthenia gravis Plan DNR/DNI Regular diet VTE PPx: On Eliquis I am treating her pain with IV Toradol today. Ordered IV hydralazine as needed for blood pressure control. Most likely her hypertension is related to generalized pain from the recent mechanical fall Admission and Anticipated Discharge Date Admission Date: January 15, 2024 Subjective Noted elevated blood pressure this morning. Patient has been running high blood pressure and has been complaining of pain all over since her fall. However she has not been using anything other than Tylenol. She refuses any narcotics. Review of Systems Review of Systems: All systems reviewed & are unremarkable except as noted in Subjective Physical Exam Physical Exam: General: Awake, conversant. Her head is more upright today. Less droopy. Heart: S1, S2/regular rate and rhythm, no murmur rubs or gallops Lungs: Clear to auscultation bilaterally. Normal effort Abdomen: Soft/nontender/nondistended. No hepatosplenomegaly Extremities: No clubbing/cyanosis. No edema Behavior: Appropriate, cooperative Results & Data Results & Data Vital Signs (Past 12 Hours) Vital Signs Temp Pulse Pulse Resp BP Pulse Ox O2 Del Method 01/17/24 11:43 36.5 C 74 18 133/64 96 Room Air 01/17/24 08:01 36.7 C 76 18 186/79 H 97 Room Air 01/17/24 07:47 67 Laboratory Results Abnormal lab results 01/17/24 Range/Units 05:36 WBC 4.16 L (4.8-10.8) K/ul RBC 3.99 L (4.20-5.40) M/uL Hgb 11.5 L (12.0-16.0) g/dl Hct 34.4 L (37.0-47.0) % RDW Std Deviation 48.8 H (36.4-46.3) fL RDW Coeff of Corey 15.4 H (11.5-14.5) % MPV 8.9 L (9.4-12.4) fL Lymph # (Auto) 0.91 L (1.20-3.40) K/uL Sodium 128 L (136-145) mmol/L Chloride 93 L (98-107) mmol/L Creatinine 0.50 L (0.6-1.2) mg/dl BUN/Creatinine Ratio 32.0 H (10-20) Calcium 8.4 L (8.6-10.3) mg/dl PG Care Time/CCT Total # of Minutes Spent Total Time Spent with Patient: Total time spent is greater than 50% in coordination of care (as documented) at patient's floor/unit and/or counseling patient: Coding Level of Care Code 12915 SUB INP/OBS CARE 2/35MIN Diagnoses Neck muscle weakness M53.82 DERAS (dyspnea on exertion) R06.09 S/P TAVR (transcatheter aortic valve replacement) Z95.2 Polymyositis M33.20 Paroxysmal atrial fibrillation I48.0 Hyponatremia E87.1 Hypothyroidism E03.9 History of heart failure Z86.79 On amiodarone therapy Z79.899 Vision changes H53.9
[2024-01-18] MEDS: IBUPROFEN 200 MG TAB PO PRN (08:41)
--- NOTE | 2024-01-18 09:17 | CT Scan Report ---
HEAD CT NONCONTRAST CT DOSE: 580.53 mGy.cm HISTORY: recent fall, on Elquis, now headache nausea TECHNIQUE: Multiaxial CT images of the head were performed without the use of intravenous contrast. A utomated exposure control was utilized for this study. A dose lowering technique was utilized adheri ng to the principles of ALARA. Comparison: Head CT 01/15/2024. Findings: The paranasal sinuses and mastoid air cells are clear. The calvarium and skull base are int act. There is no mass, hematoma, midline shift, acute infarct. White matter hypodensity is nonspecifi c but suggestive of microvascular ischemic change. The ventricles and sulci demonstrate mild age-rela albert involutional changes. Left scalp vertex swelling again noted. Impression: No acute intracranial abnormality. Left-sided scalp swelling again noted. ACT 112: Negative or not required by law. Electronically signed by: Vivek Louis M.D. 01/18/2024 9:15 AM
[2024-01-18] MEDS: amLODIPine BESYLATE 5 MG TAB PO SCH (10:19)
--- NOTE | 2024-01-18 12:54 | Neurology Progress Note ---
Date of Service January 18, 2024 Assessment & Plan Admission and Anticipated Discharge Date Admission Date: January 15, 2024 Subjective This note is to document as requested by the hospitalist to agree with stopping the mestinon as pt is not tolerating it and having side effect. I told the hospitalist that mestinon can be stopped as it is not a must med that pt need to take as it is only symptomatic treatment med and she is already getting IVIG and steroid. Alos requested by the nurse to talk to the family ([id number]) about pt. I talked to the family on the phone explained my opinion and answered all her question. Again, in my opinion, her head drop condition and weakness is mostly due to the progression of myositis and not from MG. Having normal lab does not mean pt does not have progression of myositis, most of the labs for the myositis will be normal, especially when pt has been on chronic steroid. I will defer to her Sewing Machine Bobbin Winder for future plan for IVIG and continue care for her myositis. We will be happy to assist as needed. Results & Data Vital Signs (Past 12 Hours) Vital Signs Temp Pulse Pulse Resp BP BP Pulse Ox 01/18/24 11:25 36.6 C 73 18 158/73 H 99 01/18/24 07:50 36.8 C 71 18 172/77 H 94 01/18/24 07:12 80 01/18/24 04:18 36.3 C L 66 16 138/67 97 O2 Del Method 01/18/24 11:25 Room Air 01/18/24 07:50 Room Air 01/18/24 07:12 01/18/24 04:18 Room Air PG Care Time/CCT Total # of Minutes Spent Total Time Spent with Patient: Total time spent is greater than 50% in coordination of care (as documented) at patient's floor/unit and/or counseling patient: Coding Level of Care Code None Comment no billing need. this is administrative documentation
--- NOTE | 2024-01-18 14:19 | Hospitalist Progress Note ---
Date of Service January 18, 2024 Assessment & Plan (1) Neck muscle weakness: Plan: Patient presented with worsening neck muscle weakness leading to droopiness of the head forward for the last several weeks. She also has dyspnea on exertion. She was sent to the hospital by her PCP because of the dyspnea on exertion. Patient was evaluated by neurology who initially thought that this was a progression of her polymyositis and recommended IVIG for 5 days (last dose 12/29). Acetylcholine receptor binding antibody positive. This is most likely myasthenia gravis The patient was started on Mestinon per neurology recommendations Neurology recommends continuing IVIG for myasthenia gravis treatment as well Spoke to the patient's physical fitness trainer Dr. Flores as well as the on-call physical fitness trainer Dr. Murdock about the possibility of polymyositis flare In the absence of elevated inflammatory markers or elevated CPK levels, per rheumatology polymyositis exacerbation is very unlikely. They recommend treating with IVIG for myasthenia gravis if the neurologist thinks appropriate. Completed IVIG course today. She refused Mestinon because of nausea. Neurologist recommends stopping the medicine if it is giving her side effects. Cervical spine MRI on 01/02 revealed some findings at C2-C3, for which ortho spine was consulted. They do not think that her symptoms are related to the spine. (2) DERAS (dyspnea on exertion): Plan: Non-hypoxic on room air BioFire negative Continuous pulse oximetry Supplemental oxygen as needed Most likely secondary to generalized weakness (3) S/P TAVR (transcatheter aortic valve replacement): Plan: At 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 Continue IVIG for myasthenia gravis Follow-up with rheumatology outpatient. (5) Paroxysmal atrial fibrillation: Plan: Rate controlled on arrival Continue Eliquis (6) Hyponatremia: Plan: Chronic; sodium 128 today. Likely due to poor p.o. intake due to nausea Encouraged her to eat. (7) Hypothyroidism: Plan: Started on levothyroxine for elevated TSH few months ago TSH WNL on 01/13/2024 (8) History of heart failure: (9) On amiodarone therapy: (10) Vision changes: Plan: Could be related to myasthenia gravis Plan DNR/DNI Regular diet VTE PPx: On Eliquis After the IV Toradol 01/16, blood pressure is better controlled. But still elevated. Added 5 mg of p.o. Norvasc. Started her on ibuprofen for pain control and held the aspirin for the time being. Spoke to the patient's son to update him about the plan. PT/OT recommended rehab. Case management working on [facility] Admission and Anticipated Discharge Date Admission Date: January 15, 2024 Subjective Patient is complaining of nausea. She has refused to take Mestinon as she believes that is the reason for her nausea. Review of Systems Review of Systems: All systems reviewed & are unremarkable except as noted in Subjective Physical Exam Physical Exam: General: Awake, conversant. Her head is more upright today. Less droopy. Heart: S1, S2/regular rate and rhythm, no murmur rubs or gallops Lungs: Clear to auscultation bilaterally. Normal effort Abdomen: Soft/nontender/nondistended. No hepatosplenomegaly Extremities: No clubbing/cyanosis. No edema Behavior: Appropriate, cooperative Results & Data Results & Data Vital Signs (Past 12 Hours) Vital Signs Temp Pulse Pulse Resp BP BP Pulse Ox 01/18/24 11:25 36.6 C 73 18 158/73 H 99 01/18/24 07:50 36.8 C 71 18 172/77 H 94 01/18/24 07:12 80 01/18/24 04:18 36.3 C L 66 16 138/67 97 O2 Del Method 01/18/24 11:25 Room Air 01/18/24 07:50 Room Air 01/18/24 07:12 01/18/24 04:18 Room Air PG Care Time/CCT Total # of Minutes Spent Total Time Spent with Patient: Total time spent is greater than 50% in coordination of care (as documented) at patient's floor/unit and/or counseling patient: Coding Level of Care Code 96482 SUB INP/OBS CARE 235MIN Diagnoses Neck muscle weakness M53.82 DERAS (dyspnea on exertion) R06.09 S/P TAVR (transcatheter aortic valve replacement) Z95.2 Polymyositis M33.20 Paroxysmal atrial fibrillation I48.0 Hyponatremia E87.1 Hypothyroidism E03.9 History of heart failure Z86.79 On amiodarone therapy Z79.899 Vision changes H53.9
[2024-01-19 09:16] LABS: BUN Creatinine Ratio 31.9 (10-20); Est GFR (African American) 86.1 ml/min; Est GFR (Non-African American) 74.3 ml/min; Potassium 3.9 mmol/L (3.5-5.1)
--- NOTE | 2024-01-19 13:45 | Discharge Summary ---
Date of Service January 19, 2024 Admission HPI Per Admitting Provider Dede is a pleasant 88-year-old female with PMH of atrial flutter, paroxysmal atrial fibrillation (on Eliquis), s/p TAVR, CAD, hernia repair, polymyositis, and idiopathic polyneuropathy. She presented at the behest of Dr. Gonzales on 01/12 for new onset of dyspnea on exertion. Patient reports that over the past several weeks she has had increased weakness in her neck muscles that progresses throughout the day. She also notes that she has worsening vision, which she describes as a "flickering of double vision" as the day progresses. Patient had antibodies drawn on December 28 for myasthenia gravis, but these are still pending. When she developed new onset DERAS x 4 days, she was asked to be sent in to the hospital. She denies SOB at rest, or SOB when she lies flat on her back. Patient does have history of a heart murmur last summer. She is unsure if she has a history of CHF. No supplemental oxygen at home. No CPAP at night. No sick contacts. Patient reports she did have several toes amputated a few weeks ago, and she is not very active at baseline. She took all her regular morning medication today, and manages her own medications at home. Her only recent change was increased dosage of prednisone from 1 mg-->5mg 1 week ago, which she takes for her polymyositis. She also reports she was started on thyroid medication 1 month ago. Patient did not take her Bumex today, because she did not want to be going to the bathroom frequently; she reports she takes a half a tablet on certain days, and has switched this dosage up recently. The increased weakness in her neck muscles have caused her to change her diet, and she reports she eats acute dialysis nurse meals in the evenings such as soup, because chewing becomes difficult and she has trouble opening her mouth at night. This said, she had does not endorse difficulty with swallowing. Patient ambulates with a walker at baseline; no recent falls. She denies smoking, tobacco use, or recent alcohol use. ED course: ROS: Patient endorses flickering of double vision, blurry vision that progresses throughout the day, neck weakness that progresses throughout the day, lightheadedness, and new DERAS x 4-5 days. Patient denies fever, chills, night-sweats, difficulty swallowing, loss of vision, chest pain, SOB at rest, pleuritic CP, cough, abdominal pain, N/V/D, changes in urinary/bowel habits, burning with urination, or leg swelling. Admission Exam Per Admitting Provider General: no acute distress; pleasant affect; non-toxic appearing; well- nourished; cooperative; SpO2 97% on RA HEENT: normocephalic, atraumatic; no scleral icterus; PERRLA; EOMs are intact, however her eye movements are somewhat delayed, and elicit fatigue with movements; negative lid lag; moist mucus membrane; vision and hearing intact Neck: supple; no lymphadenopathy; trachea midline; significant neck weakness when attempting to lift Skin: warm, dry without signs of tenting; no cyanosis; no rashes, bruising, lesions, or erythema noted CV: chest wall NTP; RRR; S1/S2 normal; 4/6 ejection murmur auscultated at the second ICS MCL; bounding pulses intact and symmetric at radial, DP, and PT Lungs: no acute respiratory distress; symmetrical chest wall expansion; clear breath sounds across all lung betancourt w/o adventitious sounds; no wheezing ABD: Soft, NTP; BS present; no rebound/guarding; no distention MSK: no tics or fasciculations; no edema noted in the LEs b/l, nonerythematous Neuro: A&Ox3; normal mood and affect; fluent speech; no focal deficits; sensation grossly intact in the LEs b/l Principal Diagnosis Myasthenia gravis Possible progression of myositis Status post mechanical fall Generalized weakness Discharge Exam General: Awake, conversant. Her head is more upright today. Less droopy. Heart: S1, S2/regular rate and rhythm, no murmur rubs or gallops Lungs: Clear to auscultation bilaterally. Normal effort Abdomen: Soft/nontender/nondistended. No hepatosplenomegaly Extremities: No clubbing/cyanosis. No edema Behavior: Appropriate, cooperative Discharge Data Allergies Allergy/AdvReac Type Severity Reaction Status Date / Time azithromycin Allergy Intermediate Hives Verified 01/13/24 19:40 Penicillins Allergy Intermediate hives Verified 01/13/24 19:40 Sulfa (Sulfonamide Allergy Intermediate hives Verified 01/13/24 19:40 Antibiotics) gabapentin AdvReac Intermediate Confusion, Verified 01/13/24 19:40 unable to sleep codeine AdvReac Mild MS Change Verified 01/13/24 19:40 Macrolide Antibiotics AdvReac Mild Nausea Verified 01/13/24 19:40 with "-mycins" ketoprofen AdvReac Unknown KETOPROFEN Verified 01/13/24 19:40 GEL CAUSES SKIN BURNING Consultations 01/13/24 20:30 ED Decision to Admit Stat 01/13/24 22:32 Consult Orthopedic Spine Surgery Routine 01/13/24 23:44 Consult Neurology Routine 01/14/24 00:17 Consult Neurology Routine Ordered Studies 01/15/24 09:12 CT head/brain wo con Stat 01/18/24 08:[address] [CT head/brain wo con] Stat Hospital Course (1) Neck muscle weakness: Patient presented with worsening neck muscle weakness leading to droopiness of the head forward for the last several weeks. She also has dyspnea on exertion. She was sent to the hospital by her PCP because of the dyspnea on exertion. Patient was evaluated by neurology who initially thought that this was a progression of her polymyositis and recommended IVIG for 5 days (last dose 01/17). Acetylcholine receptor binding antibody positive. This is most likely myasthenia gravis The patient was started on Mestinon per neurology recommendations Neurology recommends continuing IVIG for myasthenia gravis treatment as well Spoke to the patient's systems testing laboratory technician Dr. Flores as well as the on-call systems testing laboratory technician Dr. Murdock about the possibility of polymyositis flare In the absence of elevated inflammatory markers or elevated CPK levels, per rheumatology polymyositis exacerbation is very unlikely. They recommend treating with IVIG for myasthenia gravis if the neurologist thinks appropriate. Completed IVIG course 01/17. She refused Mestinon because of nausea. Neurologist recommends stopping the medicine if it is giving her side effects. Patient will need to see neurology and rheumatology outpatient Cervical spine MRI on 01/02 revealed some findings at C2-C3, for which ortho spine was consulted. They do not think that her symptoms are related to the spine. (2) DERAS (dyspnea on exertion): Non-hypoxic on room air BioFire negative Continuous pulse oximetry Supplemental oxygen as needed Most likely secondary to generalized weakness (3) S/P TAVR (transcatheter aortic valve replacement): At [facility] [place] [facility] in 12/2022 Hx of heart failure prior to TAVR Echocardiogram done on 11/14/2023 revealed LVEF at 55-60%; diastolic grade 2; bioprosthetic aortic valve with normal gradient; elevated RVSP at 3040mmHg Patient reports that she is not consistent with taking her Bumex 0.5 mg tabs, but does not appear volume overloaded on clinical exam Unclear if this is contributing to her DERAS BNP 539, lower than previous BNP results (4) Polymyositis: Continue prednisone daily Canceled Decadron IV 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 Completed 5-day course of IVIG Follow-up with rheumatology outpatient. (5) Paroxysmal atrial fibrillation: Rate controlled on arrival Continue Eliquis (6) Hyponatremia: Chronic; sodium 125 today. Likely due to poor p.o. intake due to nausea Encouraged her to eat. Ordered serum osmolarity, urine osmolarity, urine sodium. Will need to be followed up on outpatient Personally spoke to Dr. Gonzales who confirmed that he can pursue this outpatient as the patient does not willing to stay in the hospital any longer. (7) Hypothyroidism: Started on levothyroxine for elevated TSH few months ago TSH WNL on 01/13/2024 (8) History of heart failure: (9) On amiodarone therapy: (10) Vision changes: Could be related to myasthenia gravis Plan Discharge to home today. I personally spoke to Dr. Gonzales who will pursue the hyponatremia outpatient. Norvasc was added to her medication list as her blood pressure was noted to be consistently elevated during this hospital stay. Total Time Total Time Spent Total Time Spent (In Minutes): 35 Discharge Plan Discharge Items Patient Disposition: Transfer [facility] Fac Reason For Visit: PROGRESSING NECK WEAKNESS THROUGHOUT THE DAY, NEW Discharge Diagnosis: Myasthenia gravis Possible progression of myositis Status post mechanical fall Generalized weakness Activity: Resume your previous activity Non-emergency contact: Primary Care Provider Call non-emergency contact if: you have any medication questions and your symptoms worsen Follow-up/Referrals: Martinez Redmond [Primary Care Provider] - Diet: Heart Healthy and Low Sodium (2gm) Addtl Attending Provider Instructions: Advised to follow-up with PCP in 1 week Advised to follow-up with neurology in 2 weeks Advised to follow-up with rheumatology in 2 weeks Pending Studies at Discharge: No Studies:: urine osmolarity, serum osmolarity, urine sodium Stand-Alone Forms: [facility] Skilled Items Patient informed of condition?: Yes DNR: Yes Discharge Level of Care: Skilled Communicable Disease: No Discharge Prognosis: Stable Lines: None Urinary Catheter: No Medications and DC Order Prescriptions: New amlodipine [Norvasc] 5 mg Tablet 5 mg PO QAM 30 Days Qty: 30 0RF Continued polyethylene glycol 3350 [Miralax] 17 gram/dose powder 17 g PO DAILY melatonin 3 mg tablet 3 mg PO HS bumetanide 1 mg tablet 0.5 mg PO QAM Rx Instructions: MAY TAKE 2 ADDITIONAL DOSES WEEKLY IF NEEDED. pantoprazole [Protonix] 40 mg tablet,delayed release (DR/EC) 40 mg PO QAM ascorbic acid (vitamin C) [Vitamin C] 1,000 mg Tablet 1,000 mg PO QAM cholecalciferol (vitamin D3) [Vitamin D3] 2,000 unit Capsule 2,000 unit PO QAM Centrum Silver Women 8 mg iron-400 mcg-300 mcg Tablet 1 tab PO QAM Eliquis 2.5 mg tablet 2.5 mg PO BID Hold Instructions: Resume on 11/13/22. prednisone 5 mg tablet 5 mg PO QAM aspirin 81 mg Tablet,Delayed Release (Dr/Ec) 81 mg PO DAILY levothyroxine 75 mcg tablet 75 mcg PO DAILYBB calcium citrate-vitamin D3 315 mg-6.25 mcg (250 unit) Tablet 1 tab PO BID amiodarone 200 mg tablet 100 mg PO QAM Discharge Orders: Discharge Order (Routine); Ordered 01/19/24 Ordered By: Yris Guallpa Admission Data Admit Date/Time: 01/15/24 10:02 Attending Provider: Sergio Thomas Admit Provider: Sergio Thomas Primary Care Provider: Martinez Redmond Other Providers: Sergio Thomas; Jose Santos; Lance Johnson Other Interventions: Discharge Summary Assessment (RN) Last Done: 01/19/24 13:45 Coding Level of Care Code 59544 INP/OBS DISCH >30 MIN Diagnoses Neck muscle weakness M53.82 DERAS (dyspnea on exertion) R06.09 S/P TAVR (transcatheter aortic valve replacement) Z95.2 Polymyositis M33.20 Paroxysmal atrial fibrillation I48.0 Hyponatremia E87.1 Hypothyroidism E03.9 History of heart failure Z86.79 On amiodarone therapy Z79.899 Vision changes H53.9
== END 2024-01-19 15:46 | DRG 57 ==
LOC: EDINP 15:13 → ED 15:13 → SUATTDRO 21:19 → EDINP 23:43 → 2N 01-14 00:46